=== PATIENT | male | born 1955 | race Two or more races ===

== ENCOUNTER 2022-12-10 06:24 | Outpatient (OUT) | payer MEDICARE, BC, SELFPAY ==
[2022-12-10 07:22] LABS: Basophils Percent Auto 0.5 % (0.2-2.0); Eosinophils Absolute Auto 0.1 10^3/uL (0.0-0.7); Eosinophils Percent Auto 1.6 % (0.9-7.0); Hematocrit 42.6 % (42.0-54.0); Hemoglobin 13.7 g/dL (14.0-18.0); Immature Granulocytes Abs Auto 0.01 10^3/uL (0.00-0.03); Immature Granulocytes Pct Auto 0.1 % (0.0-0.5); Lymphocytes Absolute Auto 2.9 10^3/uL (1.2-3.8); Lymphocytes Percent Auto 38.3 % (20.5-60.0); Mean Corpuscular HGB Conc 32.2 g/dL (29.9-35.2); Mean Corpuscular Hemoglobin 28.2 pg (25.9-34.0); Mean Corpuscular Volume 87.8 fL (80.0-94.0); Mean Platelet Volume 10.4 fL (9.5-13.5); Monocytes Absolute Auto 0.4 10^3/uL (0.3-0.8); Monocytes Percent Auto 5.6 % (1.7-12.0); Neutrophils Percent Auto 53.9 % (43.0-75.0); Platelet Count 161 10^3/uL (150-450); Red Blood Count 4.85 10^6/uL (4.70-6.10); Red Cell Distribution Width 12.9 % (11.0-15.0); White Blood Count 7.5 10^3/uL (4.0-11.0)
[2022-12-10 08:31] LABS: Estimated Average Glucose 120 mg/dL; Glycohemoglobin A1C 5.8 % (4.5-6.2)
[2022-12-10 09:05] LABS: Anion Gap 10.4; BUN Creatinine Ratio 26.8; Calcium 9.3 mg/dL (8.5-10.1); Carbon Dioxide 30.8 mmol/L (21.0-32.0); Chloride 103 mmol/L (98-107); Chol HDL Ratio 5.1; Cholesterol 163 mg/dL (<=200); Estimated GFR (African America >60 (>=60); Estimated GFR (Non-African Ame >60 (>=60); Glucose 128 mg/dL (74-106); HDL Cholesterol 32 mg/dL (40-60); Potassium 4.2 mmol/L (3.5-5.1); Sodium 140 mmol/L (136-145); Triglycerides 427 mg/dL (<=150); VLDL CHOLESTEROL 85.4 mg/dL
[2022-12-10 09:15] LABS: LDL Cholesterol Direct 64 mg/dL
[2022-12-10 09:53] LABS: Prostate Specific Antigen Scrn 1.35 ng/mL (<=4.00)
== END 2022-12-10 06:25 | disposition home or self-care (01) ==
LOC: LAB 06:32
PROVIDERS: PCP Internal Medicine; Visit Provider Internal Medicine
DX: D64.9 Anemia, unspecified (principal); R73.01 Impaired fasting glucose; E78.00 Pure hypercholesterolemia, unspecified; Z12.5 Encounter for screening for malignant neoplasm of prostate
CPT/HCPCS: 36415; 80048; 80061; 82607; 82728; 82746; 83036; 83540; 83550; 83721; 85025; G0103

== ENCOUNTER 2022-12-24 12:21 | Outpatient (OUT) | payer MEDICARE, BC, SELFPAY ==
--- NOTE | 2022-12-24 10:45 | NM_ITS ---
Patient: ZENA TAMEZ Exam Date: 12/24/2022 : 1955 Gender:M Ordering : DR Aaron Benjamin D.O. Admission #: [id number] Family : Order #: [id number] CLICK HERE TO VIEW EXAM RADIOLOGY REPORT PROCEDURE: NM ALANIS PERF SPECT REST STR COMPARISON: None. INDICATIONS: Chest pain TECHNIQUE: Exam Description: Stress/Rest one day protocol gated SPECT Rest Imagin.5 mCi Tc-99m Cardiolite IV on 12/24/2022 Stress Imaging 30.6 mCi Tc-99m Cardiolite IV on 12/24/2022 Exercise Protocol: 0.4 mg Lexiscan given IV Heart Rate (bpm): Rest: 54 Max: 136 PMHR: 89 Blood Pressure: Rest: 146/84 Max: 208/94 Exercise Time: Minutes: 9 Seconds: 00 Stage Reached: Stage: 3 Mets 10.1 Symptoms: Rest and peak stress ECG findings were normal and the exercise portion of the study was normal per attending physician Dr. Ricardo Benjamin . For more details please see separate cardiac stress test report. FINDINGS: QUALITY OF STUDY: Good. PERFUSION DEFECT: None. LOCATION: Basal inferior. Mid-inferior. SIZE: Small (1-2 segments). SEVERITY: Moderate. TYPE: Persistent. WALL MOTION: Normal. LV SIZE: Normal. 113 mL. TID / TCD: None; 0.7 LVEF: Abnormal. Calculated EF 50%. SUMMARY: Myocardial perfusion imaging study has ABNORMAL findings. CONCLUSION: 1. Small fixed defect in the inferior wall. No reversible ischemia 2. Low left ventricular ejection fraction of 50% 3. Normal exercise test Dictated by: Sriram Phillips MD on 12/24/2022 at 15:11 Approved by: Sriram Phillips MD on 12/24/2022 at 15:13
--- NOTE | 2022-12-24 12:21 | OP_ITS ---
CARDIAC STRESS TEST ? Requesting Physician:? Procedure Date:? 12/24/2022 ? PROCEDURE:? Patient underwent a treadmill exercise test under Jaime protocol. ? REASON FOR STRESS TEST:? To evaluate a patient with exertional chest pain and a strong family history for coronary disease. ? CARDIAC HISTORY:? This is a 67-year-old patient with no history of coronary disease.? He has a strong family history with two brothers and sister all having coronary artery bypass grafting surgery. ? RESTING 12 LEAD ELECTROCARDIOGRAM reveals sinus rhythm with a ventricular rate of 59 beats per minute. The LA interval, QRS interval and QT interval are all within normal limits.? There are no pathologic Q-waves and only non-specific ST- T wave changes. ? STRESS TEST: Protocol:? Jaime protocol is followed. Exercise capacity:? Patient demonstrated above average exercise capacity.? He exercised for 8 minutes, achieving a heart rate of 136 beats per minute, which is equivalent to 89% maximum predicted heart rate.? Patient exercised into stage 3 of this protocol, which is equivalent to 10.1 MET units. Heart rate and blood pressure response:? Patient demonstrated a normal heart rate and blood pressure response to exercise.? EKG:? There were no ST-T wave changes or significant arrhythmias during exercise. Patient response:? Patient denied chest pain during exercise. ? IMPRESSION:? There was no objective evidence of myocardial ischemia during exercise.? Patient demonstrated normal to above average exercise capacity with a normal heart rate and blood pressure response to exercise. His Velarde treadmill score was 8 placing him in a low risk group.? Cardiolite was injected with Cardiolite images and interpretation pending. ? [facility]
== END 2022-12-24 12:22 | disposition home or self-care (01) ==
LOC: NM 12:22
PROVIDERS: PCP Internal Medicine; Visit Provider Internal Medicine
DX: R07.2 Precordial pain (principal); R94.39 Abnormal result of other cardiovascular function study
CPT/HCPCS: 78452; 93017; A9500

== ENCOUNTER 2023-01-05 07:51 | Outpatient (OUT) | payer MEDICARE, BC, SELFPAY ==
--- NOTE | 2023-01-05 08:59 | CA_ITS ---
Patient: ZENA TAMEZ Exam Date: 01/05/2023 : 1955 Gender:M Ordering : DR Aaron Benjamin D.O. Admission #: [id number] Family : Order #: [id number] CLICK HERE TO VIEW EXAM ECHOCARDIOGRAM REPORT PROCEDURE: CA ECHO DOPPLER COMPLETE INDICATIONS: Left ventricular systolic dysfunction without heart failure COMPARISON: None. DESCRIPTION: COMPLETE ECHOCARDIOGRAM Real-time transthoracic echocardiography with 2D, M-mode, spectral and color flow Doppler performed. QUALITY: Technical quality was good. LEFT VENTRICLE: Normal chamber size. Mild concentric left ventricular hypertrophy. Global left ventricular systolic function is normal. LV EF: Calculated left ventricular ejection fraction is 56% DIASTOLIC: Grade I diastolic dysfunction. ATRIAL SEPTUM: LEFT ATRIUM: Mild dilatation. RIGHT ATRIUM: Moderate dilatation. RIGHT VENTRICLE: Mild dilatation. Mildly decreased right ventricular systolic function. TRICUSPID VALVE: Normal mobility and thickness. No stenosis with trivial regurgitation. Unable to assess right-sided pressures due to lack of measurable tricuspid regurgitation. MITRAL VALVE: Normal mobility and thickness. No evidence of mitral valve stenosis. There is no mitral annular calcification. Trivial mitral regurgitation. AORTIC VALVE: Normal trileaflet appearance. No visible sclerosis. Normal leaflet mobility. No evidence of aortic valve stenosis. Trivial aortic regurgitation. AORTIC ROOT: Normal diameter and appearance. PULMONIC VALVE: Normal thickness and mobility. No stenosis. Trivial regurgitation. PERICARDIUM: No evidence of pericardial effusion. IVC: Collapses with inspirations. Normal size. PLEURA: CONCLUSION: 1. Mild concentric left ventricular hypertrophy with normal systolic function. LVEF is 60%. 2. Mild right ventricular dilatation with mildly decreased systolic function. 3. Mild to moderate biatrial dilatation. 4. Mild diastolic dysfunction. 5. No significant valvular dysfunction. 6. Unable to assess right-sided pressures due to lack of measurable tricuspid regurgitation. Adult Echocardiography Procedure Report Left Ventricle LVEDD (3.7 - 5.6 cm): 5.11 cm LVESD (2.2 - 4.0 cm): 3.11 cm LVIVS thickness (0.6 - 1.2 cm): 1.26 cm LVPW thickness (0.5 - 1.0 cm): 1.30 cm e': 0.08 m/s E - e': 5.49 LVOT Max Gradient: 3.20 mm[Hg] LVOT Area (cm2): 0.89 m/s Peak Velocity (LVOT): 0.89 m/s Mean Velocity (LVOT): 0.58 m/s LVOT Diameter 2.31 cm Left Ventricular Ejection Fraction: 55.61 % Left Atrium LA Volume Index (2D A2C): 43.85 ml/m2 Left Atrium Systolic Dimension: 4.44 cm Mitral Valve MV E to A Ratio: 0.77 Mitral Valve A-Wave Peak Velocity: 0.58 m/s Mitral Valve E-Wave Peak Velocity: 0.45 m/s Right Ventricle RV Internal Diastolic Dimension: 4.37 cm Aorta AO Root Diam: 3.46 cm Ascending Ao Diam: 3.49 cm Aortic Valve AoV Area (Peak George): 2.81 cm2, 2.81 cm2 AoV Area (VTI): 3.08 cm2, 3.08 cm2 Peak Velocity(Antegrade Flow): 1.33 m/s Peak Gradient(Antegrade Flow): 7.06 mm[Hg] Mean Velocity(Antegrade Flow): 0.90 m/s Mean Gradient(Antegrade Flow): 3.79 mm[Hg] Velocity Time Integral: 30.21 cm Tricuspid Valve Peak Velocity (Regurgitant Flow): 2.27 m/s, 2.35 m/s, 2.54 m/s Pulmonic Valve Mean Gradient: 1.66 mm[Hg], 1.92 mm[Hg] Mean Velocity: 0.60 m/s, 0.65 m/s Peak Velocity: 0.99 m/s Peak Gradient: 4.10 mm[Hg], 3.81 mm[Hg] Right Atrium Right Atrium Systolic Pressure: 94.87 ml, 94.87 ml Dictated by: Rainer Waddell M.D. on 01/05/2023 at 16:14 Approved by: Rainer Waddell M.D. on 01/05/2023 at 16:20
== END 2023-01-05 07:52 | disposition home or self-care (01) ==
LOC: CARD 07:51
PROVIDERS: PCP Internal Medicine; Visit Provider Internal Medicine
DX: I51.9 Heart disease, unspecified (principal); R94.39 Abnormal result of other cardiovascular function study
CPT/HCPCS: 93306

== ENCOUNTER 2023-08-25 09:32 | Outpatient (OUT) | payer MEDICARE, SELFPAY ==
[2023-08-25 10:15] LABS: Basophils Percent Auto 0.5 % (0.2-2.0); Eosinophils Absolute Auto 0.1 10^3/uL (0.0-0.7); Eosinophils Percent Auto 1.1 % (0.9-7.0); Hematocrit 40.8 % (42.0-54.0); Hemoglobin 13.5 g/dL (14.0-18.0); Immature Granulocytes Abs Auto 0.01 10^3/uL (0.00-0.03); Immature Granulocytes Pct Auto 0.1 % (0.0-0.5); Lymphocytes Absolute Auto 3.5 10^3/uL (1.2-3.8); Lymphocytes Percent Auto 44.1 % (20.5-60.0); Mean Corpuscular HGB Conc 33.1 g/dL (29.9-35.2); Mean Corpuscular Hemoglobin 29.1 pg (25.9-34.0); Mean Corpuscular Volume 87.9 fL (80.0-94.0); Mean Platelet Volume 10.2 fL (9.5-13.5); Monocytes Absolute Auto 0.4 10^3/uL (0.3-0.8); Monocytes Percent Auto 5.3 % (1.7-12.0); Neutrophils Absolute Auto 3.9 10^3/uL (1.4-6.5); Neutrophils Percent Auto 48.9 % (43.0-75.0); Platelet Count 152 10^3/uL (150-450); Red Blood Count 4.64 10^6/uL (4.70-6.10); Red Cell Distribution Width 12.3 % (11.0-15.0)
[2023-08-25 11:27] LABS: Percent Iron Saturation 21.6 %
== END 2023-08-25 09:33 | disposition home or self-care (01) ==
LOC: LAB 09:36
PROVIDERS: PCP Internal Medicine; Visit Provider Internal Medicine
DX: D64.9 Anemia, unspecified (principal)
CPT/HCPCS: 36415; 82728; 83540; 83550; 85025

== ENCOUNTER 2024-01-12 06:28 | Outpatient (OUT) | payer MEDICARE, SELFPAY ==
[2024-01-12 08:35] LABS: Basophils Percent Auto 0.5 % (0.2-2.0); Eosinophils Absolute Auto 0.2 10^3/uL (0.0-0.7); Eosinophils Percent Auto 2.2 % (0.9-7.0); Hematocrit 39.6 % (42.0-54.0); Immature Granulocytes Abs Auto 0.01 10^3/uL (0.00-0.03); Immature Granulocytes Pct Auto 0.1 % (0.0-0.5); Lymphocytes Absolute Auto 3.4 10^3/uL (1.2-3.8); Lymphocytes Percent Auto 43.8 % (20.5-60.0); Mean Corpuscular HGB Conc 32.8 g/dL (29.9-35.2); Mean Corpuscular Volume 91.2 fL (80.0-94.0); Mean Platelet Volume 11.1 fL (9.5-13.5); Monocytes Absolute Auto 0.4 10^3/uL (0.3-0.8); Monocytes Percent Auto 5.1 % (1.7-12.0); Neutrophils Absolute Auto 3.7 10^3/uL (1.4-6.5); Neutrophils Percent Auto 48.3 % (43.0-75.0); Platelet Count 160 10^3/uL (150-450); Red Blood Count 4.34 10^6/uL (4.70-6.10); Red Cell Distribution Width 12.3 % (11.0-15.0); White Blood Count 7.7 10^3/uL (4.0-11.0)
[2024-01-12 08:59] LABS: Alanine Aminotransferase 22 U/L (16-63); Albumin Globulin Ratio 0.9; Albumin Level 3.3 g/dL (3.4-5.0); Alkaline Phosphatase 107 U/L (46-116); Anion Gap 8.2; BUN Creatinine Ratio 21.7; Bilirubin Total 0.3 mg/dL (0.2-1.0); Calcium 9.1 mg/dL (8.5-10.1); Carbon Dioxide 32.4 mmol/L (21.0-32.0); Chloride 105 mmol/L (98-107); Cholesterol 157 mg/dL (<=200); Estimated GFR (African America >60 (>=60); Estimated GFR (Non-African Ame >60 (>=60); Globulin 3.6 g/dL; Glucose 111 mg/dL (74-106); HDL Cholesterol 26 mg/dL (40-60); Potassium 4.6 mmol/L (3.5-5.1); Sodium 141 mmol/L (136-145); Total Protein 6.9 g/dL (6.4-8.2); Triglycerides 674 mg/dL (<=150); VLDL CHOLESTEROL 134.8 mg/dL
[2024-01-12 09:21] LABS: Aspartate Amino Transferase 16 U/L (15-37)
[2024-01-12 09:40] LABS: LDL Cholesterol Direct 47 mg/dL
[2024-01-12 12:17] LABS: Estimated Average Glucose 108 mg/dL; Glycohemoglobin A1C 5.4 % (4.5-6.2)
== END 2024-01-12 06:29 | disposition home or self-care (01) ==
LOC: LAB 06:30
PROVIDERS: PCP Internal Medicine; Visit Provider Internal Medicine
DX: R73.01 Impaired fasting glucose (principal); G60.9 Hereditary and idiopathic neuropathy, unspecified; R03.0 Elevated blood-pressure reading, without diagnosis of hypertension; E78.00 Pure hypercholesterolemia, unspecified; D64.9 Anemia, unspecified; Z12.5 Encounter for screening for malignant neoplasm of prostate
CPT/HCPCS: 36415; 80053; 80061; 83036; 83721; 85025; G0103

== ENCOUNTER 2024-01-26 09:32 | Outpatient (OUT) | payer MEDICARE, SELFPAY ==
--- NOTE | 2024-01-26 | XR_ITS ---
[address] [address] Patient Name: ZENA TAMEZ MRN: [id number] date: 1955 Sex: M Assigned Patient Location: Current Patient Location: Accession/Order Number: [id number] Exam Date: 01/26/2024 09:33 Report Date: 01/26/2024 14:32 At the request of: DESTINY MONTGOMERY Procedure: XR foot ARMAND min 3V EXAMINATION: XR foot ARMAND min 3V HISTORY: BILATERAL FOOT PAIN COMPARISON: 10/03/2020 FINDINGS: RIGHT FINDINGS: BONES: No acute fracture or dislocation. Minimal degenerative changes with enthesopathic spurring of the calcaneus and mild marginal osteophyte formation SOFT TISSUES: Negative. No visible soft tissue swelling. OTHER: Negative. LEFT FINDINGS: BONES: No acute fracture or dislocation. Minimal degenerative changes with enthesopathic spurring mild marginal osteophyte formation. Internal fixation of the distal tibia with a medial plate and screws, partially visualized SOFT TISSUES: Negative. No visible soft tissue swelling. OTHER: Negative. XR/XR foot ARMAND min 3V IMPRESSION: Minimal bilateral degenerative changes Electronically authenticated by: CINDY CHANDRA Date: 01/26/2024 14:32
== END 2024-01-26 09:33 | disposition home or self-care (01) ==
LOC: EC 09:32
PROVIDERS: PCP Internal Medicine
DX: M79.672 Pain in left foot (principal); M79.671 Pain in right foot
CPT/HCPCS: 73630

== ENCOUNTER 2024-03-29 08:44 | Outpatient (OUT) | payer MEDICARE, SELFPAY ==
--- NOTE | 2024-03-29 08:50 | ECG_ITS ---
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
--- OUTSIDE RECORDS SUMMARY | 2024-03-29 08:56 | XMS_ITS | CCD ---
Author Organization [facility] Care Team Providers Care Energy Administrator Name Role Phone Al-Obosi, Nupur Tony Unavailable [phone] Price Swift Unavailable [phone] JOSE MANUEL, LAURA JARRELL Unavailable Unavai lable AL-OBOSI, NUPUR TONY Unavailable Unavail able AL-OBOSI, NUPUR TONY Unavailable Unavail able TRANG BRAY Unavailable Unavailable PHILBIN, LAURA JARRELL Unavailable Unavai labLEIA Josue Unavailable Unavailable PHILBIN, LAURA JARRELL Unavailable Unavai lable AL-OBOSI, NUPUR TONY Unavailable Unavail able PHILBIN, LAURA JARRELL Unavailable Unavai lable SHILA ISLAS Unavailable Unavailable PHILBIN, LAURA JARRELL Unavailable Unavai lable AL-OBOSI, NUPUR TONY Unavailable Unavail able PHILBIN, LAURA JARRELL Unavailable Unavai lable JONA MEYER Unavailable Unavailable PHILBIN, LAURA JARRELL Unavailable Unavai lable AL-OBOSI, NUPUR TONY Unavailable Unavail able PHILBIN, LAURA JARRELL Unavailable Unavai lable PHILBIN, LAURA JARRELL Unavailable Unavai lable AL-OBOSI, NUUPR TONY Unavailable Unavail able Al-Obosi, Nupur I. Unavailable Unavailable PHILBIN, LAURA JARRELL Unavailable Unavai lable PHILBIN, LAURA JARRELL Unavailable Unavai lable AL-OBOSI, NUPUR TONY Unavailable Unavail able PHILBIN, LAURA JARRELL Unavailable Unavai lable PHILBIN, LAURA JARRELL Unavailable Unavai lable AL-OBOSI, NUPUR TONY Unavailable Unavail able PHILBIN, LAURA JARRELL Unavailable Unavai lable PRICE SWIFT Unavailable Unavailabl e AL-OBOSI, NUPUR TONY Unavailable Unavail able Al-Obosi, Nupur I. Primary Care Provider NUPUR GIL Primary Care Unavail able ALLISON WILLIAMSON Attending Unavailab Nupur Bernal I. Primary Care Provider Aaron Bush Unavailable Yvonne, Imwilliam Unavailable MD Nino Russell Attending Provider DO Aaron Bush Primary Care Provider Craig Ken Unavailable ELEAZAR, DR MÁRQUEZ Consulting Unavailable BALL, DR MÁRQUEZ Attending Unavailable BALL, DR MÁRQUEZ Admitting Unavailable BALL, DR MÁRQUEZ Primary Care Unavailable BALL, DR MÁRQUEZ Attending Unavailable BALL, DR MÁRQUEZ Admitting Unavailable BALL, DR MÁRQUEZ Primary Care Unavailable BALL, DR MÁRQUEZ Primary Care Unavailable BALL, DR MÁRQUEZ Consulting Unavailable BALL, DR MÁRQUEZ Attending Unavailable BALL, DR MÁRQUEZ Admitting Unavailable ZIEBER, DR SILVIA Mcclain Consulting Unavailable MISC, DR SCOTT Attending Unavailable MISC, DR SCOTT Admitting Unavailable MISC, DR SCOTT Consulting Unavailable BALL, DR MÁRQUEZ Primary Care Unavailable BALL, DR MÁRQUEZ Consulting Unavailable BALL, DR MÁRQUEZ Attending Unavailable BALL, DR MÁRQUEZ Admitting Unavailable BALL, DR MÁRQUEZ Primary Care Unavailable Eleazar, Aaron Primary Care Unavailable Asaad, Nino Attending Unavailable Asaad, Nino Admitting Unavailable Medications Current Medications Medication Drug Class(es) Dates Sig (Normalized) Sig (Original) acetaminophen 325 mg / HYDROcodone bitartrate 5 mg oral tablet (2 sources) Opioid Agonist Start: 02-17-2018 End: 02-24-2018 take 1-2 tablets by mouth every four hours as needed for pain and pain HYDROcodone-aceta minophen (NORCO) 5-325 mg per tablet Indications: Post-op pain Take 1 (one) tablet to 2 (two) tablets by mouth every 4 (four) hours as needed for pain. 40 tablet 0 02/17/2018 02/24/2018 Active Start: 05-27-2017 End: 06-03-2017 take 1-2 tablets by mouth every four hours HYDROcodone-acetaminophen (NORCO) 5-325 mg per tablet Take 1 (one) tablet to 2 (two) tablets by mouth every 4 (four) hours as needed for pain. 40 tablet 0 05/27/2017 06/03/2017 Active aspirin 325 mg oral tablet (2 sources) Nonsteroidal Anti-inflammatory Drug Start: 02-17-2018 End: 03-19-2018 take 1 tablet by mouth twice daily aspirin 325 MG tablet Take 1 (one) tablet (325 mg total) by mouth 2 (two) times a day While immbolized. 60 tablet 1 02/17/2018 03/19/2018 Active Start: 05-27-2017 End: 06-26-2017 take 1 tablet by mouth twice daily aspirin 325 MG tablet Take 1 (one) tablet (325 mg total) by mouth 2 (two) times a day While immbolized. 60 tablet 1 05/27/2017 06/26/2017 Active celecoxib 200 mg oral capsule (2 sources) Nonsteroidal Anti-inflammatory Drug Start: 02-17-2018 End: 02-24-2018 take 1 capsule by mouth twice daily celecoxib (CELEBREX) 200 MG capsule Take 1 (one) capsule (200 mg total) by mouth 2 (two) times a day for 7 days. 14 capsule 0 02/17/2018 02/24/2018 Active Start: 05-27-2017 End: 06-03-2017 take 1 capsule by mouth once daily celecoxib (CELEBREX) 200 MG capsule Take 1 (one) capsule (200 mg total) by mouth daily for 7 days. 7 capsule 0 05/27/2017 06/03/2017 Active cephalexin 500 mg oral capsule (2 sources) Cephalosporin Antibacterial Start: 02-17-2018 End: 02-24-2018 take 1 capsule by mouth four times daily cephALEXin (KEFLEX) 500 MG capsule Take 1 (one) capsule (500 mg total) by mouth 4 (four) times a day for 7 days. 28 capsule 0 02/17/2018 02/24/2018 Active Start: 05-27-2017 End: 06-03-2017 take 1 capsule by mouth four times daily cephALEXin (KEFLEX) 500 MG capsule Take 1 (one) capsule (500 mg total) by mouth 4 (four) times a day for 7 days. 28 capsule 0 05/27/2017 06/03/2017 Active CYANOCOBALAMIN, VITAMIN B-12 , (VITAMIN B-12 ORAL) (9 sources) CYANOCOBALAMIN, VITAMIN B-12, (VITAMIN B-12 ORAL) Indications: supplement Take by mouth every morning . 0 Active CYANOCOBALAMIN, VITAMIN B-12, (VITAMIN B-12 ORAL) Indications: supplement Take by mouth every morning . Active cyclobenzaprine hydrochloride 5 mg oral tablet (1 source) Muscle Relaxant Start: 05-17-2017 cyclobenzaprine (FLEXERIL) 5 MG tablet Take 1 tab at 7 pm for muscle pain, don't drive under influence of the medication, can go up to two three times daily if toelrated 05/17/2017 Active docusate sodium 100 mg oral capsule (1 source) Start: 05-27-2017 End: 06-06-2017 take 1 capsule by mouth twice daily for constipation docusate sodium (COLACE) 100 MG capsule Take 1 (one) capsule (100 mg total) by mouth 2 (two) times a day Purchase over the counter. Take for constipation while on narcotics. for 10 days. 10 capsule 0 05/27/2017 06/06/2017 Active escitalopram 10 mg oral tablet (7 sources) Serotonin Reuptake Inhibitor Start: 12-16-2022 take 1 tablet by mouth once daily at bedtime Escitalopram Oxalate 10 MG 1 tablet Orally Once a day at bedtime for 90 days Nov, Active esomeprazole 40 mg delayed release oral capsule (20 sources) Proton Pump Inhibitor Start: 08-26-2022 take 1 capsule by mouth every twelve hours Esomeprazole Magnesium 40 MG 1 capsule Orally twice a day for 30 days Aug, Active Start: 08-26-2022 End: 08-26-2022 take 40 mg by mouth once daily Esomeprazole Magnesium Discontinued 40 MG PO Daily August 26, 2022 12:00am August 26, 2022 10:07am Start: 06-01-2016 End: 02-11-2018 esomeprazole (NEXIUM) 40 MG capsule TAKE 1 CAPSULE DAILY @ [facility] for GER[facility] 06/01/2016 02/11/2018 Discontinued folic acid (7 sources) ilsjmfxh-jxbr-rt n-folic acid (rmqfmlqnwqra-cdbz-cdajdxku-folic acid) 3,500-18-0.4 unit-mg-mg Chew Indications: supplement Chew and Swallow every morning . Active gabapentin 300 mg oral capsule (19 sources) Anti-epilept ic Agent take 2 capsules by mouth at bedtime Gabapentin 300 MG 2 capsules Orally at bedtime Active take 1 capsule by [facility] every twenty-four hours Gabapentin 300 MG 1 capsule Orally Once a day Active meloxicam 15 mg oral tablet (13 sources) Nonsteroidal Anti-inflammatory Drug Start: 07-16-2022 take 1 tablet by mouth every twenty-four hours Meloxicam 15 MG 1 tablet Orally Once a day for 30 day(s) Jul, Active Start: 11-03-2018 meloxicam (MOB IC) 15 MG tablet End: 02-17-2018 take 1 tablet by mouth once daily in the morning meloxicam (MOBIC) 15 MG tablet Indications: pain Take 15 mg by mouth every morning. 02/17/2018 Suspended yzbfqvxo-snup-fcv-folic acid (kuklpffiergd-ebqr-vkyohgxg-folic acid) 3,500-18-0.4 unit-mg-mg Chew (2 sources) bpxcqcue-xebx-tf n-folic acid (gqnyfewfdeuz-aazu-cytkryvq-folic acid) 3,500-18-0.4 unit-mg-mg Chew Indications: supplement Chew and Swallow every morning . 0 Active naproxen 500 mg delayed rele ase oral tablet (2 sources) Nonstero idal Anti-inf lammator y Drug S t a r t : 1 2 - 2 0 - 2 0 1 7 E n d : 1 2 - 2 7 - 2 0 1 7 take 1 tablet by mouth twice daily at mealtime naproxen (EC NAPROSYN) 500 MG EC tablet Take 1 (one) tablet (500 mg total) by mouth 2 (two) times a day with meals for 14 doses. 14 tablet 0 05/19/2017 05/26/2017 Active omeprazole 20 mg delayed rel ease oral capsule (10 sources) Proton Pump Inhibito r S t a r t : 0 9 - 0 6 - 2 0 1 7 take 2 capsules by mouth once daily in the morning omeprazole (PRILOSEC) 20 MG capsule Indications: gastroesophageal reflux disease Take 40 mg by mouth every morning . 0 02/03/2017 Active polysaccharide iron complex 150 mg oral capsule (8 sources) S t a r t : 0 7 - 1 4 - 2 0 2 3 take 1 capsule by mouth every other day Ferrex 150 150 MG 1 capsule Orally qod for 90 days Nov, Active tobramycin 3 mg/ml ophthalmi c solution (1 source) Aminogly coside Antibact erial S t a r t : 0 6 - 0 9 - 2 0 1 9 E n d : 0 6 - 1 4 - 2 0 1 9 take 1 drop(s) into the eye(s) every four hours tobramycin (TOBREX) 0.3 % ophthalmic solution Administer 1 (one) drop into the left eye every 4 (four) hours while awake for 5 days . 5 mL 0 11/06/2018 11/11/2018 Active Completed/Discontinued Medications Medication Drug Class(es) Dates Sig (Normalized) Sig (Original) acetaminophen 325 mg oral tablet (1 source) End: 05-21-2017 take 2 tablets by mouth every six hours acetaminophen (TYLENOL) 325 MG tablet Take 650 mg by mouth every 6 (six) hours as needed for pain. 05/21/2017 Discontinued acetaminophen 325 mg / oxyCODONE hydrochloride 5 mg oral tablet (4 sources) Opioid Agonist Start: 02-17-2018 End: 02-17-2018 take 2 tablets by mouth every twenty-four hours as needed Start: 05-19-2017 End: 05-27-2017 take 1 tablet by mouth every six hours oxyCODONE-acetaminophen (PERCOCET) 5-325 mg per tablet Take 1 (one) tablet by mouth every 6 (six) hours as needed for pain. 20 tablet 0 05/19/2017 05/27/2017 Discontinued atorvastatin 10 mg oral tablet (11 sources) HMG-CoA Reductase Inhibitor Start: 11-04-2015 End: 02-11-2018 take 1 tablet by mouth once daily in the evening atorvastatin (LIPITOR) 10 MG tablet Indications: hypercholesterolemia Take 10 mg by mouth every evening . 11/04/2015 02/11/2018 Discontinued take 1 tablet by [facility] once daily in the morning atorvastatin (LIPITOR) 40 MG tablet Janet cations: hypercholesterolemia Take 40 mg by mouth every morning. 0 Active calcium chloride 0.0014 meq/ ml / potassium chloride 0.004 meq/ml / sodium chloride 0.103 meq/ml / sodium lactate 0.028 meq/ml injectable solution (3 sources) Start: 02-17-2018 End: 02-17-2018 Start: 05-27-2017 End: 05-27-2017 take 50 mL intravenous route every hour lactated Ringers infusion 50 mL/hr, Intravenous, Continuous, Starting Madison 05/27/17 at 0830, Pre-Procedure New Bag 05/27/2017 07:43 EST 50 mL/hr 50 mL/hr DOCOSAHEXANOIC ACID/EPA (FIS H OIL ORAL) (7 sources) End: 02-11-2018 DOCOSAHEXANOIC ACID/EPA (FIS H OIL ORAL) Indications: supplement Take by mouth every other day . 02/11/2018 Discontinued DOCOSAHEXANOIC A CRISTINA/EPA (FISH OIL ORAL) Indications: supplement Take by mouth every other day . Active 50 ml fentaNYL 0.05 mg/ml in jection (3 sources) Opioid Agonist Start: 02-17-2018 End: 02-17-2018 Start: 05-27-2017 End: 05-27-2017 fentaNYL (SUBLIMAZE) injecti on 100 mcg 100 mcg, Intravenous, Once, Madison 05/27/17 at 0830, For 1 dose, Pre-Procedure, Pre-procedure for nerve block. May repeat in 5 minutes x 1 if sedation inadequate to perform block. Given 05/27/2017 08:19 EST 100 mcg gemfibrozil 600 mg oral tablet (8 sources) Peroxisome Proliferator Receptor alpha Agonist Start: 09-16-2015 End: 02-11-2018 gemfibrozil (LOPID) 600 MG tablet TAKE 1 TABLET for cholesterol @ evening 09/16/2015 02/11/2018 Discontinued hydrALAZINE HCl 20 MG per 1 ML Injection (1 source) Arteriolar Vasodilator Start: 02-17-2018 End: 02-17-2018 0.5 ml HYDROmorphone hydrochloride 1 mg/ml prefilled syringe (2 sources) Opioid Agonist Start: 02-17-2018 End: 02-17-2018 Start: 05-19-2017 End: 05-19-2017 HYDROmorphone (DILAUDID) inj ection 0.5 mg 0.5 mg, Intravenous, Once, 05/19/17 at 0445, For 1 dose Given 05/19/2017 04:56 EST 0.5 mg ibuprofen 200 mg oral tablet (2 sources) Nonsteroidal Anti-inflammatory Drug End: 05-27-2017 take 1 tablet by mouth every six hours ibuprofen (ADVIL,MOTRIN) 200 MG tablet Take 200 mg by mouth every 6 (six) hours as needed for pain. 05/27/2017 Discontinued 1 ml ketorolac tromethamine 30 mg/ml injection (1 source) Nonsteroidal Anti-inflammatory Drug, Cyclooxygenase Inhibitor Start: 05-19-2017 End: 05-19-2017 ketorolac (TORADOL) injection 30 mg 30 mg, Intravenous, Once, 05/19/17 at 0445, For 1 dose Given 05/19/2017 04:55 EST 30 mg 4 ml labetalol hydrochloride 5 mg/ml cartridge (1 source) beta-Adrenergic Mariely Start: 02-17-2018 End: 02-17-2018 10 ml lidocaine hydrochloride 10 mg/ml injection (9 sources) Antiarrhythmic, Amide Local Anesthetic Start: 05-27-2017 End: 05-27-2017 lidocaine 1% (XYLOCAINE) 10 mg/mL (1 %) injection 5 mL 5 mL, Other, Once, [place] 05/27/17 at 0830, For 1 dose, Pre-Procedure, [] for anesthesia block administration Given 05/27/2017 08:19 EST 5 mL Start: 05-27-2017 End: 05-27-2017 lidocaine 1% (XYLOCAINE) 10 mg/mL (1 %) injection 0.2 mL 0.2 mL, Intradermal, Once, Madison 05/27/17 at 0830, For 1 dose, Pre-Procedure, Around site prior to IV insertion. Given 05/27/2017 07:43 EST 0.2 mL End: 02-11-2018 lidocaine (LIDODERM) 5 % pat ch Indications: shingles Place 1 patch on the skin daily Remove & Discard patch within 12 hours or as directed by MD . 02/11/2018 Discontinued 2 ml midazolam 1 mg/ml injec tion (2 sources) Benzodiazepine Start: 02-17-2018 End: 02-17-2018 Start: 05-27-2017 End: 05-27-2017 midazolam (VERSED) injection 2 mg 2 mg, Intravenous, Once, Amdison 05/27/17 at 0830, For 1 dose, Pre-Procedure, Pre-procedure for nerve block. May repeat in 5 minutes x 1 if sedation inadequate to perform block. Given 05/27/2017 08:19 EST 2 mg naloxone (NARCAN) injection 0.1 mg (2 sources) Start: 02-17-2018 End: 02-17-2018 naloxone (NARCAN) injection 0.1 mg Start: 02-17-2018 End: 02-17-2018 naloxone (NARCAN) injection 0.1 mg 2 ml ondansetron 2 mg/ml injection (1 source) Serotonin-3 Receptor Antagonist Start: 05-19-2017 End: 05-19-2017 ondansetron (ZOFRAN) injection 4 mg 4 mg, Intravenous, Once, Wed05/19/17 at 0445, For 1 dose Given 05/19/2017 04:55 EST 4 mg predniSONE 10 mg oral tablet (7 sources) Corticosteroid End: 02-11-2018 predniSONE (DELTASONE) 10 MG tablet Take 10 mg by mouth Take 2 tablets twice a day for 3 days, 1 tablet twice a day for 3 days, 1 tablet once a day for 5 days for shingles . 02/11/2018 Discontinued 20 ml ropivacaine hydrochloride 5 mg/ml injection (2 sources) Amide Local Anesthetic Start: 02-17-2018 End: 02-17-2018 Start: 05-27-2017 End: 05-27-2017 ropivacaine (PF) 100 mg/20 m L (5 mg/mL) 0.5 % Syrg 45 mL 45 mL, Infiltration, Once, [facility] 05/27/17 at 0830, For 1 dose, Pre-Procedure, [] for anesthesia block administration Given 05/27/2017 08:19 EST 45 mL 1000 ml sodium chloride 9 mg /ml injection (2 sources) Start: 02-17-2018 End: 02-17-2018 Start: 05-19-2017 End: 05-19-2017 sodium chloride 0.9% (NS) rain maynor 500 mL 500 mL, Intravenous, at 1,000 mL/hr, Once, Wed05/19/17 at 0445, For 1 dose New Bag 05/19/2017 05:00 EST 500 mL 1000 mL/hr valACYclovir 1000 mg oral tablet (7 sources) Herpesvirus Nucleoside Analog DNA Polymerase Inhibitor, Herpes Simplex Virus Nucleoside Analog DNA Polymerase Inhibitor, Herpes Zoster Virus Nucleoside Analog DNA Polymerase Inhibitor End: 02-11-2018 take 1 tablet by mouth twice daily valACYclovir (VALTREX) 1000 MG tablet Indications: shingles Take 1,000 mg by mouth 2 (two) times a day. 02/11/2018 Discontinued UNKNOWN (1 source) End: 05-14-2017 Problems Active Problems Problem Classification Problem Date Documented Date Episodic/Chronic Anxiety disorders (11 sources) Generalized anxiety disorder; Translations: [Generalized anxiety disorder] Chronic Complications of surgical procedures or medical care (5 sources) Infection following a procedure, other surgical site, initial encounter; Translations: [Infection following a procedure, other surgical site, initial encounter] Episodic Deficiency and other anemia (8 sources) Iron deficiency anemia due to blood loss; Translations: [Iron deficiency anemia secondary to blood loss (chronic)] Chronic Deficiency and other anemia (2 sources) 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 Deficiency and other anemia (12 sources) Iron deficiency anemia; Translations: [Other iron deficiency anemias] Episodic Deficiency and other anemia (17 sources) Anemia; Translations: [Anemia, unspecified] Episodic Deficiency and other anemia (8 sources) Anemia, unspecified; Translations: [ANEMIA UNSPECIFIED] Onset: 08-26-2022 Episodic Deficiency and other anemia (1 source) Other iron deficiency anemias Episodic Diabetes mellitus without complication (1 source) Impaired fasting glucose Episodic Disorders of lipid metabolism (20 sources) Hyperlipidemia, unspecified; Translations: [Hypercholesterolemia ] Onset: 05-21-2017 Resolved: 08-13-2020 Chronic Esophageal disorders (19 sources) Gastro-esophageal reflux disease without esophagitis; Translations: [Gastroesophageal reflux disease] Onset: 05-21-2017 Chronic Esophageal disorders (20 sources) Esophageal disorders; Translations: [Gastroesophageal reflux disease with esophagitis without hemorrhage] Fracture of lower limb (2 sources) Nondisplaced fracture of medial malleolus of left tibia, subsequent encounter for closed fracture with nonunion; Translations: [Nondisplaced fracture of medial malleolus of left tibia, subsequent encounter for closed fracture with nonunion] Onset: 10-22-2017 Episodic Gastritis and duodenitis (5 sources) Gastritis; Translations: [Gastritis, unspecified, without bleeding] Episodic Gastroduodenal ulcer (except hemorrhage) (12 sources) Gastric ulcer; Translations: [Gastric ulcer, unspecified as acute or chronic, without hemorrhage or perforation] Chronic Hyperplasia of prostate (20 sources) Lower urinary tract symptoms due to benign prostatic hypertrophy; Translations: [Benign prostatic hyperplasia with lower urinary tract symptoms] Chronic Miscellaneous mental health disorders (5 sources) Primary insomnia; Translations: [Primary insomnia] Chronic Nonspecific chest pain (8 sources) Precordial pain; Translations: [Precordial pain] Episodic Nutritional deficiencies (2 sources) Vitamin D deficiency, unspecified; Translations: [Vitamin D deficiency, unspecified] Onset: 10-22-2017 Chronic Osteoarthritis (20 sources) Osteoarthritis of left knee joint; Translations: [Unilateral primary osteoarthritis, left knee] Onset: 12-16-2021 Chronic Other aftercare (2 sources) Other half-way (current) drug therapy; Translations: [OTH SAW CLEANER CURRENT DRUG THERAPY] Onset: 12-17-2021 Episodic Other aftercare (5 sources) Long-term current use of drug therapy; Translations: [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] Episodic Other and ill-defined heart disease (1 source) Heart disease, unspecified Chronic Other circulatory disease (3 sources) Elevated blood-pressure reading, without diagnosis of hypertension; Translations: [Elevated blood-pressure reading, without diagnosis of hypertension] Onset: 05-21-2017 Episodic Other circulatory disease (7 sources) Elevated blood-pressure reading without diagnosis of hypertension; Translations: [Elevated blood-pressure reading, without diagnosis of hypertension] Episodic Other connective tissue disease (4 sources) Pain in left foot; Translations: [Pain in left foot] Episodic Other connective tissue disease (1 source) Pain in left foot; Translations: [Pain in left foot] Episodic Other injuries and conditions due to external causes (4 sources) History of fall; Translations: [History of falling] Episodic Other injuries and conditions due to external causes (1 source) History of falling; Translations: [History of falling] Episodic Other nervous system disorders (17 sources) Mononeuropathy of lower limb; Translations: [Unspecified mononeuropathy of left lower limb] Chronic Other nervous system disorders (1 source) Unspecified mononeuropathy of left lower limb Chronic Other nervous system disorders (7 sources) Idiopathic peripheral neuropathy; Translations: [Hereditary and idiopathic neuropathy, unspecified] Chronic Other nervous system disorders (1 source) Hereditary and idiopathic neuropathy, unspecified Chronic Other nervous system disorders (1 source) Postoperative pain Episodic Other nervous system disorders (2 sources) Other acute postprocedural pain; Translations: [Other acute postprocedural pain] Onset: 02-17-2018 Episodic Other nervous system disorders (16 sources) Paresthesia; Translations: [Paresthesia of skin] Episodic Other nervous system disorders (1 source) Paresthesia of skin; Translations: [Paresthesia of skin] Episodic Other non-traumatic joint disorders (16 sources) Arthralgia of the ankle and/or foot; Translations: [Pain in left ankle and joints of left foot] Episodic Other non-traumatic joint disorders (1 source) Pain in left ankle and joints of left foot; Translations: [Pain in left ankle and joints of left foot] Episodic Other nutritional; endocrine; and metabolic disorders (3 sources) Obesity, unspecified; Translations: [Obesity, unspecified] Onset: 05-21-2017 Chronic Other nutritional; endocrine; and metabolic disorders (19 sources) Body mass index 30+ - obesity; Translations: [Obesity, unspecified] Chronic Other nutritional; endocrine; and metabolic disorders (4 sources) Overweight; Translations: [Overweight] Episodic Other nutritional; endocrine; and metabolic disorders (1 source) Overweight; Translations: [Overweight] Episodic Other screening for suspected conditions (not mental disorders or infectious disease) (12 sources) Encounter for screening for malignant neoplasm of prostate; Translations: [Patient encounter status] Onset: 12-17-2021 Episodic Paralysis (1 source) Weakness of left leg; Translations: [Weakness of left lower extremity] Onset: 07-21-2017 07-21-2017 Screening and history of mental health and substance abuse codes (1 source) Encounter for screening for depression; Translations: [Encounter for screening for depression] Episodic Spondylosis; intervertebral disc disorders; other back problems (20 sources) Cervical spondylosis without myelopathy; Translations: [Other spondylosis with radiculopathy, cervical region] Onset: 12-17-2021 Chronic Superficial injury; contusion (1 source) Abrasion of eye region; Translations: [Abrasion of left eye, initial encounter] Episodic Unclassified (1 source) Unknown / UNK(Unknown) Onset: 05-27-2017 Unclassified (5 sources) Exposure to acute respiratory syndrome coronavirus 2; Translations: [Contact with and (suspected) exposure to COVID-19] Viral infection (5 sources) Disease caused by 2019-nCoV; Translations: [COVID-19] Past or Other Problems Problem Classification Problem Date Documented Date Episodic/Chronic Abdominal pain (2 sources) Unspecified abdominal pain; Translations: [Unspecified abdominal pain] Onset: 05-19-2017 Episodic Acquired foot deformities (4 sources) Varus deformity, not elsewhere classified, left ankle; Translations: [Varus deformity, not elsewhere classified, left ankle] Onset: 05-21-2017 Episodic Diseases of white blood cells (5 sources) Decreased blood leukocyte number; Translations: [Other decreased white blood cell count] Resolved: 08-13-2020 Chronic Other connective tissue disease (16 sources) Full thickness rotator cuff tear; Translations: [Other symptoms and signs involving the musculoskeletal system] Onset: 06-30-2016 09-16-2016 Episodic Other connective tissue disease (2 sources) Other symptoms and signs involving the musculoskeletal system; Translations: [Weakness of left lower extremity] Onset: 07-21-2017 07-21-2017 Episodic Other diseases of veins and lymphatics (4 sources) Peripheral venous insufficiency; Translations: [Venous insufficiency (chronic) (peripheral)] Resolved: 08-13-2020 Episodic Other diseases of veins and lymphatics (1 source) Venous insufficiency (chronic) (peripheral); Translations: [Venous insufficiency (chronic) (peripheral)] Resolved: 08-13-2020 Episodic Other injuries and conditions due to external causes (3 sources) Nonunion of fracture; 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] Onset: 02-17-2018 02-17-2018 Episodic Other nervous system disorders (9 sources) Abnormal gait; Translations: [Unspecified abnormalities of gait and mobility] Onset: 07-21-2017 07-21-2017 Episodic Other non-traumatic joint disorders (4 sources) Osteophyte, left ankle; Translations: [Other instability, left ankle] Onset: 07-21-2017 Episodic Unclassified (2 sources) Other specified health status; Translations: [Other specified health status] Onset: 05-21-2017 Episodic Unclassified (1 source) LEFT VARUS ANKLE, INSTABILITY, TIBIA EXOSTOSIS Onset: 05-27-2017 Results Test Name Value Interpretation Reference Range Facility CBC AUTO DIFFon 09-16-2022 BASO # 0.0 103/ul Normal 0.0-0.1 [facility] Comment on above: Performed By: #### C BC #### [facility] [address] [place] [address] Dr. Tracy Amos Basophils/100 WBC (Bld) 0.6 % Normal 0.2-2.0 [facility] Comment on above: Performed By: #### C BC #### [facility] [address] [place] [address] Dr. Tracy Amos EO # 0.1 103/ul Normal 0.0-0.7 [facility] Comment on above: Performed By: #### C BC #### [facility] [address] [place] [address] Dr. Tracy Amos Eosinophils/100 WBC (Bld) 1.5 % Normal 0.9-7.0 [facility] Comment on above: Performed By: #### C BC #### [facility] [address] [place] [address] Dr. Tracy Amos Erythrocyte distribution width (RBC) [Ratio] 12.6 % Normal 11.0-15.0 [facility] Comment on above: Performed By: #### C BC #### [facility] [address] [place] [address] Dr. Tracy Amos Hematocrit (Bld) [Volume fraction] 41.2 % Critically low 42.0-54.0 [facility] Comment on above: Performed By: #### C BC #### [facility] [address] [place] [address] Dr. Tracy Amos Hemoglobin (Bld) [Mass/Vol] 13.3 g/dL Critically low 14.0-18.0 [facility] Comment on above: Performed By: #### C BC #### [facility] [address] [place] [address] Dr. Tracy Amos IG # 0.01 10e3/ul Normal 0.00-0.03 [facility] Comment on above: Performed By: #### C BC #### [facility] [address] [place] [address] Dr. Tracy Amos IG % 0.1 % Normal 0.0-0.5 [facility] Comment on above: Performed By: #### C BC #### [facility] [address] [place] [address] Dr. Tracy Amos LYMPH # 3.0 103/ul Normal 1.2-3.8 [facility] Comment on above: Performed By: #### C BC #### [facility] [address] [place] [address] Dr. Tracy Amos Lymphocytes/100 WBC (Bld) 42.0 % Normal 20.5-60.0 [facility] Comment on above: Performed By: #### C BC #### [facility] [address] [place] [address] Dr. Tracy Amos MANUAL DIFF REQ NO Normal [facility] Comment on above: Performed By: #### C BC #### [facility] [address] [place] [address] Dr. Tracy Amos MCH (RBC) [Entitic mass] 28.7 pg Normal 25.9-34.0 [facility] Comment on above: Performed By: #### C BC #### [facility] [address] [place] [address] Dr. Tracy Amos MCHC (RBC) [Mass/Vol] 32.3 g/dL Normal 29.9-35.2 [facility] Comment on above: Performed By: #### C BC #### [facility] [address] [place] [address] Dr. Tracy Amos MCV (RBC) [Entitic vol] 89.0 fL Normal 80.0-94.0 [facility] Comment on above: Performed By: #### C BC #### [facility] [address] [place] [address] Dr. Tracy Amos MONO # 0.5 103/ul Normal 0.3-0.8 [facility] Comment on above: Performed By: #### C BC #### [facility] [address] [place] [address] Dr. Tracy Amos Monocytes/100 WBC (Bld) 6.6 % Normal 1.7-12.0 [facility] Comment on above: Performed By: #### C BC #### [facility] [address] [place] [address] Dr. Tracy Amos NEUT # 3.6 103/ul Normal 1.4-6.5 [facility] Comment on above: Performed By: #### C BC #### [facility] [address] [place] [address] Dr. Tracy Amos Neutrophils/100 WBC (Bld) 49.2 % Normal 43.0-75.0 [facility] Comment on above: Performed By: #### C BC #### [facility] [address] [place] [address] Dr. Tracy Amos Platelet mean volume (Bld) [Entitic vol] 10.2 fL Normal 9.5-13.5 [facility] Comment on above: Performed By: #### C BC #### [facility] [id number] Tracy Amos PLT 164 103/ul Normal 150-450 [facility] Comment on above: Performed By: #### C BC #### [facility] [address] [place], [place] [address] Dr. Tracy Amos RBC 4.63 106/ul Critically low 4.70-6.10 [facility] Comment on above: Performed By: #### C BC #### [facility] [address] [place], [place] [address] Dr. Tracy Amos WBC 7.2 103/ul Normal 4.0-11.0 [facility] Comment on above: Performed By: #### C BC #### [facility] [address] [address] [address] Tracy Saleh 08-26-2022 L --- Specimen: [id number] Received: 08/26/22 Status: BETHANY Troncoso Num: [id number] Spec Type: Surgical Subm Dr: Nino Russell MD Tissues: A Gastric Biopsy (GASTRIC ULCER BX) B Esophagus Biopsy (ESOPHAGUS BX) C Colon Biopsy (ASCENDING) Procedures: HE/6, Gross/Micro L4/3, H PYLORI Age/ Patient Sex Location Account Attending Physician Zena Witt/[facility] [id number] Nino Russell MD SPEC NUM: [id number] RECD: 08/26/22 STATUS: BETHANY TRONCOSO NUM: [id number] ANUP: 08/26/22- SUBM DR: Nino Russell MD ENTERED: 08/26/22 [facility] DR: LEONARDO TYPE: Surgical DEPT: S ORDERED: HE/6, Gross/Micro L4/3, H PYLORI ORDERED: HE/6, Gross/Micro L4/3, H PYLORI Pathological Diagnosis A. Stomach, gastric ulcer, biopsy: - Reactive gastropathy with mucosal erosion and reactive epithelial changes. - Immunohistochemical stain for Helicobacter Pylori is negative. B. Esophagus, biopsy: - Squamous and gastric mucosa with features consistent with reflux esophagitis. - Negative for Chaudhry?s esophagus (H E stain). - Negative for eosinophilic esophagitis. C. Colon, ascending, polyp, biopsy: -Colonic mucosal fold with melanosis coli. -Negative for epithelial dysplasia. Clinical Information FABIAN, rule out Chaudhry's Gross Description A. Received in formalin labeled with the patient's name, number and gastric ulcer biopsy are four fragments of soft mcintyre tissue averaging 0.3 x 0.2 x 0.2 cm. Entirely submitted in one cassette labeled A1. Specimen: [id number] Received: 08/26/22 Status: BETHANY Troncoso Num: [id number] Spec Type: Surgical Subm Dr: Nino Russell MD Tissues: A Gastric Biopsy (GASTRIC ULCER BX) B Esophagus Biopsy (ESOPHAGUS BX) C Colon Biopsy (ASCENDING) Procedures: HE/6, Gross/Micro L4/3, H PYLORI Patient: Zena Witt [id number] (Continued) Specimen: [id number] Received: 08/26/22 (Continued) Gross Description (Continued) Signed (signature on file) Rosa Fischer MD 08/27/22 1520 Specimen: [id number] Received: 08/26/22 Status: BETHANY Troncoso Num: [id number] Spec Type: Surgical Subm Dr: Nino Russell MD Tissues: A Gastric Biopsy (GASTRIC ULCER BX) B Esophagus Biopsy (ESOPHAGUS BX) C Colon Biopsy (ASCENDING) Procedures: HE/6, Gross/Micro L4/3, H PYLORI Patient: Zena Witt [id number] (Continued) Specimen: [id number] Received: 08/26/22 (Continued) Gross Description (Continued) B. Received in formalin labeled with the patient's name, number and esophagus biopsy is one fragment of soft mcintyre tissue measuring 0.3 x 0.3 x 0.2 cm. Entirely submitted in one cassette labeled B1. C. Received in formalin labeled with the patient's name, number and biopsy polyp ascending is one fragment of soft mcintyre tissue measuring 0.5 x 0.3 x 0.2 cm. Entirely submitted in one cassette labeled C1. Microscopic Description A. Two glass slides with H E stained material have been examined. The microscopic findings support the above pathologic diagnosis. B. Two glass slides with H E stained material have been examined. The microscopic findings support the above pathologic diagnosis. C. Two glass slides with H E stained material have been examined. The microscopic findings support the above pathologic diagnosis. CPT Codes 46703?3 Specimen: [id number] Received: 08/26/22 Status: BETHANY Troncoso Num: [id number] Spec Type: Surgical Subm Dr: Nino Russell MD Tissues: A Gastric Biopsy (GASTRIC ULCER BX) B Esophagus Biopsy (ESOPHAGUS BX) C Colon Biopsy (ASCENDING) Procedures: HE/6, Gross/Micro L4/3, H PYLORI Patient: Zena Witt [id number] (Continued) (more content not included)... Normal [facility] CBC AUTO DIFFon 07-13-2022 BASO # 0.0 103/ul Normal 0.0-0.1 [facility] Comment on above: Performed By: #### C BC #### [facility] [address] [place], [place] [address] Dr. Tracy Amos Basophils/100 WBC (Bld) 0.4 % Normal 0.2-2.0 [facility] Comment on above: Performed By: #### C BC #### [facility] [address] [place] [address] Dr. rTacy Amos EO # 0.2 103/ul Normal 0.0-0.7 [facility] Comment on above: Performed By: #### C BC #### [facility] [address] [place] [address] Dr. Tracy Amos Eosinophils/100 WBC (Bld) 1.5 % Normal 0.9-7.0 [facility] Comment on above: Performed By: #### C BC #### [facility] [address] [place] [address] Dr. Tracy Amos Erythrocyte distribution width (RBC) [Ratio] 12.8 % Normal 11.0-15.0 [facility] Comment on above: Performed By: #### C BC #### [facility] [address] [place] [address] Dr. Tracy Amos Hematocrit (Bld) [Volume fraction] 38.2 % Critically low 42.0-54.0 [facility] Comment on above: Performed By: #### C BC #### [facility] [address] [place] [address] Dr. Tracy Amos Hemoglobin (Bld) [Mass/Vol] 12.7 g/dL Critically low 14.0-18.0 [facility] Comment on above: Performed By: #### C BC #### [facility] [address] [place] [address] Dr. Tracy Amos IG # 0.02 10e3/ul Normal 0.00-0.03 [facility] Comment on above: Performed By: #### C BC #### [facility] [address] [place] [address] Dr. Tracy Amos IG % 0.2 % Normal 0.0-0.5 [facility] Comment on above: Performed By: #### C BC #### [facility] [address] [place] [address] Dr. Tracy Amos LYMPH # 3.8 103/ul Normal 1.2-3.8 [facility] Comment on above: Performed By: #### C BC #### [facility] [address] [place] [address] Dr. Tracy Amos Lymphocytes/100 WBC (Bld) 38.1 % Normal 20.5-60.0 [facility] Comment on above: Performed By: #### C BC #### [facility] [address] [place] [address] Dr. Tracy Amos MANUAL DIFF REQ NO Normal [facility] Comment on above: Performed By: #### C BC #### [facility] [address] [place] [address] Dr. Tracy Amos MCH (RBC) [Entitic mass] 29.0 pg Normal 25.9-34.0 [facility] Comment on above: Performed By: #### C BC #### [facility] [address] [place] [address] Dr. Tracy Amos MCHC (RBC) [Mass/Vol] 33.2 g/dL Normal 29.9-35.2 [facility] Comment on above: Performed By: #### C BC #### [facility] [address] [place] [address] Dr. Tracy Amos MCV (RBC) [Entitic vol] 87.2 fL Normal 80.0-94.0 [facility] Comment on above: Performed By: #### C BC #### [facility] [address] [place] [address] Dr. Tracy Amos MONO # 0.5 103/ul Normal 0.3-0.8 [facility] Comment on above: Performed By: #### C BC #### [facility] [address] [place] [address] Dr. Tracy Amos Monocytes/100 WBC (Bld) 4.6 % Normal 1.7-12.0 [facility] Comment on above: Performed By: #### C BC #### [facility] [address] [place] [address] Dr. Tracy Amos NEUT # 5.5 103/ul Normal 1.4-6.5 [facility] Comment on above: Performed By: #### C BC #### [facility] [address] [place] [address] Dr. Tracy Amos Neutrophils/100 WBC (Bld) 55.2 % Normal 43.0-75.0 [facility] Comment on above: Performed By: #### C BC #### [facility] [address] [place] [address] Dr. Tracy Amos Platelet mean volume (Bld) [Entitic vol] 10.0 fL Normal 9.5-13.5 [facility] Comment on above: Performed By: #### C BC #### [facility] [address] [place] [address] Dr. Tracy Amos PLT 179 103/ul Normal 150-450 [facility] Comment on above: Performed By: #### C BC #### [facility] [address] [place] [address] Dr. Tracy Amos RBC 4.38 106/ul Critically low 4.70-6.10 [facility] Comment on above: Performed By: #### C BC #### [facility] [address] [place] [address] Dr. Tracy Amos WBC 9.9 103/ul Normal 4.0-11.0 [facility] Comment on above: Performed By: #### C BC #### [facility] [address] [place] [address] Dr. Tracy Amos CBC AUTO DIFFon 03-04-2022 BASO # 0.1 103/ul Normal 0.0-0.1 [facility] Comment on above: Performed By: #### C BC #### [facility] [address] [place] [address] Dr. Tracy Amos Basophils/100 WBC (Bld) 0.8 % Normal 0.2-2.0 [facility] Comment on above: Performed By: #### C BC #### [facility] [address] [place] [address] Dr. Tracy Amos EO # 0.1 103/ul Normal 0.0-0.7 [facility] Comment on above: Performed By: #### C BC #### [facility] [address] [place] [address] Dr. Tracy Amos Eosinophils/100 WBC (Bld) 1.8 % Normal 0.9-7.0 [facility] Comment on above: Performed By: #### C BC #### [facility] [address] [place] [address] Dr. Tracy Amos Erythrocyte distribution width (RBC) [Ratio] 12.7 % Normal 11.0-15.0 [facility] Comment on above: Performed By: #### C BC #### [facility] [address] [place] [address] Dr. Tracy Amos Hematocrit (Bld) [Volume fraction] 37.3 % Critically low 42.0-54.0 [facility] Comment on above: Performed By: #### C BC #### [facility] [address] [place] [address] Dr. Tracy Amos Hemoglobin (Bld) [Mass/Vol] 12.1 g/dL Critically low 14.0-18.0 [facility] Comment on above: Performed By: #### C BC #### [facility] [address] [place] [address] Dr. Tracy Amos IG # 0.01 10e3/ul Normal 0.00-0.03 [facility] Comment on above: Performed By: #### C BC #### [facility] [address] [place] [address] Dr. Tracy Amos IG % 0.1 % Normal 0.0-0.5 [facility] Comment on above: Performed By: #### C BC #### [facility] [address] [place] [address] Dr. Tracy Amos LYMPH # 3.0 103/ul Normal 1.2-3.8 [facility] Comment on above: Performed By: #### C BC #### [facility] [address] [place] [address] Dr. Tracy Amos Lymphocytes/100 WBC (Bld) 41.3 % Normal 20.5-60.0 [facility] Comment on above: Performed By: #### C BC #### [facility] [address] [place] [address] Dr. Tracy Amos MANUAL DIFF REQ NO Normal [facility] Comment on above: Performed By: #### C BC #### [facility] [address] [address] [address] Tracy Amos MCH (RBC) [Entitic mass] 29.7 pg Normal 25.9-34.0 [facility] Comment on above: Performed By: #### C BC #### [facility] [address] [address] [address] Tracy Amos MCHC (RBC) [Mass/Vol] 32.4 g/dL Normal 29.9-35.2 [facility] Comment on above: Performed By: #### C BC #### [facility] [address] [address] [address] Tracy Amos MCV (RBC) [Entitic vol] 91.4 fL Normal 80.0-94.0 [facility] Comment on above: Performed By: #### C BC #### [facility] [address] [place] [address] Dr. Tracy Amos MONO # 0.5 103/ul Normal 0.3-0.8 [facility] Comment on above: Performed By: #### C BC #### [facility] [address] [place] [address] Dr. Tracy Amos Monocytes/100 WBC (Bld) 6.1 % Normal 1.7-12.0 [facility] Comment on above: Performed By: #### C BC #### [facility] [address] [place] [address] Dr. Tracy Amos NEUT # 3.7 103/ul Normal 1.4-6.5 [facility] Comment on above: Performed By: #### C BC #### [facility] [address] [place] [address] Dr. Tracy Amos Neutrophils/100 WBC (Bld) 49.9 % Normal 43.0-75.0 [facility] Comment on above: Performed By: #### C BC #### [facility] [address] [place] [address] Dr. Tracy Amos Platelet mean volume (Bld) [Entitic vol] 9.9 fL Normal 9.5-13.5 [facility] Comment on above: Performed By: #### C BC #### [facility] [address] [address] [address] Tracy Amos PLT 156 103/ul Normal 150-450 [facility] Comment on above: Performed By: #### C BC #### [facility] [address] [address] [address] Tracy Amos RBC 4.08 106/ul Critically low 4.70-6.10 [facility] Comment on above: Performed By: #### C BC #### [facility] [address] [address] [address] Tracy Amos WBC 7.4 103/ul Normal 4.0-11.0 [facility] Comment on above: Performed By: #### C BC #### [facility] [address] [address] [address] Tracy Amos FERRITINon 03-04-2022 Ferritin [Mass/Vol] 99.0 ng/mL Normal 26.0-388.0 [facility] [place] Comment on above: Performed By: #### F ETIBC, FERR, B12FOL ####[facility] [id number] [address]. Tracy Amos IRON AND TIBCon 03-04-2022 % SATURATION 16.3 % Normal [facility] Comment on above: Performed By: #### F ETIBC, FERR, B12FOL #### [facility] [address] [address] [address] Tracy Amos Iron [Mass/Vol] 55.0 ug/dL Critically low 65.0-175.[address] [facility] Comment on above: Performed By: #### F ETIBC, FERR, B12FOL #### [facility] [address] [address] [address] Tracy Amos TIBC DIRECT 337.0 ug/dL Normal 250.0-450.0 [facility] Comment on above: Performed By: #### F ETIBC, FERR, B12FOL #### [facility] [address] [address] [address] Tracy Amos VIT B12 AND FOLATEon 022 Cobalamin (Vitamin B12) [Mass/Vol] 505.0 pg/mL Normal 193.0-986.0 [facility] Comment on above: Performed By: #### F ETIBC, FERR, B12FOL #### [facility] [address] [place] [address] Dr. Tracy Amos FOLATE 20.70 ng/mL Normal 8.60-58.90 [facility] Comment on above: Performed By: #### F ETIBC, FERR, B12FOL #### [facility] [address] [place] [address] Dr. Tracy Amos CBC AUTO DIFFon 12-16-2021 BASO # 0.0 103/ul Normal 0.0-0.1 [facility] Comment on above: Performed By: #### C BC #### [facility] [address] [place] [address] Dr. Tracy Amos Basophils/100 WBC (Bld) 0.4 % Normal 0.2-2.0 [facility] Comment on above: Performed By: #### C BC #### [facility] [address] [place] [address] Dr. Tracy Amos EO # 0.2 103/ul Normal 0.0-0.7 [facility] Comment on above: Performed By: #### C BC #### [facility] [address] [place] [address] Dr. Tracy Amos Eosinophils/100 WBC (Bld) 2.6 % Normal 0.9-7.0 [facility] Comment on above: Performed By: #### C BC #### [facility] [address] [place] [address] Dr. Tracy Amos Erythrocyte distribution width (RBC) [Ratio] 12.6 % Normal 11.0-15.0 [facility] Comment on above: Performed By: #### C BC #### [facility] [address] [place] [address] Dr. Tracy Amos Hematocrit (Bld) [Volume fraction] 36.6 % Critically low 42.0-54.0 [facility] Comment on above: Performed By: #### C BC #### [facility] [address] [place] [address] Dr. Tracy Amos Hemoglobin (Bld) [Mass/Vol] 12.1 g/dL Critically low 14.0-18.0 [facility] Comment on above: Performed By: #### C BC #### [facility] [address] [place] [address] Dr. Tracy Amos IG # 0.01 10e3/ul Normal 0.00-0.03 [facility] Comment on above: Performed By: #### C BC #### [facility] [address] [place] [address] Dr. Tracy Amos IG % 0.1 % Normal 0.0-0.5 [facility] Comment on above: Performed By: #### C BC #### [facility] [address] [place] [address] Dr. Tracy Amos LYMPH # 2.8 103/ul Normal 1.2-3.8 [facility] Comment on above: Performed By: #### C BC #### [facility] [address] [place] [address] Dr. Tracy Amos Lymphocytes/100 WBC (Bld) 40.3 % Normal 20.5-60.0 [facility] Comment on above: Performed By: #### C BC #### [facility] [address] [place] [address] Dr. Tracy Amos MANUAL DIFF REQ NO Normal [facility] Comment on above: Performed By: #### C BC #### [facility] [address] [place] [address] Dr. Tracy Amos MCH (RBC) [Entitic mass] 30.0 pg Normal 25.9-34.0 [facility] Comment on above: Performed By: #### C BC #### [facility] [address] [place] [address] Dr. Tracy Amos MCHC (RBC) [Mass/Vol] 33.1 g/dL Normal 29.9-35.2 [facility] Comment on above: Performed By: #### C BC #### [facility] [address] [address] [address] Tracy Amos MCV (RBC) [Entitic vol] 90.8 fL Normal 80.0-94.0 [facility] Comment on above: Performed By: #### C BC #### [facility] [address] [address] [address] Tracy Amos MONO # 0.4 103/ul Normal 0.3-0.8 [facility] Comment on above: Performed By: #### C BC #### [facility] [address] [address] [address] Tracy Amos Monocytes/100 WBC (Bld) 5.8 % Normal 1.7-12.0 [facility] Comment on above: Performed By: #### C BC #### [facility] [address] [place] [address] Dr. Tracy Amos NEUT # 3.6 103/ul Normal 1.4-6.5 [facility] Comment on above: Performed By: #### C BC #### [facility] [address] [place] [address] Dr. Tracy Amos Neutrophils/100 WBC (Bld) 50.8 % Normal 43.0-75.0 [facility] Comment on above: Performed By: #### C BC #### [facility] [address] [place] [address] Dr. Tracy Amos Platelet mean volume (Bld) [Entitic vol] 10.3 fL Normal 9.5-13.5 [facility] Comment on above: Performed By: #### C BC #### [facility] [address] [address] [address] Tracy Amos PLT 164 103/ul Normal 150-450 [facility] Comment on above: Performed By: #### C BC #### [facility] [id number] Tracy Amos RBC 4.03 106/ul Critically low 4.70-6.10 [facility] Comment on above: Performed By: #### C BC #### [facility] [address] [address] [address] Tracy Amos WBC 7.1 103/ul Normal 4.0-11.0 [facility] Comment on above: Performed By: #### C BC #### [facility] [address] [address] [address] Tracy Amos LIPID PROFILEon 12-16-2021 CHOL-HDL RATIO NORM SEE BELOW Normal [facility] Comment on above: Result Comment: 3.3 - 4.4 LOW RISK 4.4 - 7.1 AVERAGE RISK 7.1 - 11.0 MODERATE RISK >11.0 HIGH RISK Performed By: #### L IPID, BMP #### [facility] [address] [address] [address] Tracy Amos Cholesterol [Mass/Vol] 118 mg/dL Normal <=200 [facility] Comment on above: Performed By: #### L IPID, BMP #### [facility] [address] [address] [address] Tracy Amos Cholesterol in HDL [Mass/Vol] 40 mg/dL Normal 40-60 [facility] Comment on above: Performed By: #### L IPID, BMP #### [facility] [address] [address] [address] Tracy Amos Cholesterol in LDL [Mass/Vol] 62.6 mg/dL Normal [facility] Comment on above: Performed By: #### L IPID, BMP #### [facility] [address] [address] [address] Tracy Amos Cholesterol.total/Ch olesterol in HDL [Mass ratio] 3.0 {ratio} Normal [facility] Comment on above: Performed By: #### L IPID, BMP #### [facility] [address] [address] [address] Tracy Amos HDL NORMAL > or = 60 mg/dl - LO W CARDIOVASCULAR RISK <40 mg/dl - HIGH CARDIOVASCULAR RISK Normal [facility] Comment on above: Performed By: #### L IPID, BMP #### [facility] [address] [address] [address] Trayc Amos LDL CALC NORMAL SEE BELOW Normal [facility] Comment on above: Result Comment: <100 mg/dl OPTIMAL 100 - 129 mg/dl NEAR OR ABOVE OPTIMAL 130 - 159 mg/dl BORDERLINE HIGH 160 - 189 mg/dl HIGH >190 mg/dl VERY HIGH Performed By: #### L IPID, BMP #### [facility] [address] [place] [address] Dr. Tracy Amos Triglyceride [Mass/Vol] 77 mg/dL Normal <=150 [facility] Comment on above: Performed By: #### L IPID, BMP #### [facility] [address] [address] [address] Tracy Amos VLDL CALC 15.4 mg/dL Normal [facility] Comment on above: Performed By: #### L IPID, BMP #### [facility] [address] [place] [address] Dr. Tracy Amos PROF CHEM 8 (BAS METB)on Anion gap [Moles/Vol] 7.8 mmol/L Normal [facility] Comment on above: Performed By: #### L IPID, BMP #### [facility] [address] [address] [address] Tracy Amos Calcium [Mass/Vol] 8.8 mg/dL Normal 8.5-10.1 [facility] Comment on above: Performed By: #### L IPID, BMP #### [facility] [address] [place] [address] Dr. Tracy Amos Chloride [Moles/Vol] 108 mmol/L Critically high 98-107 [facility] Comment on above: Performed By: #### L IPID, BMP #### [facility] [address] [address] [address] Tracy Amos CO2 [Moles/Vol] 28.5 mmol/L Normal 21.0-32.0 [facility] Comment on above: Performed By: #### L IPID, BMP #### [facility] [address] [place] [address] Dr. Tracy Amos Creatinine [Mass/Vol] 0.94 mg/dL Normal 0.70-1.30 [facility] Comment on above: Performed By: #### L IPID, BMP #### [facility] [address] [address] [address] Tracy Amos EGFR-AF [place] CITIZ[place] >60 Normal >=60 [facility] Comment on above: Performed By: #### L IPID, BMP #### [facility] [address] [address] [address] Tracy Amos EGFR-NON AF [place] CITIZ[place] >60 Normal >=60 [facility] Comment on above: Performed By: #### L IPID, BMP #### [facility] [address] [address] [address] Tracy Amos Glucose [Mass/Vol] 116 mg/dL Critically high 74-106 [facility] Comment on above: Performed By: #### L IPID, BMP #### [facility] [address] [place] [address] Dr. Tracy Amos Potassium [Moles/Vol] 4.3 mmol/L Normal 3.5-5.1 [facility] Comment on above: Performed By: #### L IPID, BMP #### [facility] [address] [place] [address] Dr. Tracy Amos Sodium [Moles/Vol] 140 mmol/L Normal 136-145 [facility] Comment on above: Performed By: #### L IPID, BMP #### [facility] [address] [place] [address] Dr. Tracy Amos Urea nitrogen [Mass/Vol] 24.0 mg/dL Critically high 7.0-18.0 [facility] Comment on above: Performed By: #### L IPID, BMP #### [facility] [address] [place] [address] Dr. Tracy Amos Urea nitrogen/Creatinine [Mass ratio] 25.5 mg/mg Normal [facility] Comment on above: Performed By: #### L IPID, BMP #### [facility] [address] [address] [address] Tracy Amos XR LSPINE 2_3 VIEWSon 2021 XR LSPINE 2_3 VIEWS EXAMINATION: XR LSPI NE 2_3 VIEWS HISTORY: Spondylosis without myelopathy ; chronic lumbar pain COMPARISON: No relevant comparison available. FINDINGS: BONES: Mild right convex curvature lumbar spine. Mild grade 1 retrolisthesis of L3 on 4, with overall straightening of the normal lordotic curvature. Mild right lateral listhesis of L3 on 4. Prominent degenerative osteophytes along the lateral margins of the vertebral bodies. Moderate degenerative facet arthropathy L4-L5, L5-S1. No fracture. DISC SPACES: Moderate marked narrowing L3-L4, L4-L5. PARASPINOUS: Negative. No paraspinous abnormality is seen. OTHER: Negative. IMPRESSION: 1. Multilevel moderate-marked degenerative changes of the lumbar spine. 2. No appreciable acute abnormality. No comparison studies. Electronically authenticated by: SILVIA LI Date: 2021-12-16 21:55 Normal [facility] XR SHOULDER LEFT MIN 2 VIEWS on 05-10-2020 [facility] (RBC) [Entitic mass] EXAM: [facility] XR SHOULDER LEFT MIN 2 VIEWS, 05/10/2020 14:21 PM CLINICAL INDICATIONS: , left shoulder pain COMPARISON: May 02, 2020 FINDINGS: No acute fractures, dislocations, or destructive lesions. The glenohumeral joint is unremarkable. Mild degenerative changes of the acromioclavicular joint. Changes of a biceps tenodesis. Aortic calcification. IMPRESSION: Mild degenerative change No acute findings Normal [facility] XR SHOULDER LEFT MIN 2 VIEWS on 05-02-2020 [facility] (RBC) [Entitic mass] EXAM: [facility] XR SHOULDER LEFT MIN 2 VIEWS, 05/02/2020 09:46 AM CLINICAL INDICATIONS: Grashey and outlet views;, post op fu COMPARISON: August 23, 2018 left shoulder radiograph. FINDINGS: No acute fracture or dislocation. There is a new suture anchor in the proximal humeral diaphysis. Joint spaces are well-maintained. Soft tissues normal. IMPRESSION: New suture anchor in the proximal humerus. No acute osseous abnormality. Normal [facility] SARS-COV-2 RAPIDon 0 SARS-COV2, RT PCR NASOPHARYNGEAL NOT DETECTED Normal NOT DETECTED [facility] Comment on above: Order Comment: Use r ivan, foam, polyester or flocked swabs to collect a nasopharyngeal specimen. After collection, fold over the open end of the collection sleeve and seal with patient lab label, double bag in biohazard bag, and transport to the lab JENI, no later than 60 minutes from collection. Collection must be done while wearing N-95 mask, eye protection, gown and gloves. This test has been approved for the qualitative detection of SARS-CoV-2 nucleic acid. The test has been authorized by the FDA under an emergency use authorization for use by authorized laboratories. Result Comment: Nega tive results do not preclude SARS-CoV-2 infection and should not be used as the sole basis for treatment or other patient management decisions. Optimum specimen types and timing for peak viral levels during infections caused by SARS-CoV-2 has not been determined. The possibility of a false negative result should especially be considered if the patient's recent exposures or clinical presentation suggest that SARS-CoV-2 infection is probable, and diagnostic tests for other causes of illness (e.g., other respiratory illness) are negative. Collection of a new specimen and re-testing may be necessary if the patient is critically ill or clinically deteriorating. Performed By: #### L ABSARS1 #### [facility] (DEFAULT) [address] [place] [address] BASIC METABOLIC PANELon 11-1 Anion gap [Moles/Vol] 13 mmol/L Normal [facility] Comment on above: Performed By: #### C 7C #### [facility] (DEFAULT) [address] [place] [address] Calcium [Mass/Vol] 9.7 mg/dL Normal 8.4-10.2 [facility] Comment on above: Performed By: #### C 7C #### [facility] (DEFAULT) [address] [place] [address] Chloride [Moles/Vol] 108 mmol/L High 98-107 [facility] Comment on above: Performed By: #### C 7C #### [facility] (DEFAULT) [address] [place] [address] CO2 [Moles/Vol] 25 mmol/L Normal 22-31 [facility] Comment on above: Performed By: #### C 7C #### [facility] (DEFAULT) [address] [place] [address] Creatinine [Mass/Vol] 1.05 mg/dL Normal 0.72-1.25 [facility] Comment on above: Performed By: #### C 7C #### [facility] (DEFAULT) [address] [place] [facility] [place] [place] [address] Est Gfr, 86 mL/min/1.73sqM Normal [facility] Comment on above: Performed By: #### C 7C #### [facility] (DEFAULT) [address] [place] [address] Est Gfr,Non 71 mL/min/1.73sqM Normal [facility] Comment on above: Performed By: #### C 7C #### [facility] (DEFAULT) [address] [place] [address] Glucose [Mass/Vol] 102 mg/dL Normal 80-115 [facility] Comment on above: Performed By: #### C 7C #### [facility] (DEFAULT) [address] [place] [address] Osmolality [Osmolality] 301 mOsm/kg Normal [facility] Comment on above: Performed By: #### C 7C #### [facility] (DEFAULT) [address] [place] [facility] [place] [address] Potassium [Moles/Vol] 4.0 mmol/L Normal 3.5-5.1 [facility] Comment on above: Performed By: #### C 7C #### [facility] (DEFAULT) [address] [place] [address] Sodium [Moles/Vol] 142 mmol/L Normal 136-145 [facility] Comment on above: Performed By: #### C 7C #### [facility] (DEFAULT) [address] [place] [address] Urea nitrogen [Mass/Vol] 24.0 mg/dL Normal 8.4-25.7 [facility] Comment on above: Performed By: #### C 7C #### [facility] (DEFAULT) [address] [place] [address] Urea nitrogen/Creatinine [Mass ratio] 23 mg/mg Normal [facility] Comment on above: Performed By: #### C 7C #### [facility] (DEFAULT) [address] [place] [address] CBC AND ELECTRONIC DIFFon Hematocrit (Bld) [Volume fraction] 37.8 % Normal 37.0-51.0 [facility] Comment on above: Performed By: #### L AB981, [id number] #### [facility] (DEFAULT) [address] [place] [address] Hemoglobin (Bld) [Mass/Vol] 12.6 g/dL Normal 12.6-17.4 [facility] Comment on above: Performed By: #### L AB981, [id number] #### [facility] (DEFAULT) [address] [place] [address] MCV (RBC) [Entitic vol] 89.6 fL Normal 81.0-103.0 [facility] Comment on above: Performed By: #### L AB981, [id number] #### [facility] (DEFAULT) [address] [place] [address] Mean Cell Hgb 30.0 pg Normal 27.0-34.0 [facility] Comment on above: Performed By: #### L AB981, [id number] #### [facility] (DEFAULT) [address] [place] [address] Mean Cell Hgb Conc 33.5 pg Normal 31.0-36.0 [facility] Comment on above: Performed By: #### L AB981, [id number] #### [facility] (DEFAULT) [address] [place] [address] Platelet mean volume (Bld) [Entitic vol] 7.8 fL Normal 7.5-11.2 [facility] Comment on above: Performed By: #### L AB981, [id number] #### [facility] (DEFAULT) [address] [place] [address] Platelets (Bld) [#/Vol] 204 10*3/uL Normal 150-400 [facility] Comment on above: Performed By: #### L AB981, [id number] #### [facility] (DEFAULT) [address] [place] [address] RBC (Bld) [#/Vol] 13.1 % Normal 11.5-14.5 [facility] Comment on above: Performed By: #### L AB981, [id number] #### [facility] (DEFAULT) [address] [place] [address] RBC (Bld) [#/Vol] 4.22 10*6/uL Normal Male: 3.8-5.8, Female: 3.8-5.2 [facility] Comment on above: Performed By: #### L AB981, [id number] #### [facility] (DEFAULT) [address] [place] [address] WBC (Bld) [#/Vol] 11.2 10*3/uL High 4.5-11.0 [facility] Comment on above: Performed By: #### L AB981, [id number] #### [facility] (DEFAULT) [address] [place] [address] MANUAL DIFFon 04-15-2020 Abs Eos Manual 0.11 K\uL Normal [facility] Comment on above: Performed By: #### L AB981, [id number] #### [facility] (DEFAULT) [address] [place] [address] Abs Lymph Manual 6.05 K/uL High 1.00-4.80 [facility] Comment on above: Performed By: #### L AB981, [id number] #### [facility] (DEFAULT) [address] [place] [address] Abs Stokes Manual 0.45 K/uL High 0.20-0.40 [facility] Comment on above: Performed By: #### L AB981, [id number] #### [facility] (DEFAULT) [address] [place] [address] Abs Segs Manual 4.59 K/uL Normal 1.80-7.70 [facility] Comment on above: Performed By: #### L AB981, [id number] #### [facility] (DEFAULT) [address] [place] [address] Eosinophils % Manual 1 % Normal [facility] Comment on above: Performed By: #### L AB981, [id number] #### [facility] (DEFAULT) [address] [place] [address] Lymphocyte % Manual 54 % Normal [facility] Comment on above: Performed By: #### L AB981, [id number] #### [facility] (DEFAULT) [address] [place] [address] Monocyte % Manual 4 % Normal [facility] Comment on above: Performed By: #### L AB981, [id number] #### [facility] (DEFAULT) [address] [place] [address] Neutrophil Segmented Manual 41 % Normal [facility] Comment on above: Performed By: #### L AB981, [id number] #### [facility] (DEFAULT) [address] [place] [address] SARS-COV-2 RAPIDon 0 SARS-COV2, RT PCR NASOPHARYNGEAL NOT DETECTED Normal NOT DETECTED [facility] Comment on above: Order Comment: Use r ivan, foam, polyester or flocked swabs to collect a nasopharyngeal specimen. After collection, fold over the open end of the collection sleeve and seal with patient lab label, double bag in biohazard bag, and transport to the lab JENI, no later than 60 minutes from collection. Collection must be done while wearing N-95 mask, eye protection, gown and gloves. This test has been approved for the qualitative detection of SARS-CoV-2 nucleic acid. The test has been authorized by the FDA under an emergency use authorization for use by authorized laboratories. Result Comment: Nega tive results do not preclude SARS-CoV-2 infection and should not be used as the sole basis for treatment or other patient management decisions. Optimum specimen types and timing for peak viral levels during infections caused by SARS-CoV-2 has not been determined. The possibility of a false negative result should especially be considered if the patient's recent exposures or clinical presentation suggest that SARS-CoV-2 infection is probable, and diagnostic tests for other causes of illness (e.g., other respiratory illness) are negative. Collection of a new specimen and re-testing may be necessary if the patient is critically ill or clinically deteriorating. Performed By: #### L ABSARS1 #### [facility] (DEFAULT) [address] [place] [address] COMPREHENSIVE METABOLIC PANE Delfino 02-28-2020 Albumin [Mass/Vol] 4.3 g/dL Normal 3.2-4.6 [facility] Comment on above: Performed By: #### H JENNIE, CMPN #### [facility] (DEFAULT) [address] [place] [address] ALP [Catalytic activity/Vol] 66 U/L Normal 40-150 [facility] Comment on above: Performed By: #### H JENNIE, CMPN #### [facility] (DEFAULT) [address] [place] [address] ALT [Catalytic activity/Vol] 17 U/L Normal 0-55 [facility] Comment on above: Performed By: #### H JENNIE, CMPN #### [facility] (DEFAULT) [address] [place] [address] Anion gap [Moles/Vol] 15 mmol/L Normal [facility] Comment on above: Performed By: #### H JENNIE, CMPN #### [facility] (DEFAULT) [address] [place] [address] AST [Catalytic activity/Vol] 19 U/L Normal <39 [facility] Comment on above: Performed By: #### H JENNIE CMPN #### [facility] (DEFAULT) [address] [place] [address] Bilirubin [Mass/Vol] 0.5 mg/dL Normal 0.3-1.2 [facility] Comment on above: Performed By: #### H JENNIE CMPN #### [facility] (DEFAULT) [address] [place] [address] Calcium [Mass/Vol] 9.5 mg/dL Normal 8.4-10.2 [facility] Comment on above: Performed By: #### H JENNIE CMPN #### [facility] (DEFAULT) [address] [place] [address] Chloride [Moles/Vol] 106 mmol/L Normal 98-107 [facility] Comment on above: Performed By: #### H JENNIE CMPN #### [facility] (DEFAULT) [address] [place] [address] CO2 [Moles/Vol] 25 mmol/L Normal 22-31 [facility] Comment on above: Performed By: #### H JENNIE CMPN #### [facility] (DEFAULT) [address] [place] [address] Creatinine [Mass/Vol] 1.00 mg/dL Normal 0.72-1.25 [facility] Comment on above: Performed By: #### H JENNIE CMPN #### [facility] (DEFAULT) [address] [place] [address] Est Gfr, 91 mL/min/1.73sqM Normal [facility] Comment on above: Performed By: #### H JENNIE, CMPN #### [facility] (DEFAULT) [address] [place] [address] Est Gfr,Non 75 mL/min/1.73sqM Normal [facility] Comment on above: Performed By: #### H JENNIE, CMPN #### [facility] (DEFAULT) [address] [place] [address] Glucose [Mass/Vol] 111 mg/dL Normal 80-115 [facility] Comment on above: Performed By: #### H JENNIE, CMPN #### [facility] (DEFAULT) [address] [place] [address] Osmolality [Osmolality] 300 mOsm/kg Normal [facility] Comment on above: Performed By: #### H JENNIE, CMPN #### [facility] (DEFAULT) [address] [place] [address] Potassium [Moles/Vol] 4.5 mmol/L Normal 3.5-5.1 [facility] Comment on above: Performed By: #### H JENNIE, CMPN #### [facility] (DEFAULT) [address] [place] [address] Protein [Mass/Vol] 7.3 g/dL Normal 6.4-8.3 [facility] Comment on above: Performed By: #### H JENNIE, CMPN #### [facility] (DEFAULT) [address] [place] [address] Sodium [Moles/Vol] 141 mmol/L Normal 136-145 [facility] Comment on above: Performed By: #### H JENNIE, CMPN #### [facility] (DEFAULT) [address] [place] [address] Urea nitrogen [Mass/Vol] 24.0 mg/dL Normal 8.4-25.7 [facility] Comment on above: Performed By: #### H JENNIE, CMPN #### [facility] (DEFAULT) [address] [place] [address] Urea nitrogen/Creatinine [Mass ratio] 24 mg/mg Normal [facility] Comment on above: Performed By: #### H JENNIE, CMPN #### [facility] (DEFAULT) [address] [place] [address] LIPID PANEL W CALCULATED LDL on 02-28-2020 Calculated LDL Cholesterol 54 mg/dL Normal <130 [facility] Comment on above: Result Comment: LDL ADULT LEVELS IN TERMS OF RISK FOR CORONARY HEART DISEASE Optimal: <100 mg/dL Near optimal: 100 to 129 mg/dL Borderline High: 130 to 159 mg/dL High: 160 to 189 mg/dL Very High: >189 mg/dL Performed By: #### H JENNIE, CMPN #### [facility] (DEFAULT) [address] [place] [address] Cholesterol [Mass/Vol] 114 mg/dL Normal <200 [facility] Comment on above: Performed By: #### H JENNIE, CMPN #### [facility] (DEFAULT) [address] [place] [address] Cholesterol in HDL [Mass/Vol] 41 mg/dL Low >60 [facility] Comment on above: Result Comment: [<40 mg/dL: Low (High Risk)] [>59 mg/dL: High (Low Risk)] Performed By: #### H JENNIE, CMPN #### [facility] (DEFAULT) [address] [place] [address] Cholesterol.total/Ch olesterol in HDL [Mass ratio] 2.8 {ratio} Normal [facility] Comment on above: Performed By: #### H JENNIE, CMPN #### [facility] (DEFAULT) [address] [place] [address] Non Hdl Cholesterol 73 mg/dL Normal [facility] Comment on above: Performed By: #### H JENNIE, CMPN #### [facility] (DEFAULT) [address] [place] [address] Triglyceride [Mass/Vol] 93 mg/dL Normal <150 [facility] Comment on above: Performed By: #### H JENNIE, CMPN #### [facility] (DEFAULT) [address] [place] [address] XR SPINE LUMBOSACRAL AP AND LATERALon 10-26-2019 XR SPINE LUMBOSACRAL AP AND LATERAL EXAM: [facility] XR SPINE LUMBOSACRAL AP AND LATERAL, 10/26/2019 10:23 AM CLINICAL INDICATIONS: Worsening back pain, Spondylosis of lumbosacral region without myelopathy or radiculopathy COMPARISON: March 12, 2015 FINDINGS: 5 lumbar type vertebral bodies. Mild scoliosis, concave to the right, centered at L4-5, and concave to the left, centered at L3, measuring 20 degrees at each location. The scoliosis has worsened since the prior examination, and there is now moderate disc space narrowing on the right at L4-5 and severe disc space narrowing on the left at L3-4. Grade 1 retrolisthesis at L3-4. No fracture or bony destruction. Sacroiliac joints are normal. IMPRESSION: 1. Moderate to severe disc degeneration at L4-5 and L3-4, worse than previously 2. Dual curve lumbar scoliosis, worse than previously [facility] XR SPINE SCOLIOSIS 2/3 VIEWS on 10-26-2019 XR SPINE SCOLIOSIS 2/3 VIEWS EXAM: [facility] XR SPINE SCOLIOSIS 2/3 VIEWS, 10/26/2019 10:09 AM CLINICAL INDICATIONS: Back pain worsening over the last 3 months, pain level = 6/10, pain, clinically getting worse COMPARISON: Plain films of the lumbar spine on March 12, 2015 FINDINGS: 12 thoracic vertebrae in normal alignment. 5 lumbar type vertebrae with dual scoliotic curve, concave to the right, centered at L4-5, and concave to the left, centered at L3, measuring about 20 degrees at both locations. Moderate disc space narrowing on the right at L4-5 and severe disc space narrowing on the left at L3-4, with moderate-sized osteophytes. IMPRESSION: Dual curve lumbar scoliosis, worse than previously, with interval worsening of disc degeneration at L3-4 and L4-5. [facility] Hemoglobin and Hematocriton 02-17-2018 Hematocrit Auto Volume Fraction (Bld) 39.2 % Low 41 - 53 % [facility] Hemoglobin mass conc (Bld) 13.1 g/dL Low 13.5 - 17.5 g/dL [facility] Interpretation and review of laboratory results Abnormal Invalid Interpretation Code [facility] SCAN OTHER ORDERSon 01-07-20 18 Ordered by an unspecified provider. Invalid Interpretation Code [facility] CT ANKLE LEFT WITHOUT CONTRA STon 10-15-2017 CT ANKLE LEFT WITHOUT CONTRAST EXAMINATION:CT OF THE LEFT ANKLE WITHOUT CONTRAST 10/15/2017TECHNIQUE:CT of the left ankle was performed without the administration of intravenous contrast. Multiplanar reformatted images are provided for review. Dose modulation, iterative reconstruction, and/or weight based adjustment of the mA/kV was utilized to reduce the radiation dose to as low as reasonably achievable.COMPARISON:N one.HISTORY:ORDERING SYSTEM PROVIDED HISTORY: Varus deformity, not elsewhere classified, left ankle; TECHNOLOGIST PROVIDED HISTORY: Reason for Exam: Varus deformity//non healing surg 04/2017 Illness/Other Acuity: Chronic Type of Encounter: Ongoing Additional signs and symptoms: non healing lt ankle ORDERING SYSTEM PROVIDED DIAGNOSIS CODES: M21.172 Varus deformity, not elsewhere classified, left ankle M25.372 Unstable left ankle M25.772 Osteophyte of left ankleFINDINGS:Patient is status post prior surgical intervention to the distal tibia for reconstruction with osteotomy placement of bone graft along with medial plate and screw fixation. Orthopedic hardware appears intact and without evidence for hardware complication. There is some incorporation/bony union of the bone graft to the distal osteotomy fragment. No significant incorporation/bony union of the bone graft is seen with the proximal osteotomy fragment. There is some osteolysis predominantly posteriorly on both sides of the osteotomy as well as involving some of the bone graft. There is some nonbridging bony callus formation noted about the osteotomy.No acute fractures. No dislocations. No suspicious focal bony lesions. 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 No bony erosions or bony destructive changes.Ankle mortise relationships are maintained. Lisfranc alignment is preserved.Mild degenerative changes to the tibiotalar joint. Mild degenerative changes to the subtalar joint, posterior facet. No joint effusions or intra-articular loose bodies are seen. No osteochondral lesions are seen to the tibiotalar joint.Evaluation of the soft tissues demonstrates some subcutaneous edema/induration about the ankle both medially and laterally. No focal fluid collections, radiopaque foreign bodies or soft tissue gas. To the extent that they can be evaluated the visualized tendons appear grossly intact and appropriately located.IMPRESSION:Charlee ent is status post prior surgical intervention to the distal tibia for reconstruction with osteotomy and placement of bone graft along with medial plate and screw fixation. There is some incorporation/bony union of the bone graft to the distal osteotomy fragment but no significant bony union/incorporation of bone graft is seen with the proximal osteotomy fragment. There is some osteolysis noted predominantly posteriorly on both sides of the osteotomy as well as involving the bone graft.Mild degenerative changes to the tibiotalar and subtalar joints.Subcutaneous edema/induration about the ankle both medially and laterally.CHANTAL/Paulat ation ID: [id number] by: LEON CAMARA on WedOctober 15, 2017 9:03:29 AM EDTTranscribed by: RUDDY CASAS on WedOctober 15, 2017 9:43:06 AM EDTFinalized by: LOEN CAMARA on WedOctober 15, 2017 10:13:33 AM EDT [facility] Comment on above: Order Comment: Reaso n for exam?:Varus deformity//non healing surg 04/2017Injury/Trauma or Illness?:Illness/OtherHow long have you had these symptoms (acute/chronic)?:ChronicType of Exam?:OngoingAdditional signs and symptoms?:non healing lt ankle CT Ankle Left Without Contra ston 10-15-2017 CT Ankle Left Without Contrast Patient is status post prior surgical intervention to the distal tibia for reconstruction with osteotomy and placement of bone graft along with medial plate and screw fixation. There is some incorporation/bony union of the bone graft to the distal osteotomy fragment but no significant bony union/incorporation of bone graft is seen with the proximal osteotomy fragment. There is some osteolysis noted predominantly posteriorly on both sides of the osteotomy as well as involving the bone graft. Mild degenerative changes to the tibiotalar and subtalar joints. Subcutaneous edema/induration about the ankle both medially and laterally. [facility] Workstation ID: [id number] Invalid Interpretation Code [facility] CT Ankle Left Without Contrast EXAMINATION: CT OF THE LEFT ANKLE WITHOUT CONTRAST 10/15/2017 TECHNIQUE: CT of the left ankle was performed without the administration of intravenous contrast. Multiplanar reformatted images are provided for review. Dose modulation, iterative reconstruction, and/or weight based adjustment of the mA/kV was utilized to reduce the radiation dose to as low as reasonably achievable. COMPARISON: None. HISTORY: ORDERING SYSTEM PROVIDED HISTORY: Varus deformity, not elsewhere classified, left ankle; TECHNOLOGIST PROVIDED HISTORY: Reason for Exam: Varus deformity//non healing surg 04/2017 Illness/Other Acuity: Chronic Type of Encounter: Ongoing Additional signs and symptoms: non healing lt ankle ORDERING SYSTEM PROVIDED DIAGNOSIS CODES: M21.172 Varus deformity, not elsewhere classified, left ankle M25.372 Unstable left ankle M25.772 Osteophyte of left ankle FINDINGS: Patient is status post prior surgical intervention to the distal tibia for reconstruction with osteotomy placement of bone graft along with medial plate and screw fixation. Orthopedic hardware appears intact and without evidence for hardware complication. There is some incorporation/bony union of the bone graft to the distal osteotomy fragment. No significant incorporation/bony union of the bone graft is seen with the proximal osteotomy fragment. There is some osteolysis predominantly posteriorly on both sides of the osteotomy as well as involving some of the bone graft. There is some nonbridging bony callus formation noted about the osteotomy. No acute fractures. No dislocations. No suspicious focal bony lesions. 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 No bony erosions or bony destructive changes. Ankle mortise relationships are maintained. Lisfranc alignment is preserved. Mild degenerative changes to the tibiotalar joint. Mild degenerative changes to the subtalar joint, posterior facet. No joint effusions or intra-articular loose bodies are seen. No osteochondral lesions are seen to the tibiotalar joint. Evaluation of the soft tissues demonstrates some subcutaneous edema/induration about the ankle both medially and laterally. No focal fluid collections, radiopaque foreign bodies or soft tissue gas. To the extent that they can be evaluated the visualized tendons appear grossly intact and appropriately located. Invalid Interpretation Code [facility] CT Ankle Left Without Contrast [facility] 10:16 AM EDT EXAMINATION: CT OF THE LEFT ANKLE WITHOUT CONTRAST 10/15/2017 TECHNIQUE: CT of the left ankle was performed without the administration of intravenous contrast. Multiplanar reformatted images are provided for review. Dose modulation, iterative reconstruction, and/or weight based adjustment of the mA/kV was utilized to reduce the radiation dose to as low as reasonably achievable. COMPARISON: None. HISTORY: ORDERING SYSTEM PROVIDED HISTORY: Varus deformity, not elsewhere classified, left ankle; TECHNOLOGIST PROVIDED HISTORY: Reason for Exam: Varus deformity//non healing surg 04/2017 Illness/Other Acuity: Chronic Type of Encounter: Ongoing Additional signs and symptoms: non healing lt ankle ORDERING SYSTEM PROVIDED DIAGNOSIS CODES: M21.172 Varus deformity, not elsewhere classified, left ankle M25.372 Unstable left ankle M25.772 Osteophyte of left ankle FINDINGS: Patient is status post prior surgical intervention to the distal tibia for reconstruction with osteotomy placement of bone graft along with medial plate and screw fixation. Orthopedic hardware appears intact and without evidence for hardware complication. There is some incorporation/bony union of the bone graft to the distal osteotomy fragment. No significant incorporation/bony union of the bone graft is seen with the proximal osteotomy fragment. There is some osteolysis predominantly posteriorly on both sides of the osteotomy as well as involving some of the bone graft. There is some nonbridging bony callus formation noted about the osteotomy. No acute fractures. No dislocations. No suspicious focal bony lesions. 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 No bony erosions or bony destructive changes. Ankle mortise relationships are maintained. Lisfranc alignment is preserved. Mild degenerative changes to the tibiotalar joint. Mild degenerative changes to the subtalar joint, posterior facet. No joint effusions or intra-articular loose bodies are seen. No osteochondral lesions are seen to the tibiotalar joint. Evaluation of the soft tissues demonstrates some subcutaneous edema/induration about the ankle both medially and laterally. No focal fluid collections, radiopaque foreign bodies or soft tissue gas. To the extent that they can be evaluated the visualized tendons appear grossly intact and appropriately located. IMPRESSION: Patient is status post prior surgical intervention to the distal tibia for reconstruction with osteotomy and placement of bone graft along with medial plate and screw fixation. There is some incorporation/bony union of the bone graft to the distal osteotomy fragment but no significant bony union/incorporation of bone graft is seen with the proximal osteotomy fragment. There is some osteolysis noted predominantly posteriorly on both sides of the osteotomy as well as involving the bone graft. Mild degenerative changes to the tibiotalar and subtalar joints. Subcutaneous edema/induration about the ankle both medially and laterally. ACN/ges Workstation ID: [id number] Invalid Interpretation Code [facility] CBC Auto Differentialon 05-01 Basophils 0.03 K/mcL Invalid Interpretation Code 0.00 - 0.30 [facility] Basophils/100 leukocytes 0.4 % Invalid Interpretation Code [facility] Eosinophils 0.15 K/mcL Invalid Interpretation Code 0.00 - 0.50 [facility] Eosinophils/100 leukocytes 2.0 % Invalid Interpretation Code [facility] Erythrocytes (RBC) 4.50 M/mcL Invalid Interpretation Code 4.50 - 5.90 [facility] Hematocrit (HCT) 39.8 % Low 41 - 53 % [facility] LAB Hemoglobin (HGB) 13.2 g/dL Low 13.5 - 17.5 g/dL [facility] Interpretation and review of laboratory results Abnormal Invalid Interpretation Code [facility] Lymphocytes 2.38 K/mcL Invalid Interpretation Code 0.90 - 4.00 [facility] Lymphocytes/100 leukocytes 32.1 % Invalid Interpretation Code [facility] MCH 29.3 pg Invalid Interpretation Code 26 - 34 pg [facility] MCHC 33.2 g/dL Invalid Interpretation Code 31 - 37 g/dL [facility] MCV 88.4 fL Invalid Interpretation Code 80 - 100 fL [facility] Monocytes 0.60 K/mcL Invalid Interpretation Code 0.30 - 0.90 [facility] Monocytes/100 leukocytes 8.1 % Invalid Interpretation Code [facility] Neutrophils 4.26 K/mcL Invalid Interpretation Code 1.70 - 7.00 [facility] Neutrophils/100 leukocytes 57.4 % Invalid Interpretation Code [facility] Platelet mean volume (PMV) 10.6 fL Invalid Interpretation Code 9 - 15.5 fL [facility] Platelets 167 K/mcL Invalid Interpretation Code 150 - 400 [facility] RDW-CA 12.1 % Invalid Interpretation Code 11.6 - 14.8 % [facility]) LAB WBC (Leukocytes) 7.42 K/mcL Invalid Interpretation Code 4.50 - 11.00 [facility] CBC w/ Diffon 05-19-2017 Creatinine The following orders were created for panel order CBC w/ Diff. Procedure Abnormality Status --------- ------ CBC Auto Differential[[id number]] Abnormal Final result Please view results for these tests on the individual orders. Invalid Interpretation Code [facility] Work Phone: CMPon 05-19-2017 Alanine aminotransferase (ALT) 41 U/L High 0 - 40 U/L [facility] Albumin 4.2 g/dL Invalid Interpretation Code 3.2 - 5.2 g/dL [facility] Alkaline phosphatase (ALP) 84 U/L Invalid Interpretation Code 40 - 150 U/L [facility] Anion gap 22 mmol/L High 10 - 20 mmol/L [facility] Aspartate aminotransferase (AST) 33 U/L Invalid Interpretation Code 0 - 45 U/L [facility] Bicarbonate (HCO3) 26 mmol/L Invalid Interpretation Code 21 - 32 mmol/L [facility] Bilirubin (total) 0.3 mg/dL Invalid Interpretation Code 0 - 1.3 mg/dL [facility] BUN/Creatinine Ratio 20.5 mg/mg High 10.0 - 20.0 [facility] ([facility]) LAB Calcium 9.3 mg/dL Invalid Interpretation Code 8.4 - 10.2 mg/dL [facility] Chloride 104 mmol/L Invalid Interpretation Code 98 - 108 mmol/L [facility] Creatinine 0.83 mg/dL Invalid Interpretation Code 0.8 - 1.3 mg/dL [facility] eGFR (non-black) 94 mL/min/{1.73_m2} Invalid Interpretation Code >=60 [facility] ([facility] LAB eGFR (non-black) The eGFR should be u sed for monitoring renal function only and not for medication dosing. Invalid Interpretation Code [facility] Glucose 115 mg/dL High 65 - 99 mg/dL [facility] Potassium 4.7 mmol/L Invalid Interpretation Code 3.5 - 5.1 mmol/L [facility] Protein 7.4 g/dL Invalid Interpretation Code 6 - 8 g/dL [facility] Sodium 147 mmol/L High 135 - 145 mmol/L [facility] Urea nitrogen 17 mg/dL Invalid Interpretation Code 8 - 25 mg/dL [facility] LAB CT KIDNEY STONEon 05-19-2017 CT KIDNEY STONE EXAMINATION:STONE PROTOCOL CT OF THE ABDOMEN AND BHGFQS9105/19/2017TECHNIQ UE:CT of the abdomen and pelvis was performed without the administration of intravenous contrast. Multiplanar reformatted images are provided for review. Dose modulation, iterative reconstruction, and/or weight based adjustment of the mA/kV was utilized to reduce the radiation dose to as low as reasonably achievable.COMPARISON:N one.HISTORY:ORDERING SYSTEM PROVIDED HISTORY: left flank pain; TECHNOLOGIST PROVIDED HISTORY: Reason for Exam: Pt ambulatory to ed with c/o left flank and abdominal pain that started . Illness/Other Acuity: Acute Type of Encounter: Initial Additional signs and symptoms: Pt denies urinary s/s or bowel s/s.FINDINGS:LOWER CHEST: Visualized portion of the lower chest demonstrates no acute abnormality. 3 mm pulmonary nodule is seen within the left lower lobe.KIDNEYS AND URINARY TRACT: No renal calculi are identified. There is no evidence for hydronephrosis. The ureters are of normal course and caliber.ORGANS: Lack of intravenous contrast limits evaluation of the solid organs and bowel. There is a 1.7 cm hypodense lesion within the left adrenal gland, consistent with an adenoma. No follow-up is indicated per recommendations below. The remainder of the solid organs are grossly unremarkable. Cholelithiasis is noted.GI/BOWEL: No bowel obstruction. There has been an appendectomy. Colonic diverticulosis is seen.PELVIS: The bladder and pelvic organs are unremarkable.PERITONEUM /RETROPERITONEUM: No lymphadenopathy is noted.BONES/SOFT TISSUES: The osseous structures demonstrate no acute abnormality.IMPRESSION: No evidence of obstructive uropathy.Colonic diverticulosis.Cholelit hiasis.3 mm pulmonary nodule within the left lower lobe. Please see recommendations below.RECOMMENDATIONS: Guidelines for follow-up and management of pulmonary nodules found on abdomen CT:<6 mm - No follow up recommend on the basis of the estimated low risk of malignancy.6-8-mm - recommend follow-up chest CT after an appropriate interval (3-12 months depending on clinical risk).>8mm - immediate chest CT for further evaluation.Radiology 2017 http://pubs.rsna.org/do i/full/10.1148/radiol.2 181027087 Managing Incidental Adrenal Nodule > or equal to 1 cmBenign adrenal nodule - No follow up is required (including myelolipomas, adenomas, or nodules stable for > or equal to 1 year)Reference:Tyrone et al. Managing Incidental Findings on Abdominal CT: White Paper of the ACR Incidental Findings Committee. J Am Anup Radiol 2010;7:754-773Workstati on ID: [id number] by: MARCELL LOYOLA on WedMay 19, 2017 5:28:03 AM ESTTranscribed by: MARCELL LOYOLA on WedMay 19, 2017 5:28:03 AM ESTFinalized by: MARCELL LOYOLA on WedMay 19, 2017 5:28:03 AM EST Normal [facility] Comment on above: Order Comment: Reaso n for exam?:Pt ambulatory to ed with c/o left flank and abdominal pain that started .Injury/Trauma or Illness?:Illness/OtherHow long have you had these symptoms (acute/chronic)?:AcuteType of Exam?:InitialAdditional signs and symptoms?:Pt denies urinary s/s or bowel s/s. CT Kidney Stoneon 05-19-2017 CT Kidney Stone No evidence of obstructive uropathy. Colonic diverticulosis. Cholelithiasis. 3 mm pulmonary nodule within the left lower lobe. Please see recommendations below. RECOMMENDATIONS: Guidelines for follow-up and management of pulmonary nodules found on abdomen CT: <6 mm - No follow up recommend on the basis of the estimated low risk of malignancy. 6-8-mm - recommend follow-up chest CT after an appropriate interval (3-12 months depending on clinical risk). >8mm - immediate chest CT for further evaluation. Radiology 2017 http://pubs.rsna.org/do i/full/10.1148/radiol.2 632278417 Managing Incidental Adrenal Nodule > or equal to 1 cm Benign adrenal nodule - No follow up is required (including myelolipomas, adenomas, or nodules stable for > or equal to 1 year) Reference: Tyrone et al. Managing Incidental Findings on Abdominal CT: White Paper of the ACR Incidental Findings Committee. J Am Anup Radiol 2010;7:754-773 Workstation ID: [id number] Invalid Interpretation Code [facility] CT Kidney Stone Interface, Rad In Fu ji Speechq - 05/19/2017 5:30 AM EST EXAMINATION: STONE PROTOCOL CT OF THE ABDOMEN AND PELVIS 05/19/2017 TECHNIQUE: CT of the abdomen and pelvis was performed without the administration of intravenous contrast. Multiplanar reformatted images are provided for review. Dose modulation, iterative reconstruction, and/or weight based adjustment of the mA/kV was utilized to reduce the radiation dose to as low as reasonably achievable. COMPARISON: None. HISTORY: ORDERING SYSTEM PROVIDED HISTORY: left flank pain; TECHNOLOGIST PROVIDED HISTORY: Reason for Exam: Pt ambulatory to ed with c/o left flank and abdominal pain that started . Illness/Other Acuity: Acute Type of Encounter: Initial Additional signs and symptoms: Pt denies urinary s/s or bowel s/s. FINDINGS: LOWER CHEST: Visualized portion of the lower chest demonstrates no acute abnormality. 3 mm pulmonary nodule is seen within the left lower lobe. KIDNEYS AND URINARY TRACT: No renal calculi are identified. There is no evidence for hydronephrosis. The ureters are of normal course and caliber. ORGANS: Lack of intravenous contrast limits evaluation of the solid organs and bowel. There is a 1.7 cm hypodense lesion within the left adrenal gland, consistent with an adenoma. No follow-up is indicated per recommendations below. The remainder of the solid organs are grossly unremarkable. Cholelithiasis is noted. GI/BOWEL: No bowel obstruction. There has been an appendectomy. Colonic diverticulosis is seen. PELVIS: The bladder and pelvic organs are unremarkable. PERITONEUM/RETROPERITON EUM: No lymphadenopathy is noted. BONES/SOFT TISSUES: The osseous structures demonstrate no acute abnormality. IMPRESSION: No evidence of obstructive uropathy. Colonic diverticulosis. Cholelithiasis. 3 mm pulmonary nodule within the left lower lobe. Please see recommendations below. RECOMMENDATIONS: Guidelines for follow-up and management of pulmonary nodules found on abdomen CT: <6 mm - No follow up recommend on the basis of the estimated low risk of malignancy. 6-8-mm - recommend follow-up chest CT after an appropriate interval (3-12 months depending on clinical risk). >8mm - immediate chest CT for further evaluation. Radiology 2017 http://pubs.rsna.org/do i/full/10.1148/radiol.2 937798650 Managing Incidental Adrenal Nodule > or equal to 1 cm Benign adrenal nodule - No follow up is required (including myelolipomas, adenomas, or nodules stable for > or equal to 1 year) Reference: Tyrone et al. Managing Incidental Findings on Abdominal CT: White Paper of the ACR Incidental Findings Committee. J Am Anup Radiol 2010;7:754-773 Workstation ID: [id number] Invalid Interpretation Code [facility] CT Kidney Stone EXAMINATION: STONE PROTOCOL CT OF THE ABDOMEN AND PELVIS 05/19/2017 TECHNIQUE: CT of the abdomen and pelvis was performed without the administration of intravenous contrast. Multiplanar reformatted images are provided for review. Dose modulation, iterative reconstruction, and/or weight based adjustment of the mA/kV was utilized to reduce the radiation dose to as low as reasonably achievable. COMPARISON: None. HISTORY: ORDERING SYSTEM PROVIDED HISTORY: left flank pain; TECHNOLOGIST PROVIDED HISTORY: Reason for Exam: Pt ambulatory to ed with c/o left flank and abdominal pain that started . Illness/Other Acuity: Acute Type of Encounter: Initial Additional signs and symptoms: Pt denies urinary s/s or bowel s/s. FINDINGS: LOWER CHEST: Visualized portion of the lower chest demonstrates no acute abnormality. 3 mm pulmonary nodule is seen within the left lower lobe. KIDNEYS AND URINARY TRACT: No renal calculi are identified. There is no evidence for hydronephrosis. The ureters are of normal course and caliber. ORGANS: Lack of intravenous contrast limits evaluation of the solid organs and bowel. There is a 1.7 cm hypodense lesion within the left adrenal gland, consistent with an adenoma. No follow-up is indicated per recommendations below. The remainder of the solid organs are grossly unremarkable. Cholelithiasis is noted. GI/BOWEL: No bowel obstruction. There has been an appendectomy. Colonic diverticulosis is seen. PELVIS: The bladder and pelvic organs are unremarkable. PERITONEUM/RETROPERITON EUM: No lymphadenopathy is noted. BONES/SOFT TISSUES: The osseous structures demonstrate no acute abnormality. Invalid Interpretation Code [facility] Lipaseon 05-19-2017 Interpretation and review of laboratory results Normal Invalid Interpretation Code [facility] Lipase 39 U/L Invalid Interpretation Code 15 - 65 U/L [facility] [place] Topon 05-19-2017 Extra Tube Hold for add-ons. Invalid Interpretation Code [facility] [place] Drawon 05-19-2017 Creatinine The following orders were created for panel order [place] Draw. Procedure Abnormality Status --------- ------ Lavender Top[[id number]] Final result [place] Top[[id number]] Final result Please view results for these tests on the individual orders. Invalid Interpretation Code [facility] Work Phone: SCAN OTHER ORDERSon 05-19-20 17 SCAN OTHER ORDERS Ordered by an unspecified provider. Invalid Interpretation Code [facility] Work Phone: Urinalysison 05-19-2017 Bilirubin, Urine Negative Invalid Interpretation Code Negative [facility] Blood, Urine Negative Invalid Interpretation Code Negative [facility] ([facility]) LAB Hyaline Casts 0-2 Invalid Interpretation Code 0 - 2 /lpf [facility] ([facility]) LAB Interpretation and review of laboratory results Abnormal Invalid Interpretation Code [facility] ([facility]) LAB Mucus, Urine Rare Invalid Interpretation Code None Seen, Rare /lpf [facility] ([facility]) LAB Nitrite, Urine Negative Invalid Interpretation Code Negative [facility]) LAB RBCs, Urine 4 /hpf High 0 - 3 [facility] ([facility]) LAB Urine, bacteria in sediment None Seen Invalid Interpretation Code None Seen /hpf [facility] ([facility]) LAB Urine, clarity Clear Invalid Interpretation Code Clear [facility]) LAB Urine, color Yellow Invalid Interpretation Code Colorless, Yellow [facility] ([facility]) LAB Urine, glucose presence Negative Invalid Interpretation Code Negative mg/dL [facility] ([facility]) LAB Urine, ketones presence Negative Invalid Interpretation Code Negative mg/dL [facility] ([facility]) LAB Urine, leukocyte esterase presence Negative Invalid Interpretation Code Negative [facility]) LAB Urine, pH 5.0 [pH] Invalid Interpretation Code 5.0 - 7.0 [facility]) LAB Urine, protein Negative Invalid Interpretation Code Negative mg/dL [facility]) LAB Urine, specific gravity 1.019 1 Invalid Interpretation Code 1.005 - 1.025 [facility]) LAB Urine, urobilinogen <2.0 Invalid Interpretation Code <2.0 mg/dL [facility] ([facility]) LAB WBCs, Urine 1 /hpf Invalid Interpretation Code 0 - 5 [facility] ([facility]) LAB Urinalysis Microscopic examinat ion is performed on all urinalysis samples and only positive findings are reported. The test for blood on the chemical analytic portion of urinalysis may also be positive due to hemoglobinuria and myoglobinuria and if red blood cells are present they are quantified by microscopic examination. Invalid Interpretation Code [facility]) LAB Vital Signs Date Time Vital Sign Value Performing Clinician Facility 12-16-2022 08:30-0400 Body height 177.8 cm [employer] Other [facility] Other 12-16-2022 08:30-0400 Body mass index (BMI) [Ratio] 31.36 kg/m2 [employer] Other [facility] Other 12-16-2022 08:30-0400 Body weight 99.16 kg [employer] Other [facility] Other 12-16-2022 08:30-0400 Diastolic blood pressure 80 mm[Hg] Aaron Ball Other [facility] Other 12-16-2022 08:30-0400 Respiratory rate 12 /min Aaron Ball Other [facility] Other 12-16-2022 08:30-0400 Systolic blood pressure 150 mm[Hg] Aaron Ball Other [facility] Other 09-14-2022 10:00-0400 Body height 177.8 cm Craig Ken Other [facility] Other 09-14-2022 10:00-0400 Body mass index (BMI) [Ratio] 31.71 kg/m2 Craig Ken Other [facility] Other 09-14-2022 10:00-0400 Body weight 100.25 kg Craig Suellen Other [facility] Other 09-14-2022 10:00-0400 Diastolic blood pressure 69 mm[Hg] Craig Scovanner Other [facility] Other 09-14-2022 10:00-0400 Systolic blood pressure 138 mm[Hg] Craig Scovanner Other [facility] Other 08-26-2022 10:41-0400 Diastolic blood pressure 80 mm[Hg] DO Aaron Ball Work Phone: [facility] 08-26-2022 10:41-0400 Heart rate 58 /min DO Aaron Ball Work Phone: [facility] 08-26-2022 10:41-0400 Respiratory rate 20 /min DO Aaron Ball Work Phone: [facility] 08-26-2022 10:41-0400 SaO2% (BldA) [Mass fraction] 96 % DO Aaron Ball Work Phone: [facility] 08-26-2022 10:41-0400 Systolic blood pressure 128 mm[Hg] DO Aaron Ball Work Phone: [facility] 08-26-2022 09:19-0400 Body height 177.8 cm DO Aaron Ball Work Phone: [facility] 08-26-2022 09:19-0400 Body temperature 97.8 [degF] DO Aaron Ball Work Phone: [facility] 08-26-2022 09:19-0400 Body weight 97.97 kg DO Aaron Ball Work Phone: [facility] 07-16-2022 09:30-0500 Body height 177.8 cm Aaron Ball Other [facility] Other 07-16-2022 09:30-0500 Body mass index (BMI) [Ratio] 32.42 kg/m2 Aaron Ball Other [facility] Other 07-16-2022 09:30-0500 Body weight 102.51 kg Aaron Ball Other [facility] Other 07-16-2022 09:30-0500 Diastolic blood pressure 76 mm[Hg] Aaron Ball Other [facility] Other 07-16-2022 09:30-0500 Respiratory rate 12 /min Aaron Ball Other [facility] Other 07-16-2022 09:30-0500 Systolic blood pressure 118 mm[Hg] Aaron Ball Other [facility] Other 11-06-2018 17:53-0400 BMI (Body Mass Index) 31.42 kg/m2 [facility] 11-06-2018 17:53-0400 Body Temperature 97.3 [degF] [facility] 11-06-2018 17:53-0400 BP Diastolic 88 mm[Hg] [facility] 11-06-2018 17:53-0400 BP Systolic 149 mm[Hg] [facility] 11-06-2018 17:53-0400 Height 177.8 cm [facility] 11-06-2018 17:53-0400 Pulse (Heart Rate) 68 /min [facility] 11-06-2018 17:53-0400 Pulse Oximetry 96 % [facility] 11-06-2018 17:53-0400 Respiratory Rate 15 /min [facility] 11-06-2018 17:53-0400 Weight 99.34 kg [facility] 02-17-2018 15:50-0400 BP Diastolic 82 mm[Hg] [facility] 02-17-2018 15:50-0400 BP Systolic 134 mm[Hg] [facility] 02-17-2018 15:50-0400 Pulse (Heart Rate) 62 /min [facility] 02-17-2018 15:50-0400 Pulse Oximetry 95 % [facility] 02-17-2018 15:50-0400 Respiratory Rate 15 /min [facility] 02-17-2018 15:40-0400 Body Temperature 98.01 [degF] [facility] 02-17-2018 09:49-0400 BMI (Body Mass Index) 30.68 kg/m2 [facility] 02-17-2018 09:49-0400 Height 177.8 cm [facility] 02-17-2018 09:49-0400 Weight 97 kg [facility] 05-27-2017 14:00-0500 Body Temperature 97.81 [degF] [facility] Work Phone: 05-27-2017 14:00-0500 BP Diastolic 71 mm[Hg] [facility] Work Phone: 05-27-2017 14:00-0500 BP Systolic 133 mm[Hg] [facility] 05-27-2017 14:00-0500 Pulse (Heart Rate) 52 /min [facility]: 05-27-2017 14:00-0500 Pulse Oximetry 99 % [facility]: 05-27-2017 14:00-0500 Respiratory Rate 11 /min [facility]: 05-27-2017 07:38-0500 BMI (Body Mass Index) 31.09 kg/m2 Laura Richard [facility] Work Phone: 05-27-2017 07:38-0500 Height 179.1 cm Laura Richard [facility] Work Phone: 05-27-2017 07:38-0500 Weight 99.7 kg Lauraangelina Richard [facility] Work Phone: 05-21-2017 14:38-0500 BMI (Body Mass Index) 31.31 kg/m2 Price Swift [facility] Work Phone: 05-21-2017 14:38-0500 Body Temperature 97.81 [degF] [facility]: 05-21-2017 14:38-0500 BP Diastolic 95 mm[Hg] Price Swift [facility] Work Phone: 05-21-2017 14:38-0500 BP Systolic 153 mm[Hg] Price Swift [facility] Work Phone: 05-21-2017 14:38-0500 Height 179.1 cm Price Swift [facility] Work Phone: 05-21-2017 14:38-0500 Pulse (Heart Rate) 69 /min [facility] Work Phone: 05-21-2017 14:38-0500 Pulse Oximetry 93 % Price Swift [facility] Work Phone: 05-21-2017 14:38-0500 Weight 100.4 kg Price Swift [facility] Work Phone: 05-19-2017 06:36-0500 BP Diastolic 70 mm[Hg] Trang Bray [facility] Work Phone: 05-19-2017 06:36-0500 BP Systolic 138 mm[Hg] Trang Bray [facility] Work Phone: 05-19-2017 06:36-0500 Pulse (Heart Rate) 72 /min Trang Bray [facility] Work Phone: 05-19-2017 06:36-0500 Pulse Oximetry 96 % Trang Bray [facility] Work Phone: 05-19-2017 06:36-0500 Respiratory Rate 16 /min Trang Bray [facility] Work Phone: 05-19-2017 04:32-0500 BMI (Body Mass Index) 31.97 kg/m2 Trang Bray [facility] Work Phone: 05-19-2017 04:32-0500 Height 179.1 cm Trang Bray [facility] Work Phone: 05-19-2017 04:32-0500 Weight 102.51 kg Trang Bray [facility] Work Phone: 05-19-2017 04:28-0500 Body Temperature 97.11 [degF] Trang Bray [facility] Work Phone: Encounters Encounter Date Encounter Type Care Provider Facility Start: 03-10-2023 End: 03-10-2023 ambulatory Aaron Bush Other [facility] Other Start: 03-10-2023 Telephone encounter Aaron Howell [facility] Start: 03-04-2023 End: 03-04-2023 ambulatory Aaron Bush Other [facility] Other Start: 03-04-2023 Telephone encounter Aaron Ball [facility] Start: 03-02-2023 End: 03-02-2023 ambulatory Aaron Bush Other [facility] Other Start: 03-02-2023 Telephone encounter Aaron Bush [facility] Start: 12-25-2022 End: 12-25-2022 ambulatory Aaron Bush Other [facility] Other Start: 12-25-2022 Telephone encounter Aaron Bush [facility] Start: 12-24-2022 End: 12-24-2022 ambulatory Aaron Bush Other [facility] Other Start: 12-24-2022 Telephone encounter Aaron Bush [facility] Start: 12-16-2022 End: 12-16-2022 ambulatory Aaron Bush Other [facility] Other Start: 12-16-2022 Patient encounter procedure Aaron Bush [facility] Start: 12-16-2022 Telephone encounter Aaron Bush [facility] Start: 12-10-2022 End: 12-10-2022 ambulatory Aaron Bush Other [facility] Other Start: 12-10-2022 Telephone encounter Aaron Bush [facility] Start: 12-04-2022 End: 12-04-2022 ambulatory Aaron Bush Other [facility] Other Start: 12-04-2022 Telephone encounter Aaron Bush [facility] Start: 09-16-2022 End: 09-17-[address] DOCTOR KHALIL Facility: Start: 09-14-2022 End: 09-14-2022 ambulatory Craig Ken Other [facility] Other Start: 09-14-2022 Office outpatient vi sit 15 minutes Craig Ken [facility] Start: 09-09-2022 End: 09-09-2022 ambulatory Aaron Bush Other [facility] Other Start: 09-09-2022 Telephone encounter Aaron Howell [employer] Start: 09-08-2022 End: 09-08-2022 ambulatory Imad Asaad Other [facility] Other Start: 09-08-2022 Telephone encounter Imad Asaad [facility] Start: 08-26-2022 Telephone encounter Aaron KING [facility] Start: 08-26-2022 End: 08-26-2022 Admission to same day surgery center DO Aaron Eleazar Work Phone: [facility] Work Phone: Start: 08-26-2022 End: 08-26-2022 ambulatory DO Aaron Bush Work Phone: [facility] Work Phone: Start: 08-13-2022 End: 08-13-2022 ambulatory Aaron Bush Other [facility] Other Start: 08-13-2022 Telephone encounter Aaron Howell [employer] Start: 07-28-2022 End: 07-28-2022 ambulatory Imad Asaad Other [facility] Other Start: 07-28-2022 Telephone encounter Imad Asaad [facility] [employer] Start: 07-16-2022 End: 07-16-2022 ambulatory Aaron Bush Other [facility] Other Start: 07-16-2022 Office outpatient vi sit 25 minutes Aaron Bush [facility] Start: 07-16-2022 Telephone encounter [facility] Start: 07-13-2022 End: 07-14-[address] AARON BUSH Facility:[facility] Start: 06-15-2022 End: 06-15-2022 ambulatory Aaron Bush Other [facility] Other Start: 06-15-2022 Telephone encounter Aaron Howell [facility] Start: 03-04-2022 End: 03-05-[address] AARON BUHS Facility:[facility] Start: 12-30-[address] AARON BUSH Facili ty:[facility] Start: 12-17-2021 Adult health examination Aaron Bush Other [facility] Other Start: 12-16-2021 End: 12-17-[address] AARON BUSH Facility:[facility] Start: 07-08-2020 End: 07-08-2020 Orders Only Sarika Souza Toñito Work Phone: [facility] Start: 11-06-2018 End: 11-06-2018 Patient encounter procedure NUPUR T[facility]Y [facility] Start: 11-06-2018 End: 11-06-2018 Office outpatient new 20 minutes Allison Rachael Allenwell Work Phone: [facility] Comment on above: Abrasion of left eye , initial encounter (Primary Dx) Start: 02-17-2018 End: 02-17-2018 Patient encounter LAURAANGELINA VIEYRA [facility] Start: 02-17-2018 End: 02-17-2018 Patient encounter Laura Richard Work Phone: [facility] Comment on above: Post-op pain (Primar y Dx) Start: 10-22-2017 End: 10-22-2017 Ambulatory LAURA JARRELL JOSE ALBERTOARMANDO [facility] Start: 10-15-2017 End: 10-16-2017 Ambulatory LAURA JARRELL RICHARD [facility] Start: 10-15-2017 End: 10-15-2017 Ambulatory Laura Regaladoarmando Work Phone: [facility] Scan Start: 08-05-2017 End: 08-05-2017 Ambulatory Laura Jarrell Richard Work Phone: [facility] Start: 07-29-2017 End: 07-29-2017 Ambulatory Laura Vieyra Jose Manuel Work Phone: [facility] Start: 07-21-2017 End: 07-21-2017 Ambulatory Laura Richard Work Phone: [facility] Start: 05-27-2017 End: 05-27-2017 Patient encounter LAURA VIEYRA [facility] Start: 05-27-2017 End: 05-27-2017 Ambulatory Laura Richard Work Phone: [facility] Start: 05-21-2017 Encounter for other preprocedural examination [facility] Start: 05-21-2017 Encounter for preprocedural cardiovascular examination [facility] Start: 05-21-2017 End: 05-21-2017 Patient encounter LAURAANGELINA VIEYRA [facility] Start: 05-21-2017 Office consultation Laura Richard Work Phone: [facility] Preadmission [facility] Start: 05-19-2017 End: 05-19-2017 Emergency department patient visit NUPUR [facility] Start: 05-19-2017 End: 05-19-2017 Emergency department patient visit Trang Bray Work Phone: [facility] Encounter for other preprocedural examination [facility] Encounter for preprocedural cardiovascular examination [facility] Procedures Date Procedure Procedure Detail Performing Clinician Start: 08-26-2022 Esophagogastroduodenoscopy DO Aaron delgado Work Phone: Start: 12-16-[address] AARON BUSH Comment on above: Performed By: #### [facility] ####[facility] [address] [place], [place] [address] Amos Start: 02-17-2018 End: 02-17-2018 Hemoglobin and Hematocrit panel - Blood Laura Vieyra Jose Manuel Work Phone: Start: 01-06-2018 End: 01-06-2018 SCAN OTHER ORDERS Provider Not In System Start: 05-27-2017 End: 05-27-2017 LEFT ANKLE ARTHROSCOPY WITH DEBRIDEMENT, PARTIAL EXCISION TIBIA, BROSTRUM, WEI, TIBIAL OSTEOTOMY Laura Vieyra Jose Manuel Work Phone: Depression screening [place] [facility] Other Incision and drainage of abscess Aaron Bush Other Screening for malign ant neoplasm of prostate Aaron Bush Other Plan of Treatment Date Care Activity Detail Author Start: 09-04-2025 Tetanus vaccination [facility] Work Phone: Start: 08-26-2022 End: 08-26-2022 [facility] Start: 01-30-2020 Influenza vaccination given Sequential Influenza Vaccine (#1) [facility] Start: 2019 Pneumococcal vaccination Pneumococcal Vaccine Age 65+ (1 of 2 - PCV13) [facility] Start: 01-29-2019 Influenza vaccination given SEQUENTIAL INFLUENZA VACCINE (Season Ended) [facility] Start: 01-29-2018 Influenza vaccination [facility] Start: 08-12-2017 Ambulatory 08/12/2017 Treatment Rehabilitation Laura Richard, DO [address] [place] [address] [phone] Shila Islas, PT [address] [place] [address] [facility] Start: 08-10-2017 Ambulatory 08/10/2017 Treatment Rehabilitation Laura Richard, DO [address] [place] [address] [phone] Leia Richardson, PT [facility] Start: 08-05-2017 Ambulatory 08/05/2017 Treatment Laura Han, DO [address] [place] [address] [phone] Dk Treadwell, TECHNICAL EDUCATION TEACHER [facility] Start: 08-03-2017 Ambulatory 08/03/2017 Treatment Laura Han, DO [address] [place] [address] [phone] Leia Richardson, PT [facility] Start: 07-29-2017 Ambulatory 07/29/2017 Treatment Rehabilitation Laura Richard, DO [address] [place] [address] [phone] Shila Islas, PT [address] [place] [address] [facility] Start: 05-27-2017 Ambulatory [facility] Start: 05-21-2017 Ambulatory 05/21/2017 Office Visit Pre-Admission Testing Laura Richard, DO [address] [place] [address] [phone] Pre-op examination (Primary Dx); Varus deformity, not elsewhere classified, left ankle [facility] Start: 01-29-2017 Influenza vaccination SEQUENTIAL INFLUENZA VACCINE (#1) [facility] Work Phone: Start: 2014 Zoster vacc, sc ZOSTER VACCINE [facility] Work Phone: Start: 2004 Administration of herpes zoster vaccine Zoster Vaccines (1 of 2) [facility] Start: 2004 Screening for malignant neoplasm of colon [facility] Start: 2004 ZOSTER VACCINES (1 of 2) ZOSTER VACCINES (1 of 2) [facility] Start: 1972 Hepatitis C antibody, confirmatory test Hepatitis C Screening [facility] Start: 1970 COVID-19 Vaccine (1 of 2) COVID-19 Vaccine (1 of 2) [facility] Start: 1969 HIV screening [facility] Start: 1966 Adolescent depression screening assessment Depression Screening (PHQ9) [facility] Start: 1957 History and physical examination, annual for health maintenance Wellness Visit [facility] Start: 1954 Fall risk assessment Falls Risk Assessment [facility] Start: 1954 Hepatitis C antibody, confirmatory test HEPATITIS [facility] Start: 1954 HEPATITIS C SCREENING HEPATITIS C SCREENING [facility] Work Phone: Start: 1954 Prostate specific antigen measurement PSA Level [facility] Start: 1954 Screening colonoscopy COLONOSCOPY [facility] Work Phone: Start: 1954 Screening for malignant neoplasm of colon Colorectal Cancer Screening: Colonoscopy [facility] Start: 1954 US scan of abdominal aorta Abdominal Aortic Ultrasound [facility] End: 05-19-2017 Bacteria aerobode culture Urine Aerobic Culture Routine Once for 1 Occurrences starting 05/19/2017 until 05/19/2017 [facility] Work Phone: Bacteria aerobode culture Urine Aerobic Culture Routine 05/19/2017 6:29 AM EST [facility] Work Phone: ECG 12 Lead ECG 12 Lead Rout ine Pre-op examination Ordered: 05/21/2017 [facility] Work Phone: Patient Education Gastric Ulcer (DC) Colon Polypectomy (DC) [facility] Work Phone: Immunizations Immunization Date Immunization Notes Care Provider Fa [facility] 05-26-2021 COVID-19 Vaccine Pfi zer - Documentation Purposes Only Aaron Bush Other [facility] Other 11-01-2020 COVID-19 Vaccine Pfi zer - Documentation Purposes Only Aaron Eleazar Other [facility] Other 10-11-2020 COVID-19 Vaccine Pfi zer - Documentation Purposes Only Aaron Bush Other [facility] Other 07-19-2019 zoster vaccine recombinant Aaron Ball Other [facility] Other 07-01-2019 pneumococcal conjuga te vaccine, 13 valent Aaron Bush Other [facility] Other 12-13-2018 zoster vaccine recombinant Aaron Ball Other [facility] Other 09-05-2015 pneumococcal polysaccharide vaccine, 23 valent Aaron Bush Other [facility] Other Payers Date Payer Category Payer Self-pay 2020 Medicare [id number] 2016 Unknown xxxxxxxxxxxx [id number] 2016 Unknown [id number] 2016 Unknown [id number] 2016 Unknown [place] GARCIA/PREF/HMO/PPO [id number] 2016-Present [id number] 1959 Medicare [id number] 1960 Medicare [id number] 1954 Unknown [id number] 1954 Unknown [id number] 1954 Unknown [id number] 1954 Unknown [id number] 1954 Unknown [id number] 1954 Unknown [id number] Unknown [id number] Social History Date Type Detail Facility Start: 05-27-2017 End: 08-26-2022 Tobacco smoking status NHIS Former smoker [facility] End: 04-30-2017 History of tobacco use Current smoker [facility] Work Phone: Sex Assigned At Not on file [facility] Work Phone: Start: 05-19-2017 Tobacco smoking status TXIS Current every day smoker [facility] Work Phone: Start: 11-06-2018 End: 04-30-2017 Tobacco smoking status NHIS Current some day smoker [facility] Start: 05-21-2017 Tobacco Comment social [facility] Start: 02-11-2018 Alcohol Comment weekly [facility] Start: 11-06-2018 Tobacco use and exposure Never used [facility] Start: 11-06-2018 Alcohol intake Current drinke r of alcohol (finding) [facility] Sex Assigned At Sex Assigned At Bir th Vivian [employer] Other Start: 1955 Sex Assigned At Male F [facility] [place] Medical Equipment Procedure Code Equipment Code Equipment Origin al Text Equipment Identifier Dates [place] 1.45mm #2 Soft Short Rigid Jugger[place]not W/Drill Bit - [id number] Start: 05-27-2017 Allograft 5cc Fiber Dbm Stagraft - [id number] Start: 05-27-2017 Graft Femoral He ad - [id number] Start: 05-27-2017 Screw 3.5 X 32mm Low Profile Steven - [id number] Start: 05-27-2017 Screw 3.5 X 34mm Low Profile Steven - [id number] Start: 05-27-2017 Screw 3.5 X 34mm Steven Lock - [id number] Start: 05-27-2017 Screw 3.5 X 12mm Steven Lock - [id number] Start: 05-27-2017 Plate 6hl Fib Lo ck - [id number] Start: 05-27-2017 [place] 1.45mm #2 Soft Short Rigid J[place] W/Drill Bit - [id number] Start: 05-27-2017 Allograft 5cc Fiber Dbm Stagraft - [id number] Start: 05-27-2017 Graft Femoral He ad - [id number] Start: 05-27-2017 Screw 3.5 X 32mm Low Profile Steven - [id number] Start: 05-27-2017 Screw 3.5 X 34mm Low Profile Steven - [id number] Start: 05-27-2017 Screw 3.5 X 34mm Steven Lock - [id number] Start: 05-27-2017 Screw 3.5 X 12mm Steven Lock - [id number] Start: 05-27-2017 Plate 6hl Fib Lo ck - [id number] Start: 05-27-2017 [place] 1.45mm #2 Soft Short Rigid [place] W/Drill Bit - [id number] Start: 05-27-2017 Allograft 5cc Fiber Dbm [employer]raft - [id number] Start: 05-27-2017 Graft Femoral He ad - [id number] Start: 05-27-2017 Screw 3.5 X 32mm Low Profile Steven - [id number] Start: 05-27-2017 Screw 3.5 X 34mm Low Profile Steevn - [id number] Start: 05-27-2017 Screw 3.5 X 34mm Steven Lock - [id number] Start: 05-27-2017 Screw 3.5 X 12mm Steven Lock - [id number] Start: 05-27-2017 Plate 6hl Fib Lo ck - [id number] Start: 05-27-2017 [place] 1.45mm #2 Soft Short Rigid J[place] W/Drill Bit - [id number] Start: 05-27-2017 Allograft 5cc Fiber Dbm Stagraft - [id number] Start: 05-27-2017 Graft Femoral He ad - [id number] Start: 05-27-2017 Screw 3.5 X 32mm Low Profile Steven - [id number] Start: 05-27-2017 Screw 3.5 X 34mm Low Profile Steven - [id number] Start: 05-27-2017 Screw 3.5 X 34mm Steven Lock - [id number] Start: 05-27-2017 Screw 3.5 X 12mm Steven Lock - [id number] Start: 05-27-2017 Plate 6hl Fib Lo ck - [id number] Start: 05-27-2017 [place] 1.45mm #2 Soft Short Rigid Juggerknot W/Drill Bit - [id number] Start: 05-27-2017 Allograft 5cc Fiber Dbm Stagraft - [id number] Start: 05-27-2017 Graft Femoral He ad - [id number] Start: 05-27-2017 Plate 6hl Fib Lo ck - [id number] Start: 05-27-2017 Screw 3.5 X 32mm Low Profile Steven - [id number] Start: 05-27-2017 Screw 3.5 X 34mm Low Profile Steven - [id number] Start: 05-27-2017 Screw 3.5 X 34mm Steven Lock - [id number] Start: 05-27-2017 Screw 3.5 X 12mm Steven Lock - [id number] Start: 05-27-2017 Screw 3.5 X 18mm Steven Lock - [id number] Screw 3.5 X 38mm Low Profile Steven - [id number] [place] 1.45mm #2 Soft Short Rigid Juggerknot W/Drill Bit - [id number] Start: 05-27-2017 Allograft 5cc Fiber Dbm Stagraft - [id number] Start: 05-27-2017 Graft Femoral He ad - [id number] Start: 05-27-2017 Screw 3.5 X 32mm Low Profile Steven - [id number] Start: 05-27-2017 Screw 3.5 X 34mm Low Profile Steven - [id number] Start: 05-27-2017 Screw 3.5 X 34mm Steven Lock - [id number] Start: 05-27-2017 Screw 3.5 X 12mm Steven Lock - [id number] Start: 05-27-2017 Plate 6hl Fib Lo ck - [id number] Start: 05-27-2017 Plate, Lateral Fibula, Sml, Right Start: 02-17-2018 Pin, Temporary Fixation Start: 02-17-2018 Screw, Locking Start: 02-17-2018 Screw, Locking Start: 02-17-2018 Screw, Locking Start: 02-17-2018 Screw, Non-Locking Start: 02-17-2018 Screw, Non-Locking Start: 02-17-2018 Screw, Non-Locking Start: 02-17-2018 Stagraft Fiber Start: 02-17-2018 Pin, Temporary Fixation Screw, Non-Locking Plate Screws [place] 1.45mm #2 Soft Short Rigid Juggerknot W/Drill Bit - [id number] Start: 05-27-2017 Allograft 5cc Fiber Dbm Stagraft - [id number] Start: 05-27-2017 Graft Femoral He ad - [id number] Start: 05-27-2017 Screw 3.5 X 32mm Low Profile Steven - [id number] Start: 05-27-2017 Screw 3.5 X 34mm Low Profile Steven - [id number] Start: 05-27-2017 Screw 3.5 X 34mm Steven Lock - [id number] Start: 05-27-2017 Screw 3.5 X 12mm Steven Lock - [id number] Start: 05-27-2017 Plate 6hl Fib Lo ck - [id number] Start: 05-27-2017 Plate, Lateral Fibula, Sml, Right [id number] Start: 02-17-2018 Pin, Temporary Fixation [id number] Start: 02-17-2018 Comment on above: Description: IN AND OUT Screw, Locking [id number] Start: 02-17-2018 Screw, Locking [id number] Start: 02-17-2018 Screw, Locking [id number] Start: 02-17-2018 Screw, Non-Locking [id number] Start: 02-17-2018 Screw, Non-Locking [id number] Start: 02-17-2018 Screw, Non-Locking [id number] Start: 02-17-2018 Comment on above: Description: IN AND OUT Stagraft Fiber [id number] Start: 02-17-2018 Comment on above: Description: The old ID number for this product is still in our system. It's Ref # [id number]. Goals Date Patient Goal Desired Activity /State Clinical Notes 12-16-2021 to 03-10-2023 Note Date & Type Note Facility 03-10-2023 Evaluation note Encounter Date Diagnosis Assessment Notes Feb, FRANCY (generalized anxiety disorder) (ICD-10 - F41.1) [facility] Other 10-05-2023 Evaluation note* Encounter Date Diagnosis Assessment Notes Treatment Notes Treatment Clinical Notes Feb, FRANCY (generalized anxiety disorder) (ICD-10 - F41.1) [facility] Other 10-03-2023 Evaluation note* Encounter Date Diagnosis Assessment Notes Treatment Notes Treatment Clinical Notes Feb, FRANCY (generalized anxiety disorder) (ICD-10 - F41.1) [facility] Other 07-27-2023 Evaluation note* Encounter Date Diagnosis Assessment Notes Treatment Notes Treatment Clinical Notes Nov, Left ventricular systolic dysfunction (LVSD) without heart failure (ICD-10 - I51.9) 27 Freddy, 2023 Abnormal stress test (ICD-10 - R94.39) [facility] Other 07-19-2023 Evaluation note* Encounter Date Diagnosis Assessment Notes Treatment Notes Treatment Clinical Notes Nov, Medicare annual wellness visit, subsequent (ICD-10 - Z00.00) Personalized health advice was given to the beneficiary including a written plan for screenings discussed and provided. Advanced care planning reviewed and/or information given as requested. Additional counseling was provided here today in regards to, [ ]. The above visit was performed by [ ], under direct supervision of [ ]. Document reviewed and amended by provider signed below. Nov, Elevated BP without diagnosis of hypertension (ICD-10 - R03.0) This patient is instructed to consume a healthy, low-fat, low-salt diet. They are also encouraged to continue exercise to achieve/maintain a normal BMI. Patient is instructed on home BP measurements: - rest for 5 minutes w/o talking- positioned w/ feet on floor and arm supported- average best 2/3 readings w/ goal < 135-85 Nov, Elevated cholesterol (ICD-10 - E78.00) Instructed on diet and exercise with continued statin therapy.Discussed the beneficial effects of lowering cholesterol in reducing the risk for cerebrovascular and cardiovascular disease. Nov, Precordial pain (ICD-10 - R07.2) Strong risk factors w/ HTN, HLD, DM and family hx Recommend primary prevention measures and stress testing Nov, Gastroesophageal reflux disease with esophagitis without hemorrhage (ICD-10 - K21.00) Diet instructions: Smaller portions, avoid eating and laying flat, avoid eating or drinking prior to bedtime. Weight loss. Increased PPI to bid for now Nov, Idiopathic periphera l neuropathy (ICD-10 - G60.9) Gabapentin not helping - call w/ dose and may increase or try alternative treatment Nov, FRANCY (generalized anxiety disorder) (ICD-10 - F41.1) Healthy diet, exercise and keep active Requesting treatment Nov, Iron deficiency anemia due to chronic blood loss (ICD-10 - D50.0) Completed GI evaluation w/ gastric ulcers noted - PPI bid for couple months - asymptomatic, instructed to decrease to qd Nov, Screening PSA (prostate specific antigen) (ICD-10 - Z12.5) Yearly KATELYNN and PSA [facility] Other 07-13-2023 Evaluation note* Encounter Date Diagnosis Assessment Notes Treatment Notes Treatment Clinical Notes Nov, Iron deficiency anemia due to chronic blood loss (ICD-10 - D50.0) [facility] Other 07-07-2023 Evaluation note* Encounter Date Diagnosis Assessment Notes Treatment Notes Treatment Clinical Notes Nov, Hypercholesterolemia (ICD-10 - E78.00) Nov, Screening PSA (prost ate specific antigen) (ICD-10 - Z12.5) Nov, High risk medication use (ICD-10 - Z79.899) Nov, IFG (impaired fastin g glucose) (ICD-10 - R73.01) Nov, Anemia, unspecified type (ICD-10 - D64.9) [facility] Other 04-17-2023 Evaluation note* Encounter Date Diagnosis Assessment Notes Treatment Notes Treatment Clinical Notes Aug, Gastric ulcer (ICD-10 - K25.9) Continue esomeprazole 40 mg twice a day Aug, Gastritis (ICD-10 - K29.70) Aug, GERD (gastroesophagea l reflux disease) (ICD-10 - K21.9) Aug, Anemia (ICD-10 - D64.9) Recommendation to determine therapeutic response to episode of esomeprazole in light of his previous anemia made. Patient given recommendation to complete CBC to see where his blood counts are. Otherwise patient to follow as needed. [facility] Encounter Date Diagnosis Assessment Notes Treatment Notes Treatment Clinical Notes Jul, Other iron deficienc y anemia (ICD-10 - D50.8) Referral for EGD and colonoscopy. Asymptomatic, high risk patient w/ family hx of CRC. Jul, Primary osteoarthrit is of left knee (ICD-10 - M17.12) Quad exercises, ice/heat and Voltaren Gel or Mobic. Avoid squatting or kneeling. Refer to Orthopedic surgery Jul, Gastroesophageal reflux disease with esophagitis without hemorrhage (ICD-10 - K21.00) Diet instructions: Smaller portions, avoid eating and laying flat, avoid eating or drinking prior to bedtime. Weight loss. Continue PPI Jul, Neurogenic pain of lower extremity, left (ICD-10 - G57.92) Inspect feet daily for cuts and calluses. Jul, Obesity (BMI 30-39.9 ) (ICD-10 - E66.9) This patient has been instructed on a low-fat, high-fiber diet. They are instructed to reduce calories, portion sizes and snacks. It is recommended that they exercise for 30 minutes, 3-5 times weekly. Jul, Lumbar spondylosis (ICD-10 - M47.816) The patient is instructed to avoid bending, twisting or lifting. They are to use intermittent heat and ice as needed. They may schedule a massage or gentle manipulation. They may safely use Tylenol as needed. [facility] Other 01-16-2023 Evaluation note* Encounter Date Diagnosis Assessment Notes Treatment Notes Treatment Clinical Notes May, Acute anemia (ICD-10 - D64.9) [facility] Other 07-19-2022 NotePROCEDURE: XR KNEE LT 3V HISTORY: Idiopathic osteoarthritis COMPARISON: None. FINDINGS: BONES:Moderate narrowing of the medial joint space. No fracture, dislocation, or significant periarticular osteophytes. SOFT TISSUES:No visible soft tissue swelling. EFFUSION:None visible. OTHER: Negative. IMPRESSION: 1. Moderate narrowing of the medial joint space suggesting soft tissue injury or degeneration. Consider MRI for further evaluation. Electronically authenticated by: SILVIA LI Date: 2021-12-16 21:52[facility]Evaluation noteNo InformationNortHospital [facility] Other Evaluation noteNo assessment information available [facility] Work Phone: History and physical note Author [facility]ino [facility]isAccess [facility] August 26, 2022 9:51am Note Date/Time August 26, 2022 9:5 1am [facility] [address] [place] [address] Gastroenterology H&P Signed Patient: Zena Witt MR#: [id number] : 1955 Acct:[id number] Age/Sex: 67 / M Adm Date: 3 Loc: Room: Type: [facility] Attending Dr: Nino Russell MD Copies to: Aaron Bush,DO Nino Russell MD~ Date of Service: 08/26/2022 HISTORY & PHYSICAL: Patient's history with special attention to the cardiovascular, pulmonary systems and the current problem was reviewed with the patient immediately prior to the procedure. Present medications and doses reviewed in the EMR. Allergies and pertinent laboratory tests were also reviewedat this time in the EMR. The physical examination, as below, was then performed. Indication, assessment and HPI: 67-year-old man here for EGD/colonoscopy for evaluation of anemia Family history of GI malignancy? No PHYSICAL EXAMINATION Mouth and Pharynx : Moist mucus membranes, normal dentition Cardiac: Regular rate, regular rhythm Pulmonary: Clear to auscultation bilaterally, no wheezing Neurological: Alert and oriented x3, no focal deficits noted Abdomen: Abdomen soft, non-tender REVIEW OF SYSTEMS Constitutional: Denies malaise, fevers Cardiovascular: Denies chest pain, palpitations Respiratory: Denies shortness of breath, wheezing Gastrointestinal: Per HPI Genitourinary: Denies dysuria, polyuria Musculoskeletal: Denies joint swelling, joint stiffness Neurological: Denies numbness, tingling Integumentary: Denies rashes, skin lesions Endocrine: Denies fatigue, weight loss Written informed consent obtained from the patient. Risks (including but not limited to perforation, infection, bloating, bleeding, need for emergent surgeryand loss of life), benefits and alternatives explained and questions answered. The patient verbalized understanding. Based on history patient is an appropriate candidate for the procedure. Nino Russell M.D. Documented By: Nino Russell MD 08/26/22 0950 Signed By: <Electronically signed by Nino Russell MD> 08/26/2255 [facility] Work Phone: History general Narrative - Reported* Type Description Date Medical History Anemia Medical History Cervical spondylosis with radicu lopathy Medical History Hypercholesterolemia Medical History Incisional abscess Medical History Left ankle pain Medical History Gastroesophageal ref lux disease with esophagitis without hemorrhage Medical History Paresthesia Medical History Neurogenic pain of lower extremi ty, left Medical History Arthritis of left knee Medical History Benign prostatic hyp erplasia with lower urinary tract symptoms, symptom details unspecified Medical History Lumbar spondylosis Surgical History COLONOSCOPY Surgical History ARTHROSCOPY OF JOINT Surgical History ARTHROSCOPY, SHOULDER, DX, W/WO SYNOVIAL BX (SEP PROC) Surgical History REPAIR ING HERNIA, SLIDING Surgical History APPENDECTOMY Surgical History RPR UMBIL TROY, REDUC > 5 YR Surgical History TOTAL KNEE ARTHROPLASTY Hospitalization History SEE SURGICAL [facility] Other History general Narrative - Reported* Type Description Date Medical History Anemia Medical History Cervical spondylosis with radicu lopathy Medical History Hypercholesterolemia Medical History Incisional abscess Medical History Left ankle pain Medical History Gastroesophageal ref lux disease with esophagitis without hemorrhage Medical History Paresthesia Medical History Neurogenic pain of lower extremi ty, left Medical History Arthritis of left knee Medical History Benign prostatic hyp erplasia with lower urinary tract symptoms, symptom details unspecified Medical History Lumbar spondylosis Surgical History COLONOSCOPY Surgical History ARTHROSCOPY OF JOINT Surgical History ARTHROSCOPY, SHOULDER, DX, W/WO SYNOVIAL BX (SEP PROC) Surgical History REPAIR ING HERNIA, SLIDING Surgical History APPENDECTOMY Surgical History RPR UMBIL TROY, REDUC > 5 YR Surgical History TOTAL KNEE ARTHROPLASTY Surgical History EDG w/ biopsy 07/2022 Surgical History Colonoscopy w/ polypectomy 08/17 22 Hospitalization History SEE SURGICAL [facility] Other Hospital Discharge instructions Additional Instructions DISCHARGE INSTRUCTIONS FOR UPPER ENDOSCOPY WHAT TO EXPECT: - You may feel full, gassy or cramping after your procedure. In some cases, this may be from a few hours to a day. Walking may help relieve the discomfort. - Your throat may feel sore today from the scope that the doctor passed through your throat to visualize your stomach. Take a throat lozenge or suck on ice to ease the discomfort. - You may notice some streaks of blood in your sputum if the doctor has taken a biopsy. - You should begin to recover from anesthesia within 1 hour of the procedure, however may feel groggy for the next 24 hours. DO's AND DON'Ts: - Call your doctor right away if you have a hard abdomen, severe pain, vomiting or if you cough up large amounts of blood. - Call your doctor if you develop any rashes, hives or difficulty breathing. - If you take 81 mg aspirin for your heart it is safe to resume this medication. - If you take other blood thinner medications your doctor will instruct you when these can safely be resumed. - Do NOT drive for 24 hours. - Do NOT operate machinery such as power tools, lawn mowers, snow blowers, sewing machines, etc. for 24 hours. - Avoid alcoholic beverages and drugs for allergies, nerves, or sleep. - Do NOT stay alone. Do NOT leave your child unattended. - Do NOT make important personal or business decisions or sign any legal documents. - Eat solid foods and drink liquids in smaller amounts than usual until normal appetite returns. If you should experience an upset stomach, liquids high in sugar content (soda, Win-Aid, non-acid juices) are recommended. - Do NOT smoke. - Do take it easy today. You need not stay in bed, but avoid strenuous activities such as jogging or working out. DISCHARGE INSTRUCTIONS FOR COLONOSCOPY WHAT TO EXPECT: - You may feel full, gassy or cramping after your procedure. In some cases, this may be from a few hours to a day. Walking may help relieve the discomfort. - If you have polyp(s) removed you may note some minor bloody discharge after your first bowel movements. - You should begin to recover from anesthesia within 1 hour of the procedure, however may feel groggy for the next 24 hours. DO's AND DON'Ts: - Call your doctor right away if you have a hard abdomen, sever pain, are passing lots of bright red blood or clots. - Call your doctor if you develop any rashes, hives or difficulty breathing. - Let your doctor know if you have not had a bowel movement by 3 days after your procedure. - If you take 81 mg aspirin for your heart it is safe to resume this medication. - If you take other blood thinner medications your doctor will instruct you when these can safely be resumed. - Do NOT drive for 24 hours. - Do NOT operate machinery such as power tools, lawn mowers, snow blowers, sewing machines, etc. for 24 hours. - Avoid alcoholic beverages and drugs for allergies, nerves, or sleep. - Do NOT stay alone. Do NOT leave your child unattended. - Do NOT make important personal or business decisions or sign any legal documents. - Eat solid foods and drink liquids in smaller amounts than usual until normal appetite returns. If you should experience an upset stomach, liquids high in sugar content (soda, Win-Aid, non-acid juices) are recommended. - You can resume normal activities tomorrow. FOLLOW UP & RECOMMENDATIONS: -Increase Nexium to 40 mg twice daily -Notify the doctor if you have any problems. -Repeat colonoscopy based on polyp pathology -Follow up with PCP. - Office number [phone]. 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, left ankle Unstable left ankle Other joint derangement, not elsewhere classified, ankle and foot Osteophyte of left ankle Gait abnormality Abnormality of gait Weakness of left lower extre mity Diagnosis Flank pain - Primary Abdominal pain, unspecified site Diagnosis Pre-op examination - Primary Varus deformity, 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, left ankle Pre-operative cardiovascular examination Hyperlipidemia, unspecified hyperlipidemia type Gastroesophageal reflux dise ase without esophagitis Esophageal reflux Obesity (BMI 30-39.9) Elevated blood pressure read ing without diagnosis of hypertension Herpes zoster without compli cation No contraindication to venou s thromboembolism (VTE) prophylaxis Diagnosis Post-op pain - Primary Other acute postoperative pain Diagnosis Abrasion of left eye, initial encounter- Primary Discharge Instructions * Sharla Mckinley CNP - 05/27/2017 - Follow the preprinted instruction provided by your [facility] Physician. - Take all medications as prescribed. - You are non weight bearing on your surgery foot, use a walker or crutches as needed. - Keep your surgical extremity elevated as much as possible. - Keep your dressing/posterior splint clean dry and intact. Do not remove. - Do Not Drive until cleared to do so by your surgeon or while taking pain medication. Nausea and Vomiting After Surgery: Care Instructions Your Care Instructions After you've had surgery, you may feel sick to your stomach (nauseated) or you may vomit. Sometimesanesthesia can make you feel sick. It's a common side effect and often doesn't last long. Pain alsocan make you feel sick or vomit. After the anesthesia wears off, you may feel pain from the incision (cut). That pain could then upset your stomach. Taking pain medicine can also make you feel sick to your stomach. Whatever the cause, you may get medicine that can help. There are also some things you can do at home to prevent nausea and feel better. The doctor has checked you carefully, but problems can develop later. If you notice any problems ornew symptoms, get medical treatment right away. Follow-up care is a jin part of your treatment and safety. Be sure to make and go to all appointments, and call your doctor if you are having problems. It's also a good idea to know your test resultsand keep a list of the medicines you take. How can you care for yourself at home? Be safe with medicines. Read and follow all instructions on the label. If the doctor gave you a prescription medicine for pain, take it as prescribed. If you are not taking a prescription pain medicine, ask your doctor if you can take an lisd-kff-luowcju medicine. Take your pain medicine as soon as you have pain. It works better if you take it before the pain gets bad. Call your doctor if you have any problems with your medicine. Rest in bed until you feel better. To prevent dehydration, drink plenty of fluids, enough so that your urine is light yellow or clear like water. Choose water and other caffeine-free clear liquids until you feel better. If you have kidney, heart, or liver disease and have to limit fluids, talk with your doctor before you increase the amount of fluids you drink. When you are able to eat, try clear soups, mild foods, and liquids until all symptoms are gone for 12 to 48 hours. Other good choices include dry toast, crackers, cooked cereal, and gelatin dessert, such as Jell-O. Do not smoke. Smoking and being around smoke can make nausea worse. If you need help quitting, talkto your doctor about stop-smoking programs and medicines. These can increase your chances of quitting for good. When should you call for help? Call 911 anytime you think you may need emergency care. For example, call if: You passed out (lost consciousness). Call your doctor now or seek immediate medical care if: You have new or worse nausea or vomiting. You are too sick to your stomach to drink any fluids. You cannot keep down fluids. You have symptoms of dehydration, such as: Dry eyes and a dry mouth. Passing only a little dark urine. Feeling thirstier than usual. Your pain medicine is not helping. You are dizzy or lightheaded, or you feel like you may faint. Watch closely for changes in your health, and be sure to contact your doctor if: You do not get better as expected. Where can you learn more? Log into your personal health record on [email or web address].Roovyn and enter M536 in the Education box to learn more about Nausea and Vomiting After Surgery Instructions for after anesthesia: Rest for 24 hours after your surgery and anesthesia. Do not drive. Do not drink alcoholic beveragesduring this time. You may experience a sore throat, sore jaw, stiff neck, or muscle aches after anesthesia. You may also experience dry mouth and nausea. These symptoms should resolve over the next few days. If nausea or vomiting persists after surgery you may need an anti-nausea medication such as Zofran or Phenergan. This can be called in during normal office hours by calling your surgeon s office. If it is after normal office hours you may need to go to the ER for this medication. in this encounter The following attachments cannot be sent through Care Everywhere. * FLANK PAIN (GRENADI[place]) in this encounter* Tabitha Fenton CNP - 02/16/2018 - Follow the preprinted instruction provided by your [facility] Physician. - Take all medications as prescribed. - You are non weight bearing on your surgery foot, use a walker or crutches as needed. - Keep your surgical extremity elevated as much as possible. - Keep your dressing/posterior splint clean dry and intact. Do not remove. - Do Not Drive until cleared to do so by your surgeon or while taking pain medication. Instructions for after anesthesia: Rest for 24 hours after your surgery and anesthesia. Do not drive. Do not drink alcoholic beveragesduring this time. You may experience a sore throat, sore jaw, stiff neck, or muscle aches after anesthesia. You may also experience dry mouth and nausea. These symptoms should resolve over the next few days. If nausea or vomiting persists after surgery you may need an anti-nausea medication such as Zofran or Phenergan. This can be called in during normal office hours by calling your surgeon s office. If it is after normal office hours you may need to go to the ER for this medication. in this encounter Instructions * Patient Instructions - Price Swift MD - 05/21/2017 3:58 PM EST Formatting of this note may be different from the original. If your surgery date changes or you change your surgery date, please call us at [phone] Preoperative Medication Instructions In preparation for surgery please continue all of your current medications with the following changes: Zena Witt Home Medication Instructions Prior to Surgery CAILIN:[id number] Printed on:05/21/17 7182 Medication Information Take last dose on Take the morning of surgery Comment(s) atorvastatin (LIPITOR) 10 MG tablet Take 10 mg by mouth every evening . no CYANOCOBALAMIN, VITAMIN B-12, (VITAMIN B-12 ORAL) Take by mouth every morning . no DOCOSAHEXANOIC ACID/EPA (FISH OIL ORAL) Take by mouth every other day . no Stop now for surgery esomeprazole (NEXIUM) 40 MG capsule TAKE 1 CAPSULE DAILY @ [facility] for GERD yes gemfibrozil (LOPID) 600 MG tablet TAKE 1 TABLET for cholesterol @ evening no ibuprofen (ADVIL,MOTRIN) 200 MG tablet Take 200 mg by mouth every 6 (six) hours as needed for pain. no Stop now for surgery lidocaine (LIDODERM) 5 % patch Place 1 patch on the skin daily Remove & Discard patch within 12 hours or as directed by MD . no qtkcyujd-ubqn-kva-folic acid (xnhkvfayqvwi-okng-naghpgos-folic acid) 3,500-18-0.4 unit-mg-mg Chew Chew and Swallow every morning . no naproxen (EC NAPROSYN) 500 MG EC tablet Take 1 (one) tablet (500 mg total) by mouth 2 (two) times a day with meals for 14 doses. no Stop now for surgery omeprazole (PRILOSEC) 20 MG capsule Take 40 mg by mouth every morning . yes oxyCODONE-acetaminophen (PERCOCET) 5-325 mg per tablet Take 1 (one) tablet by mouth every 6 (six) hours as needed for pain. yes If needed predniSONE (DELTASONE) 10 MG tablet Take 10 mg by mouth Take 2 tablets twice a day for 3 days, 1 tablet twice a day for 3 days, 1 tablet once a day for 5 days for shingles . yes valACYclovir (VALTREX) 1000 MG tablet Take 1,000 mg by mouth 2 (two) times a day. yes (!) 153/95 STOP Aspirin (and medications that contain aspirin, such as [place], Pepto- Bismol, Anacin), antiinflammatory medications such as Advil, Motrin, Ibuprofen, Naproxen, Aleve, [place], Pepto-Bismol, Anacin, Diclofenac, Voltaren, Daypro, Etodolac, Ketoprofen, Piroxicam, Relafen, Nabumetone, etc. Also discontinue Vitamin C, Vitamin E, [place]-3 Fatty Acid, Fish Oil or Lovaza, and all herbal medications. STOP medications NOW 05/21/2017 Tylenol (acetaminophen) is acceptable, but be careful to follow the label directions and do not usewith other pain medications. It is acceptable to continue a Multivitamin, Magnesium, Potassium, Iron supplement, Vitamin D, Calcium, or Vitamin B if you were already taking them. On the morning of surgery, with as little water as possible, ONLY take the medications listed abovein the column Take the morning of surgery. If you are using Eye Drops or Inhalers at home, pleasebring them to the hospital. If you have sleep apnea and have a CPAP/BIPAP device, please bring it with you the day of surgery. in this encounter* Patient Instructions* Allison Williamson MD - 11/06/2018 6:07 PM EDT Feeling of an Object in the Eye: Care Instructions Your Care Instructions Sometimes people feel like there is something in their eye. This is called a foreign body sensation. A doctor may not find anything wrong with your eye. If you had something very small in your eye, like a speck of dirt, tears may have washed it out. Or you may have a small scratch on the surface ofthe eye (cornea), which can make it feel as if something is still in your eye. The doctor will check your vision and examine your eye. Your eye may be numbed with drops. Sometimes a drop of colored fluid is put in the eye. This lets the doctor have a better view of the surface of the eye. You may get drops to put in your eye after you go home. Or you may just need to watch for a change in your symptoms. Follow-up care is a jin part of your treatment and safety. Be sure to make and go to all appointments, and call your doctor if you are having problems. It's also a good idea to know your test resultsand keep a list of the medicines you take. How can you care for yourself at home? Do not rub your eye. If the doctor prescribed eyedrops or ointment, use them as directed. Be sure the dropper or bottle tip is clean. To put in eyedrops or ointment: ? Tilt your head back, and pull your lower eyelid down with one finger. ? Drop or squirt the medicine inside the lower lid. ? Close your eye for 30 to 60 seconds to let the drops or ointment move around. ? Do not touch the ointment or dropper tip to your eyelashes or any other surface. When should you call for help? Call your doctor now or seek immediate medical care if: You have new or worse eye pain. Light hurts your eye. You have new or worse redness in your eye. You have symptoms of an eye infection, such as: ? Pus or thick discharge coming from the eye. ? Redness or swelling around the eye. ? A fever. You have vision changes. Watch closely for changes in your health, and be sure to contact your doctor if: You do not get better as expected. Where can you learn more? Log into your personal health record on [email or web address] and enter Z736 in the Education box to learn more about Feeling of an Object in the Eye: Care Instructions. Current as of: February 20, 2018 Content Version: 12.0 3792-5468 [employer]. Care instructions adapted under license by your healthcare professional. If you have questions about a medical condition or this instruction, always ask your healthcare professional. [employer] disclaims any warranty or liability for your use of this information. 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 Advance Directives and Living Will Advance Directive Response Recorded Date/ Time Advance Directives No August 24, 023 1:40pm History of Present Illness * Allison Williamson MD - 11/06/2018 6:07 PM EDT PATIENT NAME: Zena Witt [facility] [address] [facility] [id number] : 1955 DATE OF VISIT: 11/06/2018 #: [id number] PROVIDER: Allison Williamson MD Chief Complaint Patient presents with Foreign Body possible foreign body in left eye on Wednesday, feels like something in upper left corner of eye, using eyewash, crusty in am , drainage SUBJECTIVE 63 y.o. male presents Foreign Body (possible foreign body in left eye on Wednesday, feels like something in upper left corner of eye, using eyewash, crusty in am , drainage) HPI Pt was working and felt something go itno his left eye. He flushed it but still has the sensation. 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 SOCIAL HISTORY Social History Socioeconomic History Marital status: Single Spouse name: Not on file Number of children: Not on file Years of education: Not on file Highest education level: Not on file Occupational History Not on file Social Needs Financial resource strain: Not on file Food insecurity: Worry: Not on file Inability: Not on file Transportation needs: Medical: Not on file Non-medical: Not on file Tobacco Use Smoking status: Current Some Day Smoker Years: 40.00 Last attempt to quit: 04/30/2017 Years since quittin.5 Smokeless tobacco: Never Used Tobacco comment: social Substance and Sexual Activity Alcohol use: Yes Alcohol/week: 4.0 - 6.0 standard drinks Types: 4 - 6 Cans of beer per week Comment: weekly Drug use: No Sexual activity: Not on file Lifestyle Physical activity: Days per week: Not on file Minutes per session: Not on file Stress: Not on file Relationships Social connections: Talks on phone: Not on file Gets together: Not on file Attends lutheran service: Not on file Active member of club or organization: Not on file Attends meetings of clubs or organizations: Not on file Relationship status: Not on file Other Topics Concern Not on file Social History Narrative Not on file FAMILY HISTORY Family History Problem Relation Age of Onset Heart disease Mother Heart disease Father Cancer Father colon No Known Problems Sister No Known Problems Brother No Known Problems Brother No Known Problems Brother No Known Problems Brother No Known Problems Sister Surgical complications Neg Hx Anesthesia problems Neg Hx Clotting disorder Neg Hx Deep vein thrombosis Neg Hx Pulmonary embolism Neg Hx Diabetes Neg Hx REVIEW OF SYSTEMS Review of Systems MEDICATIONS PRIOR TO VISIT Current Outpatient Medications on File Prior to Visit Medication Sig Dispense Refill atorvastatin (LIPITOR) 40 MG tablet Take 40 mg by mouth every morning. CYANOCOBALAMIN, VITAMIN B-12, (VITAMIN B-12 ORAL) Take by mouth every morning . meloxicam (MOBIC) 15 MG tablet rdhoyvvt-hihq-cgk-folic acid (jhlrvsutntrp-uflc-rzedlrqg-folic acid) 3,500-18-0.4 unit-mg-mg Chew Chew and Swallow every morning . omeprazole (PRILOSEC) 20 MG capsule Take 40 mg by mouth every morning . No current facility-administered medications on file prior to visit. ALLERGIES/INTOLERANCES No Known Allergies OBJECTIVE BP 149/88 Pulse 68 Temp 97.3 F (36.3 C) (Tympanic) Resp 15 Ht 5' 10 Wt 99.3 kg (219 lb) SpO2 96% BMI 31.42 kg/m Physical Exam Constitutional: He is oriented to person, place, and time. He appears well- developed and well-nourished. HENT: Head: Normocephalic and atraumatic. Eyes: Pupils are equal, round, and reactive to light. EOM are normal. Slit lamp exam: The left eye shows no corneal abrasion, no foreign body and no fluorescein uptake. Neurological: He is alert and oriented to person, place, and time. Nursing note and vitals reviewed. PROCEDURE Procedures Results No results found for this or any previous visit (from the past 168 hour(s)). No orders to display ASSESSMENT/PLAN (expressed as patient instructions): SNOMED CT(R) 1. Abrasion of left eye, initial encounter ABRASION OF EYE REGION Return for see your PCP. ADDITIONAL CLINICAL COMMENTS No notes on file Discussed over the counter medications for symptomatic management and side effects of medications. Recommended taking all medications with food and to stop medications if they develop any signs of anallergic reaction. Educated patient and/or guardian about signs and symptoms that would warrant further immediate evaluation. Recommended that they should return to urgent care, make an appointment with their family physician, or go to the emergency room if symptoms persist or get acutely worse. Recommended follow upwithin the next week with their PCP or to get established with a PCP soon in order to follow up appropriately. ORDERS PLACED THIS VISIT No orders of the defined types were placed in this encounter. MEDICATION LIST AT END OF VISIT Current Outpatient Medications Medication Sig Dispense Refill atorvastatin (LIPITOR) 40 MG tablet Take 40 mg by mouth every morning. CYANOCOBALAMIN, VITAMIN B-12, (VITAMIN B-12 ORAL) Take by mouth every morning . meloxicam (MOBIC) 15 MG tablet yhefmvtb-lout-oef-folic acid (gpavlvvensyi-jueo-biitahry-folic acid) 3,500-18-0.4 unit-mg-mg Chew Chew and Swallow every morning . omeprazole (PRILOSEC) 20 MG capsule Take 40 mg by mouth every morning . tobramycin (TOBREX) 0.3 % ophthalmic solution Administer 1 (one) drop into the left eye every 4 (four) hours while awake for 5 days . 5 mL 0 No current facility-administered medications for this visit. documented in this encounter Reason for Referral Reason 08/26/22 Patient b eiprashant referred for EGD and Colonoscopy Diagnosis 1 Other iron deficienc y anemia (D50.8) Referral Organization [facility] John witt Referring Provider First Name Aaron Referring Provider Last Name Eleazar Referring Provider Specialty Internal Me dicine Referred Organization [facility] Kerryolo gy Referred Provider Nino Russell Referred Address [address],[address] Referred Provider Specialty Gastroentero logy Referral Priority Routine Referral Appointment Date 2022-08-26 General Notes Patient found to be anemic during his annual wellness examination. Fe, Ferritin, B12, FA were normal with mild decreased transferrin saturation. He has a history of GERD, which is controlled with the use of PPI. Nancy Story 2022 12:03:10 PM >received today, faxed P2P Clinical Notes Mr. Witt is an as ymptomatic patient with laboratory findings suggestive of iron deficiency anemia. He has a history of GERD but symptoms are controlled with a PPI. He denies heartburn, dysphagia change in appetite or unexplained weight loss. He denies abdominal pain, melena or hematochezia. Due to his anemia, I have recommended EGD and colonoscopy. Reason 08/12/22 Patient b eing referred for osteoarthritis of the left knee. Pain interfering with ADL and sleep. He denies swelling, erythema, locking or giving way. Requesting evaluation for joint replacement. Diagnosis 1 Primary osteoarthrit is of left knee (M17.12) Referral Organization [facility] Referring Provider First Name Aaron Referring Provider Last Name Eleazar Referring Provider Specialty Internal Me dicine Referred Organization [facility] Referred Provider Rik Villalobos Referred Address [address] [place],[address] Referred Provider Specialty Orthopedic S urgery Referral Priority Routine Referral Appointment Date 2022-08-12 General Notes Nancy Story 12:04:02 PM >received today, sent P2P Chief Complaint and Reason for Visit Chief Complaint Other Iron Deficienc y Anemia Additional Source Comments Allison Clemente, - 05/27/2017 10:29 AM Price Nunn MD - 05/21/2017 4:06 PM Price Nunn MD - 05/21/2017 4:06 PM EST H&P Notes (unrecognized sect ion and content) INTERVAL HISTORY AND PHYSICAL Patient Name: Zena Witt Admit Date: [id number] MR #: [id number] : 1955 The H&P has been reviewed and the patient has been examined. I concur with the findings of the H&P. There are no significant changes. It is appropriate to proceed with the planned procedure. Allison Clemente DO 05/27/2017 10:29 AM Formatting of this note may be different from the original. Assessment and Plan 1. Pre-op examination Medically acceptable risk for elective low/intermediate risk orthopedic procedure pending labs ordered per anesthesia protocol and/or surgeon's request. ECG 12 Lead 2. Varus deformity, not elsewhere classified, left ankle Patient provided instructions on preoperative management of medications including withholding Aspirin, NSAIDS, Vitamin C, Vitamin E, Fish Oil, and specific Herbal Supplements 7-10 days prior to procedure. In need of surgical intervention having failed other treatments. Primary management per surgical team. 3. Pre-operative cardiovascular examination This patient has no active cardiac conditions and has a revised cardiac risk index score (RCRI) of 0 and therefore,<1% risk of major adverse cardiac event. In addition is asymptomatic with greater than 4 METS of functional capacity and therefore is at acceptable for elective surgery based on 2014 [place] [employer]/[place] [employer] Association (ACC/AHA) guidelines on Perioperative Cardiovascular Evaluation and Management of Patients Undergoing Noncardiac Surgery. EKG read independently today reveals NSR with no ischemia or prior infarction. 4. Hyperlipidemia, unspecified hyperlipidemia type Hyperlipidemia (e78.5) Chronic pre-existing condition - controlled on cholesterol lowering medication - plan to continue perioperatively to lessen the risk of cardiovascular complications. 5. Gastroesophageal reflux disease without esophagitis Gastroesophageal Reflux or GERD noted (K21.9) Well controlled with PPI/[id number] which should be dosed perioperatively on usual home schedule. 6. Obesity (BMI 30-39.9) Obesity, Unspecified (E66.9) Body mass index is 31.31 kg/m . Patient will require close monitoring of respiratory status while on IV opiates and I would recommend continuous pulse oximetry. Please see ENEDINA risk assessment. Would recommend ENEDINA protocol with utilization of ETCO2 monitoring for patients with or at risk for ENEDINA while on IV opiates. 7. Elevated blood pressure reading without diagnosis of hypertension Elevated Blood pressure with no prior Dx of Hypertension (R03.0) Patient denies any history of hypertension, current blood pressure reading although elevated is within an acceptable range for elective surgery. Patient advised on continuing monitoring and follow up with PCP. (!) 153/95 and elevated. Not currently on medications for treatment. 8. Shingles involving left flank area with slight rash and pain component. Presently on Medrol Dosepak and antiviral therapy by his family physician. Patient will take to completed. He is clinically improving at this point already no current draining or open wounds present 9. No contraindication to venous thromboembolism (VTE) prophylaxis DVT prophylaxis is recommended per 2012 ACCP guidelines. This decision will ultimately be left to the discretion of the surgical service. Chief Complaint Patient presents with Pre-operative Medical Risk Stratification History of Present Illness Zena Witt is a 61 y.o. male who presents for preoperative medical risk stratification consult at the request of Laura Richard DO prior to LEFT ANKLE ARTHROSCOPY WITH DEBRIDEMENT, PARTIAL EXCISION TIBIA, BROSTRUM, WEI, TIBIAL OSTEOTOMY @ [facility] on 05/27. Patient reports that he has had left ankle/foot discomfort for over a year. The pain is intermittent and increases with walking. The pain ranges from mild to severe. He has not had any other treatment. 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 This patient has recent history of shingles presently on antiviral and prednisone therapy. He states he saw his family physician within the past few days with left flank pain and slight rash. As being on the present medications it has improved significantly. The patient reports no problems with prior anesthesia experiences This patient denies any history of cardiopulmonary disease. The functional capacity is at least 4 METs without symptoms of chest pain or shortness of breath. Please see below regarding status of active medical conditions and assessment and plan regarding details of preoperative medical risk stratification. Past Medical History: Diagnosis Date Arthritis GERD (gastroesophageal reflux disease) Hyperlipidemia Shingles Past Medical History Pertinent Negatives: Diagnosis Date Noted Anemia 05/21/2017 Bleeding disorder (HCC) 05/21/2017 Cancer ([facility]) 05/21/2017 Complication of anesthesia 05/21/2017 Coronary artery disease 05/21/2017 Deep vein thrombosis (HCC) 05/21/2017 Diabetes mellitus type I (HCC) 05/21/2017 Diabetes mellitus, type 2 ([facility]) 05/21/2017 History of blood transfusion 05/21/2017 Hypertension 05/21/2017 No blood products 05/21/2017 Pulmonary embolism (HCC) 05/21/2017 Rheumatoid arthritis (HCC) 05/21/2017 Sleep apnea, obstructive 05/21/2017 Past Surgical History: Procedure Laterality Date APPENDECTOMY KNEE ARTHROPLASTY Right ROTATOR CUFF REPAIR Social History Substance Use Topics Smoking status: Former Smoker Years: 40.00 Quit date: 04/30/2017 Smokeless tobacco: Never Used Comment: social Alcohol use 2.4 - 3.6 oz/week 4 - 6 Cans of beer per week Family History Problem Relation Age of Onset Heart disease Mother Heart disease Father Cancer Father prostate No Known Problems Sister No Known Problems Brother No Known Problems Brother No Known Problems Brother No Known Problems Brother No Known Problems Sister Surgical complications Neg Hx Anesthesia problems Neg Hx Clotting disorder Neg Hx Deep vein thrombosis Neg Hx Pulmonary embolism Neg Hx Diabetes Neg Hx @ Prior to Admission medications Medication Sig Taking? Dose Freq atorvastatin (LIPITOR) 10 MG tablet Take 10 mg by mouth every evening . Yes 10 mg, Oral, Every evening CYANOCOBALAMIN, VITAMIN B-12, (VITAMIN B-12 ORAL) Take by mouth every morning . Yes Oral, Every morning DOCOSAHEXANOIC ACID/EPA (FISH OIL ORAL) Take by mouth every other day . Yes Oral, Every other day esomeprazole (NEXIUM) 40 MG capsule TAKE 1 CAPSULE DAILY @ [facility] for GERD Yes TAKE 1 CAPSULE DAILY @ [facility] for GERD gemfibrozil (LOPID) 600 MG tablet TAKE 1 TABLET for cholesterol @ evening Yes TAKE 1 TABLET for cholesterol @ evening ibuprofen (ADVIL,MOTRIN) 200 MG tablet Take 200 mg by mouth every 6 (six) hours as needed for pain. Yes 200 mg, Oral, Every 6 hours PRN lidocaine (LIDODERM) 5 % patch Place 1 patch on the skin daily Remove & Discard patch within 12 hours or as directed by MD . Yes 1 patch, Transdermal, Every 24 hours, Remove & Discard patch within 12 hours or as directed by MD ybwxipbe-vkze-wwm-folic acid (zkycfrtvfrfa-ffua-btiugwjr-folic acid) 3,500-18-0.4 unit-mg-mg Chew Chew and Swallow every morning . Yes Oral, Every morning naproxen (EC NAPROSYN) 500 MG EC tablet Take 1 (one) tablet (500 mg total) by mouth 2 (two) times a day with meals for 14 doses. Patient taking differently: Take 500 mg by mouth 2 (two) times a day with meals . Yes 500 mg, Oral, 2 times daily with meals Patient taking differently: Take 500 mg by mouth 2 (two) times a day with meals . omeprazole (PRILOSEC) 20 MG capsule Take 40 mg by mouth every morning . Yes 40 mg, Oral, Every morning oxyCODONE-acetaminophen (PERCOCET) 5-325 mg per tablet Take 1 (one) tablet by mouth every 6 (six) hours as needed for pain. Patient taking differently: Take 1 tablet by mouth every 6 (six) hours as needed for pain . Yes 1 tablet, Oral, Every 6 hours PRN Patient taking differently: Take 1 tablet by mouth every 6 (six) hours as needed for pain . predniSONE (DELTASONE) 10 MG tablet Take 10 mg by mouth Take 2 tablets twice a day for 3 days, 1 tablet twice a day for 3 days, 1 tablet once a day for 5 days for shingles . Yes 10 mg, Oral, Take 2 tablets twice a day for 3 days, 1 tablet twice a day for 3 days, 1 tablet once a day for 5 days for shingles valACYclovir (VALTREX) 1000 MG tablet Take 1,000 mg by mouth 2 (two) times a day. Yes 1,000 mg, Oral, 2 times daily acetaminophen (TYLENOL) 325 MG tablet Take 650 mg by mouth every 6 (six) hours as needed for pain. Yes 650 mg, Oral, Every 6 hours PRN atorvastatin (LIPITOR) 10 MG tablet Take 10 mg by mouth. 10 mg, Oral cyclobenzaprine (FLEXERIL) 5 MG tablet Take 1 tab at 7 pm for muscle pain, don't drive under influence of the medication, can go up to two three times daily if toelrated Take 1 tab at 7 pm for muscle pain, don't drive under influence of the medication, can go up to two three times daily if toelrated gemfibrozil (LOPID) 600 MG tablet Take 600 mg by mouth. 600 mg, Oral No Known Allergies Review of Systems Constitution: (negative) HENT: (negative) Eyes: (negative) Respiratory: (negative) Cardiovascular: (negative) - Exercise capacity: Greater than 4 METS Gastrointestinal: (negative) Genitourinary: (negative) Musculoskeletal: (negative) Skin: (negative) Neurological: (negative) Hematological: (negative) Physical Exam BP (!) 153/95 Pulse 69 Temp 97.8 ?F (36.6 ?C) (Oral) Ht 5' 10.5 Wt 100.4 kg (221 lb 5.5 oz) SpO2 93% BMI 31.31 kg/m Constitutional--Conversant, in no acute distress Eyes: [place] conjunctivae, no ptosis. Pupils equal Bilaterally, Anicteric Ears/nose/mouth/throat:Hearing Intact. Nose and ears appear normal. Oropharynx clear with Moist mucosa Neck: Trachea midline, No Goiter, Non-tender, no masses. Normal ROM. Respiratory: Clear to auscultation/normal respiratory effort. Normal chest excrusion Cardiovascular: Regular rhythm with no murmurs, gallops or rubs. No peripheral edema. Gastrointestinal: Abdomen soft, with no masses, no hepatosplenomegaly. Musculoskeletal: No calf tenderness with palpation, no digital cyanosis or clubbing. Skin: Minimal herpetic type lesions noted in the left lower flank region. No erythema or any weeping lesions at this time, Normal turgor and temperature. Neurologic: A & O x 3, No focal deficits Psychiatric: Appropriate affect, intact judgement and insight. Data Preprocedure Sleep Apnea Assessment - Mild Risk (1/3) Sleep Apnea in the patient's Active Problem List or Medical History: no 1. History of apparent airway obstruction during sleep: (1 point for this category) Do you snore frequently, or snore loud enough to be heard through a closed door?: no Do you awaken from sleep with a choking sensation or have periods during sleep when someone has observed you pausing between breaths?: no 2. Somnolence of the patient: (1 point for this category) Do you find yourself frequently sleepy despite adequate hours of sleep the night before?: no Do you fall asleep easily while: watching TV, reading, riding in or driving a car?: yes 3. Predisposing physician characteristics: (1 point for this category, 2 points if the BMI ? 40) BMI (Calculated): 31.3 Neck Circumference (inches): 15.5 inches LABS Ordered and Pending Review EKG Independently interpreted from - EKG read independently today reveals NSR with no ischemia or prior infarction. OLD RECORD SUMMARY Reviewed to further risk stratify patient for surgery includes - More recent [facility] electronic records reviewed pertinent to history. OUTSIDE RECORDS REQUESTED NONE in this encounter Formatting of this note may be different from the original. Assessment and Plan 1. Pre-op examination Medically acceptable risk for elective low/intermediate risk orthopedic procedure pending labs ordered per anesthesia protocol and/or surgeon's request. ECG 12 Lead 2. Varus deformity, not elsewhere classified, left ankle Patient provided instructions on preoperative management of medications including withholding Aspirin, NSAIDS, Vitamin C, Vitamin E, Fish Oil, and specific Herbal Supplements 7-10 days prior to procedure. In need of surgical intervention having failed other treatments. Primary management per surgical team. 3. Pre-operative cardiovascular examination This patient has no active cardiac conditions and has a revised cardiac risk index score (RCRI) of 0 and therefore,<1% risk of major adverse cardiac event. In addition is asymptomatic with greater than 4 METS of functional capacity and therefore is at acceptable for elective surgery based on 2014 [place] [employer]/[place] [employer] (ACC/AHA) guidelines on Perioperative Cardiovascular Evaluation and Management of Patients Undergoing Noncardiac Surgery. EKG read independently today reveals NSR with no ischemia or prior infarction. 4. Hyperlipidemia, unspecified hyperlipidemia type Hyperlipidemia (e78.5) Chronic pre-existing condition - controlled on cholesterol lowering medication - plan to continue perioperatively to lessen the risk of cardiovascular complications. 5. Gastroesophageal reflux disease without esophagitis Gastroesophageal Reflux or GERD noted (K21.9) Well controlled with PPI/L2Ykxyxmy which should be dosed perioperatively on usual home schedule. 6. Obesity (BMI 30-39.9) Obesity, Unspecified (E66.9) Body mass index is 31.31 kg/m . Patient will require close monitoring of respiratory status while on IV opiates and I would recommend continuous pulse oximetry. Please see ENEDINA risk assessment. Would recommend ENEDINA protocol with utilization of ETCO2 monitoring for patients with or at risk for ENEDINA while on IV opiates. 7. Elevated blood pressure reading without diagnosis of hypertension Elevated Blood pressure with no prior Dx of Hypertension (R03.0) Patient denies any history of hypertension, current blood pressure reading although elevated is within an acceptable range for elective surgery. Patient advised on continuing monitoring and follow up with PCP. (!) 153/95 and elevated. Not currently on medications for treatment. 8. Shingles involving left flank area with slight rash and pain component. Presently on Medrol Dosepak and antiviral therapy by his family physician. Patient will take to completed. He is clinically improving at this point already no current draining or open wounds present 9. No contraindication to venous thromboembolism (VTE) prophylaxis DVT prophylaxis is recommended per 2012 ACCP guidelines. This decision will ultimately be left to the discretion of the surgical service. Chief Complaint Patient presents with Pre-operative Medical Risk Stratification History of Present Illness Zena Witt is a 61 y.o. male who presents for preoperative medical risk stratification consult at the request of Laura Richard DO prior to LEFT ANKLE ARTHROSCOPY WITH DEBRIDEMENT, PARTIAL EXCISION TIBIA, BROSTRUM, WEI, TIBIAL OSTEOTOMY @ [facility] on 05/27. Patient reports that he has had left ankle/foot discomfort for over a year. The pain is intermittent and increases with walking. The pain ranges from mild to severe. He has not had any other treatment. 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 This patient has recent history of shingles presently on antiviral and prednisone therapy. He states he saw his family physician within the past few days with left flank pain and slight rash. As being on the present medications it has improved significantly. The patient reports no problems with prior anesthesia experiences This patient denies any history of cardiopulmonary disease. The functional capacity is at least 4 METs without symptoms of chest pain or shortness of breath. Please see below regarding status of active medical conditions and assessment and plan regarding details of preoperative medical risk stratification. Past Medical History: Diagnosis Date Arthritis GERD (gastroesophageal reflux disease) Hyperlipidemia Shingles Past Medical History Pertinent Negatives: Diagnosis Date Noted Anemia 05/21/2017 Bleeding disorder (HCC) 05/21/2017 Cancer ([facility]) 05/21/2017 Complication of anesthesia 05/21/2017 Coronary artery disease 05/21/2017 Deep vein thrombosis (HCC) 05/21/2017 Diabetes mellitus type I (HCC) 05/21/2017 Diabetes mellitus, type 2 ([facility]) 05/21/2017 History of blood transfusion 05/21/2017 Hypertension 05/21/2017 No blood products 05/21/2017 Pulmonary embolism (HCC) 05/21/2017 Rheumatoid arthritis ([facility]) 05/21/2017 Sleep apnea, obstructive 05/21/2017 Past Surgical History: Procedure Laterality Date APPENDECTOMY KNEE ARTHROPLASTY Right ROTATOR CUFF REPAIR Social History Substance Use Topics Smoking status: Former Smoker Years: 40.00 Quit date: 04/30/2017 Smokeless tobacco: Never Used Comment: social Alcohol use 2.4 - 3.6 oz/week 4 - 6 Cans of beer per week Family History Problem Relation Age of Onset Heart disease Mother Heart disease Father Cancer Father prostate No Known Problems Sister No Known Problems Brother No Known Problems Brother No Known Problems Brother No Known Problems Brother No Known Problems Sister Surgical complications Neg Hx Anesthesia problems Neg Hx Clotting disorder Neg Hx Deep vein thrombosis Neg Hx Pulmonary embolism Neg Hx Diabetes Neg Hx @ Prior to Admission medications Medication Sig Taking? Dose Freq atorvastatin (LIPITOR) 10 MG tablet Take 10 mg by mouth every evening . Yes 10 mg, Oral, Every evening CYANOCOBALAMIN, VITAMIN B-12, (VITAMIN B-12 ORAL) Take by mouth every morning . Yes Oral, Every morning DOCOSAHEXANOIC ACID/EPA (FISH OIL ORAL) Take by mouth every other day . Yes Oral, Every other day esomeprazole (NEXIUM) 40 MG capsule TAKE 1 CAPSULE DAILY @ moring for GERD Yes TAKE 1 CAPSULE DAILY @ moring for GERD gemfibrozil (LOPID) 600 MG tablet TAKE 1 TABLET for cholesterol @ evening Yes TAKE 1 TABLET for cholesterol @ evening ibuprofen (ADVIL,MOTRIN) 200 MG tablet Take 200 mg by mouth every 6 (six) hours as needed for pain. Yes 200 mg, Oral, Every 6 hours PRN lidocaine (LIDODERM) 5 % patch Place 1 patch on the skin daily Remove & Discard patch within 12 hours or as directed by MD . Yes 1 patch, Transdermal, Every 24 hours, Remove & Discard patch within 12 hours or as directed by MD fjaeeicj-emlx-pdn-folic acid (khpmpgfzbluq-lfhy-tjcuiynp-folic acid) 3,500-18-0.4 unit-mg-mg Chew Chew and Swallow every morning . Yes Oral, Every morning naproxen (EC NAPROSYN) 500 MG EC tablet Take 1 (one) tablet (500 mg total) by mouth 2 (two) times a day with meals for 14 doses. Patient taking differently: Take 500 mg by mouth 2 (two) times a day with meals . Yes 500 mg, Oral, 2 times daily with meals Patient taking differently: Take 500 mg by mouth 2 (two) times a day with meals . omeprazole (PRILOSEC) 20 MG capsule Take 40 mg by mouth every morning . Yes 40 mg, Oral, Every morning oxyCODONE-acetaminophen (PERCOCET) 5-325 mg per tablet Take 1 (one) tablet by mouth every 6 (six) hours as needed for pain. Patient taking differently: Take 1 tablet by mouth every 6 (six) hours as needed for pain . Yes 1 tablet, Oral, Every 6 hours PRN Patient taking differently: Take 1 tablet by mouth every 6 (six) hours as needed for pain . predniSONE (DELTASONE) 10 MG tablet Take 10 mg by mouth Take 2 tablets twice a day for 3 days, 1 tablet twice a day for 3 days, 1 tablet once a day for 5 days for shingles . Yes 10 mg, Oral, Take 2 tablets twice a day for 3 days, 1 tablet twice a day for 3 days, 1 tablet once a day for 5 days for shingles valACYclovir (VALTREX) 1000 MG tablet Take 1,000 mg by mouth 2 (two) times a day. Yes 1,000 mg, Oral, 2 times daily acetaminophen (TYLENOL) 325 MG tablet Take 650 mg by mouth every 6 (six) hours as needed for pain. Yes 650 mg, Oral, Every 6 hours PRN atorvastatin (LIPITOR) 10 MG tablet Take 10 mg by mouth. 10 mg, Oral cyclobenzaprine (FLEXERIL) 5 MG tablet Take 1 tab at 7 pm for muscle pain, don't drive under influence of the medication, can go up to two three times daily if toelrated Take 1 tab at 7 pm for muscle pain, don't drive under influence of the medication, can go up to two three times daily if toelrated gemfibrozil (LOPID) 600 MG tablet Take 600 mg by mouth. 600 mg, Oral No Known Allergies Review of Systems Constitution: (negative) HENT: (negative) Eyes: (negative) Respiratory: (negative) Cardiovascular: (negative) - Exercise capacity: Greater than 4 METS Gastrointestinal: (negative) Genitourinary: (negative) Musculoskeletal: (negative) Skin: (negative) Neurological: (negative) Hematological: (negative) Physical Exam BP (!) 153/95 Pulse 69 Temp 97.8 ?F (36.6 ?C) (Oral) Ht 5' 10.5 Wt 100.4 kg (221 lb 5.5 oz) SpO2 93% BMI 31.31 kg/m Constitutional--Conversant, in no acute distress Eyes: [place] conjunctivae, no ptosis. Pupils equal Bilaterally, Anicteric Ears/nose/mouth/throat:Hearing Intact. Nose and ears appear normal. Oropharynx clear with Moist mucosa Neck: Trachea midline, No Goiter, Non-tender, no masses. Normal ROM. Respiratory: Clear to auscultation/normal respiratory effort. Normal chest excrusion Cardiovascular: Regular rhythm with no murmurs, gallops or rubs. No peripheral edema. Gastrointestinal: Abdomen soft, with no masses, no hepatosplenomegaly. Musculoskeletal: No calf tenderness with palpation, no digital cyanosis or clubbing. Skin: Minimal herpetic type lesions noted in the left lower flank region. No erythema or any weeping lesions at this time, Normal turgor and temperature. Neurologic: A & O x 3, No focal deficits Psychiatric: Appropriate affect, intact judgement and insight. Data Preprocedure Sleep Apnea Assessment - Mild Risk (1/3) Sleep Apnea in the patient's Active Problem List or Medical History: no 1. History of apparent airway obstruction during sleep: (1 point for this category) Do you snore frequently, or snore loud enough to be heard through a closed door?: no Do you awaken from sleep with a choking sensation or have periods during sleep when someone has observed you pausing between breaths?: no 2. Somnolence of the patient: (1 point for this category) Do you find yourself frequently sleepy despite adequate hours of sleep the night before?: no Do you fall asleep easily while: watching TV, reading, riding in or driving a car?: yes 3. Predisposing physician characteristics: (1 point for this category, 2 points if the BMI ? 40) BMI (Calculated): 31.3 Neck Circumference (inches): 15.5 inches LABS Ordered and Pending Review EKG Independently interpreted from - EKG read independently today reveals NSR with no ischemia or prior infarction. OLD RECORD SUMMARY Reviewed to further risk stratify patient for surgery includes - More recent [facility] electronic records reviewed pertinent to history. OUTSIDE RECORDS REQUESTED NONE in this encounter INTERVAL HISTORY AND PHYSICAL Patient Name: Zena Witt Admit Date: [id number] MR #: [id number] : 1955 The H&P has been reviewed and the patient has been examined. I concur with the findings of the H&P. There are no significant changes. It is appropriate to proceed with the planned procedure. Sriram Vallecillo Jr., DO 02/17/2018 10:38 Pearson this encounter Op Note - Allison Clemente, DO - 05/27/2017 2:06 PM ESTBrief Op Note - Allison Clemente, DO - 05/27/2017 1:04 PM ESTED Notes - Audelia Fisher RN - 05/19/2017 6:34 AM EST Miscellaneous Notes (unrecog nized section and content) JOI ZENA [facility] [id number] 1955 DATE 05/27/2017 OPERATIVE REPORT SURGEON LAURA RICHARD, DO LAW LIBRARIAN ALLISON CLEMENTE, DO LAW LIBRARIAN 2 ANALI DIANE PA-C PREOPERATIVE DIAGNOSES 1. Left ankle varus. 2. Lateral ankle instability. 3. 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 4. Tibial exostosis. 5. Ankle synovitis. POSTOPERATIVE DIAGNOSES 1. Left ankle varus. 2. Lateral ankle instability. 3. 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 4. Tibial exostosis. 5. Ankle synovitis. PROCEDURE PERFORMED 1. Left ankle arthroscopy with extensive debridement. 2. Partial excision tibia. 3. Brostrom repair. 4. Wei tissue advancement. 5. Tibial osteotomy. ANESTHESIA General with regional block. HEMOSTASIS Pneumatic tourniquet inflated to 300 mmHg. ESTIMATED BLOOD LOSS 10 mL. COMPLICATIONS None. CONDITION Stable to the PACU. IMPLANTS 1. Biomet 6-hole fibular locking plate with locking and nonlocking screws. 2. Femoral head allograft. 3. JuggerKnot suture anchor. INDICATION FOR PROCEDURE Patient is a 61-year-old male with a history of pain and deformity to his left ankle. He failed conservative treatment including physical therapy, activity modification and shoe wear modification, and wished to proceed with surgery. All risks, benefits and alternatives were explained to the patient (including but not limited to DVT, infection, wound healing problems, bone healing problems, neurovascular damage, risks for need for further surgery, as well as risks with general regional anesthesia). Patient understood and wished to proceed with the above procedure. DESCRIPTION OF PROCEDURE Patient was met in the preoperative holding area, marked with an indelible marker by Dr. Richard. He was brought back to the operative suite, placed on the operative table in the supine position. There general anesthesia was administered by the Department of Anesthesia. Once he was adequately sedated, a well-padded left thigh tourniquet was placed and he was placed in left lateral decubitus position with all bony prominences well-padded. He was then prepped and draped in the usual sterile fashion. A time-out was performed. All in the room were in agreement with the patient, procedure and site of procedure, and preoperative antibiotics were administered by the Department of Anesthesia prior to incision. The limb was exsanguinated and tourniquet inflated to 300 mmHg, where it remained inflated for the duration of the procedure. We then inserted our spinal needle into the anteromedial aspect of the ankle to establish our anteromedial portal. We insufflated the joint with 10 mL of lidocaine with epinephrine and established our lateral portal under direct visualization. We then extensively debrided the synovitis in the joint. We found an anterior tibial osteophyte which was removed using the shaver on forward. Once all this was removed, we checked ankle range of motion and found this to be much improved. We then removed all the fluid. We then closed our portal sites using 2-0 nylon suture. We then placed the leg laterally on the bed and made an incision over the distal fibula. We then sharply dissected down to our inferior extensor retinaculum, which was tagged for later tissue advancement. We then identified the distal fibular tissue which was incised using a 15 blade. We elevated the fibula and then removed part of the distal fibula. We then noted we had poor tissue on the fibula and we inserted a suture anchor into the distal fibula to help support our repair. We then properly tensioned the ankle and repaired the distal fibular tissue up to the fibula in a livpe-kjgq-ipge fashion. We still had some laxity distally, which was then improved with a Wei tissue advancement over the inferior retinacular tissue. This was advanced up and we had significant improvement in the ankle joint stability. We then placed the patient supine on the bed and turned our attention to the tibial osteotomy. We made a medial incision over the tibia and sharply dissected down. We identified the branch of the saphenous vein, which was cauterized and the saphenous was elevated anteriorly. We then subperiosteally elevated it off the tibia and checked the osteotomy location under fluoroscopy. We protected both anteriorly and posteriorly all of the tendinous and neurovascular structures. We then made our osteotomy proximal in line with the joint. With care to keep our lateral cortex intact, we then inserted our Hintermann distractor and distracted our osteotomy site. We achieved excellent correction when checking the tibial plafond. We measured our distraction to be about 8 mm which our femoral head was then cut in a wedge fashion along the neck to insert into our wedge. Once this was fitting properly, we checked our overall ankle position under fluoroscopy and found we had excellent correction as well as good tibial alignment. We then placed a medial plate over our osteotomy site and locked it distally with nonlocking screws proximally. We then inserted DBM bone graft into our osteotomy site to help facilitate healing. We checked our implant position and overall osteotomy in foot position under fluoroscopy, and found them to be excellent. We then closed our wound using 2-0 Vicryl suture for the subcutaneous tissue and 3-0 nylon for the skin. A sterile dressing was placed consisting of Adaptic, 4 x 4, ABD, Webril, and a bulky Pierson post mold dressing. The tourniquet was deflated. The toes pinked up nicely. Patient was awoken from anesthesia and brought to the PACU in stable condition. Dr. Richard was present for the critical portions of the procedure. Patient will be discharged home and will follow up in the office in 1- week. Dictated by DO LAURA MOTNES DO D 05/27/2017 13:18 [id number] T 05/27/2017 14:01 [facility] Formatting of this note may be different from the original. Brief Post Operative Note Patient Name: Zena Witt : 1955 (61 y.o.) Date of Service: 05/27/2017 [facility]: [id number] Procedure(s): LEFT ANKLE ARTHROSCOPY WITH DEBRIDEMENT, PARTIAL EXCISION TIBIA, BROSTRUM, WEI, TIBIAL OSTEOTOMY Pre-Operative Diagnoses: * LEFT VARUS ANKLE, INSTABILITY, TIBIA EXOSTOSIS Post-Operative Diagnoses: * Same as Pre-Op Diagnosis Surgeon(s) and Role: * Allison Clemente DO - Fellow * Laura Richard DO - Primary Anesthesiologist: Darrius Rand MD ASSESSMENT NURSE: Craig Street CRNA Delivery Crew Member: Keyona Solorio RN Physician Dog Pound Attendant: Anali Diane PA-C Relief Delivery Crew Member: Eden Adam RN Relief Scrub: Debbie Ireland Scrub Person: Harish Clay RN: Eden Adam RN; Lorna Miller RN Operative findings: ankle varus, instabilty Intra and immediate post-operative complications: none Type of anesthesia used: general, regional Estimated blood loss: refer to anesthesia record Estimated urine output: refer to anesthesia record Specimen(s): * No specimens in log * Implant(s): Implant Name Type Inv. Item Serial No. Egg Grader Lot No. [id number] No. Used Action GRAFT FEMORAL HEAD - [id number] Graft GRAFT FEMORAL HEAD LIFENET Left 1 Implanted ANCHOR 1.45MM #2 SOFT SHORT RIGID JUGGERKNOT W/DRILL BIT - [id number] [place] ANCHOR 1.45MM #2 SOFT SHORT RIGID JUGGERKNOT W/DRILL BIT BIOMET SPORT [id number] Left 1 Implanted ALLOGRAFT 5CC FIBER DBM STAGRAFT - [id number] Bone ALLOGRAFT 5CC FIBER DBM STAGRAFT BI[employer] [id number] Left 1 Implanted SCREW 3.5 X 32MM LOW PROFILE STEVEN - [id number] SCREW 3.5 X 32MM LOW PROFILE STEVEN BIOMET SP/TR Left 1 Implanted SCREW 3.5 X 34MM LOW PROFILE STEVEN - [id number] SCREW 3.5 X 34MM LOW PROFILE STEVEN BIOMET SP/TR Left 2 Implanted SCREW 3.5 X 34MM STEVEN LOCK - [id number] SCREW 3.5 X 34MM STEVEN LOCK BIOMET SP/TR Left 1 Implanted SCREW 3.5 X 12MM STEVEN LOCK - [id number] SCREW 3.5 X 12MM STEVEN LOCK BIOMET SP/TR Left 1 Implanted PLATE 6HL FIB LOCK - [id number] PLATE 6HL FIB LOCK BIOMET SP/TR Left 1 Implanted Drain(s): Wound(s): Allison Clemente, DO 05/27/2017 1:04 PM in this encounter Patient is resting comfortably. Call light within reach. Patient updated on continued plan of care. Formatting of this note may be different from the original. PCP - Nupur Gil MD [phone] Chief Complaint Patient presents with Flank Pain Abdominal Pain HPI: Dictation on: 05/19/2017 4:40 AM by: TRANG BRAY [[id number]] Review of Systems Constitutional: No fevers Skin: No rash Eyes: No discharge ENMT: No hemoptysis Genitourinary: no obstructive symptoms Endocrine: no polyuria Neurologic: no new numbness Psychiatric: No hallucinations Hematologic/Lymphatic: No abnormal bruising Allergic/Immunologic: no urticaria Other pertinent positives and negatives in HPI All other systems reviewed and are negative. Past Medical History Reviewed Past Medical History: Diagnosis Date Hyperlipidemia Past Surgical History Reviewed Past Surgical History: Procedure Laterality Date APPENDECTOMY KNEE ARTHROPLASTY Right ROTATOR CUFF REPAIR Family History Reviewed and not pertinent History reviewed. No pertinent family history. Social History Reviewed Social History Social History Marital status: Single Spouse name: N/A Number of children: N/A Years of education: N/A Occupational History Not on file. Social History Main Topics Smoking status: Current Every Day Smoker Smokeless tobacco: Never Used Alcohol use Yes Comment: occassionally Drug use: No Sexual activity: Not on file Other Topics Concern Not on file Social History Narrative No narrative on file Allergies Reviewed No Known Allergies Medications Patient's Medications New Prescriptions NAPROXEN (EC NAPROSYN) 500 MG EC TABLET Take 1 (one) tablet (500 mg total) by mouth 2 (two) times a day with meals for 14 doses. OXYCODONE-ACETAMINOPHEN (PERCOCET) 5-325 MG PER TABLET Take 1 (one) tablet by mouth every 6 (six) hours as needed for pain. Previous Medications ACETAMINOPHEN (TYLENOL) 325 MG TABLET Take 650 mg by mouth every 6 (six) hours as needed for pain. ATORVASTATIN (LIPITOR) 10 MG TABLET Take 10 mg by mouth every morning . ATORVASTATIN (LIPITOR) 10 MG TABLET Take 10 mg by mouth. CYANOCOBALAMIN, VITAMIN B-12, (VITAMIN B-12 ORAL) Take by mouth. CYCLOBENZAPRINE (FLEXERIL) 5 MG TABLET Take 1 tab at 7 pm for muscle pain, don't drive under influence of the medication, can go up to two three times daily if toelrated DOCOSAHEXANOIC ACID/EPA (FISH OIL ORAL) Take by mouth. ESOMEPRAZOLE (NEXIUM) 40 MG CAPSULE TAKE 1 CAPSULE DAILY @ moring for GERD GEMFIBROZIL (LOPID) 600 MG TABLET TAKE 1 TABLET TWICE A DAY for cholesterol @ morning GEMFIBROZIL (LOPID) 600 MG TABLET Take 600 mg by mouth. IBUPROFEN (ADVIL,MOTRIN) 200 MG TABLET Take 200 mg by mouth every 6 (six) hours as needed for pain. DLFPTISQ-TBKN-ZKA-FOLIC ACID (ZSUWZKUNCMPC-JICY-DPTIFWDL-FOLIC ACID) 3,500-18-0.4 UNIT-MG-MG CHEW Chew and Swallow. OMEPRAZOLE (PRILOSEC) 20 MG CAPSULE Take 40 mg by mouth. Modified Medications No medications on file Discontinued Medications No medications on file Physical Exam Initial Vital Signs BP 138/70 Pulse 72 Temp 97.1 ?F (36.2 ?C) (Oral) Resp 16 Ht 5' 10.5 Wt 102.5 kg (226 lb) SpO2 96% BMI 31.97 kg/m Physical Exam Constitutional: He is oriented to person, place, and time. He appears well- developed and well-nourished. HENT: Head: Normocephalic and atraumatic. Eyes: EOM are normal. Pupils are equal, round, and reactive to light. Neck: Normal range of motion. Neck supple. Cardiovascular: Normal rate, regular rhythm and intact distal pulses. Pulmonary/Chest: Effort normal and breath sounds normal. No respiratory distress. Abdominal: Soft. Bowel sounds are normal. He exhibits no distension and no pulsatile midline mass. There is tenderness in the left lower quadrant. There is CVA tenderness. Musculoskeletal: Normal range of motion. Neurological: He is alert and oriented to person, place, and time. No cranial nerve deficit. Skin: Skin is warm and dry. No rash noted. MDM: Procedures: Procedures Labs Reviewed COMPREHENSIVE METABOLIC PANEL - Abnormal; Notable for the following: Result Value Sodium 147 (*) Anion Gap 22 (*) Glucose 115 (*) BUN/Creatinine Ratio 20.5 (*) ALT 41 (*) All other components within normal limits URINALYSIS - Abnormal; Notable for the following: RBCs, Urine 4 (*) All other components within normal limits Narrative: Microscopic examination is performed on all urinalysis samples and only positive findings are reported. The test for blood on the chemical analytic portion of urinalysis may also be positive due to hemoglobinuria and myoglobinuria and if red blood cells are present they are quantified by microscopic examination. CBC WITH AUTO DIFFERENTIAL - Abnormal; Notable for the following: Hemoglobin 13.2 (*) Hematocrit 39.8 (*) All other components within normal limits LIPASE - Normal URINE AEROBIC CULTURE RAINBOW DRAW Narrative: The following orders were created for panel order [place] Draw. Procedure Abnormality Status --------- ------ Lavender Top[[id number]] Final result Mint Green Top[[id number]] Final result Please view results for these tests on the individual orders. LAVENDER TOP MINT GREEN TOP CBC AND DIFFERENTIAL Narrative: The following orders were created for panel order CBC w/ Diff. Procedure Abnormality Status --------- ------ CBC Auto Differential[[id number]] Abnormal Final result Please view results for these tests on the individual orders. CT Kidney Stone Final Result No evidence of obstructive uropathy. Colonic diverticulosis. Cholelithiasis. 3 mm pulmonary nodule within the left lower lobe. Please see recommendations below. RECOMMENDATIONS: Guidelines for follow-up and management of pulmonary nodules found on abdomen CT: <6 mm - No follow up recommend on the basis of the estimated low risk of malignancy. 6-8-mm - recommend follow-up chest CT after an appropriate interval (3-12 months depending on clinical risk). >8mm - immediate chest CT for further evaluation. Radiology 2017 http://pubs.rsna.org/doi/full/10.1148/radiol.5815072657 Managing Incidental Adrenal Nodule > or equal to 1 cm Benign adrenal nodule - No follow up is required (including myelolipomas, adenomas, or nodules stable for > or equal to 1 year) Reference: Tyrone et al. Managing Incidental Findings on Abdominal CT: White Paper of the ACR Incidental Findings Committee. J Am Anup Radiol 2010;7:754-773 Workstation ID: [id number] Vital Signs During ED Visit (as charted by nursing) Patient Vitals for the past 24 hrs: BP Temp Temp src Pulse Resp SpO2 Height Weight 05/19/17 0636 138/70 - - 72 16 96 % - - 05/19/17 0432 - - - - - - 5' 10.5 102.5 kg (226 lb) 05/19/17 0428 (!) 153/82 97.1 ?F (36.2 ?C) Oral 70 16 100 % - - IMPRESSION: SNOMED CT(R) 1. Flank pain FLANK PAIN Trang Roach Taniya, DO 05/19/17 0706 Pt ambulatory to ed with c/o left flank and abdominal pain that started . Pt states to olf for the same and received muscle relaxer without relief. Pt states pain continues. Pt denies urinary s/s or bowel s/s.in this encounter Formatting of this note may be different from the original. Brief Post Operative Note Patient Name: Zena Witt : 1955 (62 y.o.) Date of Service: 02/17/2018 [facility]: [id number] Procedure(s): LEFT TIBIAL NON UNION BONE GRAFT, CALCANEAL BONE GRAFT Pre-Operative Diagnoses: * LEFT TIBIA NON UNION Post-Operative Diagnoses: Surgeon(s) and Role: * Laura Richard, DO - Primary * Jarrell Cuellar DO - Resident - Assisting Anesthesiologist: Tello London MD; Trenton Qureshi MD ASSESSMENT NURSE: Adia Hodge CRNA Delivery Crew Member: Keyona Solorio RN Relief Delivery Crew Member: Eden Adam RN Relief Scrub: ST Ada Scrub Person: ST Obed Renteria RN: Yojana Ordaz RN Operative findings: per op note Intra and immediate post-operative complications: none Type of anesthesia used: Regional, General Estimated blood loss: 25 mL Estimated urine output: 0 mL Specimen(s): * No specimens in log * Implant(s): Implant Name Type Inv. Item Serial No. Egg Grader Lot No. LRB No. Used [id number] Left 1 Implanted PLATE, LATERAL FIBULA, SML, RIGHT MEDLINE IN Left 1 Implanted PIN, TEMPORARY FIXATION MEDLINE IN Left 1 Implanted PIN, TEMPORARY FIXATION MEDLINE IN Left 1 Explanted SCREW, LOCKING MEDLINE IN Left 2 Implanted SCREW, LOCKING MEDLINE IN Left 1 Implanted SCREW, LOCKING MEDLINE IN Left 2 Implanted SCREW, NON-LOCKING MEDLINE IN Left 1 Implanted SCREW, NON-LOCKING MEDLINE IN Left 1 Implanted SCREW, NON-LOCKING MEDLINE IN Left 1 Implanted SCREW, NON-LOCKING MEDLINE IN Left 1 Explanted plate Left 1 Explanted screws Left 5 Explanted Drain(s): Wound(s): Incision 05/27/17 Foot Left (Active) Incision 02/17/18 Lower Leg Left (Active) Reassessment Unchd 02/17/2018 3:30 PM Wound Bed Characteristics LAURA (Unable to assess) 02/17/2018 2:03 PM Maile-wound Assessment Temperature WNL;Warm;Clean;Dry;Intact 02/17/2018 2:03 PM Drainage Amount None 02/17/2018 3:30 PM Dressing Status Clean;Dry;Intact 02/17/2018 3:30 PM Dressing Changed New 02/17/2018 2:03 PM Secondary Dressing Gauze pad;Gauze roll;Elastic bandage (Self-adherent);Dry gauze dressing 02/17/2018 2:03 PM Jarrell Cuellar DO 02/17/2018 4:27 PM Associated Problem(s): Nonunion of osteotomy site Patient to proceed to the OR today for LEFT TIBIAL NON UNION BONE GRAFT, CALCANEAL BONE GRAFT per Dr. Richard.in this encounter Violeta Zimmerman RN - 05/21/2017 3:21 PM Edi Renteria RN - 02/11/2018 10:25 AM EDT Nursing Notes (unrecognized section and content) Patient Instructions for [facility]: Prior to surgery: Please be sure to wear loose, comfortable clothing and non-skid shoes Bring your health insurance information and a photo ID, as well as your Living Will or Durable Power of Gastroenterology Nurse for Healthcare if it is available to you. Bring your cane/walker any applicable assistive device. If you currently use a CPAP, please bring this device with you on the day of surgery. Bring a list of your medications with the name of the medication, dose and how often you are taking it. Be sure to include herbal preparations and jhrr-pzx-kddswuk medications on this list. Do not eat or drink anything after midnight the night before your surgery/procedure. This includes water or liquids of any kind, food, gum, mints or hard candy. Carefully follow any instructions you were given by your Surgeon regarding further food restrictions. Do not drink any alcoholic beverages, smoke or chew tobacco during the 24 hours prior to your surgery/procedure Drink plenty of fluids the day prior to your procedure to maintain hydration but stop at midnight or bedtime On the morning of your surgery/procedure, you may brush your teeth but avoid swallowing water except for a sip with any recommended medications to be taken the morning of surgery. Bathe or shower the night before or early on the day of your surgery/procedure. Avoid the use of lotions, perfumes or powders. All nail emirati is to be removed from fingernails and toenails. Please be sure to remove all jewelry and body piercings and leave all valuables at home. You will receive a phone call between 3:30 and 7:30 pm the business day before your procedure to verify the time you should arrive at the hospital. Eyeglasses, hearing aids or dentures may be worn to the hospital. Bring your storage container for these items as you will be asked to remove them prior to your surgery/procedure. Please do not wear any contact lenses the day of your surgery/procedure. Parking at [facility] is free. Please park in the lot in front of the main lobby. Enter the Main Entrance where a Soaker Liaison at the information desk will greet you and accompany you to the surgery waiting area. Children under the age of 16 are NOT permitted in the Pre/Post Operative areas. They are welcome to wait with a responsible adult in the surgery waiting area. Have you had a chance to view our online educational program called Loraine? It is important that you watch it as this is a standard part of your surgery preparation process here at [facility]. It will provide you with additional important information that will help to make your surgery/procedure and recovery process as smooth as possible. After your surgery: If you are having an outpatient procedure and will be going home the same day, a responsible licensed adult must be available for transportation, and is expected to remain at the hospital for the duration of your surgery/procedure. You are NOT allowed to drive yourself home. Friend will accompany him DOS in this encounter Patient Instructions for [facility]: Prior to surgery: Please be sure to wear loose, comfortable clothing and non-skid shoes Bring your health insurance information and a photo ID, as well as your Living Will or Durable Power of Gastroenterology Nurse for Healthcare if it is available to you. Bring your cane/walker any applicable assistive device. If you currently use a CPAP, please bring this device with you on the day of surgery. Bring a list of your medications with the name of the medication, dose and how often you are taking it. Be sure to include herbal preparations and jmpf-egt-zmzkonx medications on this list. Do not eat or drink anything after midnight the night before your surgery/procedure. This includes water or liquids of any kind, food, gum, mints or hard candy. Carefully follow any instructions you were given by your Surgeon regarding further food restrictions. Do not drink any alcoholic beverages, smoke or chew tobacco during the 24 hours prior to your surgery/procedure Drink plenty of fluids the day prior to your procedure to maintain hydration but stop at midnight or bedtime On the morning of your surgery/procedure, you may brush your teeth but avoid swallowing water except for a sip with any recommended medications to be taken the morning of surgery. Bathe or shower the night before or early on the day of your surgery/procedure. Avoid the use of lotions, perfumes or powders. All nail emirati is to be removed from fingernails and toenails. Please be sure to remove all jewelry and body piercings and leave all valuables at home. You will receive a phone call between 3:30 and 7:30 pm the business day before your procedure to verify the time you should arrive at the hospital. Eyeglasses, hearing aids or dentures may be worn to the hospital. Bring your storage container for these items as you will be asked to remove them prior to your surgery/procedure. Please do not wear any contact lenses the day of your surgery/procedure. Parking at [facility] is free. Please park in the lot in front of the main lobby. Enter the Main Entrance where a Soaker Liaison at the information desk will greet you and accompany you to the surgery waiting area. Children under the age of 16 are NOT permitted in the Pre/Post Operative areas. They are welcome to wait with a responsible adult in the surgery waiting area. Have you had a chance to view our online educational program called Loraine? It is important that you watch it as this is a standard part of your surgery preparation process here at [facility]. It will provide you with additional important information that will help to make your surgery/procedure and recovery process as smooth as possible. After your surgery: If you are having an outpatient procedure and will be going home the same day, a responsible licensed adult must be available for transportation, and is expected to remain at the hospital for the duration of your surgery/procedure. You are NOT allowed to drive yourself home. Friend will accompany patient DOS in this encounter (unrecognized sect ion and content) No Status Records FoundNo Status Records FoundNo Status Records FoundNo Status Records FoundNo Status Records FoundNo Status Records FoundNo Status Records Found INFORMATION SOURCE (unrecogn ized section and content) DATE CREATED AUTHOR 11/17/2017 [facility] DATE CREATED AUTHOR AUTHOR'S ORGANIZ ATION 11/17/2017 [facility] DATE CREATED AUTHOR AUTHOR'S ORGANIZ ATION 03/18/2018 [facility] DATE CREATED AUTHOR AUTHOR'S ORGANIZ ATION 01/09/2019 [facility] DATE CREATED AUTHOR AUTHOR'S ORGANIZ ATION 08/22/2020 [facility] DATE CREATED AUTHOR AUTHOR'S ORGANIZ ATION 09/20/2022 [facility] DATE CREATED AUTHOR AUTHOR'S ORGANIZ ATION 09/28/2022 [facility] Reason for Visit (unrecogniz ed section and content) Refill Reason Comments Foreign Body possible foreign bod y in left eye on Wednesday, feels like something in upper left corner of eye, using eyewash, crusty in am , drainage Care Teams (unrecognized sec tion and content) Team Status: Active Member Role Status Dates Aaron Bush DO Primary Care Provider Active Team Status: Inactive Member Role Status Dates Nino Russell MD Attending Provider Active Aaron Bush , DO Primary Care Provider Active FOR RECORDS PERTAINING TO PATIENTS WHO ARE OR HAVE BEEN ENROLLED IN A CHEMICAL DEPENDENCY/SUBSTANCEABUSE PROGRAM, SOME INFORMATION MAY BE OMITTED. This clinical summary was aggregated from multiple sources. Caution should be exercised in using it in the provision of clinical care. This summary normalizes information from multiple sources, and as a consequence, information in this document may materially change the coding, format and clinical context of patient data. In addition, data may be omitted in some cases. CLINICAL DECISIONS SHOULD BE BASED ON THE PRIMARY CLINICAL RECORDS. [facility] [employer] provides no warranty or guarantee of the accuracy or completeness of information in this document.
--- NOTE | 2024-03-29 09:49 | P.GSHP_ITS ---
History of Present Illness History of Present Illness Chief complaint: bunionette of right foot, hammertoe of right foot Narrative: Patient presents for preadmission testing. The patient reports increasing right lateral foot/toe pain over the past year. He states his footwear has become uncomfortable especially with walking. He did buy a larger shoe but this still having the discomfort. He does occasionally take Tylenol to help with his pain. He denies specific trauma, injury, numbness, tingling, or any other complaints. Review of Systems ROS Narrative REVIEW OF SYSTEMS: Negative except as stated in HPI, ten or more systems reviewed. Constitutional: No fever, chills, weakness ENT: No sore throat or epistaxis Cardiovascular: No edema, chest pain, palpitations, or activity intolerance Respiratory: No shortness of breath, cough, or wheezing Gastrointestinal: No abdominal pain, constipation, diarrhea, or vomiting Genitourinary: No dysuria or hematuria Neurological: No numbness, tingling, weakness, or headache Psychiatric: No mood changes [facility]SH [facility] Medical History (Updated 03/29/24 @ 09:45 by Felipa Argueta NP) Foot pain ?M79.673 - Pain in unspecified foot (ICD-10) Nerve entrapment syndrome of left ankle ?G57.92 - Unspecified mononeuropathy of left lower limb (ICD-10) Hammertoe of right foot ?M20.41 - Other hammer toe(s) (acquired), right foot (ICD-10) Chronic ankle pain ?M25.579 - Pain in unspecified ankle and joints of unspecified foot (ICD-10) ?G89.29 - Other chronic pain (ICD-10) Bunionette of right foot ?M21.621 - Bunionette of right foot (ICD-10) Left shoulder pain ?M25.512 - Pain in left shoulder (ICD-10) Arthritis ?M19.90 - Unspecified osteoarthritis, unspecified site (ICD-10) Anemia ?D64.9 - Anemia, unspecified (ICD-10) COVID-19 ?U07.1 - COVID-19 (ICD-10) GERD (gastroesophageal reflux disease) ?K21.9 - Gastro-esophageal reflux disease without esophagitis (ICD-10) High cholesterol ?E78.00 - Pure hypercholesterolemia, unspecified (ICD-10) Surgical History (Updated 03/29/24 @ 09:31 by Felipa Argueta NP) History of ankle surgery (04/03/21) ?Z98.890 - Other specified postprocedural states (ICD-10) History of esophagogastroduodenoscopy (EGD) ?Z98.890 - Other specified postprocedural states (ICD-10) History of colonoscopy ?Z98.890 - Other specified postprocedural states (ICD-10) History of ankle surgery (2018) ?Z98.890 - Other specified postprocedural states (ICD-10) History of arthroplasty of knee ?Z96.659 - Presence of unspecified artificial knee joint (ICD-10) History of repair of rotator cuff ?Z98.890 - Other specified postprocedural states (ICD-10) Family History (Updated 03/29/24 @ 09:31 by Felipa Argueta NP) Other Family history of colon cancer Family history of diabetes mellitus Family history of hypertension Family history of stroke Social History (Updated 03/29/24 @ 09:22 by Felipa Argueta NP) Within the past year, how often did you have a drink containing alcohol: 2-4 times a month Smoking status: Current some day smoker Non-prescribed substance use: denies use Previous occupational history: Retired Highest level of school completed/degree received: 11th grade Meds Home Medications and Allergies Home Medications ?Medication ?Instructions ?Recorded ?Confirmed ?Type escitalopram oxalate 20 mg tablet 20 mg PO DAILY 03/29/24 03/29/24 History esomeprazole magnesium 40 mg 40 mg PO Q24H 03/29/24 03/29/24 History capsule,delayed release fenofibrate nanocrystallized 145 145 mg PO DAILY 03/29/24 03/29/24 History mg tablet multivitamin (Daily Multi-Vitamin 1 tab PO DAILY 03/29/24 03/29/24 History tablet) Allergies Allergy/AdvReac Type Severity Reaction Status Date / Time No Known Drug Allergies Allergy Verified 03/29/24 09:19 Exam Narrative Exam Narrative: Constitutional: Awake, alert, comfortable, well-appearing, nontoxic, interactive, vital signs as charted Head: Normocephalic, atraumatic Neck: Supple, normal appearance, normal range of motion, no meningeal signs, no lymphadenopathy Respiratory: No respiratory distress, breath sounds clear Cardiovascular: Bradycardic rate and regular rhythm, strong and regular heart tones Musculoskeletal: Normal gait, right lateral foot tenderness overlying the fifth metatarsal head with a bunionette deformity, good capillary refill, sensation intact Skin: No rashes or induration, no lesions, only visible skin inspected Neuro: No neurological deficits, normal sensation Psychiatric: Oriented ?3, normal affect Assessment and Plan Assessment and Plan (1) Hammertoe of right foot: (2) Bunionette of right foot: (3) Foot pain: Plan Right tailor's bunionectomy and correction of fifth hammertoe scheduled with Dr. Pimentel April 06, 2024.
[2024-03-29 10:12] LABS: Basophils Percent Auto 0.4 % (0.2-2.0); Eosinophils Absolute Auto 0.1 10^3/uL (0.0-0.7); Eosinophils Percent Auto 1.8 % (0.9-7.0); Hematocrit 38.7 % (42.0-54.0); Hemoglobin 12.7 g/dL (14.0-18.0); Immature Granulocytes Abs Auto 0.01 10^3/uL (0.00-0.03); Immature Granulocytes Pct Auto 0.1 % (0.0-0.5); Lymphocytes Absolute Auto 2.9 10^3/uL (1.2-3.8); Lymphocytes Percent Auto 43.5 % (20.5-60.0); Mean Corpuscular HGB Conc 32.8 g/dL (29.9-35.2); Mean Corpuscular Hemoglobin 30.2 pg (25.9-34.0); Mean Corpuscular Volume 92.1 fL (80.0-94.0); Monocytes Absolute Auto 0.4 10^3/uL (0.3-0.8); Monocytes Percent Auto 5.2 % (1.7-12.0); Neutrophils Absolute Auto 3.3 10^3/uL (1.4-6.5); Platelet Count 175 10^3/uL (150-450); Red Cell Distribution Width 12.8 % (11.0-15.0); White Blood Count 6.8 10^3/uL (4.0-11.0)
[2024-03-29 12:28] LABS: Anion Gap 12.5; BUN Creatinine Ratio 18.8; Calcium 9.4 mg/dL (8.5-10.1); Carbon Dioxide 28.5 mmol/L (21.0-32.0); Chloride 106 mmol/L (98-107); Estimated GFR (African America >60 (>=60 mL/min/1.73m^2); Estimated GFR (Non-African Ame >60 (>=60 mL/min/1.73m^2); Glucose 104 mg/dL (74-106); Sodium 142 mmol/L (136-145)
== END 2024-03-29 08:45 | disposition home or self-care (01) ==
LOC: PST 08:45
PROVIDERS: Nurse Practitioner; PCP Internal Medicine; Visit Provider Podiatrist Foot & Ankle Surgery
DX: Z01.810 Encounter for preprocedural cardiovascular examination (principal); Z01.812 Encounter for preprocedural laboratory examination; M20.41 Other hammer toe(s) (acquired), right foot; M21.621 Bunionette of right foot; D64.9 Anemia, unspecified
CPT/HCPCS: 36415; 80048; 85025; 93005; G0463

== ENCOUNTER 2024-04-06 06:01 | Day surgery (SDC) | payer MEDICARE, SELFPAY ==
[2024-03-29 09:42] VITALS: BP 122/76; PULSE 66; TEMP 36.2; O2SAT 98; BMI 28.8
[2024-04-06] VITALS (10 sets, daily range): BP systolic 111–131; BP diastolic 47–74; PULSE 52–62; TEMP 36.4–36.7; O2SAT 94–99; BMI 28.6
--- OUTSIDE RECORDS SUMMARY | 2024-04-06 06:05 | XMS_ITS | CCD ---
Author Organization [facility] Care Team Providers Care Computer Language Coder Name Role Phone Al-Obosi, Nupur Tony Unavailable Price Swift Unavailable JOSE MANUEL, LAURA JARRELL Unavailable Unavai lable [...] lable AL-OBOSI, NUPUR TONY Unavailable Unavail able Al-Obosi, [...] MG capsule TAKE 1 CAPSULE DAILY @ [facility] for [facility]ER[facility] 06/01/2016 02/11/2018 Discontinued folic acid (7 sources) rznarvpi-vwdy-sv n-folic acid (aokhojlknnhh-rhtw-lpjyvwer-folic acid) 3,500-18-0.4 unit-mg-mg Chew Indications: supplement Chew and Swallow every morning . Active gabapentin 300 mg oral capsule (19 sources) Anti-epilept ic Agent take 2 capsules by mouth at bedtime Gabapentin 300 MG 2 capsules Orally at bedtime Active take 1 capsule by [facility] every twenty-four hours Gabapentin 300 MG [...] mg by mouth every morning. 02/17/2018 Suspended cbwvlmbz-wugl-ypl-folic acid (lznzxjatcaqo-ujyr-rojgxrip-folic acid) 3,500-18-0.4 unit-mg-mg Chew (2 sources) bnzbyiwa-aoiv-vp n-folic acid (gyhchlwgihcd-ulbo-gdalmxop-folic acid) 3,500-18-0.4 unit-mg-mg Chew Indications: supplement Chew [...] 11/04/2015 02/11/2018 Discontinued take 1 tablet by [facility] once daily in the morning atorvastatin (LIPITOR) [...] injection 2 mg 2 mg, Intravenous, Once, [place] 05/27/17 at 0830, For [...] Syrg 45 mL 45 mL, Infiltration, Once, [facility] 05/27/17 at 0830, For 1 dose, Pre-Procedure, [...] 12-16-2021 Chronic Other aftercare (2 sources) Other correction (current) drug therapy; Translations: [OTH 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 Tracy Amos Basophils/100 WBC (Bld) 0.6 % Normal 0.2-2.0 [facility] Comment on above: Performed By: #### C BC #### [facility] [address] [place] [address] Dr. Tracy Amos EO # 0.1 103/ul Normal 0.0-0.7 [facility] Comment on above: Performed By: #### C BC #### [facility] [address] [place] [address] Dr. Tracy Amos Eosinophils/100 WBC (Bld) 1.5 % Normal 0.9-7.0 [facility] Comment on above: Performed By: #### C BC #### [facility] [address] [place] [address] Dr. Tracy Amos Erythrocyte distribution width (RBC) [Ratio] 12.6 % Normal 11.0-15.0 [facility] Comment on above: Performed By: #### C BC #### [facility] [address] [place] [address] Dr. Tracy Amos Hematocrit (Bld) [Volume fraction] 41.2 % Critically low 42.0-54.0 [facility] Comment on above: Performed By: #### C BC #### [facility] [address] [place] [address] Dr. Tracy Amos Hemoglobin (Bld) [Mass/Vol] 13.3 g/dL Critically low 14.0-18.0 [facility] Comment on above: Performed By: #### C BC #### [facility] [address] [place] [address] Dr. Tracy Amos IG # 0.01 10e3/ul Normal 0.00-0.03 [facility] Comment on above: Performed By: #### C BC #### [facility] [address] [place] [address] Dr. Tracy Amos IG % 0.1 % Normal 0.0-0.5 [facility] Comment on above: Performed By: #### C BC #### [facility] [address] [place] [address] Dr. Tracy Amos LYMPH # 3.0 103/ul Normal 1.2-3.8 [facility] Comment on above: Performed By: #### C BC #### [facility] [address] [place] [address] Dr. Tracy Amos Lymphocytes/100 WBC (Bld) 42.0 % Normal 20.5-60.0 [facility] Comment on above: Performed By: #### C BC #### [facility] [address] [place] [address] Dr. Tracy Amos MANUAL DIFF REQ NO Normal [facility] Comment on above: Performed By: #### C BC #### [facility] [address] [place] [address] Dr. Tracy Amos MCH (RBC) [Entitic mass] 28.7 pg Normal 25.9-34.0 [facility] Comment on above: Performed By: #### C BC #### [facility] [address] [place] [address] Dr. Tracy Amos MCHC (RBC) [Mass/Vol] 32.3 g/dL Normal 29.9-35.2 [facility] Comment on above: Performed By: #### C BC #### [facility] [address] [place] [address] Dr. Tracy Amos MCV (RBC) [Entitic vol] 89.0 fL Normal 80.0-94.0 [facility] Comment on above: Performed By: #### C BC #### [facility] [address] [place] [address] Dr. Tracy Amos MONO # 0.5 103/ul Normal 0.3-0.8 [facility] Comment on above: Performed By: #### C BC #### [facility] [address] [place] [address] Dr. Tracy Amos Monocytes/100 WBC (Bld) 6.6 % Normal 1.7-12.0 [facility] Comment on above: Performed By: #### C BC #### [facility] [address] [place] [address] Dr. Tracy Amos NEUT # 3.6 103/ul Normal 1.4-6.5 [facility] Comment on above: Performed By: #### C BC #### [facility] [address] [place] [address] Dr. Tracy Amos Neutrophils/100 WBC (Bld) 49.2 % Normal 43.0-75.0 [facility] Comment on above: Performed By: #### C BC #### [facility] [address] [place] [address] Dr. Tracy Amos Platelet mean volume (Bld) [Entitic vol] 10.2 fL Normal 9.5-13.5 [facility] Comment on above: Performed By: #### C BC #### [facility] [address] [id number] Tracy Aoms PLT 164 103/ul Normal 150-450 [facility] Comment on above: Performed By: #### C BC #### [facility] [address] [place], [place] [address] Dr. Tracy Amos RBC 4.63 106/ul Critically low 4.70-6.10 [facility] Comment on above: Performed By: #### C BC #### [facility] [address] [place], [place] [address] Dr. Tracy Amos WBC 7.2 103/ul Normal 4.0-11.0 [facility] Comment on above: Performed By: #### C BC #### [facility] [address] [address] [address] Tracy Saleh 08-26-2022 L --- Specimen: [id number] Received: 08/26/22 Status: BETHANY Troncoso Num: [id number] Spec Type: Surgical Subm Dr: Nino Russell MD Tissues: A Gastric Biopsy (GASTRIC ULCER BX) B Esophagus Biopsy (ESOPHAGUS BX) C Colon Biopsy (ASCENDING) Procedures: HE/6, Gross/Micro L4/3, H PYLORI Age/ Patient Sex Location Account Attending Physician Zena Witt/[facility] [id number] Nino Russell MD SPEC NUM: [id number] RECD: 08/26/22 STATUS: BETHANY TRONCOSO NUM: [id number] ANUP: 08/26/22- SUBM DR: Nino Russell MD ENTERED: 08/26/22 [facility] DR: LEONARDO TYPE: Surgical DEPT: S ORDERED: [...] ulcer biopsy are four fragments of soft mc[place]rye tissue averaging 0.3 x 0.2 x 0.2 cm. Entirely submitted in one cassette labeled A1. Specimen: [id number] Received: 08/26/22 Status: BETHANY Troncoso Num: [id number] Spec Type: Surgical Subm Dr: Nino Russell MD Tissues: A Gastric Biopsy (GASTRIC ULCER BX) B Esophagus Biopsy (ESOPHAGUS BX) C Colon Biopsy (ASCENDING) Procedures: HE/6, Gross/Micro L4/3, H PYLORI Patient: Zena Witt [id number] (Continued) Specimen: [id number] Received: 08/26/22 (Continued) Gross Description (Continued) Signed (signature on file) Rosa Fischer MD 08/27/22 1520 Specimen: [id number] Received: 08/26/22 Status: BETHANY Troncoso Num: [id number] Spec Type: Surgical Subm Dr: Nino Russell MD Tissues: A Gastric Biopsy (GASTRIC ULCER BX) B Esophagus Biopsy (ESOPHAGUS BX) C Colon Biopsy (ASCENDING) Procedures: HE/6, Gross/Micro L4/3, H PYLORI Patient: Zena Witt [id number] (Continued) Specimen: [id number] Received: 08/26/22 (Continued) Gross Description (Continued) B. [...] support the above pathologic diagnosis. CPT Codes 20473?3 Specimen: [id number] Received: 08/26/22 Status: BETHANY Troncoso Num: [id number] Spec Type: Surgical Subm Dr: Nino Russell MD Tissues: A Gastric Biopsy (GASTRIC ULCER BX) B Esophagus Biopsy (ESOPHAGUS BX) C Colon Biopsy (ASCENDING) Procedures: HE/6, Gross/Micro L4/3, H PYLORI Patient: Zena Witt [id number] (Continued) (more content not included)... Normal [facility] CBC AUTO DIFFon 07-13-2022 BASO # 0.0 103/ul Normal 0.0-0.1 [facility] Comment on above: Performed By: #### C BC #### [facility] [address] [place], [place] [address] Dr. Tracy Amos Basophils/100 WBC (Bld) 0.4 % Normal 0.2-2.0 [facility] Comment on above: Performed By: #### C BC #### [facility] [address] [place] [address] Dr. Tracy Amos EO # 0.2 103/ul Normal 0.0-0.7 [facility] Comment on above: Performed By: #### C BC #### [facility] [address] [place] [address] Dr. Tracy Amos Eosinophils/100 WBC (Bld) 1.5 % Normal 0.9-7.0 [facility] Comment on above: Performed By: #### C BC #### [facility] [address] [place] [address] Dr. Tracy Amos Erythrocyte distribution width (RBC) [Ratio] 12.8 % Normal 11.0-15.0 [facility] Comment on above: Performed By: #### C BC #### [facility] [address] [place] [address] Dr. Tracy Amos Hematocrit (Bld) [Volume fraction] 38.2 % Critically low 42.0-54.0 [facility] Comment on above: Performed By: #### C BC #### [facility] [address] [place] [address] Dr. Tracy Amos Hemoglobin (Bld) [Mass/Vol] 12.7 g/dL Critically low 14.0-18.0 [facility] Comment on above: Performed By: #### C BC #### [facility] [address] [place] [address] Dr. Tracy Amos IG # 0.02 10e3/ul Normal 0.00-0.03 [facility] Comment on above: Performed By: #### C BC #### [facility] [address] [place] [address] Dr. Tracy Amos IG % 0.2 % Normal 0.0-0.5 [facility] Comment on above: Performed By: #### C BC #### [facility] [address] [place] [address] Dr. Tracy Amos LYMPH # 3.8 103/ul Normal 1.2-3.8 [facility] Comment on above: Performed By: #### C BC #### [facility] [address] [place] [address] Dr. Tracy Amos Lymphocytes/100 WBC (Bld) 38.1 % Normal 20.5-60.0 [facility] Comment on above: Performed By: #### C BC #### [facility] [address] [place] [address] Dr. Tracy Amos MANUAL DIFF REQ NO Normal [facility] Comment on above: Performed By: #### C BC #### [facility] [address] [place] [address] Dr. Tracy Amos MCH (RBC) [Entitic mass] 29.0 pg Normal 25.9-34.0 [facility] Comment on above: Performed By: #### C BC #### [facility] [address] [place] [address] Dr. Tracy Amos MCHC (RBC) [Mass/Vol] 33.2 g/dL Normal 29.9-35.2 [facility] Comment on above: Performed By: #### C BC #### [facility] [address] [place] [address] Dr. Tracy Amos MCV (RBC) [Entitic vol] 87.2 fL Normal 80.0-94.0 [facility] Comment on above: Performed By: #### C BC #### [facility] [address] [place] [address] Dr. Tracy Amos MONO # 0.5 103/ul Normal 0.3-0.8 [facility] Comment on above: Performed By: #### C BC #### [facility] [address] [place] [address] Dr. Tracy Amos Monocytes/100 WBC (Bld) 4.6 % Normal 1.7-12.0 [facility] Comment on above: Performed By: #### C BC #### [facility] [address] [place] [address] Dr. Tracy Amos NEUT # 5.5 103/ul Normal 1.4-6.5 [facility] Comment on above: Performed By: #### C BC #### [facility] [address] [place] [address] Dr. Tracy Amos Neutrophils/100 WBC (Bld) 55.2 % Normal 43.0-75.0 [facility] Comment on above: Performed By: #### C BC #### [facility] [address] [place] [address] Dr. Tracy Amos Platelet mean volume (Bld) [Entitic vol] 10.0 fL Normal 9.5-13.5 [facility] Comment on above: Performed By: #### C BC #### [facility] [address] [place] [address] Dr. Tracy Amos PLT 179 103/ul Normal 150-450 [facility] Comment on above: Performed By: #### C BC #### [facility] [address] [place] [address] Dr. Tracy Amos RBC 4.38 106/ul Critically low 4.70-6.10 [facility] Comment on above: Performed By: #### C BC #### [facility] [address] [place] [address] Dr. Tracy Amos WBC 9.9 103/ul Normal 4.0-11.0 [facility] Comment on above: Performed By: #### C BC #### [facility] [address] [place] [address] Dr. Tracy Amos CBC AUTO DIFFon 03-04-2022 BASO # 0.1 103/ul Normal 0.0-0.1 [facility] Comment on above: Performed By: #### C BC #### [facility] [address] [place] [address] Dr. Tracy Amos Basophils/100 WBC (Bld) 0.8 % Normal 0.2-2.0 [facility] Comment on above: Performed By: #### C BC #### [facility] [address] [place] [address] Dr. Tracy Amos EO # 0.1 103/ul Normal 0.0-0.7 [facility] Comment on above: Performed By: #### C BC #### [facility] [address] [place] [address] Dr. Tracy Amos Eosinophils/100 WBC (Bld) 1.8 % Normal 0.9-7.0 [facility] Comment on above: Performed By: #### C BC #### [facility] [address] [place] [address] Dr. Tracy Amos Erythrocyte distribution width (RBC) [Ratio] 12.7 % Normal 11.0-15.0 [facility] Comment on above: Performed By: #### C BC #### [facility] [address] [place] [address] Dr. Tracy Amos Hematocrit (Bld) [Volume fraction] 37.3 % Critically low 42.0-54.0 [facility] Comment on above: Performed By: #### C BC #### [facility] [address] [place] [address] Dr. Tracy Amos Hemoglobin (Bld) [Mass/Vol] 12.1 g/dL Critically low 14.0-18.0 [facility] Comment on above: Performed By: #### C BC #### [facility] [address] [place] [address] Dr. Tracy Amos IG # 0.01 10e3/ul Normal 0.00-0.03 [facility] Comment on above: Performed By: #### C BC #### [facility] [address] [place] [address] Dr. Tracy Amos IG % 0.1 % Normal 0.0-0.5 [facility] Comment on above: Performed By: #### C BC #### [facility] [address] [place] [address] Dr. rTacy Amos LYMPH # 3.0 103/ul Normal 1.2-3.8 [facility] Comment on above: Performed By: #### C BC #### [facility] [address] [place] [address] Dr. Tracy Amos Lymphocytes/100 WBC (Bld) 41.3 % Normal 20.5-60.0 [facility] Comment on above: Performed By: #### C BC #### [facility] [address] [place] [address] Dr. Tracy Amos MANUAL DIFF REQ NO Normal [facility] Comment on above: Performed By: #### C BC #### [facility] [address] [address] [address] Tracy Amos MCH (RBC) [Entitic mass] 29.7 pg Normal 25.9-34.0 [facility] Comment on above: Performed By: #### C BC #### [facility] [address] [address] [address] Tracy Amos MCHC (RBC) [Mass/Vol] 32.4 g/dL Normal 29.9-35.2 [facility] Comment on above: Performed By: #### C BC #### [facility] [address] [address] [address] Tracy Amos MCV (RBC) [Entitic vol] 91.4 fL Normal 80.0-94.0 [facility] Comment on above: Performed By: #### C BC #### [facility] [address] [place] [address] Dr. Tracy Amos MONO # 0.5 103/ul Normal 0.3-0.8 [facility] Comment on above: Performed By: #### C BC #### [facility] [address] [place] [address] Dr. Tracy Amos Monocytes/100 WBC (Bld) 6.1 % Normal 1.7-12.0 [facility] Comment on above: Performed By: #### C BC #### [facility] [address] [place] [address] Dr. Tracy Amos NEUT # 3.7 103/ul Normal 1.4-6.5 [facility] Comment on above: Performed By: #### C BC #### [facility] [address] [place] [address] Dr. Tracy Amos Neutrophils/100 WBC (Bld) 49.9 % Normal 43.0-75.0 [facility] Comment on above: Performed By: #### C BC #### [facility] [address] [place] [address] Dr. Tracy Amos Platelet mean volume (Bld) [Entitic vol] 9.9 fL Normal 9.5-13.5 [facility] Comment on above: Performed By: #### C BC #### [facility] [address] [address] [address] Tracy Amos PLT 156 103/ul Normal 150-450 [facility] Comment on above: Performed By: #### C BC #### [facility] [address] [address] [address] Tracy Amos RBC 4.08 106/ul Critically low 4.70-6.10 [facility] Comment on above: Performed By: #### C BC #### [facility] [address] [address] [address] Tracy Amos WBC 7.4 103/ul Normal 4.0-11.0 [facility] Comment on above: Performed By: #### C BC #### [facility] [address] [address] [address] Tracy Amos FERRITINon 03-04-2022 Ferritin [Mass/Vol] 99.0 ng/mL Normal 26.0-388.0 [facility] Comment on above: Performed By: #### F ETIBC, FERR, B12FOL ####[facility] [id number] [address]. Tracy Amos IRON AND TIBCon 03-04-2022 % SATURATION 16.3 % Normal [facility] Comment on above: Performed By: #### F ETIBC, FERR, B12FOL #### [facility] [address] [address] [address] Tracy Amos Iron [Mass/Vol] 55.0 ug/dL Critically low 65.0-175.0 [facility] Comment on above: Performed By: #### F ETIBC, FERR, B12FOL #### [facility] [address] [address] [address] Tracy Amos TIBC DIRECT 337.0 ug/dL Normal 250.0-450.0 [facility] Comment on above: Performed By: #### F ETIBC, FERR, B12FOL #### [facility] [address] [address] [address] Tracy Amos VIT B12 AND FOLATEon 022 Cobalamin (Vitamin B12) [Mass/Vol] 505.0 pg/mL Normal 193.0-986.0 [facility] Comment on above: Performed By: #### F ETIBC, FERR, B12FOL #### [facility] [address] [place] [address] Dr. Tracy Amos FOLATE 20.70 ng/mL Normal 8.60-58.90 [facility] Comment on above: Performed By: #### F ETIBC, FERR, B12FOL #### [facility] [address] [place] [address] Dr. Tracy Amos CBC AUTO DIFFon 12-16-2021 BASO # 0.0 103/ul Normal 0.0-0.1 [facility] Comment on above: Performed By: #### C BC #### [facility] [address] [place] [address] Dr. Tracy Amos Basophils/100 WBC (Bld) 0.4 % Normal 0.2-2.0 [facility] Comment on above: Performed By: #### C BC #### [facility] [address] [place] [address] Dr. Tracy Amos EO # 0.2 103/ul Normal 0.0-0.7 [facility] Comment on above: Performed By: #### C BC #### [facility] [address] [place] [address] Dr. Tracy Amos Eosinophils/100 WBC (Bld) 2.6 % Normal 0.9-7.0 [facility] Comment on above: Performed By: #### C BC #### [facility] [address] [place] [address] Dr. Tracy Amos Erythrocyte distribution width (RBC) [Ratio] 12.6 % Normal 11.0-15.0 [facility] Comment on above: Performed By: #### C BC #### [facility] [address] [place] [address] Dr. Tracy Amos Hematocrit (Bld) [Volume fraction] 36.6 % Critically low 42.0-54.0 [facility] Comment on above: Performed By: #### C BC #### [facility] [address] [place] [address] Dr. Tracy Amos Hemoglobin (Bld) [Mass/Vol] 12.1 g/dL Critically low 14.0-18.0 [facility] Comment on above: Performed By: #### C BC #### [facility] [address] [place] [address] Dr. Tracy Amos IG # 0.01 10e3/ul Normal 0.00-0.03 [facility] Comment on above: Performed By: #### C BC #### [facility] [address] [place] [address] Dr. Tracy Amos IG % 0.1 % Normal 0.0-0.5 [facility] Comment on above: Performed By: #### C BC #### [facility] [address] [place] [address] Dr. Tracy Amos LYMPH # 2.8 103/ul Normal 1.2-3.8 [facility] Comment on above: Performed By: #### C BC #### [facility] [address] [place] [address] Dr. Tracy Amos Lymphocytes/100 WBC (Bld) 40.3 % Normal 20.5-60.0 [facility] Comment on above: Performed By: #### C BC #### [facility] [address] [place] [address] Dr. Tracy Amos MANUAL DIFF REQ NO Normal [facility] Comment on above: Performed By: #### C BC #### [facility] [address] [place] [address] Dr. Tracy Amos MCH (RBC) [Entitic mass] 30.0 pg Normal 25.9-34.0 [facility] Comment on above: Performed By: #### C BC #### [facility] [address] [place] [address] Dr. Tracy Amos MCHC (RBC) [Mass/Vol] 33.1 g/dL Normal 29.9-35.2 [facility] Comment on above: Performed By: #### C BC #### [facility] [address] [address] [address] Tracy Amos MCV (RBC) [Entitic vol] 90.8 fL Normal 80.0-94.0 [facility] Comment on above: Performed By: #### C BC #### [facility] [address] [address] [address] Tracy Amos MONO # 0.4 103/ul Normal 0.3-0.8 [facility] Comment on above: Performed By: #### C BC #### [facility] [address] [address] [address] Tracy Amos Monocytes/100 WBC (Bld) 5.8 % Normal 1.7-12.0 [facility] Comment on above: Performed By: #### C BC #### [facility] [address] [place] [address] Dr. Tracy Amos NEUT # 3.6 103/ul Normal 1.4-6.5 [facility] Comment on above: Performed By: #### C BC #### [facility] [address] [place] [address] Dr. Tracy Amos Neutrophils/100 WBC (Bld) 50.8 % Normal 43.0-75.0 [facility] Comment on above: Performed By: #### C BC #### [facility] [address] [place] [address] Dr. Tracy Amos Platelet mean volume (Bld) [Entitic vol] 10.3 fL Normal 9.5-13.5 [facility] Comment on above: Performed By: #### C BC #### [facility] [address] [address] [address] Tracy Amos PLT 164 103/ul Normal 150-450 [facility] Comment on above: Performed By: #### C BC #### [facility] [id number] Tracy Amos RBC 4.03 106/ul Critically low 4.70-6.10 [facility] Comment on above: Performed By: #### C BC #### [facility] [address] [address] [address] Tracy Amos WBC 7.1 103/ul Normal 4.0-11.0 [facility] Comment on above: Performed By: #### C BC #### [facility] [address] [address] [address] Tracy Amos LIPID PROFILEon 12-16-2021 CHOL-HDL RATIO NORM SEE BELOW Normal [facility] Comment on above: Result Comment: 3.3 - 4.4 LOW RISK 4.4 - 7.1 AVERAGE RISK 7.1 - 11.0 MODERATE RISK >11.0 HIGH RISK Performed By: #### L IPID, BMP #### [facility] [address] [address] [address] Tracy Amos Cholesterol [Mass/Vol] 118 mg/dL Normal <=200 [facility] Comment on above: Performed By: #### L IPID, BMP #### [facility] [address] [address] [address] Tracy Amos Cholesterol in HDL [Mass/Vol] 40 mg/dL Normal 40-60 [facility] Comment on above: Performed By: #### L IPID, BMP #### [facility] [address] [address] [address] Tracy Amos Cholesterol in LDL [Mass/Vol] 62.6 mg/dL Normal [facility] Comment on above: Performed By: #### L IPID, BMP #### [facility] [address] [address] [address] Tracy Amos Cholesterol.total/Ch olesterol in HDL [Mass ratio] 3.0 {ratio} Normal [facility] Comment on above: Performed By: #### L IPID, BMP #### [facility] [address] [address] [address] Tracy Amos HDL NORMAL > or = 60 mg/dl - LO W CARDIOVASCULAR RISK <40 mg/dl - HIGH CARDIOVASCULAR RISK Normal [facility] Comment on above: Performed By: #### L IPID, BMP #### [facility] [address] [address] [address] Tracy Amos LDL CALC NORMAL SEE BELOW Normal [facility] Comment on above: Result Comment: <100 mg/dl OPTIMAL 100 - 129 mg/dl NEAR OR ABOVE OPTIMAL 130 - 159 mg/dl BORDERLINE HIGH 160 - 189 mg/dl HIGH >190 mg/dl VERY HIGH Performed By: #### L IPID, BMP #### [facility] [address] [place] [address] Dr. Tracy Amos Triglyceride [Mass/Vol] 77 mg/dL Normal <=150 [facility] Comment on above: Performed By: #### L IPID, BMP #### [facility] [address] [address] [address] Tracy Amos VLDL CALC 15.4 mg/dL Normal [facility] Comment on above: Performed By: #### L IPID, BMP #### [facility] [address] [place] [address] Dr. Tracy Amos PROF CHEM 8 (BAS METB)on Anion gap [Moles/Vol] 7.8 mmol/L Normal [facility] Comment on above: Performed By: #### L IPID, BMP #### [facility] [address] [address] [address] Tracy mAos Calcium [Mass/Vol] 8.8 mg/dL Normal 8.5-10.1 [facility] Comment on above: Performed By: #### L IPID, BMP #### [facility] [address] [place] [address] Dr. Tracy Amos Chloride [Moles/Vol] 108 mmol/L Critically high 98-107 [facility] Comment on above: Performed By: #### L IPID, BMP #### [facility] [address] [address] [address] Tracy Amos CO2 [Moles/Vol] 28.5 mmol/L Normal 21.0-32.0 [facility] Comment on above: Performed By: #### L IPID, BMP #### [facility] [address] [place] [address] Dr. Tracy Amos Creatinine [Mass/Vol] 0.94 mg/dL Normal 0.70-1.30 [facility] Comment on above: Performed By: #### L IPID, BMP #### [facility] [address] [address] [address] Tracy Amos EGFR-AF MALAWIAN >60 Normal >=60 [facility] Comment on above: Performed By: #### L IPID, BMP #### [facility] [address] [address] [address] Tracy Amos EGFR-NON AF MALAWIAN >60 Normal >=60 [facility] Comment on above: Performed By: #### L IPID, BMP #### [facility] [address] [address] [address] Tracy Amos Glucose [Mass/Vol] 116 mg/dL Critically high 74-106 [facility] Comment on above: Performed By: #### L IPID, BMP #### [facility] [address] [place] [address] Dr. Tracy Amos Potassium [Moles/Vol] 4.3 mmol/L Normal 3.5-5.1 [facility] Comment on above: Performed By: #### L IPID, BMP #### [facility] [address] [place] [address] Dr. Tracy Amos Sodium [Moles/Vol] 140 mmol/L Normal 136-145 [facility] Comment on above: Performed By: #### L IPID, BMP #### [facility] [address] [place] [address] Dr. Tracy Amos Urea nitrogen [Mass/Vol] 24.0 mg/dL Critically high 7.0-18.0 [facility] Comment on above: Performed By: #### L IPID, BMP #### [facility] [address] [place] [address] Dr. Tracy Amos Urea nitrogen/Creatinine [Mass ratio] 25.5 mg/mg Normal [facility] Comment on above: Performed By: #### L IPID, BMP #### [facility] [address] [address] [address] Tracy Amos XR LSPINE 2_3 VIEWSon [...] by: SILVIA LI Date: 2021-12-16 21:55 Normal [facility] XR SHOULDER LEFT MIN 2 VIEWS on 05-10-2020 [facility] (RBC) [Entitic mass] EXAM: [facility] XR SHOULDER LEFT MIN 2 VIEWS, 05/10/2020 14:21 PM CLINICAL INDICATIONS: , left shoulder pain COMPARISON: May 02, 2020 FINDINGS: No acute fractures, dislocations, or destructive lesions. The glenohumeral joint is unremarkable. Mild degenerative changes of the acromioclavicular joint. Changes of a biceps tenodesis. Aortic calcification. IMPRESSION: Mild degenerative change No acute findings Normal [facility] XR SHOULDER LEFT MIN 2 VIEWS on 05-02-2020 [facility] (RBC) [Entitic mass] EXAM: [facility] XR SHOULDER LEFT MIN 2 VIEWS, 05/02/2020 09:46 AM CLINICAL INDICATIONS: Grashey and outlet views;, post op fu COMPARISON: August 23, 2018 left shoulder radiograph. FINDINGS: No acute fracture or dislocation. There is a new suture anchor in the proximal humeral diaphysis. Joint spaces are well-maintained. Soft tissues normal. IMPRESSION: New suture anchor in the proximal humerus. No acute osseous abnormality. Normal [facility] SARS-COV-2 RAPIDon 0 SARS-COV2, RT PCR NASOPHARYNGEAL NOT DETECTED Normal NOT DETECTED [facility] Comment on above: Order Comment: Use r [...] deteriorating. Performed By: #### L ABSARS1 #### [facility] (DEFAULT) [address] [place] [address] BASIC METABOLIC PANELon 11-1 Anion gap [Moles/Vol] 13 mmol/L Normal [facility] Comment on above: Performed By: #### C 7C #### [facility] (DEFAULT) [address] [place] [address] Calcium [Mass/Vol] 9.7 mg/dL Normal 8.4-10.2 [facility] Comment on above: Performed By: #### C 7C #### [facility] (DEFAULT) [address] [place] [address] Chloride [Moles/Vol] 108 mmol/L High 98-107 [facility] Comment on above: Performed By: #### C 7C #### [facility] (DEFAULT) [address] [place] [address] CO2 [Moles/Vol] 25 mmol/L Normal 22-[address] [facility] Comment on above: Performed By: #### C 7C #### [facility] (DEFAULT) [address] [place] [address] Creatinine [Mass/Vol] 1.05 mg/dL Normal 0.72-1.[address] [facility] Comment on above: Performed By: #### C 7C #### [facility] (DEFAULT) [address] [facility] [place] [address] Est Gfr, 86 mL/min/1.73sqM Normal [facility] Comment on above: Performed By: #### C 7C #### [facility] (DEFAULT) [address] [place] [address] Est Gfr,Non 71 mL/min/1.73sqM Normal [facility] Comment on above: Performed By: #### C 7C #### [facility] (DEFAULT) [address] [place] [address] Glucose [Mass/Vol] 102 mg/dL Normal 80-115 [facility] Comment on above: Performed By: #### C 7C #### [facility] (DEFAULT) [address] [place] [address] Osmolality [Osmolality] 301 mOsm/kg Normal [facility] Comment on above: Performed By: #### C 7C #### [facility] (DEFAULT) [address] [facility] [place] [address] Potassium [Moles/Vol] 4.0 mmol/L Normal 3.5-5.[address] [facility] Comment on above: Performed By: #### C 7C #### [facility] (DEFAULT) [address] [place] [address] Sodium [Moles/Vol] 142 mmol/L Normal 136-145 [facility] Comment on above: Performed By: #### C 7C #### [facility] (DEFAULT) [address] [place] [address] Urea nitrogen [Mass/Vol] 24.0 mg/dL Normal 8.4-25.[address] [facility] Comment on above: Performed By: #### C 7C #### [facility] (DEFAULT) [address] [place] [address] Urea nitrogen/Creatinine [Mass ratio] 23 mg/mg Normal [facility] Comment on above: Performed By: #### C 7C #### [facility] (DEFAULT) [address] [place] [address] CBC AND ELECTRONIC DIFFon Hematocrit (Bld) [Volume fraction] 37.8 % Normal 37.0-51.[address] [facility] Comment on above: Performed By: #### L AB981, [id number] #### [facility] (DEFAULT) [address] [place] [address] Hemoglobin (Bld) [Mass/Vol] 12.6 g/dL Normal 12.6-17.[address] [facility] Comment on above: Performed By: #### L AB981, [id number] #### [facility] (DEFAULT) [address] [place] [address] MCV (RBC) [Entitic vol] 89.6 fL Normal 81.0-103.[address] [facility] Comment on above: Performed By: #### L AB981, [id number] #### [facility] (DEFAULT) [address] [place] [address] Mean Cell Hgb 30.0 pg Normal 27.0-34.[address] [facility] Comment on above: Performed By: #### L AB981, [id number] #### [facility] (DEFAULT) [address] [place] [address] Mean Cell Hgb Conc 33.5 pg Normal 31.0-36.0 [facility] Comment on above: Performed By: #### L AB981, [id number] #### [facility] (DEFAULT) [address] [place] [address] Platelet mean volume (Bld) [Entitic vol] 7.8 fL Normal 7.5-11.[address] [facility] Comment on above: Performed By: #### L AB981, [id number] #### [facility] (DEFAULT) [address] [place] [address] Platelets (Bld) [#/Vol] 204 10*3/uL Normal 150-[address] [facility] Comment on above: Performed By: #### L AB981, [id number] #### [facility] (DEFAULT) [address] [place] [address] RBC (Bld) [#/Vol] 13.1 % Normal 11.5-14.[address] [facility] Comment on above: Performed By: #### L AB981, [id number] #### [facility] (DEFAULT) [address] [place] [address] RBC (Bld) [#/Vol] 4.22 10*6/uL Normal Male: 3.8-5.8, Female: 3.8-5.[address] [facility] Comment on above: Performed By: #### L AB981, [id number] #### [facility] (DEFAULT) [address] [place] [address] WBC (Bld) [#/Vol] 11.2 10*3/uL High 4.5-11.0 [facility] Comment on above: Performed By: #### L AB981, [id number] #### [facility] (DEFAULT) [address] [place] [address] MANUAL DIFFon 04-15-2020 Abs Eos Manual 0.11 K\uL Normal [facility] Comment on above: Performed By: #### L AB981, [id number] #### [facility] (DEFAULT) [address] [place] [address] Abs Lymph Manual 6.05 K/uL High 1.00-4.[address] [facility] Comment on above: Performed By: #### L AB981, [id number] #### [facility] (DEFAULT) [address] [place] [address] Abs Lassen Manual 0.45 K/uL High 0.20-0.[address] [facility] Comment on above: Performed By: #### L AB981, [id number] #### [facility] (DEFAULT) [address] [place] [address] Abs Segs Manual 4.59 K/uL Normal 1.80-7.[address] [facility] Comment on above: Performed By: #### L AB981, [id number] #### [facility] (DEFAULT) [address] [place] [address] Eosinophils % Manual 1 % Normal [facility] Comment on above: Performed By: #### L AB981, [id number] #### [facility] (DEFAULT) [address] [place] [address] Lymphocyte % Manual 54 % Normal [facility] Comment on above: Performed By: #### L AB981, [id number] #### [facility] (DEFAULT) [address] [place] [address] Monocyte % Manual 4 % Normal [facility] Comment on above: Performed By: #### L AB981, [id number] #### [facility] (DEFAULT) [address] [place] [address] Neutrophil Segmented Manual 41 % Normal [facility] Comment on above: Performed By: #### L AB981, [id number] #### [facility] (DEFAULT) [address] [place] [address] SARS-COV-2 RAPIDon 0 SARS-COV2, RT PCR NASOPHARYNGEAL NOT DETECTED Normal NOT DETECTED [facility] Comment on above: Order Comment: Use r [...] deteriorating. Performed By: #### L ABSARS1 #### [facility] (DEFAULT) [address] [place] [address] COMPREHENSIVE METABOLIC PANE Delfino 02-28-2020 Albumin [Mass/Vol] 4.3 g/dL Normal 3.2-4.6 [facility] Comment on above: Performed By: #### H JENNIE, CMPN #### [facility] (DEFAULT) [address] [place] [address] ALP [Catalytic activity/Vol] 66 U/L Normal 40-[address] [facility] Comment on above: Performed By: #### H JENNIE, CMPN #### [facility] (DEFAULT) [address] [place] [address] ALT [Catalytic activity/Vol] 17 U/L Normal 0-[address] [facility] Comment on above: Performed By: #### H JENNIE, CMPN #### [facility] (DEFAULT) [address] [place] [address] Anion gap [Moles/Vol] 15 mmol/L Normal [facility] Comment on above: Performed By: #### H JENNIE, CMPN #### [facility] (DEFAULT) [address] [place] [address] AST [Catalytic activity/Vol] 19 U/L Normal <[address] [facility] Comment on above: Performed By: #### H JENNIE CMPN #### [facility] (DEFAULT) [address] [place] [address] Bilirubin [Mass/Vol] 0.5 mg/dL Normal 0.3-1.2 [facility] Comment on above: Performed By: #### H JENNIE CMPN #### [facility] (DEFAULT) [address] [place] [address] Calcium [Mass/Vol] 9.5 mg/dL Normal 8.4-10.2 [facility] Comment on above: Performed By: #### H JENNIE CMPN #### [facility] (DEFAULT) [address] [place] [address] Chloride [Moles/Vol] 106 mmol/L Normal 98-107 [facility] Comment on above: Performed By: #### H JENNIE CMPN #### [facility] (DEFAULT) [address] [place] [address] CO2 [Moles/Vol] 25 mmol/L Normal 22-[address] [facility] Comment on above: Performed By: #### H JENNIE CMPN #### [facility] (DEFAULT) [address] [place] [address] Creatinine [Mass/Vol] 1.00 mg/dL Normal 0.72-1.[address] [facility] Comment on above: Performed By: #### H JENNIE CMPN #### [facility] (DEFAULT) [address] [place] [address] Est Gfr, 91 mL/min/1.73sqM Normal [facility] Comment on above: Performed By: #### H JENNIE, CMPN #### [facility] (DEFAULT) [address] [place] [address] Est Gfr,Non 75 mL/min/1.73sqM Normal [facility] Comment on above: Performed By: #### H JENNIE, CMPN #### [facility] (DEFAULT) [address] [place] [address] Glucose [Mass/Vol] 111 mg/dL Normal 80-115 [facility] Comment on above: Performed By: #### H JENNIE, CMPN #### [facility] (DEFAULT) [address] [place] [address] Osmolality [Osmolality] 300 mOsm/kg Normal [facility] Comment on above: Performed By: #### H JENNIE, CMPN #### [facility] (DEFAULT) [address] [place] [address] Potassium [Moles/Vol] 4.5 mmol/L Normal 3.5-5.[address] [facility] Comment on above: Performed By: #### H JENNIE, CMPN #### [facility] (DEFAULT) [address] [place] [address] Protein [Mass/Vol] 7.3 g/dL Normal 6.4-8.3 [facility] Comment on above: Performed By: #### H JENNIE, CMPN #### [facility] (DEFAULT) [address] [place] [address] Sodium [Moles/Vol] 141 mmol/L Normal 136-145 [facility] Comment on above: Performed By: #### H JENNIE, CMPN #### [facility] (DEFAULT) [address] [place] [address] Urea nitrogen [Mass/Vol] 24.0 mg/dL Normal 8.4-25.[address] [facility] Comment on above: Performed By: #### H JENNIE, CMPN #### [facility] (DEFAULT) [address] [place] [address] Urea nitrogen/Creatinine [Mass ratio] 24 mg/mg Normal [facility] Comment on above: Performed By: #### H JENNIE, CMPN #### [facility] (DEFAULT) [address] [place] [address] LIPID PANEL W CALCULATED LDL on 02-28-2020 Calculated LDL Cholesterol 54 mg/dL Normal <[address] [facility] Comment on above: Result Comment: LDL ADULT LEVELS IN TERMS OF RISK FOR CORONARY HEART DISEASE Optimal: <100 mg/dL Near optimal: 100 to 129 mg/dL Borderline High: 130 to 159 mg/dL High: 160 to 189 mg/dL Very High: >189 mg/dL Performed By: #### H JENNIE, CMPN #### [facility] (DEFAULT) [address] [place] [address] Cholesterol [Mass/Vol] 114 mg/dL Normal <[address] [facility] Comment on above: Performed By: #### H JENNIE, CMPN #### [facility] (DEFAULT) [address] [place] [address] Cholesterol in HDL [Mass/Vol] 41 mg/dL Low >[address] [facility] Comment on above: Result Comment: [<40 mg/dL: Low (High Risk)] [>59 mg/dL: High (Low Risk)] Performed By: #### H JENNIE, CMPN #### [facility] (DEFAULT) [address] [place] [address] Cholesterol.total/Ch olesterol in HDL [Mass ratio] 2.8 {ratio} Normal [facility] Comment on above: Performed By: #### H JENNIE, CMPN #### [facility] (DEFAULT) [address] [place] [address] Non Hdl Cholesterol 73 mg/dL Normal [facility] Comment on above: Performed By: #### H JENNIE, CMPN #### [facility] (DEFAULT) [address] [place] [address] Triglyceride [Mass/Vol] 93 mg/dL Normal <[address] [facility] Comment on above: Performed By: #### H JENNIE, CMPN #### [facility] (DEFAULT) [address] [place] [address] XR SPINE LUMBOSACRAL AP AND LATERALon 10-26-2019 XR SPINE LUMBOSACRAL AP AND LATERAL EXAM: [facility] XR SPINE LUMBOSACRAL AP AND LATERAL, 10/26/2019 [...] Dual curve lumbar scoliosis, worse than previously [facility] XR SPINE SCOLIOSIS 2/3 VIEWS on 10-26-2019 XR SPINE SCOLIOSIS 2/3 VIEWS EXAM: [facility] XR SPINE SCOLIOSIS 2/3 VIEWS, 10/26/2019 10:09 [...] of disc degeneration at L3-4 and L4-5. [facility] Hemoglobin and Hematocriton 02-17-2018 Hematocrit Auto Volume Fraction (Bld) 39.2 % Low 41 - 53 % [facility] Hemoglobin mass conc (Bld) 13.1 g/dL Low 13.5 - 17.5 g/dL [facility] Interpretation and review of laboratory results Abnormal Invalid Interpretation Code [facility] SCAN OTHER ORDERSon 01-07-20 18 Ordered by an unspecified provider. Invalid Interpretation Code [facility] CT ANKLE LEFT WITHOUT CONTRA STon [...] ankle both medially and laterally.CHANTAL/Paulat ation ID: [id number] by: LEON CAMARA on WedOctober 15, 2017 9:03:29 AM EDTTranscribed by: RUDDY CASAS on WedOctober 15, 2017 9:43:06 AM EDTFinalized by: LEON CAMARA on WedOctober 15, 2017 10:13:33 AM EDT [facility] Comment on above: Order Comment: Reaso n [...] about the ankle both medially and laterally. [employer] Workstation ID: [id number] Invalid Interpretation Code [facility] CT Ankle Left Without Contrast EXAMINATION: [...] intact and appropriately located. Invalid Interpretation Code [employer] CT Ankle Left Without Contrast Interface, [facility] 10/15/2017 10:16 AM EDT EXAMINATION: CT [...] [employer] Workstation ID: [id number] Invalid Interpretation Code [employer] CBC Auto Differentialon 05-01 Basophils 0.03 K/mcL Invalid Interpretation Code 0.00 - 0.30 [facility] Basophils/100 leukocytes 0.4 % Invalid Interpretation Code [facility] Eosinophils 0.15 K/mcL Invalid Interpretation Code 0.00 - 0.50 [facility] Eosinophils/100 leukocytes 2.0 % Invalid Interpretation Code [facility] Erythrocytes (RBC) 4.50 M/mcL Invalid Interpretation Code 4.50 - 5.90 [facility] Hematocrit (HCT) 39.8 % Low 41 - 53 % [facility] Hemoglobin (HGB) 13.2 g/dL Low 13.5 - 17.5 g/dL [facility] Interpretation and review of laboratory results Abnormal Invalid Interpretation Code [facility] Lymphocytes 2.38 K/mcL Invalid Interpretation Code 0.90 - 4.00 [facility] Lymphocytes/100 leukocytes 32.1 % Invalid Interpretation Code [facility] MCH 29.3 pg Invalid Interpretation Code 26 - 34 pg [facility] MCHC 33.2 g/dL Invalid Interpretation Code 31 - 37 g/dL [facility] MCV 88.4 fL Invalid Interpretation Code 80 - 100 fL [facility] Monocytes 0.60 K/mcL Invalid Interpretation Code 0.30 - 0.90 [facility] Monocytes/100 leukocytes 8.1 % Invalid Interpretation Code [facility] Neutrophils 4.26 K/mcL Invalid Interpretation Code 1.70 - 7.00 [facility] Neutrophils/100 leukocytes 57.4 % Invalid Interpretation Code [facility] Platelet mean volume (PMV) 10.6 fL Invalid Interpretation Code 9 - 15.5 fL [facility] Platelets 167 K/mcL Invalid Interpretation Code 150 - 400 [facility] RDW-CA 12.1 % Invalid Interpretation Code 11.6 - 14.8 % [facility]) [facility] WBC (Leukocytes) 7.42 K/mcL Invalid Interpretation Code 4.50 - 11.00 [facility] CBC w/ Diffon 05-19-2017 Creatinine The following orders were created for panel order CBC w/ Diff. Procedure Abnormality Status --------- ------ CBC Auto Differential[[id number]] Abnormal Final result Please view results for these tests on the individual orders. Invalid Interpretation Code [facility] Work Phone: CMPon 05-19-2017 Alanine aminotransferase (ALT) 41 U/L High 0 - 40 U/L [facility] Albumin 4.2 g/dL Invalid Interpretation Code 3.2 - 5.2 g/dL [facility] Alkaline phosphatase (ALP) 84 U/L Invalid Interpretation Code 40 - 150 U/L [facility] Anion gap 22 mmol/L High 10 - 20 mmol/L [facility] Aspartate aminotransferase (AST) 33 U/L Invalid Interpretation Code 0 - 45 U/L [facility] Bicarbonate (HCO3) 26 mmol/L Invalid Interpretation Code 21 - 32 mmol/L [facility] Bilirubin (total) 0.3 mg/dL Invalid Interpretation Code 0 - 1.3 mg/dL [facility] BUN/Creatinine Ratio 20.5 mg/mg High 10.0 - 20.0 [facility] ([facility] Calcium 9.3 mg/dL Invalid Interpretation Code 8.4 - 10.2 mg/dL [facility] Chloride 104 mmol/L Invalid Interpretation Code 98 - 108 mmol/L [facility] Creatinine 0.83 mg/dL Invalid Interpretation Code 0.8 - 1.3 mg/dL [facility] eGFR (non-black) 94 mL/min/{1.73_m2} Invalid Interpretation Code >=60 [facility] eGFR (non-black) The eGFR should be u sed for monitoring renal function only and not for medication dosing. Invalid Interpretation Code [facility] Glucose 115 mg/dL High 65 - 99 mg/dL [facility] Potassium 4.7 mmol/L Invalid Interpretation Code 3.5 - 5.1 mmol/L [facility] Protein 7.4 g/dL Invalid Interpretation Code 6 - 8 g/dL [facility] Sodium 147 mmol/L High 135 - 145 mmol/L [facility] Urea nitrogen 17 mg/dL Invalid Interpretation Code 8 - 25 mg/dL [facility] CT KIDNEY STONEon 05-19-2017 CT KIDNEY STONE EXAMINATION:STONE PROTOCOL CT OF THE ABDOMEN AND [id number] UE:CT of the abdomen and pelvis was [...] CT for further evaluation.Radiology 2017 http://pubs.rsna.org/do i/full/10.1148/radiol.2 835738557 Managing Incidental Adrenal Nodule > or equal to 1 cmBenign adrenal nodule - No follow up is required (including myelolipomas, adenomas, or nodules stable for > or equal to 1 year)Reference:Tyrone et al. Managing Incidental Findings on Abdominal CT: White Paper of the ACR Incidental Findings Committee. J Am Anup Radiol 2010;7:754-773Workstati on ID: [id number] by: MARCELL LOYOLA on WedMay 19, 2017 5:28:03 AM ESTTranscribed by: MARCELL LOYOLA on WedMay 19, 2017 5:28:03 AM ESTFinalized by: MARCELL LOYOLA on WedMay 19, 2017 5:28:[address] [facility] Comment on above: Order Comment: Reaso n [...] for further evaluation. Radiology 2017 http://pubs.rsna.org/do i/full/10.1148/radiol.2 725849051 Managing Incidental Adrenal Nodule > or equal to 1 cm Benign adrenal nodule - No follow up is required (including myelolipomas, adenomas, or nodules stable for > or equal to 1 year) Reference: Tyrone et al. Managing Incidental Findings on Abdominal CT: White Paper of the ACR Incidental Findings Committee. J Am Anup Radiol 2010;7:754-773 Workstation ID: [id number] Invalid Interpretation Code [facility] CT Kidney Stone Interface, Rad In [...] for further evaluation. Radiology 2017 http://pubs.rsna.org/do i/full/10.1148/radiol.2 955848693 Managing Incidental Adrenal Nodule > or equal to 1 cm Benign adrenal nodule - No follow up is required (including myelolipomas, adenomas, or nodules stable for > or equal to 1 year) Reference: Tyrone et al. Managing Incidental Findings on Abdominal CT: White Paper of the ACR Incidental Findings Committee. J Am Anup Radiol 2010;7:754-773 Workstation ID: [id number] Invalid Interpretation Code [facility] CT Kidney Stone EXAMINATION: STONE PROTOCOL [...] demonstrate no acute abnormality. Invalid Interpretation Code [facility] Lipaseon 05-19-2017 Interpretation and review of laboratory results Normal Invalid Interpretation Code [facility] Lipase 39 U/L Invalid Interpretation Code 15 - 65 U/L [facility] Mint Green Topon 05-19-2017 Extra Tube Hold for add-ons. Invalid Interpretation Code [facility] Mckenzie Drawon 05-19-2017 Creatinine The following orders were created for panel order Mckenzie Draw. Procedure Abnormality Status --------- ------ Lavender Top[[id number]] Final result Mint Green Top[[id number]] Final result Please view results for these tests on the individual orders. Invalid Interpretation Code [facility] Work Phone: SCAN OTHER ORDERSon 05-19-20 17 SCAN OTHER ORDERS Ordered by an unspecified provider. Invalid Interpretation Code [facility] Work Phone: Urinalysison 05-19-2017 Bilirubin, Urine Negative Invalid Interpretation Code Negative [facility] Blood, Urine Negative Invalid Interpretation Code Negative [facility] Hyaline Casts 0-2 Invalid Interpretation Code 0 - 2 /lpf [facility] Interpretation and review of laboratory results Abnormal Invalid Interpretation Code [facility] Mucus, Urine Rare Invalid Interpretation Code None Seen, Rare /lpf [facility] Nitrite, Urine Negative Invalid Interpretation Code Negative [facility]) [facility] RBCs, Urine 4 /hpf High 0 - 3 [facility] Urine, bacteria in sediment None Seen Invalid Interpretation Code None Seen /hpf [facility] Urine, clarity Clear Invalid Interpretation Code Clear [facility]) [facility] Urine, color Yellow Invalid Interpretation Code Colorless, Yellow [facility] Urine, glucose presence Negative Invalid Interpretation Code Negative mg/dL [facility] Urine, ketones presence Negative Invalid Interpretation Code Negative mg/dL [facility] Urine, leukocyte esterase presence Negative Invalid Interpretation Code Negative [facility]) [facility] Urine, pH 5.0 [pH] Invalid Interpretation Code 5.0 - 7.0 [facility]) [facility] Urine, protein Negative Invalid Interpretation Code Negative mg/dL [facility] Urine, specific gravity 1.019 1 Invalid Interpretation Code 1.005 - 1.025 [facility]) [facility] Urine, urobilinogen <2.0 Invalid Interpretation Code <2.0 mg/dL [facility] WBCs, Urine 1 /hpf Invalid Interpretation Code 0 - 5 [facility] Urinalysis Microscopic examinat ion is performed on all urinalysis samples and only positive findings are reported. The test for blood on the chemical analytic portion of urinalysis may also be positive due to hemoglobinuria and myoglobinuria and if red blood cells are present they are quantified by microscopic examination. Invalid Interpretation Code [facility] Vital Signs Date Time Vital Sign Value Performing Clinician Facility 12-16-2022 08:30-0400 Body height 177.8 cm [facility] Other [facility] Other 12-16-2022 08:30-0400 Body mass index (BMI) [Ratio] 31.36 kg/m2 [facility] Other [facility] Other 12-16-2022 08:30-0400 Body weight 99.16 kg [facility] Other [facility] Other 12-16-2022 08:30-0400 Diastolic blood pressure 80 mm[Hg] Aaron Ball Other [facility] Other 12-16-2022 08:30-0400 Respiratory rate 12 /min Aaron Ball Other [facility] Other 12-16-2022 08:30-0400 Systolic blood pressure 150 mm[Hg] Aaron Ball Other [facility] Other 09-14-2022 10:00-0400 Body height 177.8 cm Craig Ken Other [facility] Other 09-14-2022 10:00-0400 Body mass index (BMI) [Ratio] 31.71 kg/m2 Craig Ken Other [facility] Other 09-14-2022 10:00-0400 Body weight 100.25 kg Craig Suellen Other [facility] Other 09-14-2022 10:00-0400 Diastolic blood pressure 69 mm[Hg] Craig Scovanner Other [facility] Other 09-14-2022 10:00-0400 Systolic blood pressure 138 mm[Hg] Craig Scovanner Other [facility] Other 08-26-2022 10:41-0400 Diastolic blood pressure 80 mm[Hg] DO Aaron Ball Work Phone: [facility] 08-26-2022 10:41-0400 Heart rate 58 /min DO Aaron Ball Work Phone: [facility] 08-26-2022 10:41-0400 Respiratory rate 20 /min DO Aaron Ball Work Phone: [facility] 08-26-2022 10:41-0400 SaO2% (BldA) [Mass fraction] 96 % DO Aaron Ball Work Phone: [facility] 08-26-2022 10:41-0400 Systolic blood pressure 128 mm[Hg] DO Aaron Ball Work Phone: [facility] 08-26-2022 09:19-0400 Body height 177.8 cm DO Aaron Ball Work Phone: [facility] 08-26-2022 09:19-0400 Body temperature 97.8 [degF] DO Aaron Ball Work Phone: [facility] 08-26-2022 09:19-0400 Body weight 97.97 kg DO Aaron Ball Work Phone: [facility] 07-16-2022 09:30-0500 Body height 177.8 cm Aaron Ball Other [facility] Other 07-16-2022 09:30-0500 Body mass index (BMI) [Ratio] 32.42 kg/m2 Aaron Ball Other [facility] Other 07-16-2022 09:30-0500 Body weight 102.51 kg Aaron Ball Other [facility] Other 07-16-2022 09:30-0500 Diastolic blood pressure 76 mm[Hg] Aaron Ball Other [facility] Other 07-16-2022 09:30-0500 Respiratory rate 12 /min Aaron Ball Other [facility] Other 07-16-2022 09:30-0500 Systolic blood pressure 118 mm[Hg] Aaron Ball Other [facility] Other 11-06-2018 17:53-0400 BMI (Body Mass Index) 31.42 kg/m2 [facility] 11-06-2018 17:53-0400 Body Temperature 97.3 [degF] [facility] 11-06-2018 17:53-0400 BP Diastolic 88 mm[Hg] [facility] 11-06-2018 17:53-0400 BP Systolic 149 mm[Hg] [facility] 11-06-2018 17:53-0400 Height 177.8 cm [facility] 11-06-2018 17:53-0400 Pulse (Heart Rate) 68 /min [facility] 11-06-2018 17:53-0400 Pulse Oximetry 96 % [facility] 11-06-2018 17:53-0400 Respiratory Rate 15 /min [facility] 11-06-2018 17:53-0400 Weight 99.34 kg [facility] 02-17-2018 15:50-0400 BP Diastolic 82 mm[Hg] [facility] 02-17-2018 15:50-0400 BP Systolic 134 mm[Hg] [facility] 02-17-2018 15:50-0400 Pulse (Heart Rate) 62 /min [facility] 02-17-2018 15:50-0400 Pulse Oximetry 95 % [facility] 02-17-2018 15:50-0400 Respiratory Rate 15 /min [facility] 02-17-2018 15:40-0400 Body Temperature 98.01 [degF] [facility] 02-17-2018 09:49-0400 BMI (Body Mass Index) 30.68 kg/m2 [facility] 02-17-2018 09:49-0400 Height 177.8 cm [facility] 02-17-2018 09:49-0400 Weight 97 kg [facility] 05-27-2017 14:00-0500 Body Temperature 97.81 [degF] [facility] Work Phone: 05-27-2017 14:00-0500 BP Diastolic 71 mm[Hg] [facility] Work Phone: 05-27-2017 14:00-0500 BP Systolic 133 mm[Hg] [facility] 05-27-2017 14:00-0500 Pulse (Heart Rate) 52 /min [facility] 05-27-2017 14:00-0500 Pulse Oximetry 99 % [facility] 05-27-2017 14:00-0500 Respiratory Rate 11 /min [facility] 05-27-2017 07:38-0500 BMI (Body Mass Index) 31.09 kg/m2 Laura Richard [facility] Work Phone: 05-27-2017 07:38-0500 Height 179.1 cm Laura Richard [facility] Work Phone: 05-27-2017 07:38-0500 Weight 99.7 kg Lauraangelina Richard [facility] Work Phone: 05-21-2017 14:38-0500 BMI (Body Mass Index) 31.31 kg/m2 Price Swift [facility] Work Phone: 05-21-2017 14:38-0500 Body Temperature 97.81 [degF] [facility] 05-21-2017 14:38-0500 BP Diastolic 95 mm[Hg] Price Swift [facility] Work Phone: 05-21-2017 14:38-0500 BP Systolic 153 mm[Hg] Price Swift [facility] Work Phone: 05-21-2017 14:38-0500 Height 179.1 cm Price Swift [facility] Work Phone: 05-21-2017 14:38-0500 Pulse (Heart Rate) 69 /min [facility] Work Phone: 05-21-2017 14:38-0500 Pulse Oximetry 93 % Price Swift [facility] Work Phone: 05-21-2017 14:38-0500 Weight 100.4 kg Price Swift [facility] Work Phone: 05-19-2017 06:36-0500 BP Diastolic 70 mm[Hg] Trang Bray [facility] Work Phone: 05-19-2017 06:36-0500 BP Systolic 138 mm[Hg] Trang Bray [facility] Work Phone: 05-19-2017 06:36-0500 Pulse (Heart Rate) 72 /min Trang Bray [facility] Work Phone: 05-19-2017 06:36-0500 Pulse Oximetry 96 % Trang Bray [facility] Work Phone: 05-19-2017 06:36-0500 Respiratory Rate 16 /min Trang Bray [facility] Work Phone: 05-19-2017 04:32-0500 BMI (Body Mass Index) 31.97 kg/m2 Trang Bray [facility] Work Phone: 05-19-2017 04:32-0500 Height 179.1 cm Trang Bray [facility] Work Phone: 05-19-2017 04:32-0500 Weight 102.51 kg Trang Bray [facility] Work Phone: 05-19-2017 04:28-0500 Body Temperature 97.11 [degF] Trang Bray [facility] Work Phone: Encounters Encounter Date Encounter Type Care Provider Facility Start: 03-10-2023 End: 03-10-2023 ambulatory Aaron Bush Other [facility] Other Start: 03-10-2023 Telephone encounter Aaron Howell [facility] Start: 03-04-2023 End: 03-04-2023 ambulatory Aaron Bush Other [facility] Other Start: 03-04-2023 Telephone encounter Aaron Ball [facility] Start: 03-02-2023 End: 03-02-2023 ambulatory Aaron Bush Other [facility] Other Start: 03-02-2023 Telephone encounter Aaron Bush [facility] Start: 12-25-2022 End: 12-25-2022 ambulatory Aaron Bush Other [facility] Other Start: 12-25-2022 Telephone encounter Aaron Bush [facility] Start: 12-24-2022 End: 12-24-2022 ambulatory Aaron Bush Other [facility] Other Start: 12-24-2022 Telephone encounter Aaron Bush [facility] Start: 12-16-2022 End: 12-16-2022 ambulatory Aaron Bush Other [facility] Other Start: 12-16-2022 Patient encounter procedure Aaron Bush [facility] Start: 12-16-2022 Telephone encounter Aaron Bush [facility] Start: 12-10-2022 End: 12-10-2022 ambulatory Aaron Bush Other [facility] Other Start: 12-10-2022 Telephone encounter Aaron Bush [facility] Start: 12-04-2022 End: 12-04-2022 ambulatory Aaron Bush Other [facility] Other Start: 12-04-2022 Telephone encounter Aaron Bush [facility] Start: 09-16-2022 End: 09-17-[address] DOCTOR KHALIL Facility: Start: 09-14-2022 End: 09-14-2022 ambulatory Craig Ken Other [facility] Other Start: 09-14-2022 Office outpatient vi sit 15 minutes Craig Ken [facility] Start: 09-09-2022 End: 09-09-2022 ambulatory Aaron Bush Other [facility] Other Start: 09-09-2022 Telephone encounter Aaron Howell Speech Language Therapist Start: 09-08-2022 End: 09-08-2022 ambulatory Imad Asaad Other [facility] Other Start: 09-08-2022 Telephone encounter Imad Asaad [facility] Start: 08-26-2022 Telephone encounter Aaron KING [facility] Start: 08-26-2022 End: 08-26-2022 Admission to same day surgery center DO Aaron Eleazar Work Phone: [facility] Work Phone: Start: 08-26-2022 End: 08-26-2022 ambulatory DO Aaron Bush Work Phone: [facility] Work Phone: Start: 08-13-2022 End: 08-13-2022 ambulatory Aaron Bush Other [facility] Other Start: 08-13-2022 Telephone encounter Aaron Howell Speech Language Therapist Start: 07-28-2022 End: 07-28-2022 ambulatory Imad Asaad Other [facility] Other Start: 07-28-2022 Telephone encounter Imad Asaad [facility] Start: 07-16-2022 End: 07-16-2022 ambulatory Aaron Bush Other [facility] Other Start: 07-16-2022 Office outpatient vi sit 25 minutes Aaron Bush [facility] Start: 07-16-2022 Telephone encounter [facility] Start: 07-13-2022 End: 07-14-[address] AARON BUSH Facility:[facility] Start: 06-15-2022 End: 06-15-2022 ambulatory Aaron Bush Other [facility] Other Start: 06-15-2022 Telephone encounter Aaron Howell [facility] Start: 03-04-2022 End: 03-05-[address] AARON BUSH Facility:[facility] Start: 12-30-[address] AARON BUSH Facili ty:[facility] Start: 12-17-2021 Adult health examination Aaron Bush Other [facility] Other Start: 12-16-2021 End: 12-17-[address] AARON BUSH Facility:[facility] Start: 07-08-2020 End: 07-08-2020 Orders Only Sarika Souza Toñito Work Phone: [facility] Start: 11-06-2018 End: 11-06-2018 Patient encounter procedure NUPUR TONY [facility] Start: 11-06-2018 End: 11-06-2018 Office outpatient new 20 minutes Allison Rachael Allenwell Work Phone: [facility] Comment on above: Abrasion of left eye , initial encounter (Primary Dx) Start: 02-17-2018 End: 02-17-2018 Patient encounter LAURAANGELINA VIEYRA [facility] Start: 02-17-2018 End: 02-17-2018 Patient encounter Laura Richard Work Phone: [facility] Comment on above: Post-op pain (Primar y Dx) Start: 10-22-2017 End: 10-22-2017 Ambulatory LAURA JARRELL JOSE ALBERTOARMANDO [facility] Start: 10-15-2017 End: 10-16-2017 Ambulatory LAURA JARRELL RICHARD [facility] Start: 10-15-2017 End: 10-15-2017 Ambulatory Laura Regaladoarmando Work Phone: [facility] Start: 08-05-2017 End: 08-05-2017 Ambulatory Laura Jarrell Richard Work Phone: [facility] Start: 07-29-2017 End: 07-29-2017 Ambulatory Laura Vieyra Jose Manuel Work Phone: [facility] Start: 07-21-2017 End: 07-21-2017 Ambulatory Laura Richard Work Phone: [facility] Start: 05-27-2017 End: 05-27-2017 Patient encounter LAURA VIEYRA [facility] Start: 05-27-2017 End: 05-27-2017 Ambulatory Laura Richard Work Phone: [facility] Start: 05-21-2017 Encounter for other preprocedural examination [facility] Start: 05-21-2017 Encounter for preprocedural cardiovascular examination [facility] Start: 05-21-2017 End: 05-21-2017 Patient encounter LAURAANGELINA VIEYRA [facility] Start: 05-21-2017 Office consultation Laura Richard Work Phone: [facility] Preadmission Testing Start: 05-19-2017 End: 05-19-2017 Emergency department patient visit NUPUR [facility] Start: 05-19-2017 End: 05-19-2017 Emergency department patient visit Trang Bray Work Phone: [facility] Encounter for other preprocedural examination [facility] Encounter for preprocedural cardiovascular examination [facility] Procedures Date Procedure Procedure Detail Performing Clinician Start: 08-26-2022 Esophagogastroduodenoscopy DO Aaron delgado Work Phone: Start: 12-16-[address] AARON BUSH Comment on above: Performed By: #### [facility] ####Farzad [facility] [id number] [place], [place] [address]GiMere Amos Start: 02-17-2018 End: 02-17-2018 Hemoglobin and [...] Activity Detail Author Start: 09-04-2025 Tetanus vaccination [facility] Work Phone: Start: 08-26-2022 End: 08-26-2022 [facility] Start: 01-30-2020 Influenza vaccination given Sequential Influenza Vaccine (#1) [facility] Start: 2019 Pneumococcal vaccination Pneumococcal Vaccine Age 65+ (1 of 2 - PCV13) [facility] Start: 01-29-2019 Influenza vaccination given SEQUENTIAL INFLUENZA VACCINE (Season Ended) [facility] Start: 01-29-2018 Influenza vaccination [facility] Start: 08-12-2017 Ambulatory 08/12/2017 Treatment Rehabilitation Laura Richard, DO [address] [place] [address] [phone] Shila Islas, PT [address] [place] [address] [facility] Start: 08-10-2017 Ambulatory 08/10/2017 Treatment Rehabilitation Laura Richard, DO [address] [place] [address] [phone] Leia Richardson, PT [facility] Start: 08-05-2017 Ambulatory 08/05/2017 Treatment Laura Han, DO [address] [place] [address] [phone] Dk Treadwell, AFFILIATE MARKETING SPECIALIST [facility] Start: 08-03-2017 Ambulatory 08/03/2017 Treatment Laura Han, DO [address] [place] [address] [phone] Leia Richardson, PT [facility] Start: 07-29-2017 Ambulatory 07/29/2017 Treatment Rehabilitation Laura Richard, DO [address] [place] [address] [phone] Shila Islas, PT [address] [place] [address] [facility] Start: 05-27-2017 Ambulatory [facility] Start: 05-21-2017 Ambulatory 05/21/2017 Office Visit Pre-Admission Testing Laura Richard, DO [address] [place] [address] [phone] Pre-op examination (Primary Dx); Varus deformity, not elsewhere classified, left ankle [facility] Start: 01-29-2017 Influenza vaccination SEQUENTIAL INFLUENZA VACCINE (#1) [facility] Work Phone: Start: 2014 Zoster vacc, sc ZOSTER VACCINE [facility] Work Phone: Start: 2004 Administration of herpes zoster vaccine Zoster Vaccines (1 of 2) [facility] Start: 2004 Screening for malignant neoplasm of colon [facility] Start: 2004 ZOSTER VACCINES (1 of 2) ZOSTER VACCINES (1 of 2) [facility] Start: 1972 Hepatitis C antibody, confirmatory test Hepatitis C Screening [facility] Start: 1970 COVID-19 Vaccine (1 of 2) COVID-19 Vaccine (1 of 2) [facility] Start: 1969 [facility] Start: 1966 Adolescent depression screening assessment Depression Screening (PHQ9) [facility] Start: 1958 History and physical examination, annual for health maintenance Wellness Visit [facility] Start: 1954 Fall risk assessment Falls Risk Assessment [facility] Start: 1954 Hepatitis C antibody, confirmatory test HEPATITIS C SCREENING [facility] Start: 1954 HEPATITIS C SCREENING HEPATITIS C SCREENING [facility] Work Phone: Start: 1954 Prostate specific antigen measurement PSA Level [facility] Start: 1954 Screening colonoscopy COLONOSCOPY [facility] Work Phone: Start: 1955 Screening for malignant neoplasm of colon Colorectal Cancer Screening: Colonoscopy [facility] Start: 1955 US scan of abdominal aorta Abdominal Aortic Ultrasound [facility] End: 05-19-2017 Bacteria aerobode culture Urine Aerobic Culture Routine Once for 1 Occurrences starting 05/19/2017 until 05/19/2017 [facility] Work Phone: Bacteria aerobode culture Urine Aerobic Culture Routine 05/19/2017 6:29 AM EST [facility] Work Phone: ECG 12 Lead ECG 12 Lead Rout ine Pre-op examination Ordered: 05/21/2017 [facility] Work Phone: Patient Education Gastric Ulcer (DC) Colon Polypectomy (DC) [place] Work Phone: Immunizations Immunization Date Immunization Notes Care Provider [facility] 05-26-2021 COVID-19 Vaccine Pfi zer - Documentation Purposes Only Aaron Bush Other [facility] Other 11-01-2020 COVID-19 Vaccine Pfi zer - Documentation Purposes Only Aaron Eleazar Other [facility] Other 10-11-2020 COVID-19 Vaccine Pfi zer - Documentation Purposes Only Aaron Bush Other [facility] Other 07-19-2019 zoster vaccine recombinant Aaron Ball Other [facility] Other 07-01-2019 pneumococcal conjuga te vaccine, 13 valent Aaron Bush Other [facility] Other 12-13-2018 zoster vaccine recombinant Aaron Ball Other [facility] Other 09-05-2015 pneumococcal polysaccharide vaccine, 23 valent Aaron Bush Other [facility] Other Payers Date Payer Category Payer Self-pay 2020 Medicare [id number] 2016 Unknown [id number] 2016 Unknown [id number] 2016 Unknown [id number] 2016 Unknown [place] GARCIA/PREF/HMO/PPO [id number] 2016-Present [id number] 1959 Medicare [id number] 1959 Medicare [id number] 1954 Unknown [id number] 1954 Unknown [id number] 1954 Unknown [id number] 1954 Unknown [id number] 1954 Unknown [id number] 1954 Unknown [id number] Unknown [id number] Social History Date Type Detail Facility Start: 05-27-2017 End: 08-26-2022 Tobacco smoking status NHIS Former smoker [facility] End: 04-30-2017 History of tobacco use Current smoker [facility] Work Phone: Sex Assigned At Not on file [facility] Work Phone: Start: 05-19-2017 Tobacco smoking status WIIS Current every day smoker [facility] Work Phone: Start: 11-06-2018 End: 04-30-2017 Tobacco smoking status NHIS Current some day smoker [facility] Start: 05-21-2017 Tobacco Comment social [facility] Start: 02-11-2018 Alcohol Comment weekly [facility] Start: 11-06-2018 Tobacco use and exposure Never used [facility] Start: 11-06-2018 Alcohol intake Current drinke r of alcohol (finding) [facility] Sex Assigned At Sex Assigned At [facility] Other Start: 1955 Sex Assigned At Male F [facility] Medical Equipment Procedure Code Equipment Code Equipment Origin al Text Equipment Identifier Dates Mcdonald 1.45mm #2 Soft Short Rigid Juggerknot W/Drill Bit - [id number] Start: 05-27-2017 Allograft 5cc Fiber Dbm Stagraft - [id number] Start: 05-27-2017 Graft Femoral He ad - [id number] Start: 05-27-2017 Screw 3.5 X 32mm Low Profile Steven - [id number] Start: 05-27-2017 Screw 3.5 X 34mm Low Profile Steven - [id number] Start: 05-27-2017 Screw 3.5 X 34mm Steven Lock - [id number] Start: 05-27-2017 Screw 3.5 X 12mm Steven Lock - [id number] Start: 05-27-2017 Plate 6hl Fib Lo ck - [id number] Start: 05-27-2017 Mcdonald 1.45mm #2 Soft Short Rigid Juggerknot W/Drill Bit - [id number] Start: 05-27-2017 Allograft 5cc Fiber Dbm Stagraft - [id number] Start: 05-27-2017 Graft Femoral He ad - [id number] Start: 05-27-2017 Screw 3.5 X 32mm Low Profile Steven - [id number] Start: 05-27-2017 Screw 3.5 X 34mm Low Profile Steven - [id number] Start: 05-27-2017 Screw 3.5 X 34mm Steven Lock - [id number] Start: 05-27-2017 Screw 3.5 X 12mm Steven Lock - [id number] Start: 05-27-2017 Plate 6hl Fib Lo ck - [id number] Start: 05-27-2017 Mcdonald 1.45mm #2 Soft Short Rigid Juggerknot W/Drill Bit - [id number] Start: 05-27-2017 Allograft 5cc Fiber Dbm Stagraft - [id number] Start: 05-27-2017 Graft Femoral He ad - [id number] Start: 05-27-2017 Screw 3.5 X 32mm Low Profile Steven - [id number] Start: 05-27-2017 Screw 3.5 X 34mm Low Profile Steven - [id number] Start: 05-27-2017 Screw 3.5 X 34mm Steven Lock - [id number] Start: 05-27-2017 Screw 3.5 X 12mm Steven Lock - [id number] Start: 05-27-2017 Plate 6hl Fib Lo ck - [id number] Start: 05-27-2017 Mcdonald 1.45mm #2 Soft Short Rigid Juggerknot W/Drill Bit - [id number] Start: 05-27-2017 Allograft 5cc Fiber Dbm Stagraft - [id number] Start: 05-27-2017 Graft Femoral He ad - [id number] Start: 05-27-2017 Screw 3.5 X 32mm Low Profile Steven - [id number] Start: 05-27-2017 Screw 3.5 X 34mm Low Profile Steven - [id number] Start: 05-27-2017 Screw 3.5 X 34mm Steven Lock - [id number] Start: 05-27-2017 Screw 3.5 X 12mm Steven Lock - [id number] Start: 05-27-2017 Plate 6hl Fib Lo ck - [id number] Start: 05-27-2017 Mcdonald 1.45mm #2 Soft Short Rigid Juggerknot W/Drill Bit - [id number] Start: 05-27-2017 Allograft 5cc Fiber Dbm Stagraft - [id number] Start: 05-27-2017 Graft Femoral He ad - [id number] Start: 05-27-2017 Plate 6hl Fib Lo ck - [id number] Start: 05-27-2017 Screw 3.5 X 32mm Low Profile Steven - [id number] Start: 05-27-2017 Screw 3.5 X 34mm Low Profile Steven - [id number] Start: 05-27-2017 Screw 3.5 X 34mm Steven Lock - [id number] Start: 05-27-2017 Screw 3.5 X 12mm Steven Lock - [id number] Start: 05-27-2017 Screw 3.5 X 18mm Steven Lock - [id number] Screw 3.5 X 38mm Low Profile Steven - [id number] Mcdonald 1.45mm #2 Soft Short Rigid Juggerknot W/Drill Bit - [id number] Start: 05-27-2017 Allograft 5cc Fiber Dbm Stagraft - [id number] Start: 05-27-2017 Graft Femoral He ad - [id number] Start: 05-27-2017 Screw 3.5 X 32mm Low Profile Steven - [id number] Start: 05-27-2017 Screw 3.5 X 34mm Low Profile Steven - [id number] Start: 05-27-2017 Screw 3.5 X 34mm Steven Lock - [id number] Start: 05-27-2017 Screw 3.5 X 12mm Steven Lock - [id number] Start: 05-27-2017 Plate 6hl Fib Lo ck - [id number] Start: 05-27-2017 Plate, Lateral Fibula, Sml, Right Start: 02-17-2018 Pin, Temporary Fixation Start: 02-17-2018 Screw, Locking Start: 02-17-2018 Screw, Locking Start: 02-17-2018 Screw, Locking Start: 02-17-2018 Screw, Non-Locking Start: 02-17-2018 Screw, Non-Locking Start: 02-17-2018 Screw, Non-Locking Start: 02-17-2018 Stagraft Fiber Start: 02-17-2018 Pin, Temporary Fixation Screw, Non-Locking Plate Screws Mcdonald 1.45mm #2 Soft Short Rigid Juggerknot W/Drill Bit - [id number] Start: 05-27-2017 Allograft 5cc Fiber Dbm Stagraft - [id number] Start: 05-27-2017 Graft Femoral He ad - [id number] Start: 05-27-2017 Screw 3.5 X 32mm Low Profile Steven - [id number] Start: 05-27-2017 Screw 3.5 X 34mm Low Profile Steven - [id number] Start: 05-27-2017 Screw 3.5 X 34mm Steven Lock - [id number] Start: 05-27-2017 Screw 3.5 X 12mm Steven Lock - [id number] Start: 05-27-2017 Plate 6hl Fib Lo ck - [id number] Start: 05-27-2017 Plate, Lateral Fibula, Sml, [...] FRANCY (generalized anxiety disorder) (ICD-10 - F41.1) [facility] Other 10-05-2023 Evaluation note* Encounter Date Diagnosis Assessment Notes Treatment Notes Treatment Clinical Notes Feb, FRANCY (generalized anxiety disorder) (ICD-10 - F41.1) [facility] Other 10-03-2023 Evaluation note* Encounter Date Diagnosis Assessment Notes Treatment Notes Treatment Clinical Notes Feb, FRANCY (generalized anxiety disorder) (ICD-10 - F41.1) [facility] Other 07-27-2023 Evaluation note* Encounter Date Diagnosis Assessment Notes Treatment Notes Treatment Clinical Notes Nov, Left ventricular systolic dysfunction (LVSD) without heart failure (ICD-10 - I51.9) 27 Freddy, 2023 Abnormal stress test (ICD-10 - R94.39) [facility] Other 07-19-2023 Evaluation note* Encounter Date Diagnosis [...] (ICD-10 - Z12.5) Yearly KATELYNN and PSA [facility] Other 07-13-2023 Evaluation note* Encounter Date Diagnosis Assessment Notes Treatment Notes Treatment Clinical Notes Nov, Iron deficiency anemia due to chronic blood loss (ICD-10 - D50.0) [facility] Other 07-07-2023 Evaluation note* Encounter Date Diagnosis Assessment Notes Treatment Notes Treatment Clinical Notes Nov, Hypercholesterolemia (ICD-10 - E78.00) Nov, Screening PSA (prost ate specific antigen) (ICD-10 - Z12.5) Nov, High risk medication use (ICD-10 - Z79.899) Nov, IFG (impaired fastin g glucose) (ICD-10 - R73.01) Nov, Anemia, unspecified type (ICD-10 - D64.9) [facility] Other 04-17-2023 Evaluation note* Encounter Date Diagnosis [...] are. Otherwise patient to follow as needed. [facility] Encounter Date Diagnosis Assessment Notes [...] They may safely use Tylenol as needed. [facility] Other 01-16-2023 Evaluation note* Encounter Date Diagnosis Assessment Notes Treatment Notes Treatment Clinical Notes May, Acute anemia (ICD-10 - D64.9) [facility] Other 07-19-2022 NotePROCEDURE: XR KNEE LT 3V [...] authenticated by: SILVIA LI Date: 2021-12-16 21:52[facility] noteNo InformationNortGuthrie [facility] Work [employer] Other Evaluation noteNo assessment information available [place] Work Phone: History and physical note Author Nino [facility]Pro[facility] August 26, 2022 9:51am Note Date/Time August 26, 2022 9:5 1am [facility] [address] [place] [address] Gastroenterology H&P Signed Patient: Zena Witt MR#: [id number] : 1955 Acct:[id number] Age/Sex: 67 / M Adm Date: 3 Loc: Room: Type: [facility] Attending Dr: Nnio Russell MD Copies to: Aaron Bush,DO Nino [...] By: <Electronically signed by Nino Russell MD> 08/26/2288 [place] Work Phone: History general Narrative - Reported* [...] TOTAL KNEE ARTHROPLASTY Hospitalization History SEE SURGICAL [facility] Other History general Narrative - Reported* Type [...] polypectomy 08/17 22 Hospitalization History SEE SURGICAL [facility] Other Hospital Discharge instructions Additional Instructions DISCHARGE [...] -Follow up with PCP. - Office number [phone]. [facility] Work Phone: Assessments Diagnosis Varus deformity, [...] your doctor if you can take an grgb-hfd-nlxhkem medicine. Take your pain medicine as soon [...] Log into your personal health record on [email or web address] and enter M536 in the Education box [...] sent through Care Everywhere. * FLANK PAIN (GUATEMALAN) in this encounter* Tabitha Fenton CNP - [...] your surgery date, please call us at [phone] Preoperative Medication Instructions In preparation for surgery please continue all of your current medications with the following changes: Zena Witt Home Medication Instructions Prior to Surgery CAILIN:[id number] Printed on:05/21/17 6759 Medication Information Take last dose on Take [...] MG capsule TAKE 1 CAPSULE DAILY @ [facility] for GERD yes gemfibrozil (LOPID) 600 MG [...] or as directed by MD . no dhdicney-kptr-qma-folic acid (ybyyuefydlpf-kpgx-kzcvbwha-folic acid) 3,500-18-0.4 unit-mg-mg Chew Chew and Swallow [...] medications that contain aspirin, such as Mary Brinklow, Pepto- Bismol, Anacin), antiinflammatory medications such as Advil, Motrin, Ibuprofen, Naproxen, Aleve, Mary Brinklow, Pepto-Bismol, Anacin, Diclofenac, Voltaren, Daypro, Etodolac, Ketoprofen, Piroxicam, Relafen, Nabumetone, etc. Also discontinue Vitamin C, Vitamin E, [place]-3 Fatty Acid, Fish Oil or Lovaza, and [...] Log into your personal health record on [email or web address] and enter Z736 in the Education box to learn more about Feeling of an Object in the Eye: Care Instructions. Current as of: February 20, 2018 Content Version: 12.0 0829-6989 [employer]. Care instructions adapted under license by your healthcare professional. If you have questions about a medical condition or this instruction, always ask your healthcare professional. [employer] disclaims any warranty or liability for your use of this information. documented in this encounter Summary Purpose Family History Relationship Condition Age at Onset Recorded Date/T colby father Heart disease Unknown Malignant neoplasm of colon Unknown Not Specified Heart disease Unknown Advance Directives Documents on File Type Date Recorded Patient Training And Documentation Specialist Expl anation Advance Directives and Living Will Advance Directive Response Recorded Date/ Time Advance Directives No August 24, 023 1:40pm History of Present Illness * Allison Williamson MD - 11/06/2018 6:07 PM EDT PATIENT NAME: Zena Witt [facility] [address] [facility] [id number] : 1955 DATE OF VISIT: 11/06/2018 #: [...] file Gets together: Not on file Attends islam service: Not on file Active member of [...] morning . meloxicam (MOBIC) 15 MG tablet wtdlyntt-uhjw-wde-folic acid (dyrpwzlkszyu-cqfk-aucunxak-folic acid) 3,500-18-0.4 unit-mg-mg Chew Chew and Swallow [...] morning . meloxicam (MOBIC) 15 MG tablet dnznlcvq-qvus-xjg-folic acid (hjbqroooqvmk-ljlb-xwplzfou-folic acid) 3,500-18-0.4 unit-mg-mg Chew Chew and Swallow [...] iron deficienc y anemia (D50.8) Referral Organization [facility] John witt Referring Provider First Name Aaron Referring Provider Last Name Eleazar Referring Provider Specialty Internal Me dicine Referred Organization [facility] Kerryolo gy Referred Provider Nino Russell Referred Address [address],[address] Referred Provider Specialty Gastroentero logy Referral Priority [...] is of left knee (M17.12) Referral Organization [facility] Referring Provider First Name Aaron Referring Provider Last Name Eleazar Referring Provider Specialty Internal Me dicine Referred Organization [facility] Referred Provider Rik Villalobos Referred Address [address] [place],[address] Referred Provider Specialty Orthopedic S urgery Referral [...] Zena Witt Admit Date: [id number] MR #: [id number] : 1955 The H&P has been reviewed [...] acceptable for elective surgery based on 2014 [place] [employer]/[place] Heart Association (ACC/AHA) guidelines on Perioperative Cardiovascular [...] or GERD noted (K21.9) Well controlled with PPI/F0Gshbppn which should be dosed perioperatively on usual [...] EXCISION TIBIA, BROSTRUM, WEI, TIBIAL OSTEOTOMY @ [facility] on 05/27. Patient reports that he [...] Anemia 05/21/2017 Bleeding disorder (HCC) 05/21/2017 Cancer ([facility]) 05/21/2017 Complication of anesthesia 05/21/2017 Coronary artery disease 05/21/2017 Deep vein thrombosis (HCC) 05/21/2017 Diabetes mellitus type I (HCC) 05/21/2017 Diabetes mellitus, type 2 ([facility]) 05/21/2017 History of blood transfusion 05/21/2017 Hypertension [...] 12 hours or as directed by MD laveqsgx-kyzo-eyw-folic acid (qbcgbfxbqhre-ujgo-nqfqkwbv-folic acid) 3,500-18-0.4 unit-mg-mg Chew Chew and Swallow [...] kg/m Constitutional--Conversant, in no acute distress Eyes: [place] conjunctivae, no ptosis. Pupils equal Bilaterally, Anicteric [...] patient for surgery includes - More recent [facility] electronic records reviewed pertinent to history. OUTSIDE [...] acceptable for elective surgery based on 2014 [place] [employer] Card[employer]/[place] Heart Association (ACC/AHA) guidelines on Perioperative Cardiovascular [...] or GERD noted (K21.9) Well controlled with PPI/C0Heripzb which should be dosed perioperatively on usual [...] EXCISION TIBIA, BROSTRUM, WEI, TIBIAL OSTEOTOMY @ [facility] on 05/27. Patient reports that he [...] Anemia 05/21/2017 Bleeding disorder (HCC) 05/21/2017 Cancer ([facility]) 05/21/2017 Complication of anesthesia 05/21/2017 Coronary artery disease 05/21/2017 Deep vein thrombosis (HCC) 05/21/2017 Diabetes mellitus type I (HCC) 05/21/2017 Diabetes mellitus, type 2 ([facility]) 05/21/2017 History of blood transfusion 05/21/2017 Hypertension 05/21/2017 No blood products 05/21/2017 Pulmonary embolism (HCC) 05/21/2017 Rheumatoid arthritis ([facility]) 05/21/2017 Sleep apnea, obstructive 05/21/2017 Past Surgical [...] 12 hours or as directed by MD hmyetoiy-awzd-msm-folic acid (rohdldnuqjuo-jxoi-zpxlurmr-folic acid) 3,500-18-0.4 unit-mg-mg Chew Chew and Swallow [...] kg/m Constitutional--Conversant, in no acute distress Eyes: [place] conjunctivae, no ptosis. Pupils equal Bilaterally, Anicteric [...] patient for surgery includes - More recent [facility] electronic records reviewed pertinent to history. OUTSIDE RECORDS REQUESTED NONE in this encounter INTERVAL HISTORY AND PHYSICAL Patient Name: Zena Witt Admit Date: [id number] MR #: [id number] : 1955 The H&P has been reviewed [...] (unrecog nized section and content) JOI ZENA [facility] [id number] 1955 DATE 05/27/2017 OPERATIVE REPORT SURGEON LAURA RICHARD, DO MIRROR INSTALLER ALLISON CLEMENTE, DO MIRROR INSTALLER 2 ANALI DIANE PA-C PREOPERATIVE DIAGNOSES 1. [...] marked with an indelible marker by Dr. Rihcard. He was brought back to the operative [...] tissue up to the fibula in a rluuy-spoj-lcrv fashion. We still had some laxity distally, [...] in 1- week. Dictated by DO LAURA MONTES DO D 05/27/2017 13:18 [id number] T 05/27/2017 14:01 [facility] Formatting of this note may be different from the original. Brief Post Operative Note Patient Name: Zena Witt : 1955 (61 y.o.) Date of Service: 05/27/2017 [facility]: [id number] Procedure(s): LEFT ANKLE ARTHROSCOPY WITH DEBRIDEMENT, PARTIAL EXCISION TIBIA, BROSTRUM, WEI, TIBIAL OSTEOTOMY Pre-Operative Diagnoses: * LEFT VARUS ANKLE, INSTABILITY, TIBIA EXOSTOSIS Post-Operative Diagnoses: * Same as Pre-Op Diagnosis Surgeon(s) and Role: * Allison Clemente DO - Fellow * Laura Richard DO - Primary Anesthesiologist: Darrius Rand MD MILK POWDER GRINDER: Craig Street CRNA Featherer: Keyona Solorio RN Physician Leather Staker: Anali Diane PA-C Relief Featherer: Eden Adam RN Relief Scrub: Debbie Ireland [...] Implant Name Type Inv. Item Serial No. Size Stamper Lot No. LRB No. Used Action GRAFT FEMORAL HEAD - [id number] Graft GRAFT FEMORAL HEAD LIFENET Left 1 Implanted ANCHOR 1.45MM #2 SOFT SHORT RIGID JUGGERKNOT W/DRILL BIT - [id number] Mcdonald ANCHOR 1.45MM #2 SOFT SHORT RIGID JUGGERKNOT W/DRILL BIT BIOMET SPORT [id number] Left 1 Implanted ALLOGRAFT 5CC FIBER DBM STAGRAFT - [id number] Bone ALLOGRAFT 5CC FIBER DBM STAGRAFT [employer] [id number] Left 1 Implanted SCREW 3.5 X 32MM LOW PROFILE STEVEN - [id number] SCREW 3.5 X 32MM LOW PROFILE STEVEN BIOMET SP/TR Left 1 Implanted SCREW 3.5 X 34MM LOW PROFILE STEVEN - [id number] SCREW 3.5 X 34MM LOW PROFILE STEVEN BIOMET SP/TR Left 2 Implanted SCREW 3.5 X 34MM STEVEN LOCK - [id number] SCREW 3.5 X 34MM STEVEN LOCK BIOMET SP/TR Left 1 Implanted SCREW 3.5 X 12MM STEVEN LOCK - [id number] SCREW 3.5 X 12MM STEVEN LOCK BIOMET SP/TR Left 1 Implanted PLATE 6HL FIB LOCK - [id number] PLATE 6HL FIB LOCK BIOMET SP/TR Left 1 Implanted Drain(s): Wound(s): Allison Clemente, DO 05/27/2017 1:04 PM in this encounter Patient is resting comfortably. Call light within reach. Patient updated on continued plan of care. Formatting of this note may be different from the original. PCP - Nupur Gil MD [phone] Chief Complaint Patient presents with Flank Pain Abdominal Pain HPI: Dictation on: 05/19/2017 4:40 AM by: TRANG BRAY [[id number]] Review of Systems Constitutional: No fevers Skin: [...] 6 (six) hours as needed for pain. OBVBJDNS-UGUI-OAD-FOLIC ACID (TGFIWWGZNVLV-SKYN-IYRAMJOF-FOLIC ACID) 3,500-18-0.4 UNIT-MG-MG CHEW Chew and Swallow. [...] following orders were created for panel order Mckenzie Draw. Procedure Abnormality Status --------- ------ Lavender Top[[id number]] Final result Mint Green Top[[id number]] Final result Please view results for these tests on the individual orders. LAVENDER TOP MINT GREEN TOP CBC AND DIFFERENTIAL Narrative: The following orders were created for panel order CBC w/ Diff. Procedure Abnormality Status --------- ------ CBC Auto Differential[[id number]] Abnormal Final result Please view results for [...] chest CT for further evaluation. Radiology 2017 http://pubs.rsna.org/doi/full/10.1148/radiol.3234082343 Managing Incidental Adrenal Nodule > or equal to 1 cm Benign adrenal nodule - No follow up is required (including myelolipomas, adenomas, or nodules stable for > or equal to 1 year) Reference: Tyrone et al. Managing Incidental Findings on Abdominal CT: White Paper of the ACR Incidental Findings Committee. J Am Anup Radiol 2010;7:754-773 Workstation ID: [id number] Vital Signs During ED Visit (as charted [...] 1955 (62 y.o.) Date of Service: 02/17/2018 [facility]: [id number] Procedure(s): LEFT TIBIAL NON UNION BONE GRAFT, CALCANEAL BONE GRAFT Pre-Operative Diagnoses: * LEFT TIBIA NON UNION Post-Operative Diagnoses: Surgeon(s) and Role: * Laura Richard, DO - Primary * Jarrell Cuellar DO - Resident - Assisting Anesthesiologist: Tello London MD; Trenton Qureshi MD MILK POWDER GRINDER: Adia Hodge CRNA Featherer: Keyona Solorio RN Relief Featherer: Eden Adam RN Relief Scrub: ST Ada Scrub Person: ST Obed Renteria RN: Yojana Ordaz RN Operative findings: per op note Intra and immediate post-operative complications: none Type of anesthesia used: Regional, General Estimated blood loss: 25 mL Estimated urine output: 0 mL Specimen(s): * No specimens in log * Implant(s): Implant Name Type Inv. Item Serial No. Size Stamper Lot No. LRB No. Used Action Stagraft [id number] Left 1 Implanted PLATE, LATERAL FIBULA, SML, [...] (unrecognized section and content) Patient Instructions for [facility]: Prior to surgery: Please be sure to wear loose, comfortable clothing and non-skid shoes Bring your health insurance information and a photo ID, as well as your Living Will or Durable Power of Financial Systems Director for Healthcare if it is available to you. Bring your cane/walker any applicable assistive device. If you currently use a CPAP, please bring this device with you on the day of surgery. Bring a list of your medications with the name of the medication, dose and how often you are taking it. Be sure to include herbal preparations and ubzl-nte-sgckkqv medications on this list. Do not eat [...] of lotions, perfumes or powders. All nail albanian is to be removed from fingernails and [...] the day of your surgery/procedure. Parking at [facility] is free. Please park in the lot in front of the main lobby. Enter the Main Entrance where a Communications Equipment Installer Liaison at the information desk will greet [...] of your surgery preparation process here at [facility]. It will provide you with additional important [...] DOS in this encounter Patient Instructions for [facility]: Prior to surgery: Please be sure to wear loose, comfortable clothing and non-skid shoes Bring your health insurance information and a photo ID, as well as your Living Will or Durable Power of Financial Systems Director for Healthcare if it is available to you. Bring your cane/walker any applicable assistive device. If you currently use a CPAP, please bring this device with you on the day of surgery. Bring a list of your medications with the name of the medication, dose and how often you are taking it. Be sure to include herbal preparations and [id number] medications on this list. Do not eat [...] of lotions, perfumes or powders. All nail albanian is to be removed from fingernails and [...] the day of your surgery/procedure. Parking at [facility] is free. Please park in the lot in front of the main lobby. Enter the Main Entrance where a Communications Equipment Installer Liaison at the information desk will greet [...] of your surgery preparation process here at [facility]. It will provide you with additional important [...] section and content) DATE CREATED AUTHOR 11/17/2017 [facility] DATE CREATED AUTHOR AUTHOR'S ORGANIZ ATION 11/17/2017 [facility] DATE CREATED AUTHOR AUTHOR'S ORGANIZ ATION 03/18/2018 [facility] DATE CREATED AUTHOR AUTHOR'S ORGANIZ ATION 01/09/2019 [facility] DATE CREATED AUTHOR AUTHOR'S ORGANIZ ATION 08/22/2020 [facility] DATE CREATED AUTHOR AUTHOR'S ORGANIZ ATION 09/20/2022 [facility] DATE CREATED AUTHOR AUTHOR'S ORGANIZ ATION 09/28/2022 [facility] Reason for Visit (unrecogniz ed section and [...] BE BASED ON THE PRIMARY CLINICAL RECORDS. [facility] [employer] provides no warranty or guarantee of the accuracy or completeness of information in this document.
[2024-04-06 06:52] LABS: Glucometer 111 mg/dL (74-106)
[2024-04-06] MEDS: LACTATED RINGER'S SOLUTION 1,000 ML 50 ML IV (06:54)
[2024-04-06] MEDS: CEFAZOLIN SODIUM 2 GM/50 ML D5W PREMIX IV (07:57)
--- NOTE | 2024-04-06 08:22 | XR_ITS ---
The [address] [address] Patient Name: ZENA TAMEZ MRN: [id number] date: 1955 Sex: M Assigned Patient Location: [facility] Current Patient Location: [facility] Accession/Order Number: [id number] Exam Date: 04/06/2024 09:30 Report Date: 04/10/2024 08:11 At the request of: DESTINY MONTGOMERY Procedure: XR foot RT min 3V PROCEDURE: XR foot RT min 3V COMPARISON: 01/26/2024 HISTORY: tailor's bunion FINDINGS: BONES:Shave osteotomy lateral head of the fifth metatarsal. Resection head of the fifth proximal phalanx SOFT TISSUES:Postsurgical swelling and subcutaneous emphysema EFFUSION:None visible. OTHER: Negative. XR/XR foot RT min 3V IMPRESSION: Postsurgical changes of the fifth digit Electronically authenticated by: CINDY CHANDRA Date: 04/10/2024 08:11
--- NOTE | 2024-04-06 08:25 | PM.ORONB ---
Brief Operative Note Date of procedure: 04/06/24 Pre-op diagnosis general: Right tailor's bunion and fifth hammertoe Post-op diagnosis: same as pre-op Procedure: Procedure performed: Right tailor's bunionectomy and PIPJ arthroplasty of the fifth toe Indications for procedure: Patient is a 68-year-old male who has had worsening pain associated with his right foot. He has a large prominence over his lateral eminence of his fifth metatarsal which is irritating on shoes and with activity. He attempted shoe modification padding and bracing without help. He has also noticed his fifth toe has become irritating on his fourth toe. Due to his failure to respond to nonsurgical care patient wished to undergo surgical correction and I recommended the above procedures Intraoperative findings: Prominence of the lateral eminence of the fifth metatarsal head. 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 Bone quality within normal limits. Procedure in detail: Patient was identified in preoperative holding by myself which time correct side and site were marked and consent was obtained. Preoperative antibiotics were started and patient was brought back in the operating theater placed on table in supine position. General anesthesia was administered. Right lower extremity was prepped and draped in usual sterile fashion. Formal timeout was performed and local anesthesia utilizing 10 cc of 1% lidocaine plain were used as a standard fifth ray block. Longitudinal incision was placed over the fifth metatarsal head and a combination of sharp and blunt dissection gained access to the fifth metatarsal phalangeal joint which was released. Extensor tendon and neurovascular structures were protected throughout the procedure. Sagittal saw was used to remove the lateral eminence of the fifth metatarsal. The fifth metatarsal head was then contoured with a hand rasp. Surgical site was irrigated with copious saline. Incision was then closed in layers. An elliptical incision was created over the PIPJ of fifth toe. Extensor tendon was incised and reflected to expose the PIPJ. Periarticular ligaments were released. Sagittal saw was use to excised the head of proximal phalanx. The site was irrigated with copious amounts of sterile saline. The extensor tendon was repaired with absorbable stitch and skin was closed with non-absorbable suture. Dry sterile dressing and surgical shoe was applied. Postoperative plan: Discharge home under friend's care Weightbearing as tolerated in surgical shoe Prescriptions were sent to his pharmacy using my office EMR Follow-up in 1 week for incision check Implants: none Anesthesia: General-LMA Surgeon: Wesley Pimentel Estimated blood loss (mL): 10 Pathology: none sent Condition: stable Disposition: PACU
[2024-04-06] MEDS: LIDOCAINE HCL 1% 100 MG/10 ML MDV INJ (08:34)
[2024-04-06] MEDS: BUPIVACAINE HCL 0.5% PF 50 MG/10 ML VIAL INJ (08:53)
[2024-04-06 09:30] LABS: Glucometer 113 mg/dL (74-106)
== END 2024-04-06 10:20 | disposition home or self-care (01) ==
PROVIDERS: PCP Internal Medicine; Visit Provider Podiatrist Foot & Ankle Surgery
PROC: (CPT 28110; principal; 2024-04-06 07:30)
DX: M21.621 Bunionette of right foot (principal); M20.41 Other hammer toe(s) (acquired), right foot; F17.210 Nicotine dependence, cigarettes, uncomplicated; E78.5 Hyperlipidemia, unspecified; K21.9 Gastro-esophageal reflux disease without esophagitis; D64.9 Anemia, unspecified
CPT/HCPCS: 28110; 28285; 36415; 73630; 82948; J0665; J0690; J1100; J1885; J2250; J2371; J2405; J2704; J3010

== ENCOUNTER 2024-04-21 06:20 | Outpatient (OUT) | payer MEDICARE, SELFPAY ==
--- OUTSIDE RECORDS SUMMARY | 2024-04-21 06:24 | XMS_ITS | CCD ---
Author Organization [facility] Care Team Providers Care Blocker And Polisher Name Role Phone Al-Obosi, Nupur Tony Unavailable [...] DR MÁRQUEZ Primary Care Unavailable BALL, DR ÁMRQUEZ Primary Care Unavailable BALL, DR MÁRQUEZ Consulting [...] MG capsule TAKE 1 CAPSULE DAILY @ [facility] for [facility]ERD 06/01/2016 02/11/2018 Discontinued folic acid (7 sources) esfchgjg-taoe-iu n-folic acid (oalfytzbnqvv-nlxa-asgsbwxm-folic acid) 3,500-18-0.4 unit-mg-mg Chew Indications: supplement Chew [...] mg by mouth every morning. 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 Tracy Amos Basophils/100 WBC (Bld) 0.6 % Normal 0.2-2.0 [facility] Comment on above: Performed By: #### C BC #### [facility] [address] [place] [address] Dr. Tracy Amos EO # 0.1 103/ul Normal 0.0-0.7 [facility] Comment on above: Performed By: #### C BC #### [facility] [address] [place] [address] Dr. Tracy Amos Eosinophils/100 WBC (Bld) 1.5 % Normal 0.9-7.0 [facility] Comment on above: Performed By: #### C BC #### [facility] [address] [place] [address] Dr. Tracy Amos Erythrocyte distribution width (RBC) [Ratio] 12.6 % Normal 11.0-15.0 [facility] Comment on above: Performed By: #### C BC #### [facility] [address] [place] [address] Dr. Tracy Amos Hematocrit (Bld) [Volume fraction] 41.2 % Critically low 42.0-54.0 [facility] Comment on above: Performed By: #### C BC #### [facility] [address] [place] [address] Dr. Tracy Amos Hemoglobin (Bld) [Mass/Vol] 13.3 g/dL Critically low 14.0-18.0 [facility] Comment on above: Performed By: #### C BC #### [facility] [address] [place] [address] Dr. Tracy Amos IG # 0.01 10e3/ul Normal 0.00-0.03 [facility] Comment on above: Performed By: #### C BC #### [facility] [address] [place] [address] Dr. Tracy Amos IG % 0.1 % Normal 0.0-0.5 [facility] Comment on above: Performed By: #### C BC #### [facility] [address] [place] [address] Dr. Tracy Amos LYMPH # 3.0 103/ul Normal 1.2-3.8 [facility] Comment on above: Performed By: #### C BC #### [facility] [address] [place] [address] Dr. Tracy Amos Lymphocytes/100 WBC (Bld) 42.0 % Normal 20.5-60.0 [facility] Comment on above: Performed By: #### C BC #### [facility] [address] [place] [address] Dr. Tracy Amos MANUAL DIFF REQ NO Normal [facility] Comment on above: Performed By: #### C BC #### [facility] [address] [place] [address] Dr. Tracy Amos MCH (RBC) [Entitic mass] 28.7 pg Normal 25.9-34.0 [facility] Comment on above: Performed By: #### C BC #### [facility] [address] [place] [address] Dr. Tracy Amos MCHC (RBC) [Mass/Vol] 32.3 g/dL Normal 29.9-35.2 [facility] Comment on above: Performed By: #### C BC #### [facility] [address] [place] [address] Dr. Tracy Amos MCV (RBC) [Entitic vol] 89.0 fL Normal 80.0-94.0 [facility] Comment on above: Performed By: #### C BC #### [facility] [address] [place] [address] Dr. Tracy Amos MONO # 0.5 103/ul Normal 0.3-0.8 [facility] Comment on above: Performed By: #### C BC #### [facility] [address] [place] [address] Dr. Tracy Amos Monocytes/100 WBC (Bld) 6.6 % Normal 1.7-12.0 [facility] Comment on above: Performed By: #### C BC #### [facility] [address] [place] [address] Dr. Tracy Amos NEUT # 3.6 103/ul Normal 1.4-6.5 [facility] Comment on above: Performed By: #### C BC #### [facility] [address] [place] [address] Dr. Tracy Amos Neutrophils/100 WBC (Bld) 49.2 % Normal 43.0-75.0 [facility] Comment on above: Performed By: #### C BC #### [facility] [address] [place] [address] Dr. Tracy Amos Platelet mean volume (Bld) [Entitic vol] 10.2 fL Normal 9.5-13.5 [facility] Comment on above: Performed By: #### C BC #### [facility] [id number] Tracy Amos PLT 164 103/ul Normal 150-450 [facility] Comment on above: Performed By: #### C BC #### [facility] [address] [place], [place] [address] Dr. Tracy Amos RBC 4.63 106/ul Critically low 4.70-6.10 [facility] Comment on above: Performed By: #### C BC #### [facility] [address] [place], [place] [address] Dr. Tracy Amos WBC 7.2 103/ul Normal 4.0-11.0 [facility] Comment on above: Performed By: #### C BC #### [facility] [address] [address] [address] Tracy Saleh 08-26-2022 L --- Specimen: [id number] Received: 08/26/22 Status: BETHANY Troncoso Num: [id number] Spec Type: Surgical Subm Dr: Nino Russell MD Tissues: A Gastric Biopsy (GASTRIC ULCER BX) B Esophagus Biopsy (ESOPHAGUS BX) C Colon Biopsy (ASCENDING) Procedures: HE/6, Gross/Micro L4/3, H PYLORI Age/ Patient Sex Location Account Attending Physician Zena Witt/[facility] [id number] Nino Russell MD SPEC NUM: [id number] RECD: 08/26/22 STATUS: BETHANY TRONCOSO NUM: [id number] ANUP: 08/26/22- SUBM DR: Nino Russell MD ENTERED: 08/26/22 [facility] DR: LEONARDO TYPE: Surgical DEPT: S [...] submitted in one cassette labeled A1. Specimen: [id number] Received: 08/26/22 Status: BETHANY Troncoso Num: [id number] Spec Type: Surgical Subm Dr: Nino Russell MD Tissues: A Gastric Biopsy (GASTRIC ULCER BX) B Esophagus Biopsy (ESOPHAGUS BX) C Colon Biopsy (ASCENDING) Procedures: HE/6, Gross/Micro L4/3, H PYLORI Patient: Zena Witt [id number] (Continued) Specimen: [id number] Received: 08/26/22 (Continued) Gross Description (Continued) Signed (signature on file) Rosa Fischer MD 08/27/22 1520 Specimen: [id number] Received: 08/26/22 Status: BETHANY Troncoso Num: [id number] Spec Type: Surgical Subm Dr: Nino Russell MD Tissues: A Gastric Biopsy (GASTRIC ULCER BX) B Esophagus Biopsy (ESOPHAGUS BX) C Colon Biopsy (ASCENDING) Procedures: HE/6, Gross/Micro L4/3, H PYLORI Patient: Zena Witt [id number] (Continued) Specimen: [id number] Received: 08/26/22 (Continued) Gross Description (Continued) B. [...] support the above pathologic diagnosis. CPT Codes 59687?3 Specimen: [id number] Received: 08/26/22 Status: BETHANY Troncoso Num: [id number] Spec Type: Surgical Subm Dr: Nino Russell MD Tissues: A Gastric Biopsy (GASTRIC ULCER BX) B Esophagus Biopsy (ESOPHAGUS BX) C Colon Biopsy (ASCENDING) Procedures: HE/6, Gross/Micro L4/3, H PYLORI Patient: Zena Witt [id number] (Continued) (more content not included)... Normal [facility] CBC AUTO DIFFon 07-13-2022 BASO # 0.0 103/ul Normal 0.0-0.1 [facility] Comment on above: Performed By: #### C BC #### [facility] [address] [place], [place] [address] Dr. Tracy Amos Basophils/100 WBC (Bld) 0.4 % Normal 0.2-2.0 [facility] Comment on above: Performed By: #### C BC #### [facility] [address] [place] [address] Dr. Tracy Amos EO # 0.2 103/ul Normal 0.0-0.7 [facility] Comment on above: Performed By: #### C BC #### [facility] [address] [place] [address] Dr. Tracy Amos Eosinophils/100 WBC (Bld) 1.5 % Normal 0.9-7.0 [facility] Comment on above: Performed By: #### C BC #### [facility] [address] [place] [address] Dr. Tracy Amos Erythrocyte distribution width (RBC) [Ratio] 12.8 % Normal 11.0-15.0 [facility] Comment on above: Performed By: #### C BC #### [facility] [address] [place] [address] Dr. Tracy Amos Hematocrit (Bld) [Volume fraction] 38.2 % Critically low 42.0-54.0 [facility] Comment on above: Performed By: #### C BC #### [facility] [address] [place] [address] Dr. Tracy Amos Hemoglobin (Bld) [Mass/Vol] 12.7 g/dL Critically low 14.0-18.0 [facility] Comment on above: Performed By: #### C BC #### [facility] [address] [place] [address] Dr. Tracy Amos IG # 0.02 10e3/ul Normal 0.00-0.03 [facility] Comment on above: Performed By: #### C BC #### [facility] [address] [place] [address] Dr. Tracy Amos IG % 0.2 % Normal 0.0-0.5 [facility] Comment on above: Performed By: #### C BC #### [facility] [address] [place] [address] Dr. Tracy Amos LYMPH # 3.8 103/ul Normal 1.2-3.8 [facility] Comment on above: Performed By: #### C BC #### [facility] [address] [place] [address] Dr. Tracy Amos Lymphocytes/100 WBC (Bld) 38.1 % Normal 20.5-60.0 [facility] Comment on above: Performed By: #### C BC #### [facility] [address] [place] [address] Dr. Tracy Amos MANUAL DIFF REQ NO Normal [facility] Comment on above: Performed By: #### C BC #### [facility] [address] [place] [address] Dr. Tracy Amos MCH (RBC) [Entitic mass] 29.0 pg Normal 25.9-34.0 [facility] Comment on above: Performed By: #### C BC #### [facility] [address] [place] [address] Dr. Tracy Amos MCHC (RBC) [Mass/Vol] 33.2 g/dL Normal 29.9-35.2 [facility] Comment on above: Performed By: #### C BC #### [facility] [address] [place] [address] Dr. Tracy Amos MCV (RBC) [Entitic vol] 87.2 fL Normal 80.0-94.0 [facility] Comment on above: Performed By: #### C BC #### [facility] [address] [place] [address] Dr. Tracy Amos MONO # 0.5 103/ul Normal 0.3-0.8 [facility] Comment on above: Performed By: #### C BC #### [facility] [address] [place] [address] Dr. Tracy Amos Monocytes/100 WBC (Bld) 4.6 % Normal 1.7-12.0 [facility] Comment on above: Performed By: #### C BC #### [facility] [address] [place] [address] Dr. Tracy Amos NEUT # 5.5 103/ul Normal 1.4-6.5 [facility] Comment on above: Performed By: #### C BC #### [facility] [address] [place] [address] Dr. Tracy Amos Neutrophils/100 WBC (Bld) 55.2 % Normal 43.0-75.0 [facility] Comment on above: Performed By: #### C BC #### [facility] [address] [place] [address] Dr. Tracy Amos Platelet mean volume (Bld) [Entitic vol] 10.0 fL Normal 9.5-13.5 [facility] Comment on above: Performed By: #### C BC #### [facility] [address] [place] [address] Dr. Tracy Amos PLT 179 103/ul Normal 150-450 [facility] Comment on above: Performed By: #### C BC #### [facility] [address] [place] [address] Dr. Tracy Amos RBC 4.38 106/ul Critically low 4.70-6.10 [facility] Comment on above: Performed By: #### C BC #### [facility] [address] [place] [address] Dr. Tracy Amos WBC 9.9 103/ul Normal 4.0-11.0 [facility] Comment on above: Performed By: #### C BC #### [facility] [address] [place] [address] Dr. Tracy Amos CBC AUTO DIFFon 03-04-2022 BASO # 0.1 103/ul Normal 0.0-0.1 [facility] Comment on above: Performed By: #### C BC #### [facility] [address] [place] [address] Dr. Tracy Amos Basophils/100 WBC (Bld) 0.8 % Normal 0.2-2.0 [facility] Comment on above: Performed By: #### C BC #### [facility] [address] [place] [address] Dr. Tracy Amos EO # 0.1 103/ul Normal 0.0-0.7 [facility] Comment on above: Performed By: #### C BC #### [facility] [address] [place] [address] Dr. Tracy Amos Eosinophils/100 WBC (Bld) 1.8 % Normal 0.9-7.0 [facility] Comment on above: Performed By: #### C BC #### [facility] [address] [place] [address] Dr. Tracy Amos Erythrocyte distribution width (RBC) [Ratio] 12.7 % Normal 11.0-15.0 [facility] Comment on above: Performed By: #### C BC #### [facility] [address] [place] [address] Dr. Tracy Amos Hematocrit (Bld) [Volume fraction] 37.3 % Critically low 42.0-54.0 [facility] Comment on above: Performed By: #### C BC #### [facility] [address] [place] [address] Dr. Tracy Amos Hemoglobin (Bld) [Mass/Vol] 12.1 g/dL Critically low 14.0-18.0 [facility] Comment on above: Performed By: #### C BC #### [facility] [address] [place] [address] Dr. Tracy Amos IG # 0.01 10e3/ul Normal 0.00-0.03 [facility] Comment on above: Performed By: #### C BC #### [facility] [address] [place] [address] Dr. Tracy Amos IG % 0.1 % Normal 0.0-0.5 [facility] Comment on above: Performed By: #### C BC #### [facility] [address] [place] [address] Dr. Tracy Amos LYMPH # 3.0 103/ul Normal 1.2-3.8 [facility] Comment on above: Performed By: #### C BC #### [facility] [address] [place] [address] Dr. Tracy Amos Lymphocytes/100 WBC (Bld) 41.3 % Normal 20.5-60.0 [facility] Comment on above: Performed By: #### C BC #### [facility] [address] [place] [address] Dr. Tracy Amos MANUAL DIFF REQ NO Normal [facility] Comment on above: Performed By: #### C BC #### [facility] [address] [address] [address] Tracy Amos MCH (RBC) [Entitic mass] 29.7 pg Normal 25.9-34.0 [facility] Comment on above: Performed By: #### C BC #### [facility] [address] [address] [address] Tracy Amos MCHC (RBC) [Mass/Vol] 32.4 g/dL Normal 29.9-35.2 [facility] Comment on above: Performed By: #### C BC #### [facility] [address] [address] [address] Tracy Amos MCV (RBC) [Entitic vol] 91.4 fL Normal 80.0-94.0 [facility] Comment on above: Performed By: #### C BC #### [facility] [address] [place] [address] Dr. Tracy Amos MONO # 0.5 103/ul Normal 0.3-0.8 [facility] Comment on above: Performed By: #### C BC #### [facility] [address] [place] [address] Dr. Tracy Amos Monocytes/100 WBC (Bld) 6.1 % Normal 1.7-12.0 [facility] Comment on above: Performed By: #### C BC #### [facility] [address] [place] [address] Dr. Tracy Amos NEUT # 3.7 103/ul Normal 1.4-6.5 [facility] Comment on above: Performed By: #### C BC #### [facility] [address] [place] [address] Dr. Tracy Amos Neutrophils/100 WBC (Bld) 49.9 % Normal 43.0-75.0 [facility] Comment on above: Performed By: #### C BC #### [facility] [address] [place] [address] Dr. Tracy Amos Platelet mean volume (Bld) [Entitic vol] 9.9 fL Normal 9.5-13.5 [facility] Comment on above: Performed By: #### C BC #### [facility] [address] [address] [address] Tracy Amos PLT 156 103/ul Normal 150-450 [facility] Comment on above: Performed By: #### C BC #### [facility] [address] [address] [address] Tracy Amos RBC 4.08 106/ul Critically low 4.70-6.10 [facility] Comment on above: Performed By: #### C BC #### [facility] [address] [address] [address] Tracy Amos WBC 7.4 103/ul Normal 4.0-11.0 [facility] Comment on above: Performed By: #### C BC #### [facility] [address] [address] [address] Tracy Amos FERRITINon 03-04-2022 Ferritin [Mass/Vol] 99.0 ng/mL Normal 26.0-388.0 [facility] Comment on above: Performed By: #### F ETIBC, FERR, B12FOL ####[facility] [id number] [address] Tracy Amos IRON AND TIBCon 03-04-2022 % SATURATION 16.3 % Normal [facility] Comment on above: Performed By: #### F ETIBC, FERR, B12FOL #### [facility] [address] [address] [address] Tracy Amos Iron [Mass/Vol] 55.0 ug/dL Critically low 65.0-175.0 [facility] Comment on above: Performed By: #### F ETIBC, FERR, B12FOL #### [facility] [address] [address] [address] Tracy Amos TIBC DIRECT 337.0 ug/dL Normal 250.0-450.0 [facility] Comment on above: Performed By: #### F ETIBC, FERR, B12FOL #### [facility] [address] [address] [address] Tracy Amos VIT B12 AND FOLATEon 022 Cobalamin (Vitamin B12) [Mass/Vol] 505.0 pg/mL Normal 193.0-986.0 [facility] Comment on above: Performed By: #### F ETIBC, FERR, B12FOL #### [facility] [address] [place] [address] Dr. Tracy Amos FOLATE 20.70 ng/mL Normal 8.60-58.90 [facility] Comment on above: Performed By: #### F ETIBC, FERR, B12FOL #### [facility] [address] [place] [address] Dr. Tracy Amos CBC AUTO DIFFon 12-16-2021 BASO # 0.0 103/ul Normal 0.0-0.1 [facility] Comment on above: Performed By: #### C BC #### [facility] [address] [place] [address] Dr. Tracy Amos Basophils/100 WBC (Bld) 0.4 % Normal 0.2-2.0 [facility] Comment on above: Performed By: #### C BC #### [facility] [address] [place] [address] Dr. Tracy Amos EO # 0.2 103/ul Normal 0.0-0.7 [facility] Comment on above: Performed By: #### C BC #### [facility] [address] [place] [address] Dr. Tracy Amos Eosinophils/100 WBC (Bld) 2.6 % Normal 0.9-7.0 [facility] Comment on above: Performed By: #### C BC #### [facility] [address] [place] [address] Dr. Tracy Amos Erythrocyte distribution width (RBC) [Ratio] 12.6 % Normal 11.0-15.0 [facility] Comment on above: Performed By: #### C BC #### [facility] [address] [place] [address] Dr. Tracy Amos Hematocrit (Bld) [Volume fraction] 36.6 % Critically low 42.0-54.0 [facility] Comment on above: Performed By: #### C BC #### [facility] [address] [place] [address] Dr. Tracy Amos Hemoglobin (Bld) [Mass/Vol] 12.1 g/dL Critically low 14.0-18.0 [facility] Comment on above: Performed By: #### C BC #### [facility] [address] [place] [address] Dr. Tracy Amos IG # 0.01 10e3/ul Normal 0.00-0.03 [facility] Comment on above: Performed By: #### C BC #### [facility] [address] [place] [address] Dr. Tracy Amos IG % 0.1 % Normal 0.0-0.5 [facility] Comment on above: Performed By: #### C BC #### [facility] [address] [place] [address] Dr. Tracy Amos LYMPH # 2.8 103/ul Normal 1.2-3.8 [facility] Comment on above: Performed By: #### C BC #### [facility] [address] [place] [address] Dr. Tracy Amos Lymphocytes/100 WBC (Bld) 40.3 % Normal 20.5-60.0 [facility] Comment on above: Performed By: #### C BC #### [facility] [address] [place] [address] Dr. Tracy Amos MANUAL DIFF REQ NO Normal [facility] Comment on above: Performed By: #### C BC #### [facility] [address] [place] [address] Dr. Tracy Amos MCH (RBC) [Entitic mass] 30.0 pg Normal 25.9-34.0 [facility] Comment on above: Performed By: #### C BC #### [facility] [address] [place] [address] Dr. Tracy Amos MCHC (RBC) [Mass/Vol] 33.1 g/dL Normal 29.9-35.2 [facility] Comment on above: Performed By: #### C BC #### [facility] [address] [address] [address] Tracy Amos MCV (RBC) [Entitic vol] 90.8 fL Normal 80.0-94.0 [facility] Comment on above: Performed By: #### C BC #### [facility] [address] [address] [address] Tracy Amos MONO # 0.4 103/ul Normal 0.3-0.8 [facility] Comment on above: Performed By: #### C BC #### [facility] [address] [address] [address] Tracy Amos Monocytes/100 WBC (Bld) 5.8 % Normal 1.7-12.0 [facility] Comment on above: Performed By: #### C BC #### [facility] [address] [place] [address] Dr. Tracy Amos NEUT # 3.6 103/ul Normal 1.4-6.5 [facility] Comment on above: Performed By: #### C BC #### [facility] [address] [place] [address] Dr. Tracy Amos Neutrophils/100 WBC (Bld) 50.8 % Normal 43.0-75.0 [facility] Comment on above: Performed By: #### C BC #### [facility] [address] [place] [address] Dr. Tracy Amos Platelet mean volume (Bld) [Entitic vol] 10.3 fL Normal 9.5-13.5 [facility] Comment on above: Performed By: #### C BC #### [facility] [address] [address] [address] Tracy Amos PLT 164 103/ul Normal 150-450 [facility] Comment on above: Performed By: #### C BC #### [facility] [id number] Tracy Amos RBC 4.03 106/ul Critically low 4.70-6.[address] [facility] Comment on above: Performed By: #### C BC #### [facility] [address] [address] [address] Tracy Amos WBC 7.1 103/ul Normal 4.0-11.0 [facility] Comment on above: Performed By: #### C BC #### [facility] [address] [address] [address] Tracy Amos LIPID PROFILEon 12-16-2021 CHOL-HDL RATIO NORM SEE BELOW Normal [facility] Comment on above: Result Comment: 3.3 - 4.4 LOW RISK 4.4 - 7.1 AVERAGE RISK 7.1 - 11.0 MODERATE RISK >11.0 HIGH RISK Performed By: #### L IPID, BMP #### [facility] [address] [address] [address] Tracy Amos Cholesterol [Mass/Vol] 118 mg/dL Normal <=200 [facility] Comment on above: Performed By: #### L IPID, BMP #### [facility] [address] [address] [address] Tracy Amos Cholesterol in HDL [Mass/Vol] 40 mg/dL Normal 40-60 [facility] Comment on above: Performed By: #### L IPID, BMP #### [facility] [address] [address] [address] Tracy Amos Cholesterol in LDL [Mass/Vol] 62.6 mg/dL Normal [facility] Comment on above: Performed By: #### L IPID, BMP #### [facility] [address] [address] [address] Tracy Amos Cholesterol.total/Ch olesterol in HDL [Mass ratio] 3.0 {ratio} Normal [facility] Comment on above: Performed By: #### L IPID, BMP #### [facility] [address] [address] [address] Tracy Amos HDL NORMAL > or = 60 mg/dl - LO W CARDIOVASCULAR RISK <40 mg/dl - HIGH CARDIOVASCULAR RISK Normal [facility] Comment on above: Performed By: #### L IPID, BMP #### [facility] [address] [address] [address] Tracy Amos LDL CALC NORMAL SEE BELOW Normal [facility] Comment on above: Result Comment: <100 mg/dl OPTIMAL 100 - 129 mg/dl NEAR OR ABOVE OPTIMAL 130 - 159 mg/dl BORDERLINE HIGH 160 - 189 mg/dl HIGH >190 mg/dl VERY HIGH Performed By: #### L IPID, BMP #### [facility] [address] [place] [address] Dr. Tracy Amos Triglyceride [Mass/Vol] 77 mg/dL Normal <=150 [facility] Comment on above: Performed By: #### L IPID, BMP #### [facility] [address] [address] [address] Tracy Amos VLDL CALC 15.4 mg/dL Normal [facility] Comment on above: Performed By: #### L IPID, BMP #### [facility] [address] [place] [address] Dr. Tracy Amos PROF CHEM 8 (BAS METB)on Anion gap [Moles/Vol] 7.8 mmol/L Normal [facility] Comment on above: Performed By: #### L IPID, BMP #### [facility] [address] [address] [address] Tracy Amos Calcium [Mass/Vol] 8.8 mg/dL Normal 8.5-10.1 [facility] Comment on above: Performed By: #### L IPID, BMP #### [facility] [address] [place] [address] Dr. Tracy Amos Chloride [Moles/Vol] 108 mmol/L Critically high 98-107 [facility] Comment on above: Performed By: #### L IPID, BMP #### [facility] [address] [address] [address] Tracy Amos CO2 [Moles/Vol] 28.5 mmol/L Normal 21.0-32.0 [facility] Comment on above: Performed By: #### L IPID, BMP #### [facility] [address] [place] [address] Dr. Tracy Amos Creatinine [Mass/Vol] 0.94 mg/dL Normal 0.70-1.30 [facility] Comment on above: Performed By: #### L IPID, BMP #### [facility] [address] [address] [address] Tracy Amos EGFR-AF ARGENTINE >60 Normal >=60 [facility] Comment on above: Performed By: #### L IPID, BMP #### [facility] [address] [address] [address] Tracy Amos EGFR-NON AF ARGENTINE >60 Normal >=60 [facility] Comment on above: Performed By: #### L IPID, BMP #### [facility] [address] [address] [address] Tracy Amos Glucose [Mass/Vol] 116 mg/dL Critically high 74-[address] [facility] Comment on above: Performed By: #### L IPID, BMP #### [facility] [address] [place] [address] Dr. Tracy Amos Potassium [Moles/Vol] 4.3 mmol/L Normal 3.5-5.1 [facility] Comment on above: Performed By: #### L IPID, BMP #### [facility] [address] [place] [address] Dr. Tracy Amos Sodium [Moles/Vol] 140 mmol/L Normal 136-145 [facility] Comment on above: Performed By: #### L IPID, BMP #### [facility] [address] [place] [address] Dr. Tracy Amos Urea nitrogen [Mass/Vol] 24.0 mg/dL Critically high 7.0-18.0 [facility] Comment on above: Performed By: #### L IPID, BMP #### [facility] [address] [place] [address] Dr. Tracy Amos Urea nitrogen/Creatinine [Mass ratio] 25.5 mg/mg Normal [facility] Comment on above: Performed By: #### L IPID, BMP #### [facility] [address] [address] [address] Tracy Amos XR LSPINE 2_3 VIEWSon [...] by: SILVIA LI Date: 2021-12-16 21:55 Normal [facility] XR SHOULDER LEFT MIN 2 VIEWS on 05-10-2020 [facility] (RBC) [Entitic mass] EXAM: [facility] XR SHOULDER LEFT MIN 2 VIEWS, 05/10/2020 [...] SHOULDER LEFT MIN 2 VIEWS on 05-02-2020 [facility] (RBC) [Entitic mass] EXAM: [facility] XR SHOULDER LEFT MIN 2 VIEWS, 05/02/2020 [...] [facility] (DEFAULT) [address] [place] [address] BASIC METABOLIC PANELon 11-1 Anion gap [Moles/Vol] 13 mmol/L Normal [facility] Comment on above: Performed By: #### C 7C #### [facility] (DEFAULT) [address] [place] [address] Calcium [Mass/Vol] 9.7 mg/dL Normal 8.4-10.2 [facility] Comment on above: Performed By: #### C 7C #### [facility] (DEFAULT) [address] [place] [address] Chloride [Moles/Vol] 108 mmol/L High 98-107 [facility] Comment on above: Performed By: #### C 7C #### [facility] (DEFAULT) [address] [place] [address] CO2 [Moles/Vol] 25 mmol/L Normal 22-[address] [facility] Comment on above: Performed By: #### C 7C #### [facility] (DEFAULT) [address] [place] [address] Creatinine [Mass/Vol] 1.05 mg/dL Normal 0.72-1.[address] [facility] Comment on above: Performed By: #### C 7C #### [facility] (DEFAULT) [address] [place] [facility] [place] [address] Est Gfr, 86 mL/min/1.73sqM Normal [facility] Comment on above: Performed By: #### C 7C #### [facility] (DEFAULT) [address] [place] [address] Est Gfr,Non 71 mL/min/1.73sqM Normal [facility] Comment on above: Performed By: #### C 7C #### [facility] (DEFAULT) [address] [place] [address] Glucose [Mass/Vol] 102 mg/dL Normal 80-115 [facility] Comment on above: Performed By: #### C 7C #### [facility] (DEFAULT) [address] [place] [address] Osmolality [Osmolality] 301 mOsm/kg Normal [facility] Comment on above: Performed By: #### C 7C #### [facility] (DEFAULT) [address] [place] [facility] [place] [address] Potassium [Moles/Vol] 4.0 mmol/L Normal 3.5-5.[address] [facility] Comment on above: Performed By: #### C 7C #### [facility] (DEFAULT) [address] [place] [address] Sodium [Moles/Vol] 142 mmol/L Normal 136-145 [facility] Comment on above: Performed By: #### C 7C #### [facility] (DEFAULT) [address] [place] [address] Urea nitrogen [Mass/Vol] 24.0 mg/dL Normal 8.4-25.[address] [facility] Comment on above: Performed By: #### C 7C #### [facility] (DEFAULT) [address] [place] [address] Urea nitrogen/Creatinine [Mass ratio] 23 mg/mg Normal [facility] Comment on above: Performed By: #### C 7C #### [facility] (DEFAULT) [address] [place] [address] CBC AND ELECTRONIC DIFFon Hematocrit (Bld) [Volume fraction] 37.8 % Normal 37.0-51.[address] [facility] Comment on above: Performed By: #### L AB981, [id number] #### [facility] (DEFAULT) [address] [place] [address] Hemoglobin (Bld) [Mass/Vol] 12.6 g/dL Normal 12.6-17.[address] [facility] Comment on above: Performed By: #### L AB981, [id number] #### [facility] (DEFAULT) [address] [place] [address] MCV (RBC) [Entitic vol] 89.6 fL Normal 81.0-103.[address] [facility] Comment on above: Performed By: #### L AB981, [id number] #### [facility] (DEFAULT) [address] [place] [address] Mean Cell Hgb 30.0 pg Normal 27.0-34.[address] [facility] Comment on above: Performed By: #### L AB981, [id number] #### [facility] (DEFAULT) [address] [place] [address] Mean Cell Hgb Conc 33.5 pg Normal 31.0-36.0 [facility] Comment on above: Performed By: #### L AB981, [id number] #### [facility] (DEFAULT) [address] [place] [address] Platelet mean volume (Bld) [Entitic vol] 7.8 fL Normal 7.5-11.[address] [facility] Comment on above: Performed By: #### L AB981, [id number] #### [facility] (DEFAULT) [address] [place] [address] Platelets (Bld) [#/Vol] 204 10*3/uL Normal 150-[address] [facility] Comment on above: Performed By: #### L AB981, [id number] #### [facility] (DEFAULT) [address] [place] [address] RBC (Bld) [#/Vol] 13.1 % Normal 11.5-14.[address] [facility] Comment on above: Performed By: #### L AB981, [id number] #### [facility] (DEFAULT) [address] [place] [address] RBC (Bld) [#/Vol] 4.22 10*6/uL Normal Male: 3.8-5.8, Female: 3.8-5.[address] [facility] Comment on above: Performed By: #### L AB981, [id number] #### [facility] (DEFAULT) [address] [place] [address] WBC (Bld) [#/Vol] 11.2 10*3/uL High 4.5-11.0 [facility] Comment on above: Performed By: #### L AB981, [id number] #### [facility] (DEFAULT) [address] [place] [address] MANUAL DIFFon 04-15-2020 Abs Eos Manual 0.11 K\uL Normal [facility] Comment on above: Performed By: #### L AB981, [id number] #### [facility] (DEFAULT) [address] [place] [address] Abs Lymph Manual 6.05 K/uL High 1.00-4.[address] [facility] Comment on above: Performed By: #### L AB981, [id number] #### [facility] (DEFAULT) [address] [place] [address] Abs [place] Manual 0.45 K/uL High 0.20-0.[address] [facility] Comment on above: Performed By: #### L AB981, [id number] #### [facility] (DEFAULT) [address] [place] [address] Abs Segs Manual 4.59 K/uL Normal 1.80-7.[address] [facility] Comment on above: Performed By: #### L AB981, [id number] #### [facility] (DEFAULT) [address] [place] [address] Eosinophils % Manual 1 % Normal [facility] Comment on above: Performed By: #### L AB981, [id number] #### [facility] (DEFAULT) [address] [place] [address] Lymphocyte % Manual 54 % Normal [facility] Comment on above: Performed By: #### L AB981, [id number] #### [facility] (DEFAULT) [address] [place] [address] Monocyte % Manual 4 % Normal [facility] Comment on above: Performed By: #### L AB981, [id number] #### [facility] (DEFAULT) [address] [place] [address] Neutrophil Segmented Manual 41 % Normal [facility] Comment on above: Performed By: #### L AB981, [id number] #### [facility] (DEFAULT) [address] [place] [address] SARS-COV-2 RAPIDon 0 SARS-COV2, RT PCR NASOPHARYNGEAL [...] [facility] (DEFAULT) [address] [place] [address] COMPREHENSIVE METABOLIC PANE Delfino 02-28-2020 Albumin [Mass/Vol] 4.3 g/dL Normal 3.2-4.6 [facility] Comment on above: Performed By: #### H JENNIE, CMPN #### [facility] (DEFAULT) [address] [place] [address] ALP [Catalytic activity/Vol] 66 U/L Normal 40-[address] [facility] Comment on above: Performed By: #### H JENNIE, CMPN #### [facility] (DEFAULT) [address] [place] [address] ALT [Catalytic activity/Vol] 17 U/L Normal 0-[address] [facility] Comment on above: Performed By: #### H JENNIE, CMPN #### [facility] (DEFAULT) [address] [place] [address] Anion gap [Moles/Vol] 15 mmol/L Normal [facility] Comment on above: Performed By: #### H JENNIE, CMPN #### [facility] (DEFAULT) [address] [place] [address] AST [Catalytic activity/Vol] 19 U/L Normal <[address] [facility] Comment on above: Performed By: #### H JENNIE CMPN #### [facility] (DEFAULT) [address] [place] [address] Bilirubin [Mass/Vol] 0.5 mg/dL Normal 0.3-1.2 [facility] Comment on above: Performed By: #### H JENNIE CMPN #### [facility] (DEFAULT) [address] [place] [address] Calcium [Mass/Vol] 9.5 mg/dL Normal 8.4-10.2 [facility] Comment on above: Performed By: #### H JENNIE CMPN #### [facility] (DEFAULT) [address] [place] [address] Chloride [Moles/Vol] 106 mmol/L Normal 98-107 [facility] Comment on above: Performed By: #### H JENNIE CMPN #### [facility] (DEFAULT) [address] [place] [address] CO2 [Moles/Vol] 25 mmol/L Normal 22-[address] [facility] Comment on above: Performed By: #### H JENNIE CMPN #### [facility] (DEFAULT) [address] [place] [address] Creatinine [Mass/Vol] 1.00 mg/dL Normal 0.72-1.[address] [facility] Comment on above: Performed By: #### H JENNIE CMPN #### [facility] (DEFAULT) [address] [place] [address] Est Gfr, 91 mL/min/1.73sqM Normal [facility] Comment on above: Performed By: #### H JENNIE, CMPN #### [facility] (DEFAULT) [address] [place] [address] Est Gfr,Non 75 mL/min/1.73sqM Normal [facility] Comment on above: Performed By: #### H JENNIE, CMPN #### [facility] (DEFAULT) [address] [place] [address] Glucose [Mass/Vol] 111 mg/dL Normal 80-115 [facility] Comment on above: Performed By: #### H JENNIE, CMPN #### [facility] (DEFAULT) [address] [place] [address] Osmolality [Osmolality] 300 mOsm/kg Normal [facility] Comment on above: Performed By: #### H JENNIE, CMPN #### [facility] (DEFAULT) [address] [place] [address] Potassium [Moles/Vol] 4.5 mmol/L Normal 3.5-5.[address] [facility] Comment on above: Performed By: #### H JENNIE, CMPN #### [facility] (DEFAULT) [address] [place] [address] Protein [Mass/Vol] 7.3 g/dL Normal 6.4-8.3 [facility] Comment on above: Performed By: #### H JENNIE, CMPN #### [facility] (DEFAULT) [address] [place] [address] Sodium [Moles/Vol] 141 mmol/L Normal 136-145 [facility] Comment on above: Performed By: #### H JENNIE, CMPN #### [facility] (DEFAULT) [address] [place] [address] Urea nitrogen [Mass/Vol] 24.0 mg/dL Normal 8.4-25.[address] [facility] Comment on above: Performed By: #### H JENNIE, CMPN #### [facility] (DEFAULT) [address] [place] [address] Urea nitrogen/Creatinine [Mass ratio] 24 mg/mg Normal [facility] Comment on above: Performed By: #### H JENNIE, CMPN #### [facility] (DEFAULT) [address] [place] [address] LIPID PANEL W CALCULATED LDL on 02-28-2020 [...] [facility] (DEFAULT) [address] [place] [address] Cholesterol [Mass/Vol] 114 mg/dL Normal <[address] [facility] Comment on above: Performed By: #### H JENNIE, CMPN #### [facility] (DEFAULT) [address] [place] [address] Cholesterol in HDL [Mass/Vol] 41 mg/dL Low >[address] [facility] Comment on above: Result Comment: [<40 mg/dL: Low (High Risk)] [>59 mg/dL: High (Low Risk)] Performed By: #### H JENNIE, CMPN #### [facility] (DEFAULT) [address] [place] [address] Cholesterol.total/Ch olesterol in HDL [Mass ratio] 2.8 {ratio} Normal [facility] Comment on above: Performed By: #### H JENNIE, CMPN #### [facility] (DEFAULT) [address] [place] [address] Non Hdl Cholesterol 73 mg/dL Normal [facility] Comment on above: Performed By: #### H JENNIE, CMPN #### [facility] (DEFAULT) [address] [place] [address] Triglyceride [Mass/Vol] 93 mg/dL Normal <[address] [facility] Comment on above: Performed By: #### H JENNIE, CMPN #### [facility] (DEFAULT) [address] [place] [address] XR SPINE LUMBOSACRAL AP AND LATERALon 10-26-2019 XR SPINE LUMBOSACRAL AP AND LATERAL EXAM: [facility] XR SPINE LUMBOSACRAL AP AND LATERAL, 10/26/2019 [...] Dual curve lumbar scoliosis, worse than previously [facility] XR SPINE SCOLIOSIS 2/3 VIEWS on 10-26-2019 XR SPINE SCOLIOSIS 2/3 VIEWS EXAM: [facility] XR SPINE SCOLIOSIS 2/3 VIEWS, 10/26/2019 10:09 [...] of disc degeneration at L3-4 and L4-5. [facility] Hemoglobin and Hematocriton 02-17-2018 Hematocrit Auto Volume Fraction (Bld) 39.2 % Low 41 - 53 % [facility] Hemoglobin mass conc (Bld) 13.1 g/dL Low 13.5 - 17.5 g/dL [facility] Interpretation and review of laboratory results Abnormal Invalid Interpretation Code [facility] SCAN OTHER ORDERSon 01-07-20 18 Ordered by an unspecified provider. Invalid Interpretation Code [facility] CT ANKLE LEFT WITHOUT CONTRA STon 10-15-2017 [...] ankle both medially and laterally.CHANTAL/Paulat ation ID: [id number] by: LEON CAMARA on WedOctober 15, 2017 9:03:29 AM EDTTranscribed by: RUDDY CASAS on WedOctober 15, 2017 9:43:06 AM EDTFinalized by: LEON CAMARA on WedOctober 15, 2017 10:13:33 AM EDT [facility] Comment on above: Order Comment: Reaso n [...] about the ankle both medially and laterally. ACN/CELLFOR Workstation ID: [id number] Invalid Interpretation Code [place] [facility] CT Ankle Left Without Contrast EXAMINATION: [...] intact and appropriately located. Invalid Interpretation Code [place] [facility] CT Ankle Left Without Contrast Interface, [facility] 10/15/2017 10:16 AM EDT EXAMINATION: [...] ACN/ges Workstation ID: [id number] Invalid Interpretation Code [place] [facility] CBC Auto Differentialon 05-01 Basophils 0.03 K/mcL Invalid Interpretation Code 0.00 - 0.30 [facility] Basophils/100 leukocytes 0.4 % Invalid Interpretation Code [facility] ([facility] Eosinophils 0.15 K/mcL Invalid Interpretation Code 0.00 - 0.50 [facility] ([facility] Eosinophils/100 leukocytes 2.0 % Invalid Interpretation Code [facility] ([facility]) LAB Erythrocytes (RBC) 4.50 M/mcL Invalid Interpretation Code 4.50 - 5.90 [facility] ([facility]) LAB Hematocrit (HCT) 39.8 % Low 41 - 53 % [facility] ([facility]) LAB Hemoglobin (HGB) 13.2 g/dL Low 13.5 - 17.5 g/dL [facility] ([facility]) LAB Interpretation and review of laboratory results Abnormal Invalid Interpretation Code [facility] ([facility]) LAB Lymphocytes 2.38 K/mcL Invalid Interpretation Code 0.90 - 4.00 [facility] ([facility]) LAB Lymphocytes/100 leukocytes 32.1 % Invalid Interpretation Code [facility] ([facility]) LAB MCH 29.3 pg Invalid Interpretation Code 26 - 34 pg [facility] ([facility]) LAB MCHC 33.2 g/dL Invalid Interpretation Code 31 - 37 g/dL [facility] ([facility]) LAB MCV 88.4 fL Invalid Interpretation Code 80 - 100 fL [facility] ([facility]) LAB Monocytes 0.60 K/mcL Invalid Interpretation Code 0.30 - 0.90 [facility] ([facility]) LAB Monocytes/100 leukocytes 8.1 % Invalid Interpretation Code [facility] ([facility]) LAB Neutrophils 4.26 K/mcL Invalid Interpretation Code 1.70 - 7.00 [facility] ([facility]) LAB Neutrophils/100 leukocytes 57.4 % Invalid Interpretation Code [facility] ([facility]) LAB Platelet mean volume (PMV) 10.6 fL Invalid Interpretation Code 9 - 15.5 fL [facility] ([facility]) LAB Platelets 167 K/mcL Invalid Interpretation Code 150 - 400 [facility] ([facility]) LAB RDW-CA 12.1 % Invalid Interpretation Code 11.6 - 14.8 % [facility] WBC (Leukocytes) 7.42 K/mcL Invalid Interpretation Code 4.50 - 11.00 [facility] ([facility]) LAB CBC w/ Diffon 05-19-2017 Creatinine The following orders were created for panel order CBC w/ Diff. Procedure Abnormality Status --------- ------ CBC Auto Differential[[id number]] Abnormal Final result Please view results for these tests on the individual orders. Invalid Interpretation Code [facility] Work Phone: CMPon 05-19-2017 Alanine aminotransferase (ALT) 41 U/L High 0 - 40 U/L [facility] ([facility]) [facility] Albumin 4.2 g/dL Invalid Interpretation Code 3.2 - 5.2 g/dL [facility] ([facility]) LAB Alkaline phosphatase (ALP) 84 U/L Invalid Interpretation Code 40 - 150 U/L [facility] ([facility]) LAB Anion gap 22 mmol/L High 10 - 20 mmol/L [facility] ([facility]) LAB Aspartate aminotransferase (AST) 33 U/L Invalid Interpretation Code 0 - 45 U/L [facility] ([facility]) LAB Bicarbonate (HCO3) 26 mmol/L Invalid Interpretation Code 21 - 32 mmol/L [facility] ([facility]) LAB Bilirubin (total) 0.3 mg/dL Invalid Interpretation Code 0 - 1.3 mg/dL [facility] ([facility]) LAB BUN/Creatinine Ratio 20.5 mg/mg High 10.0 - 20.0 [facility] ([facility]) LAB Calcium 9.3 mg/dL Invalid Interpretation Code 8.4 - 10.2 mg/dL [facility] ([facility]) LAB Chloride 104 mmol/L Invalid Interpretation Code 98 - 108 mmol/L [facility] ([facility]) LAB Creatinine 0.83 mg/dL Invalid Interpretation Code 0.8 - 1.3 mg/dL [facility] ([facility]) LAB eGFR (non-black) 94 mL/min/{1.73_m2} Invalid Interpretation Code >=60 [facility] ([facility]) LAB eGFR (non-black) The eGFR should be u sed for monitoring renal function only and not for medication dosing. Invalid Interpretation Code [facility] ([facility]) LAB Glucose 115 mg/dL High 65 - 99 mg/dL [facility] ([facility]) [facility] Potassium 4.7 mmol/L Invalid Interpretation Code 3.5 - 5.1 mmol/L [facility] ([facility]) LAB Protein 7.4 g/dL Invalid Interpretation Code 6 - 8 g/dL [facility] ([facility]) LAB Sodium 147 mmol/L High 135 - 145 mmol/L [facility] ([facility] Urea nitrogen 17 mg/dL Invalid Interpretation Code 8 - 25 mg/dL [facility] LAB CT KIDNEY STONEon 05-19-2017 CT KIDNEY STONE EXAMINATION:STONE PROTOCOL CT OF THE ABDOMEN AND [id number] UE:CT of the abdomen and pelvis was [...] CT for further evaluation.Radiology 2017 http://pubs.rsna.org/do i/full/[email or web address] Managing Incidental Adrenal Nodule > or equal to 1 cmBenign adrenal nodule - No follow up is required (including myelolipomas, adenomas, or nodules stable for > or equal to 1 year)Reference:Tyrone et al. Managing Incidental Findings on Abdominal CT: White Paper of the ACR Incidental Findings Committee. J Am Anup Radiol 2010;7:754-773Workstati on ID: [id number] by: MARCELL LOYOLA on WedMay 19, 2017 [...] for further evaluation. Radiology 2017 http://pubs.rsna.org/do i/full/10.1148/radiol.2 674736626 Managing Incidental Adrenal Nodule > or equal to 1 cm Benign adrenal nodule - No follow up is required (including myelolipomas, adenomas, or nodules stable for > or equal to 1 year) Reference: Tyrone et al. Managing Incidental Findings on Abdominal CT: White Paper of the ACR Incidental Findings Committee. J Am Anup Radiol 2010;7:754-773 Workstation ID: [id number] Invalid Interpretation Code [place] [facility] CT Kidney Stone Interface, Rad In [...] for further evaluation. Radiology 2017 http://pubs.rsna.org/do i/full/10.1148/radiol.2 335094906 Managing Incidental Adrenal Nodule > or equal to 1 cm Benign adrenal nodule - No follow up is required (including myelolipomas, adenomas, or nodules stable for > or equal to 1 year) Reference: Tyrone et al. Managing Incidental Findings on Abdominal CT: White Paper of the ACR Incidental Findings Committee. J Am Anup Radiol 2010;7:754-773 Workstation ID: [id number] Invalid Interpretation Code [place] [facility] CT Kidney Stone EXAMINATION: STONE PROTOCOL [...] demonstrate no acute abnormality. Invalid Interpretation Code [facility] Lipaseon 05-19-2017 Interpretation and review of laboratory results Normal Invalid Interpretation Code [facility] Lipase 39 U/L Invalid Interpretation Code 15 - 65 U/L [facility] [place] Topon 05-19-2017 Extra Tube Hold for add-ons. Invalid Interpretation Code [facility] [place] Drawon 05-19-2017 Creatinine The following orders were created for panel order [place] Draw. Procedure Abnormality Status --------- ------ Lavender Top[[id number]] Final result [place] Top[[id number]] Final result Please view results for these tests on the individual orders. Invalid Interpretation Code [facility] Work Phone: SCAN OTHER ORDERSon 05-19-20 17 SCAN OTHER ORDERS Ordered by an unspecified provider. Invalid Interpretation Code [facility] Work Phone: Urinalysison 05-19-2017 Bilirubin, Urine Negative Invalid Interpretation Code Negative [facility] Blood, Urine Negative Invalid Interpretation Code Negative [facility] Hyaline Casts 0-2 Invalid Interpretation Code 0 - 2 /lpf [facility] Interpretation and review of laboratory results Abnormal Invalid Interpretation Code [facility] Mucus, Urine Rare Invalid Interpretation Code None Seen, Rare /lpf [facility] Nitrite, Urine Negative Invalid Interpretation Code Negative [facility] RBCs, Urine 4 /hpf High 0 - 3 [facility] Urine, bacteria in sediment None Seen Invalid Interpretation Code None Seen /hpf [facility] Urine, clarity Clear Invalid Interpretation Code Clear [facility] Urine, color Yellow Invalid Interpretation Code Colorless, Yellow [facility] Urine, glucose presence Negative Invalid Interpretation Code Negative mg/dL [facility] Urine, ketones presence Negative Invalid Interpretation Code Negative mg/dL [facility] Urine, leukocyte esterase presence Negative Invalid Interpretation Code Negative [facility] Urine, pH 5.0 [pH] Invalid Interpretation Code 5.0 - 7.0 [facility] Urine, protein Negative Invalid Interpretation Code Negative mg/dL [facility] Urine, specific gravity 1.019 1 Invalid Interpretation Code 1.005 - 1.025 [facility] Urine, urobilinogen <2.0 Invalid Interpretation Code <2.0 mg/dL [facility] WBCs, Urine 1 /hpf Invalid Interpretation Code 0 - 5 [facility] Urinalysis Microscopic examinat ion is performed on all urinalysis samples and only positive findings are reported. The test for blood on the chemical analytic portion of urinalysis may also be positive due to hemoglobinuria and myoglobinuria and if red blood cells are present they are quantified by microscopic examination. Invalid Interpretation Code [facility] Vital Signs Date Time Vital Sign Value Performing Clinician Facility 12-16-2022 08:30-0400 Body height 177.8 cm [facility] Other [facility] Other 12-16-2022 08:30-0400 Body mass index (BMI) [Ratio] 31.36 kg/m2 [facility] Other 12-16-2022 08:30-0400 Body weight 99.16 kg [facility] Other [facility] Other 12-16-2022 08:30-0400 Diastolic blood pressure 80 mm[Hg] Aaron Ball Other [facility] Other 12-16-2022 08:30-0400 Respiratory rate 12 /min Aaron Ball Other [facility] Other 12-16-2022 08:30-0400 Systolic blood pressure 150 mm[Hg] Aaron Ball Other [facility] Other 09-14-2022 10:00-0400 Body height 177.8 cm Craig Ken Other [facility] Other 09-14-2022 10:00-0400 Body mass index (BMI) [Ratio] 31.71 kg/m2 Craig Ken Other [facility] Other 09-14-2022 10:00-0400 Body weight 100.25 kg Craig Suellen Other [facility] Other 09-14-2022 10:00-0400 Diastolic blood pressure 69 mm[Hg] Craig Scovanner Other [facility] Other 09-14-2022 10:00-0400 Systolic blood pressure 138 mm[Hg] Craig Scovanner Other [facility] Other 08-26-2022 10:41-0400 Diastolic blood pressure 80 mm[Hg] DO Aaron Ball Work Phone: [facility] 08-26-2022 10:41-0400 Heart rate 58 /min DO Aaron Ball Work Phone: [facility] 08-26-2022 10:41-0400 Respiratory rate 20 /min DO Aaron Ball Work Phone: [facility] 08-26-2022 10:41-0400 SaO2% (BldA) [Mass fraction] 96 % DO Aaron Ball Work Phone: [facility] 08-26-2022 10:41-0400 Systolic blood pressure 128 mm[Hg] DO Aaron Ball Work Phone: [facility] 08-26-2022 09:19-0400 Body height 177.8 cm DO Aaron Ball Work Phone: [facility] 08-26-2022 09:19-0400 Body temperature 97.8 [degF] DO Aaron Ball Work Phone: [facility] 08-26-2022 09:19-0400 Body weight 97.97 kg DO Aaron Ball Work Phone: [facility] 07-16-2022 09:30-0500 Body height 177.8 cm Aaron Ball Other [facility] Other 07-16-2022 09:30-0500 Body mass index (BMI) [Ratio] 32.42 kg/m2 Aaron Ball Other [facility] Other 07-16-2022 09:30-0500 Body weight 102.51 kg Aaron Ball Other [facility] Other 07-16-2022 09:30-0500 Diastolic blood pressure 76 mm[Hg] Aaron Ball Other [facility] Other 07-16-2022 09:30-0500 Respiratory rate 12 /min Aaron Ball Other [facility] Other 07-16-2022 09:30-0500 Systolic blood pressure 118 mm[Hg] Aaron Ball Other [facility] Other 11-06-2018 17:53-0400 BMI (Body Mass Index) [...] Center 02-17-2018 15:50-0400 BP Diastolic 82 mm[Hg] [facility] 02-17-2018 15:50-0400 BP Systolic 134 mm[Hg] [facility] 02-17-2018 15:50-0400 Pulse (Heart Rate) 62 /min [facility] 02-17-2018 15:50-0400 Pulse Oximetry 95 % [facility] 02-17-2018 15:50-0400 Respiratory Rate 15 /min [facility] 02-17-2018 15:40-0400 Body Temperature 98.01 [degF] [facility] 02-17-2018 09:49-0400 BMI (Body Mass Index) 30.68 kg/m2 [facility] 02-17-2018 09:49-0400 Height 177.8 cm [facility] 02-17-2018 09:49-0400 Weight 97 kg [facility] 05-27-2017 14:00-0500 Body Temperature 97.81 [degF] [facility] Work Phone: 05-27-2017 14:00-0500 BP Diastolic 71 mm[Hg] [facility] Work Phone: 05-27-2017 14:00-0500 BP Systolic 133 mm[Hg] [facility] 05-27-2017 14:00-0500 Pulse (Heart Rate) 52 /min [facility] 05-27-2017 14:00-0500 Pulse Oximetry 99 % [facility] 05-27-2017 14:00-0500 Respiratory Rate 11 /min [facility] 05-27-2017 07:38-0500 BMI (Body Mass Index) 31.09 kg/m2 Laura Richard [facility] Work Phone: 05-27-2017 07:38-0500 Height 179.1 cm Laura Richard [facility] Work Phone: 05-27-2017 07:38-0500 Weight 99.7 kg Lauraangelina Richard [facility] Work Phone: 05-21-2017 14:38-0500 BMI (Body Mass Index) 31.31 kg/m2 [facility] Work Phone: 05-21-2017 14:38-0500 Body Temperature 97.81 [degF] [facility] 05-21-2017 14:38-0500 BP Diastolic 95 mm[Hg] [facility] Work Phone: 05-21-2017 14:38-0500 BP Systolic 153 mm[Hg] [facility] Work Phone: 05-21-2017 14:38-0500 Height 179.1 cm [facility] Work Phone: 05-21-2017 14:38-0500 Pulse (Heart Rate) 69 /min [facility] Work Phone: 05-21-2017 14:38-0500 Pulse Oximetry 93 % [facility] Work Phone: 05-21-2017 14:38-0500 Weight 100.4 kg [employer] [facility] Work Phone: 05-19-2017 06:36-0500 BP Diastolic 70 mm[Hg] Trang Bray [facility] Work Phone: 05-19-2017 06:36-0500 BP Systolic 138 mm[Hg] Trang Bray [facility] Work Phone: 05-19-2017 06:36-0500 Pulse (Heart Rate) 72 /min Trang Bray [facility] Work Phone: 05-19-2017 06:36-0500 Pulse Oximetry 96 % Trang Bray [facility] Work Phone: 05-19-2017 06:36-0500 Respiratory Rate 16 /min Trang Bray [facility] Work Phone: 05-19-2017 04:32-0500 BMI (Body Mass Index) 31.97 kg/m2 Trang Bray [facility] Work Phone: 05-19-2017 04:32-0500 Height 179.1 cm Trang Bray [facility] Work Phone: 05-19-2017 04:32-0500 Weight 102.51 kg Trang Bray [facility] Work Phone: 05-19-2017 04:28-0500 Body Temperature 97.11 [degF] Trang Bray [facility] Work Phone: Encounters Encounter Date Encounter Type Care Provider Facility Start: 03-10-2023 End: 03-10-2023 ambulatory Aaron Bush Other [facility] Other Start: 03-10-2023 Telephone encounter Aaron Howell [facility] Start: 03-04-2023 End: 03-04-2023 ambulatory Aaron Bush Other [facility] Other Start: 03-04-2023 Telephone encounter Aaron Ball [facility] Start: 03-02-2023 End: 03-02-2023 ambulatory Aaron Bush Other [facility] Other Start: 03-02-2023 Telephone encounter Aaron Bush [facility] Start: 12-25-2022 End: 12-25-2022 ambulatory Aaron Bush Other [facility] Other Start: 12-25-2022 Telephone encounter Aaron Bsuh [facility] Start: 12-24-2022 End: 12-24-2022 ambulatory Aaron Bush Other [facility] Other Start: 12-24-2022 Telephone encounter Aaron Bush [facility] Start: 12-16-2022 End: 12-16-2022 ambulatory Aaron Bush Other [facility] Other Start: 12-16-2022 Patient encounter procedure Aaron Bush [facility] Start: 12-16-2022 Telephone encounter Aaron Bush [facility] Start: 12-10-2022 End: 12-10-2022 ambulatory Aaorn Bush Other [facility] Other Start: 12-10-2022 Telephone encounter Aaron Bush [facility] Start: 12-04-2022 End: 12-04-2022 ambulatory Aaron Bush Other [facility] Other Start: 12-04-2022 Telephone encounter Aaron Bush [facility] Start: 09-16-2022 End: 09-17-[address] DOCTOR KHALIL Facility: Start: 09-14-2022 End: 09-14-2022 ambulatory Craig Ken Other [facility] Other Start: 09-14-2022 Office outpatient vi sit 15 minutes Craig Ken [facility] Start: 09-09-2022 End: 09-09-2022 ambulatory Aaron Bush Other [facility] Other Start: 09-09-2022 Telephone encounter Aaron Howell [employer] Start: 09-08-2022 End: 09-08-2022 ambulatory Imad Asaad Other [facility] Other Start: 09-08-2022 Telephone encounter Imad Asaad [facility] Start: 08-26-2022 Telephone encounter Aaron KING [facility] Start: 08-26-2022 End: 08-26-2022 Admission to same day surgery center DO Aaron Eleazar Work Phone: [facility] Work Phone: Start: 08-26-2022 End: 08-26-2022 ambulatory DO Aaron Bush Work Phone: [facility] Work Phone: Start: 08-13-2022 End: 08-13-2022 ambulatory Aaron Bush Other [facility] Other Start: 08-13-2022 Telephone encounter Aaron Howell [employer] Start: 07-28-2022 End: 07-28-2022 ambulatory Imad Asaad Other [facility] Other Start: 07-28-2022 Telephone encounter Imad Asaad [facility] [employer] Start: 07-16-2022 End: 07-16-2022 ambulatory Aaron Bush Other [facility] Other Start: 07-16-2022 Office outpatient vi sit 25 minutes Aaron Bush [facility] Start: 07-16-2022 Telephone encounter [facility] Start: 07-13-2022 End: 07-14-[address] AARON BUSH Facility:[facility] Start: 06-15-2022 End: 06-15-2022 ambulatory Aaron Bush Other [facility] Other Start: 06-15-2022 Telephone encounter Aaron Howell [facility] Start: 03-04-2022 End: 03-05-[address] AARON BUSH Facility:[facility] Start: 12-30-[address] AARON BUSH Facili ty:[facility] Start: 12-17-2021 Adult health examination Aaron Bush Other [facility] Other Start: 12-16-2021 End: 12-17-[address] AARON BUSH Facility:[facility] Start: 07-08-2020 End: 07-08-2020 Orders Only Sarika Souza Toñito Work Phone: [facility] Start: 11-06-2018 End: 11-06-2018 Patient encounter procedure NUPUR TONY [facility] Start: 11-06-2018 End: 11-06-2018 Office outpatient new 20 minutes Allison Rachael Allenwell Work Phone: [facility] Comment on above: Abrasion of left eye , initial encounter (Primary Dx) Start: 02-17-2018 End: 02-17-2018 Patient encounter LAURAANGELINA VIEYRA [facility] Start: 02-17-2018 End: 02-17-2018 Patient encounter Laura Richard Work Phone: [facility] Comment on above: Post-op pain (Primar y Dx) Start: 10-22-2017 End: 10-22-2017 Ambulatory LAURA JARRELL JOSE ALBERTOARMANDO [facility] Start: 10-15-2017 End: 10-16-2017 Ambulatory [address]RE[address] RICHARD [facility] Start: 10-15-2017 End: 10-15-2017 Ambulatory Laura Regaladoarmando Work Phone: [facility] Start: 08-05-2017 End: 08-05-2017 Ambulatory Laura Jarrell Richard Work Phone: [facility] Start: 07-29-2017 End: 07-29-2017 Ambulatory Laura Vieyra Jose Manuel Work Phone: [facility] Start: 07-21-2017 End: 07-21-2017 Ambulatory Laura Richard Work Phone: [facility] Start: 05-27-2017 End: 05-27-2017 Patient encounter LAURA VIEYRA [facility] Start: 05-27-2017 End: 05-27-2017 Ambulatory Laura Richard Work Phone: [facility] Start: 05-21-2017 Encounter for other preprocedural examination [facility] Start: 05-21-2017 Encounter for preprocedural cardiovascular examination [facility] Start: 05-21-2017 End: 05-21-2017 Patient encounter LAURAANGELINA VIEYRA [facility] Start: 05-21-2017 Office consultation Laura Richard Work Phone: [facility] Start: 05-19-2017 End: 05-19-2017 Emergency department patient visit NUPUR [facility] Start: 05-19-2017 End: 05-19-2017 Emergency department patient visit Trang Bray Work Phone: [facility] Encounter for other preprocedural examination [facility] Encounter for preprocedural cardiovascular examination [facility] Procedures Date Procedure Procedure Detail Performing Clinician Start: 08-26-2022 Esophagogastroduodenoscopy DO Aaron delgado Work Phone: Start: 12-16-[address] AARON BUSH Comment on above: Performed By: #### PSASC ####[facility] [id number] [place], [place] [address]Ns[facility] Amos Start: 02-17-2018 End: 02-17-2018 Hemoglobin and [...] Activity Detail Author Start: 09-04-2025 Tetanus vaccination [facility] Work Phone: Start: 08-26-2022 End: 08-26-2022 [facility] Start: 01-30-2020 Influenza vaccination given Sequential Influenza Vaccine (#1) [facility] Start: 2019 Pneumococcal vaccination Pneumococcal Vaccine Age 65+ (1 of 2 - PCV13) [facility] Start: 01-29-2019 Influenza vaccination given SEQUENTIAL INFLUENZA VACCINE (Season Ended) [facility] Start: 01-29-2018 Influenza vaccination [facility] Start: 08-12-2017 Ambulatory 08/12/2017 Treatment Rehabilitation Laura Richard, DO [address] [place] [address] [phone] Shila Islas, PT [address] [place] [address] [facility] Start: 08-10-2017 Ambulatory 08/10/2017 Treatment Rehabilitation Laura Richard, DO [address] [place] [address] [phone] Leia Richardson, PT [facility] Start: 08-05-2017 Ambulatory 08/05/2017 Treatment Laura Han, DO [address] [place] [address] [phone] Dk Treadwell, TUBE MAKER [facility] Start: 08-03-2017 Ambulatory 08/03/2017 Treatment Laura Han, DO [address] [place] [address] [phone] Leia Richardson, PT [facility] Start: 07-29-2017 Ambulatory 07/29/2017 Treatment Rehabilitation Laura Richard, DO [address] [place] [address] [phone] Shila Islas, PT [address] [place] [address] [facility] Start: 05-27-2017 Ambulatory [facility] Start: 05-21-2017 Ambulatory 05/21/2017 Office Visit Pre-Admission Testing Laura Richard, DO [address] [place] [address] [phone] Pre-op examination (Primary Dx); Varus deformity, not elsewhere classified, left ankle [facility] Start: 01-29-2017 Influenza vaccination SEQUENTIAL INFLUENZA VACCINE (#1) [facility] Work Phone: Start: 2014 Zoster vacc, sc ZOSTER VACCINE [facility] Work Phone: Start: 2004 Administration of herpes zoster vaccine Zoster Vaccines (1 of 2) [facility] Start: 2004 Screening for malignant neoplasm of colon [facility] Start: 2004 ZOSTER VACCINES (1 of 2) ZOSTER VACCINES (1 of 2) [facility] Start: 1972 Hepatitis C antibody, confirmatory test Hepatitis C Screening [facility] Start: 1970 COVID-19 Vaccine (1 of 2) COVID-19 Vaccine (1 of 2) [facility] Start: 1969 HIV screening [facility] Start: 1966 Adolescent depression screening assessment Depression Screening (PHQ9) [facility] Start: 1957 History and physical examination, annual for health maintenance Wellness Visit [facility] Start: 1954 Fall risk assessment Falls Risk Assessment [facility] Start: 1954 Hepatitis C antibody, confirmatory test HEPATITIS C SCREENING [facility] Start: 1954 HEPATITIS C SCREENING HEPATITIS C SCREENING [facility] Work Phone: Start: 1954 Prostate specific antigen measurement PSA Level [facility] Start: 1954 Screening colonoscopy COLONOSCOPY [facility] Work Phone: Start: 1954 Screening for malignant neoplasm of colon Colorectal Cancer Screening: Colonoscopy [facility] Start: 1954 US scan of abdominal aorta Abdominal Aortic Ultrasound [facility] End: 05-19-2017 Bacteria aerobode culture Urine Aerobic Culture Routine Once for 1 Occurrences starting 05/19/2017 until 05/19/2017 [facility] Work Phone: Bacteria aerobode culture Urine Aerobic Culture Routine 05/19/2017 6:29 AM EST [facility] Work Phone: ECG 12 Lead ECG 12 Lead Rout ine Pre-op examination Ordered: 05/21/2017 [facility] Work Phone: Patient Education Gastric Ulcer (DC) Colon Polypectomy (DC) [facility] Work Phone: Immunizations Immunization Date Immunization Notes Care Provider Fa [facility] 05-26-2021 COVID-19 Vaccine Pfi zer - Documentation Purposes Only Aaron Bush Other [facility] Other 11-01-2020 COVID-19 Vaccine Pfi zer - Documentation Purposes Only Aaron Eleazar Other [facility] Other 10-11-2020 COVID-19 Vaccine Pfi zer - Documentation Purposes Only Aaron Bush Other [facility] Other 07-19-2019 zoster vaccine recombinant Aaron Ball Other [facility] Other 07-01-2019 pneumococcal conjuga te vaccine, 13 valent Aaron Bush Other [facility] Other 12-13-2018 zoster vaccine recombinant Aaron Ball Other [facility] Other 09-05-2015 pneumococcal polysaccharide vaccine, 23 valent Aaron Bush Other [facility] Other Payers Date Payer Category Payer Self-pay 2020 Medicare [id number] 2016 Unknown xxxxxxxxxxxx [id number] 2016 Unknown [id number] 2016 Unknown [id number] 2016 Unknown [place]/PREF/HMO/PPO [id number] 2016-Present [id number] 1959 Medicare [id number] 1959 Medicare [id number] 1954 Unknown [id number] 1954 Unknown [id number] 1954 Unknown [id number] 1954 Unknown [id number] 1954 Unknown [id number] 1954 Unknown [id number] Unknown [id number] Social History Date Type Detail Facility Start: 05-27-2017 End: 08-26-2022 Tobacco smoking status NHIS Former smoker [facility] End: 04-30-2017 History of tobacco use Current smoker [facility] Work Phone: Sex Assigned At Not on file [facility] Work Phone: Start: 05-19-2017 Tobacco smoking status AKIS Current every day smoker [facility] Work Phone: Start: 11-06-2018 End: 04-30-2017 Tobacco smoking status NHIS Current some day smoker [facility] Start: 05-21-2017 Tobacco Comment social [facility] Start: 02-11-2018 Alcohol Comment weekly [facility] Start: 11-06-2018 Tobacco use and exposure Never used [facility] Start: 11-06-2018 Alcohol intake Current drinke r of alcohol (finding) [facility] Sex Assigned At Sex Assigned At [facility] [employer] Other Start: 1955 Sex Assigned At Male F [facility] Medical Equipment Procedure Code Equipment Code Equipment Origin al Text Equipment Identifier Dates [place] 1.45mm #2 Soft Short Rigid Juggerknot W/Drill Bit - [id number] Start: 05-27-2017 Allograft 5cc Fiber Dbm Stagraft - [id number] Start: 05-27-2017 Graft Femoral He ad - [id number] Start: 05-27-2017 Screw 3.5 X 32mm Low Profile Steven - [id number] Start: 05-27-2017 Screw 3.5 X 34mm Low Profile Steven - [id number] Start: 05-27-2017 Screw 3.5 X 34mm Steven Lock - [id number] Start: 05-27-2017 Screw 3.5 X 12mm Steven Lock - [id number] Start: 05-27-2017 Plate 6hl Fib Lo ck - [id number] Start: 05-27-2017 Birchwood 1.45mm #2 Soft Short Rigid Juggerknot W/Drill Bit - [id number] Start: 05-27-2017 Allograft 5cc Fiber Dbm Stagraft - [id number] Start: 05-27-2017 Graft Femoral He ad - [id number] Start: 05-27-2017 Screw 3.5 X 32mm Low Profile Steven - [id number] Start: 05-27-2017 Screw 3.5 X 34mm Low Profile Steven - [id number] Start: 05-27-2017 Screw 3.5 X 34mm Steven Lock - [id number] Start: 05-27-2017 Screw 3.5 X 12mm Steven Lock - [id number] Start: 05-27-2017 Plate 6hl Fib Lo ck - [id number] Start: 05-27-2017 Birchwood 1.45mm #2 Soft Short Rigid Juggerknot W/Drill Bit - [id number] Start: 05-27-2017 Allograft 5cc Fiber Dbm Stagraft - [id number] Start: 05-27-2017 Graft Femoral He ad - [id number] Start: 05-27-2017 Screw 3.5 X 32mm Low Profile Steven - [id number] Start: 05-27-2017 Screw 3.5 X 34mm Low Profile Steven - [id number] Start: 05-27-2017 Screw 3.5 X 34mm Steven Lock - [id number] Start: 05-27-2017 Screw 3.5 X 12mm Steven Lock - [id number] Start: 05-27-2017 Plate 6hl Fib Lo ck - [id number] Start: 05-27-2017 Birchwood 1.45mm #2 Soft Short Rigid Juggerknot W/Drill Bit - [id number] Start: 05-27-2017 Allograft 5cc Fiber Dbm Stagraft - [id number] Start: 05-27-2017 Graft Femoral He ad - [id number] Start: 05-27-2017 Screw 3.5 X 32mm Low Profile Steven - [id number] Start: 05-27-2017 Screw 3.5 X 34mm Low Profile Steven - [id number] Start: 05-27-2017 Screw 3.5 X 34mm Steven Lock - [id number] Start: 05-27-2017 Screw 3.5 X 12mm Steven Lock - [id number] Start: 05-27-2017 Plate 6hl Fib Lo ck - [id number] Start: 05-27-2017 Birchwood 1.45mm #2 Soft Short Rigid Juggerknot W/Drill Bit - [id number] Start: 05-27-2017 Allograft 5cc Fiber Dbm Stagraft - [id number] Start: 05-27-2017 Graft Femoral He ad - [id number] Start: 05-27-2017 Plate 6hl Fib Lo ck - [id number] Start: 05-27-2017 Screw 3.5 X 32mm Low Profile Steven - [id number] Start: 05-27-2017 Screw 3.5 X 34mm Low Profile Steven - [id number] Start: 05-27-2017 Screw 3.5 X 34mm Steven Lock - [id number] Start: 05-27-2017 Screw 3.5 X 12mm Steven Lock - [id number] Start: 05-27-2017 Screw 3.5 X 18mm Steven Lock - [id number] Screw 3.5 X 38mm Low Profile Steven - [id number] Birchwood 1.45mm #2 Soft Short Rigid Juggerknot W/Drill Bit - [id number] Start: 05-27-2017 Allograft 5cc Fiber Dbm Stagraft - [id number] Start: 05-27-2017 Graft Femoral He ad - [id number] Start: 05-27-2017 Screw 3.5 X 32mm Low Profile Steven - [id number] Start: 05-27-2017 Screw 3.5 X 34mm Low Profile Steven - [id number] Start: 05-27-2017 Screw 3.5 X 34mm Steven Lock - [id number] Start: 05-27-2017 Screw 3.5 X 12mm Steven Lock - [id number] Start: 05-27-2017 Plate 6hl Fib Lo ck - [id number] Start: 05-27-2017 Plate, Lateral Fibula, Sml, Right Start: 02-17-2018 Pin, Temporary Fixation Start: 02-17-2018 Screw, Locking Start: 02-17-2018 Screw, Locking Start: 02-17-2018 Screw, Locking Start: 02-17-2018 Screw, Non-Locking Start: 02-17-2018 Screw, Non-Locking Start: 02-17-2018 Screw, Non-Locking Start: 02-17-2018 Stagraft Fiber Start: 02-17-2018 Pin, Temporary Fixation Screw, Non-Locking Plate Screws Birchwood 1.45mm #2 Soft Short Rigid Juggerknot W/Drill Bit - [id number] Start: 05-27-2017 Allograft 5cc Fiber Dbm Stagraft - [id number] Start: 05-27-2017 Graft Femoral He ad - [id number] Start: 05-27-2017 Screw 3.5 X 32mm Low Profile Steven - [id number] Start: 05-27-2017 Screw 3.5 X 34mm Low Profile Steven - [id number] Start: 05-27-2017 Screw 3.5 X 34mm Steven Lock - [id number] Start: 05-27-2017 Screw 3.5 X 12mm Steven Lock - [id number] Start: 05-27-2017 Plate 6hl Fib Lo ck - [id number] Start: 05-27-2017 Plate, Lateral Fibula, Sml, [...] FRANCY (generalized anxiety disorder) (ICD-10 - F41.1) [facility] Other 10-05-2023 Evaluation note* Encounter Date Diagnosis Assessment Notes Treatment Notes Treatment Clinical Notes Feb, FRANCY (generalized anxiety disorder) (ICD-10 - F41.1) [facility] Other 10-03-2023 Evaluation note* Encounter Date Diagnosis Assessment Notes Treatment Notes Treatment Clinical Notes Feb, FRANCY (generalized anxiety disorder) (ICD-10 - F41.1) [facility] Other 07-27-2023 Evaluation note* Encounter Date Diagnosis Assessment Notes Treatment Notes Treatment Clinical Notes Nov, Left ventricular systolic dysfunction (LVSD) without heart failure (ICD-10 - I51.9) 27 Freddy, 2023 Abnormal stress test (ICD-10 - R94.39) [facility] Other 07-19-2023 Evaluation note* Encounter Date Diagnosis [...] (ICD-10 - Z12.5) Yearly KATELYNN and PSA [facility] Other 07-13-2023 Evaluation note* Encounter Date Diagnosis Assessment Notes Treatment Notes Treatment Clinical Notes Nov, Iron deficiency anemia due to chronic blood loss (ICD-10 - D50.0) [facility] Other 07-07-2023 Evaluation note* Encounter Date Diagnosis Assessment Notes Treatment Notes Treatment Clinical Notes Nov, Hypercholesterolemia (ICD-10 - E78.00) Nov, Screening PSA (prost ate specific antigen) (ICD-10 - Z12.5) Nov, High risk medication use (ICD-10 - Z79.899) Nov, IFG (impaired fastin g glucose) (ICD-10 - R73.01) Nov, Anemia, unspecified type (ICD-10 - D64.9) [facility] Other 04-17-2023 Evaluation note* Encounter Date Diagnosis [...] are. Otherwise patient to follow as needed. [facility] Other [facility]* Encounter Date Diagnosis Assessment Notes [...] They may safely use Tylenol as needed. [facility] Other 01-16-2023 Evaluation note* Encounter Date Diagnosis Assessment Notes Treatment Notes Treatment Clinical Notes May, Acute anemia (ICD-10 - D64.9) [facility] Other 07-19-2022 NotePROCEDURE: XR KNEE LT 3V [...] authenticated by: SILVIA LI Date: 2021-12-16 21:52[facility] noteNo InformationNortOSS Health [facility] Other Evaluation noteNo assessment information available [facility] Work Phone: History and physical note Author [facility] August 26, 2022 9:51am Note Date/Time August 26, 2022 9:5 1am [facility] [address] [place] [address] Gastroenterology H&P Signed Patient: Zena Witt MR#: [id number] : 1955 Acct:[id number] Age/Sex: 67 / M Adm Date: 3 Loc: Room: Type: [facility] Attending Dr: Nino Russell MD Copies to: [...] By: <Electronically signed by Nino Russell MD> 08/26/2212 [facility] Work Phone: History general Narrative [...] TOTAL KNEE ARTHROPLASTY Hospitalization History SEE SURGICAL [facility] Other History general Narrative - Reported* Type [...] polypectomy 08/17 22 Hospitalization History SEE SURGICAL [facility] Other Hospital Discharge instructions Additional Instructions DISCHARGE [...] -Follow up with PCP. - Office number [phone]. [facility] Work Phone: Assessments Diagnosis Varus deformity, [...] your doctor if you can take an dzlm-qqt-skhfslx medicine. Take your pain medicine as soon [...] Log into your personal health record on [email or web address] and enter M536 in the Education box [...] sent through Care Everywhere. * FLANK PAIN (IVORIAN) in this encounter* Tabitha Fenton CNP - [...] your surgery date, please call us at [phone] Preoperative Medication Instructions In preparation for surgery please continue all of your current medications with the following changes: Zena Witt Home Medication Instructions Prior to Surgery CAILIN:[id number] Printed on:05/21/17 6274 Medication Information Take last dose on Take [...] MG capsule TAKE 1 CAPSULE DAILY @ [facility] for GERD yes gemfibrozil (LOPID) 600 MG [...] or as directed by MD . no pjzcharf-twxk-omd-folic acid (kphnoalccxjy-wzwn-imjqcmyq-folic acid) 3,500-18-0.4 unit-mg-mg Chew Chew and Swallow [...] medications that contain aspirin, such as [place], Pepto- Bismol, Anacin), antiinflammatory medications such as Advil, Motrin, Ibuprofen, Naproxen, Aleve, [place], Pepto-Bismol, Anacin, Diclofenac, Voltaren, Daypro, Etodolac, Ketoprofen, Piroxicam, Relafen, Nabumetone, etc. Also discontinue Vitamin C, Vitamin E, [place]-3 Fatty Acid, Fish Oil or Lovaza, and [...] Log into your personal health record on [email or web address] and enter Z736 in the Education box to learn more about Feeling of an Object in the Eye: Care Instructions. Current as of: February 20, 2018 Content Version: 12.0 1417-7017 [employer]. Care instructions adapted under license by your healthcare professional. If you have questions about a medical condition or this instruction, always ask your healthcare professional. [employer] disclaims any warranty or liability for your use of this information. 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 meloxicam (MOBIC) 15 MG tablet cyzmffnm-uyoa-snt-folic acid (hkmxspihobpc-zbar-tekunqvg-folic acid) 3,500-18-0.4 unit-mg-mg Chew Chew and Swallow [...] morning . meloxicam (MOBIC) 15 MG tablet ihseaebn-ibzl-tbi-folic acid (zultqgepxfjs-pyhq-eaqaivef-folic acid) 3,500-18-0.4 unit-mg-mg Chew Chew and Swallow [...] iron deficienc y anemia (D50.8) Referral Organization [facility] John witt Referring Provider First Name Aaron Referring Provider Last Name Eleazar Referring Provider Specialty Internal Me dicine Referred Organization [facility] Kerryolo gy Referred Provider Nino Russell Referred Address [address],[address] Referred Provider Specialty Gastroentero logy Referral Priority [...] is of left knee (M17.12) Referral Organization [facility] Referring Provider First Name Aarno Referring Provider Last Name Eleazar Referring Provider Specialty Internal Me dicine Referred Organization [facility] Referred Provider Rik Villalobos Referred Address [address] [facility] [address] [place],[address] Referred Provider Specialty Orthopedic S urgery Referral [...] Zena Witt Admit Date: [id number] MR #: [id number] : 1955 The H&P has been reviewed [...] acceptable for elective surgery based on 2014 [place] [employer]/[place] [employer] Association (ACC/AHA) guidelines on Perioperative Cardiovascular [...] or GERD noted (K21.9) Well controlled with PPI/B8Yadpdim which should be dosed perioperatively on usual [...] EXCISION TIBIA, BROSTRUM, WEI, TIBIAL OSTEOTOMY @ [facility] on 05/27. Patient reports that he [...] Anemia 05/21/2017 Bleeding disorder (HCC) 05/21/2017 Cancer ([facility]) 05/21/2017 Complication of anesthesia 05/21/2017 Coronary artery disease 05/21/2017 Deep vein thrombosis (HCC) 05/21/2017 Diabetes mellitus type I (HCC) 05/21/2017 Diabetes mellitus, type 2 ([facility]) 05/21/2017 History of blood transfusion 05/21/2017 Hypertension [...] 12 hours or as directed by MD ttvaiqzf-jvep-qwo-folic acid (ayicoprdpyaq-vknm-lievwqru-folic acid) 3,500-18-0.4 unit-mg-mg Chew Chew and Swallow [...] BP (!) 153/95 Pulse 69 Temp 97.8 F (36.6 C ) (Oral) Ht 5' 10.5 Wt 100.4 kg (221 lb 5.5 oz) SpO2 93% BMI 31.31 kg/m Constitutional--Conversant, in no acute distress Eyes: [place] conjunctivae, no ptosis. Pupils equal Bilaterally, Anicteric [...] patient for surgery includes - More recent [facility] electronic records reviewed pertinent to history. [...] acceptable for elective surgery based on 2014 [place] [employer]/[place] Heart Association (ACC/AHA) guidelines on Perioperative Cardiovascular [...] or GERD noted (K21.9) Well controlled with PPI/H6Dqdzgsc which should be dosed perioperatively on usual [...] EXCISION TIBIA, BROSTRUM, WEI, TIBIAL OSTEOTOMY @ [facility] on 05/27. Patient reports that he [...] Anemia 05/21/2017 Bleeding disorder (HCC) 05/21/2017 Cancer ([facility]) 05/21/2017 Complication of anesthesia 05/21/2017 Coronary artery disease 05/21/2017 Deep vein thrombosis (HCC) 05/21/2017 Diabetes mellitus type I ([facility]) 05/21/2017 Diabetes mellitus, type 2 ([facility]) 05/21/2017 History of blood transfusion 05/21/2017 Hypertension 05/21/2017 No blood products 05/21/2017 Pulmonary embolism (HCC) 05/21/2017 Rheumatoid arthritis ([facility]) 05/21/2017 Sleep apnea, obstructive 05/21/2017 Past Surgical [...] 12 hours or as directed by MD cgpwxtxx-awdq-vvw-folic acid (pqacduesfmlb-knhj-zpzyrqrk-folic acid) 3,500-18-0.4 unit-mg-mg Chew Chew and Swallow [...] BP (!) 153/95 Pulse 69 Temp 97.8 F (36.6 C ) (Oral) Ht 5' 10.5 Wt 100.4 kg (221 lb 5.5 oz) SpO2 93% BMI 31.31 kg/m Constitutional--Conversant, in no acute distress Eyes: [place] conjunctivae, no ptosis. Pupils equal Bilaterally, Anicteric [...] patient for surgery includes - More recent [facility] electronic records reviewed pertinent to history. OUTSIDE RECORDS REQUESTED NONE in this encounter INTERVAL HISTORY AND PHYSICAL Patient Name: Zena Witt Admit Date: [id number] MR #: [id number] : 1955 The H&P has been reviewed and the patient has been examined. I concur with the findings of the H&P. There are no significant changes. It is appropriate to proceed with the planned procedure. Sriram Vallecillo Jr., DO 02/17/2018 10:38 Pearson this encounter Op Note - Allison Clemente, - 05/27/2017 2:06 PM ESTBrief Op Note - Allison Clemente, - 05/27/2017 1:04 PM ESTED Notes - Audelia Fisher, EVI - 05/19/2017 6:34 AM EST Miscellaneous Notes (unrecog nized section and content) WITTZENA CHEUNG [facility] [id number] 1955 DATE 05/27/2017 OPERATIVE REPORT SURGEON LAURA RICHARD, DO CASH RECONCILIATION SPECIALIST ALLISON CLEMENTE, DO CASH RECONCILIATION SPECIALIST 2 ANALI DIANE PA-C PREOPERATIVE DIAGNOSES 1. [...] tissue up to the fibula in a hesmy-fssl-epli fashion. We still had some laxity distally, [...] DO LAURA MONTES DO D 05/27/2017 13:18 [id number] T 05/27/2017 14:01 [facility] Formatting of this note may be different from the original. Brief Post Operative Note Patient Name: Zena Witt : 1955 (61 y.o.) Date of Service: 05/27/2017 [facility]: [id number] Procedure(s): LEFT ANKLE ARTHROSCOPY WITH DEBRIDEMENT, PARTIAL EXCISION TIBIA, BROSTRUM, WEI, TIBIAL OSTEOTOMY Pre-Operative Diagnoses: * LEFT VARUS ANKLE, INSTABILITY, TIBIA EXOSTOSIS Post-Operative Diagnoses: * Same as Pre-Op Diagnosis Surgeon(s) and Role: * Allison Clemente DO - Fellow * Laura Richard DO - Primary Anesthesiologist: Darrius Rand MD WEDDING DAY COORDINATOR: Craig Street CRNA Bow String Maker: Keyona Solorio RN Physician Double Needle Operator Lockstitch: Anali Diane PA-C Relief Bow String Maker: Eden Adam RN Relief Scrub: Debbie Ireland [...] Implant Name Type Inv. Item Serial No. Track Superintendent Lot No. LRB No. Used Action GRAFT FEMORAL HEAD - [id number] Graft GRAFT FEMORAL HEAD LIFENET Left 1 Implanted ANCHOR 1.45MM #2 SOFT SHORT RIGID JUGGERKNOT W/DRILL BIT - [id number] Birchwood ANCHOR 1.45MM #2 SOFT SHORT RIGID JUGGERKNOT W/DRILL BIT BIOMET SPORT [id number] Left 1 Implanted ALLOGRAFT 5CC FIBER DBM STAGRAFT - [id number] Bone ALLOGRAFT 5CC FIBER DBM STAGRAFT [employer] [id number] Left 1 Implanted SCREW 3.5 X 32MM LOW PROFILE STEVEN - [id number] SCREW 3.5 X 32MM LOW PROFILE STEVEN BIOMET SP/TR Left 1 Implanted SCREW 3.5 X 34MM LOW PROFILE STEVEN - [id number] SCREW 3.5 X 34MM LOW PROFILE STEVEN BIOMET SP/TR Left 2 Implanted SCREW 3.5 X 34MM STEVEN LOCK - [id number] SCREW 3.5 X 34MM STEVEN LOCK BIOMET SP/TR Left 1 Implanted SCREW 3.5 X 12MM STEVEN LOCK - [id number] SCREW 3.5 X 12MM STEVEN LOCK BIOMET SP/TR Left 1 Implanted PLATE 6HL FIB LOCK - [id number] PLATE 6HL FIB LOCK BIOMET SP/TR Left 1 Implanted Drain(s): Wound(s): Allison Clemente, 05/27/2017 1:04 PM in this encounter Patient is resting comfortably. Call light within reach. Patient updated on continued plan of care. Formatting of this note may be different from the original. PCP - Nupur Gil MD [phone] Chief Complaint Patient presents with Flank Pain Abdominal Pain HPI: Dictation on: 05/19/2017 4:40 AM by: TRANG BRAY [[id number]] Review of Systems Constitutional: No fevers Skin: [...] 6 (six) hours as needed for pain. TUEBSAAC-HMNL-TRO-FOLIC ACID (EUNLIWJEMNFM-RTOR-LLCNHOWH-FOLIC ACID) 3,500-18-0.4 UNIT-MG-MG CHEW Chew and Swallow. OMEPRAZOLE (PRILOSEC) 20 MG CAPSULE Take 40 mg by mouth. Modified Medications No medications on file Discontinued Medications No medications on file Physical Exam Initial Vital Signs BP 138/70 Pulse 72 Temp 97.1 F (36.2 C ) (Oral) Resp 16 Ht 5' 10.5 Wt [...] following orders were created for panel order [place] Draw. Procedure Abnormality Status --------- ------ Lavender Top[[id number]] Final result Mint Green Top[[id number]] Final result Please view results for these tests on the individual orders. LAVENDER TOP MINT GREEN TOP CBC AND DIFFERENTIAL Narrative: The following orders were created for panel order CBC w/ Diff. Procedure Abnormality Status --------- ------ CBC Auto Differential[[id number]] Abnormal Final result Please view results for [...] chest CT for further evaluation. Radiology 2017 http://pubs.rsna.org/doi/full/10.1148/radiol.3626164526 Managing Incidental Adrenal Nodule > or equal to 1 cm Benign adrenal nodule - No follow up is required (including myelolipomas, adenomas, or nodules stable for > or equal to 1 year) Reference: Tyrone et al. Managing Incidental Findings on Abdominal CT: White Paper of the ACR Incidental Findings Committee. J Am Anup Radiol 2010;7:754-773 Workstation ID: [id number] Vital Signs During ED Visit (as charted by nursing) Patient Vitals for the past 24 hrs: BP Temp Temp src Pulse Resp SpO2 Height Weight 05/19/17 0636 138/70 - - 72 16 96 % - - 05/19/17 0432 - - - - - - 5' 10.5 102.5 kg (226 lb) 05/19/17 0428 (!) 153/82 97.1 F (36.2 C ) Oral 70 16 100 % - - IMPRESSION: SNOMED CT(R) 1. Flank pain FLANK PAIN Trang Bray, DO 05/19/17 0706 Pt ambulatory to ed [...] 1955 (62 y.o.) Date of Service: 02/17/2018 [facility]: [id number] Procedure(s): LEFT TIBIAL NON UNION BONE GRAFT, CALCANEAL BONE GRAFT Pre-Operative Diagnoses: * LEFT TIBIA NON UNION Post-Operative Diagnoses: Surgeon(s) and Role: * Laura Richard, DO - Primary * Jarrell Cuellar DO - Resident - Assisting Anesthesiologist: Tello London MD; Trenton Qureshi MD WEDDING DAY COORDINATOR: Adia Hodge CRNA Bow String Maker: Keyona Solorio RN Relief Bow String Maker: Eden Adam RN Relief Scrub: ST Ada Scrub Person: ST Obed Renteria RN: Yojana Ordaz RN Operative findings: per op note Intra and immediate post-operative complications: none Type of anesthesia used: Regional, General Estimated blood loss: 25 mL Estimated urine output: 0 mL Specimen(s): * No specimens in log * Implant(s): Implant Name Type Inv. Item Serial No. Track Superintendent Lot No. LRB No. Used Action [id number] Left 1 Implanted PLATE, LATERAL FIBULA, SML, [...] (unrecognized section and content) Patient Instructions for [facility]: Prior to surgery: Please be sure to wear loose, comfortable clothing and non-skid shoes Bring your health insurance information and a photo ID, as well as your Living Will or Durable Power of Motor Scooter Mechanic for Healthcare if it is available to you. Bring your cane/walker any applicable assistive device. If you currently use a CPAP, please bring this device with you on the day of surgery. Bring a list of your medications with the name of the medication, dose and how often you are taking it. Be sure to include herbal preparations and ixfe-rzr-dmepepn medications on this list. Do not eat [...] the day of your surgery/procedure. Parking at [facility] is free. Please park in the lot in front of the main lobby. Enter the Main Entrance where a Assembler Final Liaison at the information desk will greet [...] of your surgery preparation process here at [facility]. It will provide you with additional important [...] DOS in this encounter Patient Instructions for [facility]: Prior to surgery: Please be sure to wear loose, comfortable clothing and non-skid shoes Bring your health insurance information and a photo ID, as well as your Living Will or Durable Power of Motor Scooter Mechanic for Healthcare if it is available to you. Bring your cane/walker any applicable assistive device. If you currently use a CPAP, please bring this device with you on the day of surgery. Bring a list of your medications with the name of the medication, dose and how often you are taking it. Be sure to include herbal preparations and yfbd-xvc-foafdlk medications on this list. Do not eat [...] the day of your surgery/procedure. Parking at [facility] is free. Please park in the lot in front of the main lobby. Enter the Main Entrance where a Assembler Final Liaison at the information desk will greet [...] of your surgery preparation process here at [facility]. It will provide you with additional important [...] section and content) DATE CREATED AUTHOR 11/17/2017 [facility] DATE CREATED AUTHOR AUTHOR'S ORGANIZ ATION 11/17/2017 [facility] DATE CREATED AUTHOR AUTHOR'S ORGANIZ ATION 03/18/2018 [facility] DATE CREATED AUTHOR AUTHOR'S ORGANIZ ATION 01/09/2019 [facility] [place] DATE CREATED AUTHOR AUTHOR'S ORGANIZ ATION 08/22/2020 [facility] DATE CREATED AUTHOR AUTHOR'S ORGANIZ ATION 09/20/2022 [facility] DATE CREATED AUTHOR AUTHOR'S ORGANIZ ATION 09/28/2022 [facility] Reason for Visit (unrecogniz ed section [...] BE BASED ON THE PRIMARY CLINICAL RECORDS. [facility] [facility]. provides no warranty or guarantee of the accuracy or completeness of information in this document.
[2024-04-21 07:14] LABS: Basophils Absolute Auto 0.1 10^3/uL (0.0-0.1); Basophils Percent Auto 0.7 % (0.2-2.0); Eosinophils Absolute Auto 0.2 10^3/uL (0.0-0.7); Eosinophils Percent Auto 2.4 % (0.9-7.0); Immature Granulocytes Abs Auto 0.02 10^3/uL (0.00-0.03); Immature Granulocytes Pct Auto 0.3 % (0.0-0.5); Lymphocytes Absolute Auto 3.6 10^3/uL (1.2-3.8); Lymphocytes Percent Auto 47.8 % (20.5-60.0); Mean Corpuscular HGB Conc 32.5 g/dL (29.9-35.2); Mean Corpuscular Hemoglobin 30.2 pg (25.9-34.0); Mean Corpuscular Volume 92.8 fL (80.0-94.0); Mean Platelet Volume 10.2 fL (9.5-13.5); Monocytes Absolute Auto 0.4 10^3/uL (0.3-0.8); Monocytes Percent Auto 4.7 % (1.7-12.0); Neutrophils Absolute Auto 3.3 10^3/uL (1.4-6.5); Neutrophils Percent Auto 44.1 % (43.0-75.0); Platelet Count 174 10^3/uL (150-450); Red Blood Count 4.31 10^6/uL (4.70-6.10); Red Cell Distribution Width 12.5 % (11.0-15.0); White Blood Count 7.5 10^3/uL (4.0-11.0)
[2024-04-21 07:30] LABS: Percent Iron Saturation 14.3 %
[2024-04-22 06:09] LABS: Vitamin B12 474 pg/mL (232-1245)
[2024-04-22 13:19] LABS: Internal Control Within Normal Limits; Occult Blood Positive
== END 2024-04-21 06:21 | disposition home or self-care (01) ==
LOC: LAB 06:22
PROVIDERS: PCP Internal Medicine; Visit Provider Internal Medicine
DX: D50.0 Iron deficiency anemia secondary to blood loss (chronic) (principal); E78.1 Pure hyperglyceridemia
CPT/HCPCS: 36415; 82607; 82728; 82746; 83540; 83550; 85025; G0328

== ENCOUNTER 2024-05-05 06:31 | Outpatient (OUT) | payer MEDICARE, SELFPAY ==
--- OUTSIDE RECORDS SUMMARY | 2024-05-05 06:34 | XMS_ITS | CCD ---
Author Organization [facility] Care Team Providers Care Porter Luggage Name Role Phone Al-Obosi, Nupur Tony Unavailable [...] BALL, DR MÁRQUEZ Attending Unavailable BALL, DR MÁRQEUZ Admitting Unavailable ZIEBER, DR SILVIA Mcclain Consulting [...] MG capsule TAKE 1 CAPSULE DAILY @ [facility] for GERD 06/01/2016 02/11/2018 Discontinued folic acid (7 sources) hqcrsqtr-moaj-yi n-folic acid (sxxjwhtlbbfe-htet-awbcjysy-folic acid) 3,500-18-0.4 unit-mg-mg Chew Indications: supplement Chew and Swallow every morning . Active gabapentin 300 mg oral capsule (19 sources) Anti-epilept ic Agent take 2 capsules by mouth at bedtime Gabapentin 300 MG 2 capsules Orally at bedtime Active take 1 capsule by [facility] every twenty-four hours Gabapentin 300 MG 1 [...] mg by mouth every morning. 02/17/2018 Suspended hawuzqej-xuuu-vkq-folic acid (zeuogycldhdg-rtfg-hikwuder-folic acid) 3,500-18-0.4 unit-mg-mg Chew (2 sources) mptqnmat-mgmm-vl n-folic acid (gptqugpxucpg-zqgf-qhbtwvlg-folic acid) 3,500-18-0.4 unit-mg-mg Chew Indications: supplement Chew [...] 11/04/2015 02/11/2018 Discontinued take [address] [facility] once daily in the morning atorvastatin [...] other day . 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 Tracy Amos Basophils/100 WBC (Bld) 0.6 % Normal 0.2-2.0 [facility] Comment on above: Performed By: #### C BC #### [facility] [address] [place] [address] Dr. Tracy Amos EO # 0.1 103/ul Normal 0.0-0.7 [facility] Comment on above: Performed By: #### C BC #### [facility] [address] [place] [address] Dr. Tracy Amos Eosinophils/100 WBC (Bld) 1.5 % Normal 0.9-7.0 [facility] Comment on above: Performed By: #### C BC #### [facility] [address] [place] [address] Dr. Tracy Amos Erythrocyte distribution width (RBC) [Ratio] 12.6 % Normal 11.0-15.0 [facility] Comment on above: Performed By: #### C BC #### [facility] [address] [place] [address] Dr. Tracy Amos Hematocrit (Bld) [Volume fraction] 41.2 % Critically low 42.0-54.0 [facility] Comment on above: Performed By: #### C BC #### [facility] [address] [place] [address] Dr. Tracy Amos Hemoglobin (Bld) [Mass/Vol] 13.3 g/dL Critically low 14.0-18.0 [facility] Comment on above: Performed By: #### C BC #### [facility] [address] [place] [address] Dr. Tracy Amos IG # 0.01 10e3/ul Normal 0.00-0.03 [facility] Comment on above: Performed By: #### C BC #### [facility] [address] [place] [address] Dr. Tracy Amos IG % 0.1 % Normal 0.0-0.5 [facility] Comment on above: Performed By: #### C BC #### [facility] [address] [place] [address] Dr. Tracy Amos LYMPH # 3.0 103/ul Normal 1.2-3.8 [facility] Comment on above: Performed By: #### C BC #### [facility] [address] [place] [address] Dr. Tracy Amos Lymphocytes/100 WBC (Bld) 42.0 % Normal 20.5-60.0 [facility] Comment on above: Performed By: #### C BC #### [facility] [address] [place] [address] Dr. Tracy Amos MANUAL DIFF REQ NO Normal [facility] Comment on above: Performed By: #### C BC #### [facility] [address] [place] [address] Dr. Tracy Amos MCH (RBC) [Entitic mass] 28.7 pg Normal 25.9-34.0 [facility] Comment on above: Performed By: #### C BC #### [facility] [address] [place] [address] Dr. Tracy Amos MCHC (RBC) [Mass/Vol] 32.3 g/dL Normal 29.9-35.2 [facility] Comment on above: Performed By: #### C BC #### [facility] [address] [place] [address] Dr. Tracy Amos MCV (RBC) [Entitic vol] 89.0 fL Normal 80.0-94.0 [facility] Comment on above: Performed By: #### C BC #### [facility] [address] [place] [address] Dr. Tracy Amos MONO # 0.5 103/ul Normal 0.3-0.8 [facility] Comment on above: Performed By: #### C BC #### [facility] [address] [place] [address] Dr. Tracy Amos Monocytes/100 WBC (Bld) 6.6 % Normal 1.7-12.0 [facility] Comment on above: Performed By: #### C BC #### [facility] [address] [place] [address] Dr. Tracy Amos NEUT # 3.6 103/ul Normal 1.4-6.5 [facility] Comment on above: Performed By: #### C BC #### [facility] [address] [place] [address] Dr. Tracy Amos Neutrophils/100 WBC (Bld) 49.2 % Normal 43.0-75.0 [facility] Comment on above: Performed By: #### C BC #### [facility] [address] [place] [address] Dr. Tracy Amos Platelet mean volume (Bld) [Entitic vol] 10.2 fL Normal 9.5-13.5 [facility] Comment on above: Performed By: #### C BC #### [facility] [id number] Tracy Amos PLT 164 103/ul Normal 150-450 [facility] Comment on above: Performed By: #### C BC #### [facility] [address] [place], [place] [address] Dr. Tracy Amos RBC 4.63 106/ul Critically low 4.70-6.10 [facility] Comment on above: Performed By: #### C BC #### [facility] [address] [place], [place] [address] Dr. Tracy Amos WBC 7.2 103/ul Normal 4.0-11.0 [facility] Comment on above: Performed By: #### C BC #### [facility] [address] [address] [address] Tracy Saleh 08-26-2022 L --- Specimen: [id number] Received: 08/26/22 Status: BETHANY Troncoso Num: [id number] Spec Type: Surgical Subm Dr: Nino Russell MD Tissues: A Gastric Biopsy (GASTRIC ULCER BX) B Esophagus Biopsy (ESOPHAGUS BX) C Colon Biopsy (ASCENDING) Procedures: HE/6, Gross/Micro L4/3, H PYLORI Age/ Patient Sex Location Account Attending Physician Zena Witt/[facility] [id number] Nino Russell MD SPEC NUM: [id number] RECD: 08/26/22 STATUS: BETHANY TRONCOSO NUM: [id number] ANUP: 08/26/22- SUBM DR: Nino Russell MD ENTERED: 08/26/[address] [facility] DR: LEONARDO TYPE: Surgical DEPT: S ORDERED: [...] submitted in one cassette labeled A1. Specimen: [id number] Received: 08/26/22 Status: BETHANY Troncoso Num: [id number] Spec Type: Surgical Subm Dr: Nino Russell MD Tissues: A Gastric Biopsy (GASTRIC ULCER BX) B Esophagus Biopsy (ESOPHAGUS BX) C Colon Biopsy (ASCENDING) Procedures: HE/6, Gross/Micro L4/3, H PYLORI Patient: Zena Witt [id number] (Continued) Specimen: [id number] Received: 08/26/22 (Continued) Gross Description (Continued) Signed (signature on file) Rosa Fischer MD 08/27/22 1520 Specimen: [id number] Received: 08/26/22 Status: BETHANY Troncoso Num: [id number] Spec Type: Surgical Subm Dr: Nino Russell MD Tissues: A Gastric Biopsy (GASTRIC ULCER BX) B Esophagus Biopsy (ESOPHAGUS BX) C Colon Biopsy (ASCENDING) Procedures: HE/6, Gross/Micro L4/3, H PYLORI Patient: Zena Witt [id number] (Continued) Specimen: [id number] Received: 08/26/22 (Continued) Gross Description (Continued) B. [...] support the above pathologic diagnosis. CPT Codes 47988?3 Specimen: [id number] Received: 08/26/22 Status: BETHANY Troncoso Num: [id number] Spec Type: Surgical Subm Dr: Nino Russell MD Tissues: A Gastric Biopsy (GASTRIC ULCER BX) B Esophagus Biopsy (ESOPHAGUS BX) C Colon Biopsy (ASCENDING) Procedures: HE/6, Gross/Micro L4/3, H PYLORI Patient: Zena Witt [id number] (Continued) (more content not included)... Normal [facility] CBC AUTO DIFFon 07-13-2022 BASO # 0.0 103/ul Normal 0.0-0.1 [facility] Comment on above: Performed By: #### C BC #### [facility] [address] [place], [place] [address] Dr. Tracy Amos Basophils/100 WBC (Bld) 0.4 % Normal 0.2-2.0 [facility] Comment on above: Performed By: #### C BC #### [facility] [address] [place] [address] Dr. Tracy Amos EO # 0.2 103/ul Normal 0.0-0.7 [facility] Comment on above: Performed By: #### C BC #### [facility] [address] [place] [address] Dr. Tracy Amos Eosinophils/100 WBC (Bld) 1.5 % Normal 0.9-7.0 [facility] Comment on above: Performed By: #### C BC #### [facility] [address] [place] [address] Dr. Tracy Amos Erythrocyte distribution width (RBC) [Ratio] 12.8 % Normal 11.0-15.0 [facility] Comment on above: Performed By: #### C BC #### [facility] [address] [place] [address] Dr. Tracy Amos Hematocrit (Bld) [Volume fraction] 38.2 % Critically low 42.0-54.0 [facility] Comment on above: Performed By: #### C BC #### [facility] [address] [place] [address] Dr. Tracy Amos Hemoglobin (Bld) [Mass/Vol] 12.7 g/dL Critically low 14.0-18.0 [facility] Comment on above: Performed By: #### C BC #### [facility] [address] [place] [address] Dr. Tracy Amos IG # 0.02 10e3/ul Normal 0.00-0.03 [facility] Comment on above: Performed By: #### C BC #### [facility] [address] [place] [address] Dr. Tracy Amos IG % 0.2 % Normal 0.0-0.5 [facility] Comment on above: Performed By: #### C BC #### [facility] [address] [place] [address] Dr. Tracy Amos LYMPH # 3.8 103/ul Normal 1.2-3.8 [facility] Comment on above: Performed By: #### C BC #### [facility] [address] [place] [address] Dr. Tracy Amos Lymphocytes/100 WBC (Bld) 38.1 % Normal 20.5-60.0 [facility] Comment on above: Performed By: #### C BC #### [facility] [address] [place] [address] Dr. Tracy Amos MANUAL DIFF REQ NO Normal [facility] Comment on above: Performed By: #### C BC #### [facility] [address] [place] [address] Dr. Tracy Amos MCH (RBC) [Entitic mass] 29.0 pg Normal 25.9-34.0 [facility] Comment on above: Performed By: #### C BC #### [facility] [address] [place] [address] Dr. Tracy Amos MCHC (RBC) [Mass/Vol] 33.2 g/dL Normal 29.9-35.2 [facility] Comment on above: Performed By: #### C BC #### [facility] [address] [place] [address] Dr. Tracy Amos MCV (RBC) [Entitic vol] 87.2 fL Normal 80.0-94.0 [facility] Comment on above: Performed By: #### C BC #### [facility] [address] [place] [address] Dr. Tracy Amos MONO # 0.5 103/ul Normal 0.3-0.8 [facility] Comment on above: Performed By: #### C BC #### [facility] [address] [place] [address] Dr. Tracy Amos Monocytes/100 WBC (Bld) 4.6 % Normal 1.7-12.0 [facility] Comment on above: Performed By: #### C BC #### [facility] [address] [place] [address] Dr. Tracy Amos NEUT # 5.5 103/ul Normal 1.4-6.5 [facility] Comment on above: Performed By: #### C BC #### [facility] [address] [place] [address] Dr. Tracy Amos Neutrophils/100 WBC (Bld) 55.2 % Normal 43.0-75.0 [facility] Comment on above: Performed By: #### C BC #### [facility] [address] [place] [address] Dr. Tracy Amos Platelet mean volume (Bld) [Entitic vol] 10.0 fL Normal 9.5-13.5 [facility] Comment on above: Performed By: #### C BC #### [facility] [address] [place] [address] Dr. Tracy Amos PLT 179 103/ul Normal 150-450 [facility] Comment on above: Performed By: #### C BC #### [facility] [address] [place] [address] Dr. Tracy Amos RBC 4.38 106/ul Critically low 4.70-6.10 [facility] Comment on above: Performed By: #### C BC #### [facility] [address] [place] [address] Dr. Tracy Amos WBC 9.9 103/ul Normal 4.0-11.0 [facility] Comment on above: Performed By: #### C BC #### [facility] [address] [place] [address] Dr. Tracy Amos CBC AUTO DIFFon 03-04-2022 BASO # 0.1 103/ul Normal 0.0-0.1 [facility] Comment on above: Performed By: #### C BC #### [facility] [address] [place] [address] Dr. Tracy Amos Basophils/100 WBC (Bld) 0.8 % Normal 0.2-2.0 [facility] Comment on above: Performed By: #### C BC #### [facility] [address] [place] [address] Dr. Tracy Amos EO # 0.1 103/ul Normal 0.0-0.7 [facility] Comment on above: Performed By: #### C BC #### [facility] [address] [place] [address] Dr. Tracy Amos Eosinophils/100 WBC (Bld) 1.8 % Normal 0.9-7.0 [facility] Comment on above: Performed By: #### C BC #### [facility] [address] [place] [address] Dr. Tracy Amos Erythrocyte distribution width (RBC) [Ratio] 12.7 % Normal 11.0-15.0 [facility] Comment on above: Performed By: #### C BC #### [facility] [address] [place] [address] Dr. Tracy Amos Hematocrit (Bld) [Volume fraction] 37.3 % Critically low 42.0-54.0 [facility] Comment on above: Performed By: #### C BC #### [facility] [address] [place] [address] Dr. Tracy Amos Hemoglobin (Bld) [Mass/Vol] 12.1 g/dL Critically low 14.0-18.0 [facility] Comment on above: Performed By: #### C BC #### [facility] [address] [place] [address] Dr. Tracy Amos IG # 0.01 10e3/ul Normal 0.00-0.03 [facility] Comment on above: Performed By: #### C BC #### [facility] [address] [place] [address] Dr. Tracy Amos IG % 0.1 % Normal 0.0-0.5 [facility] Comment on above: Performed By: #### C BC #### [facility] [address] [place] [address] Dr. Tracy Amos LYMPH # 3.0 103/ul Normal 1.2-3.8 [facility] Comment on above: Performed By: #### C BC #### [facility] [address] [place] [address] Dr. Tracy Amos Lymphocytes/100 WBC (Bld) 41.3 % Normal 20.5-60.0 [facility] Comment on above: Performed By: #### C BC #### [facility] [address] [place] [address] Dr. Tracy Amos MANUAL DIFF REQ NO Normal [facility] Comment on above: Performed By: #### C BC #### [facility] [address] [address] [address] Tracy Amos MCH (RBC) [Entitic mass] 29.7 pg Normal 25.9-34.0 [facility] Comment on above: Performed By: #### C BC #### [facility] [address] [address] [address] Tracy Amos MCHC (RBC) [Mass/Vol] 32.4 g/dL Normal 29.9-35.2 [facility] Comment on above: Performed By: #### C BC #### [facility] [address] [address] [address] Tracy Amos MCV (RBC) [Entitic vol] 91.4 fL Normal 80.0-94.0 [facility] Comment on above: Performed By: #### C BC #### [facility] [address] [place] [address] Dr. Tracy Amos MONO # 0.5 103/ul Normal 0.3-0.8 [facility] Comment on above: Performed By: #### C BC #### [facility] [address] [place] [address] Dr. Tracy Amos Monocytes/100 WBC (Bld) 6.1 % Normal 1.7-12.0 [facility] Comment on above: Performed By: #### C BC #### [facility] [address] [place] [address] Dr. Tracy Amos NEUT # 3.7 103/ul Normal 1.4-6.5 [facility] Comment on above: Performed By: #### C BC #### [facility] [address] [place] [address] Dr. Tracy Amos Neutrophils/100 WBC (Bld) 49.9 % Normal 43.0-75.0 [facility] Comment on above: Performed By: #### C BC #### [facility] [address] [place] [address] Dr. Tracy Amos Platelet mean volume (Bld) [Entitic vol] 9.9 fL Normal 9.5-13.5 [facility] Comment on above: Performed By: #### C BC #### [facility] [address] [address] [address] Tracy Amos PLT 156 103/ul Normal 150-450 [facility] Comment on above: Performed By: #### C BC #### [facility] [address] [address] [address] Tracy Amos RBC 4.08 106/ul Critically low 4.70-6.10 [facility] Comment on above: Performed By: #### C BC #### [facility] [address] [address] [address] Tracy Amos WBC 7.4 103/ul Normal 4.0-11.0 [facility] Comment on above: Performed By: #### C BC #### [facility] [address] [address] [address] Tracy Amos FERRITINon 03-04-2022 Ferritin [Mass/Vol] 99.0 ng/mL Normal 26.0-388.0 [facility] Comment on above: Performed By: #### F ETIBC, FERR, B12FOL ####[facility] [id number] [address] Tracy Amos IRON AND TIBCon 03-04-2022 % SATURATION 16.3 % Normal [facility] Comment on above: Performed By: #### F ETIBC, FERR, B12FOL #### [facility] [address] [address] [address] Tracy Amos Iron [Mass/Vol] 55.0 ug/dL Critically low 65.0-175.0 [facility] Comment on above: Performed By: #### F ETIBC, FERR, B12FOL #### [facility] [address] [address] [address] Tracy Amos TIBC DIRECT 337.0 ug/dL Normal 250.0-450.0 [facility] Comment on above: Performed By: #### F ETIBC, FERR, B12FOL #### [facility] [address] [address] [address] Tracy Amos VIT B12 AND FOLATEon 022 Cobalamin (Vitamin B12) [Mass/Vol] 505.0 pg/mL Normal 193.0-986.0 [facility] Comment on above: Performed By: #### F ETIBC, FERR, B12FOL #### [facility] [address] [place] [address] Dr. Tracy Amos FOLATE 20.70 ng/mL Normal 8.60-58.90 [facility] Comment on above: Performed By: #### F ETIBC, FERR, B12FOL #### [facility] [address] [place] [address] Dr. Tracy Amos CBC AUTO DIFFon 12-16-2021 BASO # 0.0 103/ul Normal 0.0-0.1 [facility] Comment on above: Performed By: #### C BC #### [facility] [address] [place] [address] Dr. Tracy Amos Basophils/100 WBC (Bld) 0.4 % Normal 0.2-2.0 [facility] Comment on above: Performed By: #### C BC #### [facility] [address] [place] [address] Dr. Tracy Amos EO # 0.2 103/ul Normal 0.0-0.7 [facility] Comment on above: Performed By: #### C BC #### [facility] [address] [place] [address] Dr. Tracy Amos Eosinophils/100 WBC (Bld) 2.6 % Normal 0.9-7.0 [facility] Comment on above: Performed By: #### C BC #### [facility] [address] [place] [address] Dr. Tracy Amos Erythrocyte distribution width (RBC) [Ratio] 12.6 % Normal 11.0-15.0 [facility] Comment on above: Performed By: #### C BC #### [facility] [address] [place] [address] Dr. Tracy Amos Hematocrit (Bld) [Volume fraction] 36.6 % Critically low 42.0-54.0 [facility] Comment on above: Performed By: #### C BC #### [facility] [address] [place] [address] Dr. Tracy Amos Hemoglobin (Bld) [Mass/Vol] 12.1 g/dL Critically low 14.0-18.0 [facility] Comment on above: Performed By: #### C BC #### [facility] [address] [place] [address] Dr. Tracy Amos IG # 0.01 10e3/ul Normal 0.00-0.03 [facility] Comment on above: Performed By: #### C BC #### [facility] [address] [place] [address] Dr. Tracy Amos IG % 0.1 % Normal 0.0-0.5 [facility] Comment on above: Performed By: #### C BC #### [facility] [address] [place] [address] Dr. Tracy Amos LYMPH # 2.8 103/ul Normal 1.2-3.8 [facility] Comment on above: Performed By: #### C BC #### [facility] [address] [place] [address] Dr. Tracy Amos Lymphocytes/100 WBC (Bld) 40.3 % Normal 20.5-60.0 [facility] Comment on above: Performed By: #### C BC #### [facility] [address] [place] [address] Dr. Tracy Amos MANUAL DIFF REQ NO Normal [facility] Comment on above: Performed By: #### C BC #### [facility] [address] [place] [address] Dr. Tracy Amos MCH (RBC) [Entitic mass] 30.0 pg Normal 25.9-34.0 [facility] Comment on above: Performed By: #### C BC #### [facility] [address] [place] [address] Dr. Tracy Amos MCHC (RBC) [Mass/Vol] 33.1 g/dL Normal 29.9-35.2 [facility] Comment on above: Performed By: #### C BC #### [facility] [address] [address] [address] Tracy Amos MCV (RBC) [Entitic vol] 90.8 fL Normal 80.0-94.0 [facility] Comment on above: Performed By: #### C BC #### [facility] [address] [address] [address] Tracy Amos MONO # 0.4 103/ul Normal 0.3-0.8 [facility] [facility] Comment on above: Performed By: #### C BC #### [facility] [address] [address] [address] Tracy Amos Monocytes/100 WBC (Bld) 5.8 % Normal 1.7-12.0 [facility] Comment on above: Performed By: #### C BC #### [facility] [address] [place] [address] Dr. Tracy Amos NEUT # 3.6 103/ul Normal 1.4-6.5 [facility] Comment on above: Performed By: #### C BC #### [facility] [address] [place] [address] Dr. Tracy Amos Neutrophils/100 WBC (Bld) 50.8 % Normal 43.0-75.0 [facility] Comment on above: Performed By: #### C BC #### [facility] [address] [place] [address] Dr. Tracy Amos Platelet mean volume (Bld) [Entitic vol] 10.3 fL Normal 9.5-13.5 [facility] Comment on above: Performed By: #### C BC #### [facility] [address] [address] [address] Tracy Amos PLT 164 103/ul Normal 150-450 [facility] Comment on above: Performed By: #### C BC #### [facility] [id number] Tracy Amos RBC 4.03 106/ul Critically low 4.70-6.10 [facility] Comment on above: Performed By: #### C BC #### [facility] [address] [address] [address] Tracy Amos WBC 7.1 103/ul Normal 4.0-11.0 [facility] Comment on above: Performed By: #### C BC #### [facility] [address] [address] [address] Tracy Amos LIPID PROFILEon 12-16-2021 CHOL-HDL RATIO NORM SEE BELOW Normal [facility] Comment on above: Result Comment: 3.3 - 4.4 LOW RISK 4.4 - 7.1 AVERAGE RISK 7.1 - 11.0 MODERATE RISK >11.0 HIGH RISK Performed By: #### L IPID, BMP #### [facility] [address] [address] [address] Tracy Amos Cholesterol [Mass/Vol] 118 mg/dL Normal <=200 [facility] Comment on above: Performed By: #### L IPID, BMP #### [facility] [address] [address] [address] Tracy Amos Cholesterol in HDL [Mass/Vol] 40 mg/dL Normal 40-60 [facility] Comment on above: Performed By: #### L IPID, BMP #### [facility] [address] [address] [address] Tracy Amos Cholesterol in LDL [Mass/Vol] 62.6 mg/dL Normal [facility] Comment on above: Performed By: #### L IPID, BMP #### [facility] [address] [address] [address] Tracy Amos Cholesterol.total/Ch olesterol in HDL [Mass ratio] 3.0 {ratio} Normal [facility] Comment on above: Performed By: #### L IPID, BMP #### [facility] [address] [address] [address] Tracy Amos HDL NORMAL > or = 60 mg/dl - LO W CARDIOVASCULAR RISK <40 mg/dl - HIGH CARDIOVASCULAR RISK Normal [facility] Comment on above: Performed By: #### L IPID, BMP #### [facility] [address] [address] [address] Tracy Amos LDL CALC NORMAL SEE BELOW Normal [facility] Comment on above: Result Comment: <100 mg/dl OPTIMAL 100 - 129 mg/dl NEAR OR ABOVE OPTIMAL 130 - 159 mg/dl BORDERLINE HIGH 160 - 189 mg/dl HIGH >190 mg/dl VERY HIGH Performed By: #### L IPID, BMP #### [facility] [address] [place] [address] Dr. Tracy Amos Triglyceride [Mass/Vol] 77 mg/dL Normal <=150 [facility] Comment on above: Performed By: #### L IPID, BMP #### [facility] [address] [address] [address] Tracy Amos VLDL CALC 15.4 mg/dL Normal [facility] Comment on above: Performed By: #### L IPID, BMP #### [facility] [address] [place] [address] Dr. Tracy Amos PROF CHEM 8 (BAS METB)on Anion gap [Moles/Vol] 7.8 mmol/L Normal [facility] Comment on above: Performed By: #### L IPID, BMP #### [facility] [address] [address] [address] Tracy Amos Calcium [Mass/Vol] 8.8 mg/dL Normal 8.5-10.1 [facility] Comment on above: Performed By: #### L IPID, BMP #### [facility] [address] [place] [address] Dr. Tracy Amos Chloride [Moles/Vol] 108 mmol/L Critically high 98-107 [facility] Comment on above: Performed By: #### L IPID, BMP #### [facility] [address] [address] [address] Tracy Amos CO2 [Moles/Vol] 28.5 mmol/L Normal 21.0-32.0 [facility] Comment on above: Performed By: #### L IPID, BMP #### [facility] [address] [place] [address] Dr. Tracy Amos Creatinine [Mass/Vol] 0.94 mg/dL Normal 0.70-1.30 [facility] Comment on above: Performed By: #### L IPID, BMP #### [facility] [address] [address] [address] Tracy Amos EGFR-AF [place] >60 Normal >=60 [facility] Comment on above: Performed By: #### L IPID, BMP #### [facility] [address] [address] [address] Tracy Amos EGFR-NON AF [place] >60 Normal >=60 [facility] Comment on above: Performed By: #### L IPID, BMP #### [facility] [address] [address] [address] Tracy Amos Glucose [Mass/Vol] 116 mg/dL Critically high 74-[address] [facility] Comment on above: Performed By: #### L IPID, BMP #### [facility] [address] [place] [address] Dr. Tracy Amos Potassium [Moles/Vol] 4.3 mmol/L Normal 3.5-5.1 [facility] Comment on above: Performed By: #### L IPID, BMP #### [facility] [address] [place] [address] Dr. Tracy Amos Sodium [Moles/Vol] 140 mmol/L Normal 136-145 [facility] Comment on above: Performed By: #### L IPID, BMP #### [facility] [address] [place] [address] Dr. Tracy Amos Urea nitrogen [Mass/Vol] 24.0 mg/dL Critically high 7.0-18.0 [facility] Comment on above: Performed By: #### L IPID, BMP #### [facility] [address] [place] [address] Dr. Tracy Amos Urea nitrogen/Creatinine [Mass ratio] 25.5 mg/mg Normal [facility] Comment on above: Performed By: #### L IPID, BMP #### [facility] [address] [address] [address] Tracy Amos XR LSPINE 2_3 VIEWSon [...] by: SILVIA LI Date: 2021-12-16 21:55 Normal [facility] XR SHOULDER LEFT MIN 2 VIEWS on 05-10-2020 [facility] (RBC) [Entitic mass] EXAM: [facility] XR SHOULDER LEFT MIN 2 VIEWS, [...] SHOULDER LEFT MIN 2 VIEWS on 05-02-2020 [facility] (RBC) [Entitic mass] EXAM: [facility] XR SHOULDER LEFT MIN 2 VIEWS, [...] #### [facility] (DEFAULT) [address] [place] [address] BASIC METABOLIC PANELon 11-1 Anion gap [Moles/Vol] 13 mmol/L Normal [facility] Comment on above: Performed By: #### C 7C #### [facility] (DEFAULT) [address] [place] [address] Calcium [Mass/Vol] 9.7 mg/dL Normal 8.4-10.2 [facility] Comment on above: Performed By: #### C 7C #### [facility] (DEFAULT) [address] [place] [address] Chloride [Moles/Vol] 108 mmol/L High 98-107 [facility] Comment on above: Performed By: #### C 7C #### [facility] (DEFAULT) [address] [place] [address] CO2 [Moles/Vol] 25 mmol/L Normal 22-31 [facility] Comment on above: Performed By: #### C 7C #### [facility] (DEFAULT) [address] [place] [address] Creatinine [Mass/Vol] 1.05 mg/dL Normal 0.72-1.25 [facility] Comment on above: Performed By: #### C 7C #### [facility] (DEFAULT) [address] [place] [facility] [place] [address] Est Gfr, 86 mL/min/1.73sqM Normal [facility] Comment on above: Performed By: #### C 7C #### [facility] (DEFAULT) [address] [place] [address] Est Gfr,Non 71 mL/min/1.73sqM Normal [facility] Comment on above: Performed By: #### C 7C #### [facility] (DEFAULT) [address] [place] [address] Glucose [Mass/Vol] 102 mg/dL Normal 80-115 [facility] Comment on above: Performed By: #### C 7C #### [facility] (DEFAULT) [address] [place] [address] Osmolality [Osmolality] 301 mOsm/kg Normal [facility] Comment on above: Performed By: #### C 7C #### [facility] (DEFAULT) [address] [place] [facility] [place] [address] Potassium [Moles/Vol] 4.0 mmol/L Normal 3.5-5.1 [facility] Comment on above: Performed By: #### C 7C #### [facility] (DEFAULT) [address] [place] [address] Sodium [Moles/Vol] 142 mmol/L Normal 136-145 [facility] Comment on above: Performed By: #### C 7C #### [facility] (DEFAULT) [address] [place] [address] Urea nitrogen [Mass/Vol] 24.0 mg/dL Normal 8.4-25.7 [facility] Comment on above: Performed By: #### C 7C #### [facility] (DEFAULT) [address] [place] [address] Urea nitrogen/Creatinine [Mass ratio] 23 mg/mg Normal [facility] Comment on above: Performed By: #### C 7C #### [facility] (DEFAULT) [address] [place] [address] CBC AND ELECTRONIC DIFFon Hematocrit (Bld) [Volume fraction] 37.8 % Normal 37.0-51.0 [facility] Comment on above: Performed By: #### L AB981, [id number] #### [facility] (DEFAULT) [address] [place] [address] Hemoglobin (Bld) [Mass/Vol] 12.6 g/dL Normal 12.6-17.4 [facility] Comment on above: Performed By: #### L AB981, [id number] #### [facility] (DEFAULT) [address] [place] [address] MCV (RBC) [Entitic vol] 89.6 fL Normal 81.0-103.0 [facility] Comment on above: Performed By: #### L AB981, [id number] #### [facility] (DEFAULT) [address] [place] [address] Mean Cell Hgb 30.0 pg Normal 27.0-34.0 [facility] Comment on above: Performed By: #### L AB981, [id number] #### [facility] (DEFAULT) [address] [place] [address] Mean Cell Hgb Conc 33.5 pg Normal 31.0-36.0 [facility] Comment on above: Performed By: #### L AB981, [id number] #### [facility] (DEFAULT) [address] [place] [address] Platelet mean volume (Bld) [Entitic vol] 7.8 fL Normal 7.5-11.2 [facility] Comment on above: Performed By: #### L AB981, [id number] #### [facility] (DEFAULT) [address] [place] [address] Platelets (Bld) [#/Vol] 204 10*3/uL Normal 150-400 [facility] Comment on above: Performed By: #### L AB981, [id number] #### [facility] (DEFAULT) [address] [place] [address] RBC (Bld) [#/Vol] 13.1 % Normal 11.5-14.5 [facility] Comment on above: Performed By: #### L AB981, [id number] #### [facility] (DEFAULT) [address] [place] [address] RBC (Bld) [#/Vol] 4.22 10*6/uL Normal Male: 3.8-5.8, Female: 3.8-5.2 [facility] Comment on above: Performed By: #### L AB981, [id number] #### [facility] (DEFAULT) [address] [place] [address] WBC (Bld) [#/Vol] 11.2 10*3/uL High 4.5-11.0 [facility] Comment on above: Performed By: #### L AB981, [id number] #### [facility] (DEFAULT) [address] [place] [address] MANUAL DIFFon 04-15-2020 Abs Eos Manual 0.11 K\uL Normal [facility] Comment on above: Performed By: #### L AB981, [id number] #### [facility] (DEFAULT) [address] [place] [address] Abs Lymph Manual 6.05 K/uL High 1.00-4.80 [facility] Comment on above: Performed By: #### L AB981, [id number] #### [facility] (DEFAULT) [address] [place] [address] Abs Mellette Manual 0.45 K/uL High 0.20-0.40 [facility] Comment on above: Performed By: #### L AB981, [id number] #### [facility] (DEFAULT) [address] [place] [address] Abs Segs Manual 4.59 K/uL Normal 1.80-7.70 [facility] Comment on above: Performed By: #### L AB981, [id number] #### [facility] (DEFAULT) [address] [place] [address] Eosinophils % Manual 1 % Normal [facility] Comment on above: Performed By: #### L AB981, [id number] #### [facility] (DEFAULT) [address] [place] [address] Lymphocyte % Manual 54 % Normal [facility] Comment on above: Performed By: #### L AB981, [id number] #### [facility] (DEFAULT) [address] [place] [address] Monocyte % Manual 4 % Normal [facility] Comment on above: Performed By: #### L AB981, [id number] #### [facility] (DEFAULT) [address] [place] [address] Neutrophil Segmented Manual 41 % Normal [facility] Comment on above: Performed By: #### L AB981, [id number] #### [facility] (DEFAULT) [address] [place] [address] SARS-COV-2 RAPIDon 0 SARS-COV2, RT PCR NASOPHARYNGEAL [...] #### [facility] (DEFAULT) [address] [place] [address] COMPREHENSIVE METABOLIC PANE Delfino 02-28-2020 Albumin [Mass/Vol] 4.3 g/dL Normal 3.2-4.6 [facility] Comment on above: Performed By: #### H JENNIE, CMPN #### [facility] (DEFAULT) [address] [place] [address] ALP [Catalytic activity/Vol] 66 U/L Normal 40-150 [facility] Comment on above: Performed By: #### H JENNIE, CMPN #### [facility] (DEFAULT) [address] [place] [address] ALT [Catalytic activity/Vol] 17 U/L Normal 0-55 [facility] Comment on above: Performed By: #### H JENNIE, CMPN #### [facility] (DEFAULT) [address] [place] [address] Anion gap [Moles/Vol] 15 mmol/L Normal [facility] Comment on above: Performed By: #### H JENNIE, CMPN #### [facility] (DEFAULT) [address] [place] [address] AST [Catalytic activity/Vol] 19 U/L Normal <39 [facility] Comment on above: Performed By: #### H JENNIE CMPN #### [facility] (DEFAULT) [address] [place] [address] Bilirubin [Mass/Vol] 0.5 mg/dL Normal 0.3-1.2 [facility] Comment on above: Performed By: #### H JENNIE CMPN #### [facility] (DEFAULT) [address] [place] [address] Calcium [Mass/Vol] 9.5 mg/dL Normal 8.4-10.2 [facility] Comment on above: Performed By: #### H JENNIE CMPN #### [facility] (DEFAULT) [address] [place] [address] Chloride [Moles/Vol] 106 mmol/L Normal 98-107 [facility] Comment on above: Performed By: #### H JENNIE CMPN #### [facility] (DEFAULT) [address] [place] [address] CO2 [Moles/Vol] 25 mmol/L Normal 22-31 [facility] Comment on above: Performed By: #### H JENNIE CMPN #### [facility] (DEFAULT) [address] [place] [address] Creatinine [Mass/Vol] 1.00 mg/dL Normal 0.72-1.25 [facility] Comment on above: Performed By: #### H JENNIE CMPN #### [facility] (DEFAULT) [address] [place] [address] Est Gfr, 91 mL/min/1.73sqM Normal [facility] Comment on above: Performed By: #### H JENNIE, CMPN #### [facility] (DEFAULT) [address] [place] [address] Est Gfr,Non 75 mL/min/1.73sqM Normal [facility] Comment on above: Performed By: #### H JENNIE, CMPN #### [facility] (DEFAULT) [address] [place] [address] Glucose [Mass/Vol] 111 mg/dL Normal 80-115 [facility] Comment on above: Performed By: #### H JENNIE, CMPN #### [facility] (DEFAULT) [address] [place] [address] Osmolality [Osmolality] 300 mOsm/kg Normal [facility] Comment on above: Performed By: #### H JENNIE, CMPN #### [facility] (DEFAULT) [address] [place] [address] Potassium [Moles/Vol] 4.5 mmol/L Normal 3.5-5.1 [facility] Comment on above: Performed By: #### H JENNIE, CMPN #### [facility] (DEFAULT) [address] [place] [address] Protein [Mass/Vol] 7.3 g/dL Normal 6.4-8.3 [facility] Comment on above: Performed By: #### H JENNIE, CMPN #### [facility] (DEFAULT) [address] [place] [address] Sodium [Moles/Vol] 141 mmol/L Normal 136-145 [facility] Comment on above: Performed By: #### H JENNIE, CMPN #### [facility] (DEFAULT) [address] [place] [address] Urea nitrogen [Mass/Vol] 24.0 mg/dL Normal 8.4-25.7 [facility] Comment on above: Performed By: #### H JENNIE, CMPN #### [facility] (DEFAULT) [address] [place] [address] Urea nitrogen/Creatinine [Mass ratio] 24 mg/mg Normal [facility] Comment on above: Performed By: #### H JENNIE, CMPN #### [facility] (DEFAULT) [address] [place] [address] LIPID PANEL W CALCULATED LDL on 02-28-2020 [...] #### [facility] (DEFAULT) [address] [place] [address] Cholesterol [Mass/Vol] 114 mg/dL Normal <200 [facility] Comment on above: Performed By: #### H JENNIE, CMPN #### [facility] (DEFAULT) [address] [place] [address] Cholesterol in HDL [Mass/Vol] 41 mg/dL Low >60 [facility] Comment on above: Result Comment: [<40 mg/dL: Low (High Risk)] [>59 mg/dL: High (Low Risk)] Performed By: #### H JENNIE, CMPN #### [facility] (DEFAULT) [address] [place] [address] Cholesterol.total/Ch olesterol in HDL [Mass ratio] 2.8 {ratio} Normal [facility] Comment on above: Performed By: #### H JENNIE, CMPN #### [facility] (DEFAULT) [address] [place] [address] Non Hdl Cholesterol 73 mg/dL Normal [facility] Comment on above: Performed By: #### H JENNIE, CMPN #### [facility] (DEFAULT) [address] [place] [address] Triglyceride [Mass/Vol] 93 mg/dL Normal <150 [facility] Comment on above: Performed By: #### H JENNIE, CMPN #### [facility] (DEFAULT) [address] [place] [address] XR SPINE LUMBOSACRAL AP AND LATERALon 10-26-2019 XR SPINE LUMBOSACRAL AP AND LATERAL EXAM: [facility] XR SPINE LUMBOSACRAL AP AND LATERAL, [...] Dual curve lumbar scoliosis, worse than previously [facility] XR SPINE SCOLIOSIS 2/3 VIEWS on 10-26-2019 XR SPINE SCOLIOSIS 2/3 VIEWS EXAM: [facility] XR SPINE SCOLIOSIS 2/3 VIEWS, 10/26/2019 [...] of disc degeneration at L3-4 and L4-5. [facility] Hemoglobin and Hematocriton 02-17-2018 Hematocrit Auto Volume Fraction (Bld) 39.2 % Low 41 - 53 % [facility] Hemoglobin mass conc (Bld) 13.1 g/dL Low 13.5 - 17.5 g/dL [facility] Interpretation and review of laboratory results Abnormal Invalid Interpretation Code [facility] SCAN OTHER ORDERSon 01-07-20 18 Ordered by an unspecified provider. Invalid Interpretation Code [facility] CT ANKLE LEFT WITHOUT CONTRA [...] ankle both medially and laterally.CHANTAL/Paulat ation ID: [id number] by: LEON CAMARA on WedOctober 15, 2017 9:03:29 AM EDTTranscribed by: RUDDY CASAS on WedOctober 15, 2017 9:43:06 AM EDTFinalized by: LEON CAMARA on WedOctober 15, 2017 10:13:33 AM EDT [facility] Comment on above: Order Comment: Reaso n [...] about the ankle both medially and laterally. [employer] Workstation ID: [id number] Invalid Interpretation Code [facility] CT Ankle Left Without Contrast EXAMINATION: [...] intact and appropriately located. Invalid Interpretation Code [facility] CT Ankle Left Without Contrast Interface, Rad [facility] [employer] [facility] 10/15/2017 10:16 AM EDT EXAMINATION: [...] ACN/ges Workstation ID: [id number] Invalid Interpretation Code [facility] CBC Auto Differentialon 05-01 Basophils 0.03 K/mcL Invalid Interpretation Code 0.00 - 0.30 [facility] ([facility]) [facility] Basophils/100 leukocytes 0.4 % Invalid Interpretation Code [facility] ([facility]) [facility] Eosinophils 0.15 K/mcL Invalid Interpretation Code 0.00 - 0.50 [facility] ([facility]) LAB Eosinophils/100 leukocytes 2.0 % Invalid Interpretation Code [facility] ([facility]) LAB Erythrocytes (RBC) 4.50 M/mcL Invalid Interpretation Code 4.50 - 5.90 [facility] ([facility]) LAB Hematocrit (HCT) 39.8 % Low 41 - 53 % [facility] ([facility]) LAB Hemoglobin (HGB) 13.2 g/dL Low 13.5 - 17.5 g/dL [facility] ([facility]) LAB Interpretation and review of laboratory results Abnormal Invalid Interpretation Code [facility] ([facility]) LAB Lymphocytes 2.38 K/mcL Invalid Interpretation Code 0.90 - 4.00 [facility] ([facility]) LAB Lymphocytes/100 leukocytes 32.1 % Invalid Interpretation Code [facility] ([facility]) LAB MCH 29.3 pg Invalid Interpretation Code 26 - 34 pg [facility] ([facility]) LAB MCHC 33.2 g/dL Invalid Interpretation Code 31 - 37 g/dL [facility] ([facility]) LAB MCV 88.4 fL Invalid Interpretation Code 80 - 100 fL [facility] ([facility]) LAB Monocytes 0.60 K/mcL Invalid Interpretation Code 0.30 - 0.90 [facility] ([facility]) LAB Monocytes/100 leukocytes 8.1 % Invalid Interpretation Code [facility] ([facility]) LAB Neutrophils 4.26 K/mcL Invalid Interpretation Code 1.70 - 7.00 [facility] ([facility]) LAB Neutrophils/100 leukocytes 57.4 % Invalid Interpretation Code [facility] ([facility]) LAB Platelet mean volume (PMV) 10.6 fL Invalid Interpretation Code 9 - 15.5 fL [facility] ([facility]) LAB Platelets 167 K/mcL Invalid Interpretation Code 150 - 400 [facility] ([facility]) LAB RDW-CA 12.1 % Invalid Interpretation Code 11.6 - 14.8 % [facility]) LAB WBC (Leukocytes) 7.42 K/mcL Invalid Interpretation Code 4.50 - 11.00 [facility] ([facility]) LAB CBC w/ Diffon 05-19-2017 Creatinine The following orders were created for panel order CBC w/ Diff. Procedure Abnormality Status --------- ------ CBC Auto Differential[[id number]] Abnormal Final result Please view results for these tests on the individual orders. Invalid Interpretation Code [facility] Work Phone: CMPon 05-19-2017 Alanine aminotransferase (ALT) 41 U/L High 0 - 40 U/L [facility] ([facility] Albumin 4.2 g/dL Invalid Interpretation Code 3.2 - 5.2 g/dL [facility] ([facility]) LAB Alkaline phosphatase (ALP) 84 U/L Invalid Interpretation Code 40 - 150 U/L [facility] ([facility]) LAB Anion gap 22 mmol/L High 10 - 20 mmol/L [facility] ([facility]) [facility] Aspartate aminotransferase (AST) 33 U/L Invalid Interpretation Code 0 - 45 U/L [facility] ([facility]) LAB Bicarbonate (HCO3) 26 mmol/L Invalid Interpretation Code 21 - 32 mmol/L [facility] ([facility]) LAB Bilirubin (total) 0.3 mg/dL Invalid Interpretation Code 0 - 1.3 mg/dL [facility] ([facility]) LAB BUN/Creatinine Ratio 20.5 mg/mg High 10.0 - 20.0 [facility] ([facility]) LAB Calcium 9.3 mg/dL Invalid Interpretation Code 8.4 - 10.2 mg/dL [facility] ([facility]) [facility] Chloride 104 mmol/L Invalid Interpretation Code 98 - 108 mmol/L [facility] ([facility]) [facility] Creatinine 0.83 mg/dL Invalid Interpretation Code 0.8 - 1.3 mg/dL [facility] ([facility] eGFR (non-black) 94 mL/min/{1.73_m2} Invalid Interpretation Code >=60 [facility] ([facility]) LAB eGFR (non-black) The eGFR should be u sed for monitoring renal function only and not for medication dosing. Invalid Interpretation Code [facility] Glucose 115 mg/dL High 65 - 99 mg/dL [facility] Potassium 4.7 mmol/L Invalid Interpretation Code 3.5 - 5.1 mmol/L [facility] Protein 7.4 g/dL Invalid Interpretation Code 6 - 8 g/dL [facility] Sodium 147 mmol/L High 135 - 145 mmol/L [facility] Urea nitrogen 17 mg/dL Invalid Interpretation Code 8 - 25 mg/dL [facility] CT KIDNEY STONEon 05-19-2017 CT KIDNEY STONE EXAMINATION:STONE PROTOCOL CT OF THE ABDOMEN AND PRLHVI1105/19/2017TECHNIQ UE:CT of the abdomen and pelvis was [...] CT for further evaluation.Radiology 2017 http://pubs.rsna.org/do i/full/10.1148/radiol.2 074517622 Managing Incidental Adrenal Nodule > or equal to 1 cmBenign adrenal nodule - No follow up is required (including myelolipomas, adenomas, or nodules stable for > or equal to 1 year)Reference:Tyrone et al. Managing Incidental Findings on Abdominal CT: White Paper of the ACR Incidental Findings Committee. J Am Anup Radiol 2010;7:754-773Workstati on ID: [id number] by: MARCELL LOYOLA on WedMay 19, 2017 5:28:03 AM ESTTranscribed by: MARCELL LOYOLA on WedMay 19, 2017 5:28:03 AM ESTFinalized by: MARCELL LOYOLA on WedMay 19, 2017 5:28:03 AM EST Normal [facility] Comment on above: Order Comment: Reaso [...] for further evaluation. Radiology 2017 http://pubs.rsna.org/do i/full/10.1148/radiol.2 643419563 Managing Incidental Adrenal Nodule > or equal to 1 cm Benign adrenal nodule - No follow up is required (including myelolipomas, adenomas, or nodules stable for > or equal to 1 year) Reference: Tyrone et al. Managing Incidental Findings on Abdominal CT: White Paper of the ACR Incidental Findings Committee. J Am Anup Radiol 2010;7:754-773 Workstation ID: [id number] Invalid Interpretation Code [facility] CT Kidney Stone Interface, Rad In [...] for further evaluation. Radiology 2017 http://pubs.rsna.org/do i/full/10.1148/radiol.2 576300052 Managing Incidental Adrenal Nodule > or equal to 1 cm Benign adrenal nodule - No follow up is required (including myelolipomas, adenomas, or nodules stable for > or equal to 1 year) Reference: Tyrone et al. Managing Incidental Findings on Abdominal CT: White Paper of the ACR Incidental Findings Committee. J Am Anup Radiol 2010;7:754-773 Workstation ID: [id number] Invalid Interpretation Code [facility] CT Kidney Stone EXAMINATION: STONE PROTOCOL [...] demonstrate no acute abnormality. Invalid Interpretation Code [facility] Lipaseon 05-19-2017 Interpretation and review of laboratory results Normal Invalid Interpretation Code [facility] Lipase 39 U/L Invalid Interpretation Code 15 - 65 U/L [facility] Mint Green Topon 05-19-2017 Extra Tube Hold for add-ons. Invalid Interpretation Code [facility] Stacy Drawon 05-19-2017 Creatinine The following orders were created for panel order Stacy Draw. Procedure Abnormality Status --------- ------ Lavender Top[[id number]] Final result Mint Green Top[[id number]] Final result Please view results for these tests on the individual orders. Invalid Interpretation Code [facility] Work Phone: SCAN OTHER ORDERSon 05-19-20 17 SCAN OTHER ORDERS Ordered by an unspecified provider. Invalid Interpretation Code [facility] Work Phone: Urinalysison 05-19-2017 Bilirubin, Urine Negative Invalid Interpretation Code Negative [facility] Blood, Urine Negative Invalid Interpretation Code Negative [facility] Hyaline Casts 0-2 Invalid Interpretation Code 0 - 2 /lpf [facility] Interpretation and review of laboratory results Abnormal Invalid Interpretation Code [facility] Mucus, Urine Rare Invalid Interpretation Code None Seen, Rare /lpf [facility] Nitrite, Urine Negative Invalid Interpretation Code Negative [facility]) [facility] RBCs, Urine 4 /hpf High 0 - 3 [facility] Urine, bacteria in sediment None Seen Invalid Interpretation Code None Seen /hpf [facility] Urine, clarity Clear Invalid Interpretation Code Clear [facility] Urine, color Yellow Invalid Interpretation Code Colorless, Yellow [facility] Urine, glucose presence Negative Invalid Interpretation Code Negative mg/dL [facility] Urine, ketones presence Negative Invalid Interpretation Code Negative mg/dL [facility] Urine, leukocyte esterase presence Negative Invalid Interpretation Code Negative [facility] Urine, pH 5.0 [pH] Invalid Interpretation Code 5.0 - 7.0 [facility] Urine, protein Negative Invalid Interpretation Code Negative mg/dL [facility] Urine, specific gravity 1.019 1 Invalid Interpretation Code 1.005 - 1.025 [facility] Urine, urobilinogen <2.0 Invalid Interpretation Code <2.0 mg/dL [facility] WBCs, Urine 1 /hpf Invalid Interpretation Code 0 - 5 [facility] Urinalysis Microscopic examinat ion is performed on all urinalysis samples and only positive findings are reported. The test for blood on the chemical analytic portion of urinalysis may also be positive due to hemoglobinuria and myoglobinuria and if red blood cells are present they are quantified by microscopic examination. Invalid Interpretation Code [facility]) [facility] Vital Signs Date Time Vital Sign Value Performing Clinician Facility 12-16-2022 08:30-0400 Body height 177.8 cm [employer] Other [employer] Other 12-16-2022 08:30-0400 Body mass index (BMI) [Ratio] 31.36 kg/m2 [employer] Other [employer] Other 12-16-2022 08:30-0400 Body weight 99.16 kg [employer] Other [employer] Other 12-16-2022 08:30-0400 Diastolic blood pressure 80 mm[Hg] Aaron Ball Other [employer] Other 12-16-2022 08:30-0400 Respiratory rate 12 /min Aaron Ball Other [employer] Other 12-16-2022 08:30-0400 Systolic blood pressure 150 mm[Hg] Aaron Ball Other [employer] Other 09-14-2022 10:00-0400 Body height 177.8 cm Craig Ken Other [employer] Other 09-14-2022 10:00-0400 Body mass index (BMI) [Ratio] 31.71 kg/m2 Craig Ken Other [employer] Other 09-14-2022 10:00-0400 Body weight 100.25 kg Craig Suellen Other [employer] Other 09-14-2022 10:00-0400 Diastolic blood pressure 69 mm[Hg] Craig Scovanner Other [employer] Other 09-14-2022 10:00-0400 Systolic blood pressure 138 mm[Hg] Craig Scovanner Other [employer] Other 08-26-2022 10:41-0400 Diastolic blood pressure 80 mm[Hg] DO Aaron Ball Work Phone: [facility] 08-26-2022 10:41-0400 Heart rate 58 /min DO Aaron Ball Work Phone: [facility] 08-26-2022 10:41-0400 Respiratory rate 20 /min DO Aaron Ball Work Phone: [facility] 08-26-2022 10:41-0400 SaO2% (BldA) [Mass fraction] 96 % DO Aaron Ball Work Phone: [facility] 08-26-2022 10:41-0400 Systolic blood pressure 128 mm[Hg] DO Aaron Ball Work Phone: [facility] 08-26-2022 09:19-0400 Body height 177.8 cm DO Aaron Ball Work Phone: [facility] 08-26-2022 09:19-0400 Body temperature 97.8 [degF] DO Aaron Ball Work Phone: [facility] 08-26-2022 09:19-0400 Body weight 97.97 kg DO Aaron Ball Work Phone: [facility] 07-16-2022 09:30-0500 Body height 177.8 cm Aaron Ball Other [facility] [employer] Other 07-16-2022 09:30-0500 Body mass index (BMI) [Ratio] 32.42 kg/m2 Aaron Ball Other [facility] [employer] Other 07-16-2022 09:30-0500 Body weight 102.51 kg Aaron Ball Other [employer] Other 07-16-2022 09:30-0500 Diastolic blood pressure 76 mm[Hg] Aaron Ball Other [employer] Other 07-16-2022 09:30-0500 Respiratory rate 12 /min Aaron Ball Other [employer] Other 07-16-2022 09:30-0500 Systolic blood pressure 118 mm[Hg] Aaron Ball Other [employer] Other 11-06-2018 17:53-0400 BMI (Body Mass Index) 31.42 kg/m2 [facility] 11-06-2018 17:53-0400 Body Temperature 97.3 [degF] [facility] 11-06-2018 17:53-0400 BP Diastolic 88 mm[Hg] [facility] 11-06-2018 17:53-0400 BP Systolic 149 mm[Hg] [facility] 11-06-2018 17:53-0400 Height 177.8 cm [facility] 11-06-2018 17:53-0400 Pulse (Heart Rate) 68 /min [facility] 11-06-2018 17:53-0400 Pulse Oximetry 96 % [facility] 11-06-2018 17:53-0400 Respiratory Rate 15 /min [facility] 11-06-2018 17:53-0400 Weight 99.34 kg [facility] 02-17-2018 15:50-0400 BP Diastolic 82 mm[Hg] [facility] 02-17-2018 15:50-0400 BP Systolic 134 mm[Hg] [facility] 02-17-2018 15:50-0400 Pulse (Heart Rate) 62 /min [facility] 02-17-2018 15:50-0400 Pulse Oximetry 95 % [facility] 02-17-2018 15:50-0400 Respiratory Rate 15 /min [facility] 02-17-2018 15:40-0400 Body Temperature 98.01 [degF] [facility] 02-17-2018 09:49-0400 BMI (Body Mass Index) 30.68 kg/m2 [facility] 02-17-2018 09:49-0400 Height 177.8 cm [facility] 02-17-2018 09:49-0400 Weight 97 kg [facility] 05-27-2017 14:00-0500 Body Temperature 97.81 [degF] [facility] Work Phone: 05-27-2017 14:00-0500 BP Diastolic 71 mm[Hg] [facility] Work Phone: 05-27-2017 14:00-0500 BP Systolic 133 mm[Hg] [facility] 05-27-2017 14:00-0500 Pulse (Heart Rate) 52 /min [facility]: 05-27-2017 14:00-0500 Pulse Oximetry 99 % [facility]: 05-27-2017 14:00-0500 Respiratory Rate 11 /min [facility]: 05-27-2017 07:38-0500 BMI (Body Mass Index) 31.09 kg/m2 Laura Richard [facility] Work Phone: 05-27-2017 07:38-0500 Height 179.[address] [facility] Work Phone: 05-27-2017 07:38-0500 Weight 99.[address] [facility] Work Phone: 05-21-2017 14:38-0500 BMI (Body Mass Index) 31.31 kg/m2 [facility] Work Phone: 05-21-2017 14:38-0500 Body Temperature 97.81 [degF] [facility]: 05-21-2017 14:38-0500 BP Diastolic 95 mm[Hg] [facility] Work Phone: 05-21-2017 14:38-0500 BP Systolic 153 mm[Hg] [facility] Work Phone: 05-21-2017 14:38-0500 Height 179.1 cm [facility] [employer] Work Phone: 05-21-2017 14:38-0500 Pulse (Heart Rate) 69 /min [facility] [employer] Work Phone: 05-21-2017 14:38-0500 Pulse Oximetry 93 % [facility] Work Phone: 05-21-2017 14:38-0500 Weight 100.[address] [facility] Work Phone: 05-19-2017 06:36-0500 BP Diastolic 70 mm[Hg] Trang Bray [facility] Work Phone: 05-19-2017 06:36-0500 BP Systolic 138 mm[Hg] Trang Bray [facility] Work Phone: 05-19-2017 06:36-0500 Pulse (Heart Rate) 72 /min [facility]ang Bray [facility] Work Phone: 05-19-2017 06:36-0500 Pulse Oximetry 96 % Trang Bray [facility] Work Phone: 05-19-2017 06:36-0500 Respiratory Rate 16 /min [facility]ang Bray [facility] Work Phone: 05-19-2017 04:32-0500 BMI (Body Mass Index) 31.97 kg/m2 [facility] Bray [facility] Work Phone: 05-19-2017 04:32-0500 Height 179.[address] [facility] Work Phone: 05-19-2017 04:32-0500 Weight 102.[address] [facility] Work Phone: 05-19-2017 04:28-0500 Body Temperature 97.11 [degF] Trang Bray [facility] Work Phone: Encounters Encounter Date Encounter Type Care Provider Facility Start: 03-10-2023 End: 03-10-2023 ambulatory Aaron Bush Other [employer] Other Start: 03-10-2023 Telephone encounter Aaron Howell [facility] Start: 03-04-2023 End: 03-04-2023 ambulatory Aaron Bush Other [employer] Other Start: 03-04-2023 Telephone encounter Aaron Ball [facility] Start: 03-02-2023 End: 03-02-2023 ambulatory Aaron Bush Other [employer] Other Start: 03-02-2023 Telephone encounter Aaron Bush [facility] Start: 12-25-2022 End: 12-25-2022 ambulatory Aaron Bush Other [employer] Other Start: 12-25-2022 Telephone encounter Aaron Bush [facility] Start: 12-24-2022 End: 12-24-2022 ambulatory Aaron Bush Other [employer] Other Start: 12-24-2022 Telephone encounter Aaron Bush [facility] Start: 12-16-2022 End: 12-16-2022 ambulatory Aaron Bush Other [employer] Other Start: 12-16-2022 Patient encounter procedure Aaron Bush [facility] Start: 12-16-2022 Telephone encounter Aaron Bush [facility] Start: 12-10-2022 End: 12-10-2022 ambulatory Aaron Bush Other [employer] Other Start: 12-10-2022 Telephone encounter Aaron Bush [facility] Start: 12-04-2022 End: 12-04-2022 ambulatory Aaron Bush Other [employer] Other Start: 12-04-2022 Telephone encounter Aaron Bush [facility] Start: 09-16-2022 End: 09-17-[address] DOCTOR KHALIL Facility: Start: 09-14-2022 End: 09-14-2022 ambulatory Craig Ken Other [employer] Other Start: 09-14-2022 Office outpatient vi sit 15 minutes Craig Ken [facility] Start: 09-09-2022 End: 09-09-2022 ambulatory Aaron Bush Other [employer] Other Start: 09-09-2022 Telephone encounter Aaron Howell [employer] Start: 09-08-2022 End: 09-08-2022 ambulatory Imad Asaad Other [employer] Other Start: 09-08-2022 Telephone encounter Imad Asaad [facility] Start: 08-26-2022 Telephone encounter Aaron KING [facility] Start: 08-26-2022 End: 08-26-2022 Admission to same day surgery center DO Aaron Eleazar Work Phone: [facility] Work Phone: Start: 08-26-2022 End: 08-26-2022 ambulatory DO Aaron Bush Work Phone: [facility] Work Phone: Start: 08-13-2022 End: 08-13-2022 ambulatory Aaron Bush Other [employer] Other Start: 08-13-2022 Telephone encounter Aaron Howell [employer] Start: 07-28-2022 End: 07-28-2022 ambulatory Imad Asaad Other [employer] Other Start: 07-28-2022 Telephone encounter Imad Asaad [facility] [employer] Start: 07-16-2022 End: 07-16-2022 ambulatory Aaron Bush Other [employer] Other Start: 07-16-2022 Office outpatient vi sit 25 minutes Aaron Bush [facility] Start: 07-16-2022 Telephone encounter [facility] Start: 07-13-2022 End: 07-14-[address] AARON BUSH Facility:[facility] Start: 06-15-2022 End: 06-15-2022 ambulatory Aaron Bush Other [employer] Other Start: 06-15-2022 Telephone encounter Aaron Howell [facility] Start: 03-04-2022 End: 03-05-[address] AARON BUSH Facility:[facility] Start: 12-30-[address] AARON BUSH Facili ty:[facility] Start: 12-17-2021 Adult health examination Aaron Bush Other [facility] [employer] Other Start: 12-16-2021 End: 12-17-[address] AAORN BUSH Facility:[facility] Start: 07-08-2020 End: 07-08-2020 Orders Only Sarika Souza Toñito Work Phone: [facility] Start: 11-06-2018 End: 11-06-2018 Patient encounter procedure NUPUR TONY [facility] Start: 11-06-2018 End: 11-06-2018 Office outpatient new 20 minutes Allison Rachael Allenwell Work Phone: [facility] Comment on above: Abrasion of left eye , initial encounter (Primary Dx) Start: 02-17-2018 End: 02-17-2018 Patient encounter LAURAANGELINA VIEYRA [facility] Start: 02-17-2018 End: 02-17-2018 Patient encounter Laura Richard Work Phone: [facility] Comment on above: Post-op pain (Primar y Dx) Start: 10-22-2017 End: 10-22-2017 Ambulatory LAURA JARRELL JOSE ALBERTOARMANDO [facility] Start: 10-15-2017 End: 10-16-2017 Ambulatory LAURA JARRELL RICHARD [facility] Start: 10-15-2017 End: 10-15-2017 Ambulatory Laura Regaladoarmando Work Phone: [facility] Scan Start: 08-05-2017 End: 08-05-2017 Ambulatory Laura Jarrell Richard Work Phone: [facility] Start: 07-29-2017 End: 07-29-2017 Ambulatory Laura Vieyra Jose Manuel Work Phone: [facility] Start: 07-21-2017 End: 07-21-2017 Ambulatory Laura Richard Work Phone: [facility] Start: 05-27-2017 End: 05-27-2017 Patient encounter LAURA VIEYRA [facility] Start: 05-27-2017 End: 05-27-2017 Ambulatory Laura Richard Work Phone: [facility] Start: 05-21-2017 Encounter for other preprocedural examination [facility] Start: 05-21-2017 Encounter for preprocedural cardiovascular examination [facility] Start: 05-21-2017 End: 05-21-2017 Patient encounter LUARAANGELINA VIEYRA [facility] Start: 05-21-2017 Office consultation Laura Richard Work Phone: [facility] Start: 05-19-2017 End: 05-19-2017 Emergency department patient visit NUPUR [facility] Start: 05-19-2017 End: 05-19-2017 Emergency department patient visit Trang Bray Work Phone: [facility] Encounter for other preprocedural examination [facility] Encounter for preprocedural cardiovascular examination [facility] Procedures Date Procedure Procedure Detail Performing Clinician Start: 08-26-2022 Esophagogastroduodenoscopy DO Aaron delgado Work Phone: Start: 12-16-[address] AARON BUSH Comment on above: Performed By: #### [facility] ####Far[facility] [id number] [place], [place] [address]JqMere Amos Start: 02-17-2018 End: 02-17-2018 Hemoglobin and [...] Activity Detail Author Start: 09-04-[address] [facility] Work Phone: Start: 08-26-2022 End: 08-26-2022 [facility] Start: 01-30-2020 Influenza vaccination given Sequential Influenza Vaccine (#1) [facility] Start: 2019 Pneumococcal vaccination Pneumococcal Vaccine Age 65+ (1 of 2 - PCV13) [facility] Start: 01-29-2019 Influenza vaccination given SEQUENTIAL INFLUENZA VACCINE (Season Ended) [facility] Start: 01-29-[address] [facility] Start: 08-12-2017 Ambulatory 08/12/2017 Treatment Rehabilitation Laura Richard, DO [address] [place] [address] [phone] Shila Islas, PT [address] [place] [address] [facility] Start: 08-10-2017 Ambulatory 08/10/2017 Treatment Rehabilitation Laura Richard, DO [address] [place] [address] [phone] Leia Richardson, PT [facility] Start: 08-05-2017 Ambulatory 08/05/2017 Treatment Laura Han, DO [address] [place] [address] [phone] Dk Treadwell, [employer] [facility] Start: 08-03-2017 Ambulatory 08/03/2017 Treatment Laura Han, DO [address] [place] [address] [phone] Leia Richardson, PT [facility] Start: 07-29-2017 Ambulatory 07/29/2017 Treatment Rehabilitation Laura Richard, DO [address] [place] [address] [phone] Shila Islas, PT [address] [place] [address] [facility] Start: 05-27-2017 Ambulatory [facility] Start: 05-21-2017 Ambulatory 05/21/2017 Office Visit Pre-Admission Testing Laura Richard, DO [address] [place] [address] [phone] Pre-op examination (Primary Dx); Varus deformity, not elsewhere classified, left ankle [facility] Start: 01-29-2017 Influenza vaccination SEQUENTIAL INFLUENZA VACCINE (#1) [facility] Work Phone: Start: 2014 Zoster vacc, sc ZOSTER VACCINE [facility] Work Phone: Start: 2004 Administration of herpes zoster vaccine Zoster Vaccines (1 of 2) [facility] Start: 2004 Screening for malignant neoplasm of colon [facility] Start: 2004 ZOSTER VACCINES (1 of 2) ZOSTER VACCINES (1 of 2) [facility] Start: 1972 Hepatitis C antibody, confirmatory test Hepatitis C Screening [facility] Start: 1970 COVID-19 Vaccine (1 of 2) COVID-19 Vaccine (1 of 2) [facility] Start: 1969 HIV [facility] Start: 1966 Adolescent depression screening assessment Depression Screening (PHQ9) [facility] Start: 1957 History and physical examination, annual for health maintenance Wellness Visit [facility] Start: 1954 Fall risk assessment Falls Risk Assessment [facility] Start: 1954 Hepatitis C antibody, confirmatory test [facility]IS [facility] Start: 1954 HEPATITIS C SCREENING HEPATITIS C SCREENING [facility] Work Phone: Start: 1954 Prostate specific antigen measurement PSA Level [facility] Start: [address] [facility] Work Phone: Start: 1954 Screening for malignant neoplasm of colon Colorectal Cancer Screening: Colonoscopy [facility] Start: 1954 US scan of abdominal aorta Abdominal Aortic Ultrasound [facility] End: 05-19-2017 Bacteria aerobode culture Urine Aerobic Culture Routine Once for 1 Occurrences starting 05/19/2017 until 05/19/2017 [facility] Work Phone: Bacteria aerobode culture Urine Aerobic Culture Routine 05/19/2017 6:[address] [facility] Work Phone: ECG 12 Lead ECG 12 Lead Rout ine Pre-op examination Ordered: 05/21/2017 [facility] Work Phone: Patient Education Gastric Ulcer (DC) Colon Polypectomy (DC) [facility] Work Phone: Immunizations Immunization Date Immunization Notes Care Provider [facility] 05-26-2021 COVID-19 Vaccine Pfi zer - Documentation Purposes Only Aaron Bush Other [employer] Other 11-01-2020 COVID-19 Vaccine Pfi zer - Documentation Purposes Only Aaron Eleazar Other [employer] Other 10-11-2020 COVID-19 Vaccine Pfi zer - Documentation Purposes Only Aaron Bush Other [employer] Other 07-19-2019 zoster vaccine recombinant Aaron Ball Other [employer] Other 07-01-2019 pneumococcal conjuga te vaccine, 13 valent Aaron Bush Other [employer] Other 12-13-2018 zoster vaccine recombinant Aaron Ball Other [employer] Other 09-05-2015 pneumococcal polysaccharide vaccine, 23 valent Aaron Bush Other [employer] Other Payers Date Payer Category Payer Self-pay 2020 Medicare [id number] [id number]. [id number] 2016 Unknown [id number] 2016 Unknown [id number] 2016 Unknown [id number] 2016 Unknown [place] GARCIA/PREF/HMO/PPO [id number] 2016-Present [id number] 1959 Medicare [id number] 1959 Medicare [id number] 1954 Unknown [id number] 1954 Unknown [id number] 1954 Unknown [id number] 1954 Unknown [id number] 1954 Unknown [id number] 1954 Unknown [id number] Unknown [id number] Social History Date Type Detail Facility Start: 05-27-2017 End: 08-26-2022 Tobacco smoking status NHIS Former smoker [facility] End: 04-30-2017 History of tobacco use Current smoker [employer] Work Phone: Sex Assigned At Not on file [employer] Work Phone: Start: 05-19-2017 Tobacco smoking status CTIS Current every day smoker [facility] Work Phone: Start: 11-06-2018 End: 04-30-2017 Tobacco smoking status NHIS Current some day smoker [facility] Start: 05-21-2017 Tobacco Comment social [facility] Start: 02-11-2018 Alcohol Comment weekly [facility] Start: 11-06-2018 Tobacco use and exposure Never used [facility] Start: 11-06-2018 Alcohol intake Current drinke r of alcohol (finding) [facility] Sex Assigned At Sex Assigned At Bir th [employer] Other Start: 1955 Sex Assigned At Male F [facility] Medical Equipment Procedure Code Equipment Code Equipment Origin al Text Equipment Identifier Dates [place] 1.45mm #2 Soft Short Rigid Juggerknot W/Drill Bit - [id number] Start: 05-27-2017 Allograft 5cc Fiber Dbm Stagraft - [id number] Start: 05-27-2017 Graft Femoral He ad - [id number] Start: 05-27-2017 Screw 3.5 X 32mm Low Profile Steven - [id number] Start: 05-27-2017 Screw 3.5 X 34mm Low Profile Steven - [id number] Start: 05-27-2017 Screw 3.5 X 34mm Steven Lock - [id number] Start: 05-27-2017 Screw 3.5 X 12mm Steven Lock - [id number] Start: 05-27-2017 Plate 6hl Fib Lo ck - [id number] Start: 05-27-2017 [place] 1.45mm #2 Soft Short Rigid Juggerknot W/Drill Bit - [id number] Start: 05-27-2017 Allograft 5cc Fiber Dbm Stagraft - [id number] Start: 05-27-2017 Graft Femoral He ad - [id number] Start: 05-27-2017 Screw 3.5 X 32mm Low Profile Steven - [id number] Start: 05-27-2017 Screw 3.5 X 34mm Low Profile Steven - [id number] Start: 05-27-2017 Screw 3.5 X 34mm Steven Lock - [id number] Start: 05-27-2017 Screw 3.5 X 12mm Steven Lock - [id number] Start: 05-27-2017 Plate 6hl Fib Lo ck - [id number] Start: 05-27-2017 [place] 1.45mm #2 Soft Short Rigid Juggerknot W/Drill Bit - [id number] Start: 05-27-2017 Allograft 5cc Fiber Dbm Stagraft - [id number] Start: 05-27-2017 Graft Femoral He ad - [id number] Start: 05-27-2017 Screw 3.5 X 32mm Low Profile Steven - [id number] Start: 05-27-2017 Screw 3.5 X 34mm Low Profile Steven - [id number] Start: 05-27-2017 Screw 3.5 X 34mm Steven Lock - [id number] Start: 05-27-2017 Screw 3.5 X 12mm Steven Lock - [id number] Start: 05-27-2017 Plate 6hl Fib Lo ck - [id number] Start: 05-27-2017 [place] 1.45mm #2 Soft Short Rigid Juggerknot W/Drill Bit - [id number] Start: 05-27-2017 Allograft 5cc Fiber Dbm Stagraft - [id number] Start: 05-27-2017 Graft Femoral He ad - [id number] Start: 05-27-2017 Screw 3.5 X 32mm Low Profile Steven - [id number] Start: 05-27-2017 Screw 3.5 X 34mm Low Profile Steven - [id number] Start: 05-27-2017 Screw 3.5 X 34mm Steven Lock - [id number] Start: 05-27-2017 Screw 3.5 X 12mm Steven Lock - [id number] Start: 05-27-2017 Plate 6hl Fib Lo ck - [id number] Start: 05-27-2017 [place] 1.45mm #2 Soft Short Rigid Juggerknot W/Drill Bit - [id number] Start: 05-27-2017 Allograft 5cc Fiber Dbm Stagraft - [id number] Start: 05-27-2017 Graft Femoral He ad - [id number] Start: 05-27-2017 Plate 6hl Fib Lo ck - [id number] Start: 05-27-2017 Screw 3.5 X 32mm Low Profile Steven - [id number] Start: 05-27-2017 Screw 3.5 X 34mm Low Profile Steven - [id number] Start: 05-27-2017 Screw 3.5 X 34mm Steven Lock - [id number] Start: 05-27-2017 Screw 3.5 X 12mm Steven Lock - [id number] Start: 05-27-2017 Screw 3.5 X 18mm Steven Lock - [id number] Screw 3.5 X 38mm Low Profile Steven - [id number] [place] 1.45mm #2 Soft Short Rigid Juggerknot W/Drill Bit - [id number] Start: 05-27-2017 Allograft 5cc Fiber Dbm Stagraft - [id number] Start: 05-27-2017 Graft Femoral He ad - [id number] Start: 05-27-2017 Screw 3.5 X 32mm Low Profile Steven - [id number] Start: 05-27-2017 Screw 3.5 X 34mm Low Profile Steven - [id number] Start: 05-27-2017 Screw 3.5 X 34mm Steven Lock - [id number] Start: 05-27-2017 Screw 3.5 X 12mm Steven Lock - [id number] Start: 05-27-2017 Plate 6hl Fib Lo ck - [id number] Start: 05-27-2017 Plate, Lateral Fibula, Sml, Right Start: 02-17-2018 Pin, Temporary Fixation Start: 02-17-2018 Screw, Locking Start: 02-17-2018 Screw, Locking Start: 02-17-2018 Screw, Locking Start: 02-17-2018 Screw, Non-Locking Start: 02-17-2018 Screw, Non-Locking Start: 02-17-2018 Screw, Non-Locking Start: 02-17-2018 Stagraft Fiber Start: 02-17-2018 Pin, Temporary Fixation Screw, Non-Locking Plate Screws [place] 1.45mm #2 Soft Short Rigid Juggerknot W/Drill Bit - [id number] Start: 05-27-2017 Allograft 5cc Fiber Dbm Stagraft - [id number] Start: 05-27-2017 Graft Femoral He ad - [id number] Start: 05-27-2017 Screw 3.5 X 32mm Low Profile Steven - [id number] Start: 05-27-2017 Screw 3.5 X 34mm Low Profile Steven - [id number] Start: 05-27-2017 Screw 3.5 X 34mm Steven Lock - [id number] Start: 05-27-2017 Screw 3.5 X 12mm Steven Lock - [id number] Start: 05-27-2017 Plate 6hl Fib Lo ck - [id number] Start: 05-27-2017 Plate, Lateral Fibula, Sml, [...] FRANCY (generalized anxiety disorder) (ICD-10 - F41.1) [employer] Other 10-05-2023 Evaluation note* Encounter Date Diagnosis Assessment Notes Treatment Notes Treatment Clinical Notes Feb, FRANCY (generalized anxiety disorder) (ICD-10 - F41.1) [employer] Other 10-03-2023 Evaluation note* Encounter Date Diagnosis Assessment Notes Treatment Notes Treatment Clinical Notes Feb, FRANCY (generalized anxiety disorder) (ICD-10 - F41.1) [employer] Other 07-27-2023 Evaluation note* Encounter Date Diagnosis Assessment Notes Treatment Notes Treatment Clinical Notes Nov, Left ventricular systolic dysfunction (LVSD) without heart failure (ICD-10 - I51.9) 27 Freddy, 2023 Abnormal stress test (ICD-10 - R94.39) [employer] Other 07-19-2023 Evaluation note* Encounter Date Diagnosis [...] (ICD-10 - Z12.5) Yearly KATELYNN and PSA [employer] Other 07-13-2023 Evaluation note* Encounter Date Diagnosis Assessment Notes Treatment Notes Treatment Clinical Notes Nov, Iron deficiency anemia due to chronic blood loss (ICD-10 - D50.0) [employer] Other 07-07-2023 Evaluation note* Encounter Date Diagnosis Assessment Notes Treatment Notes Treatment Clinical Notes Nov, Hypercholesterolemia (ICD-10 - E78.00) Nov, Screening PSA (prost ate specific antigen) (ICD-10 - Z12.5) Nov, High risk medication use (ICD-10 - Z79.899) Nov, IFG (impaired fastin g glucose) (ICD-10 - R73.01) Nov, Anemia, unspecified type (ICD-10 - D64.9) [employer] Other 04-17-2023 Evaluation note* Encounter Date Diagnosis [...] are. Otherwise patient to follow as needed. [employer] Other [facility]* Encounter Date Diagnosis Assessment [...] They may safely use Tylenol as needed. [employer] Other 01-16-2023 Evaluation note* Encounter Date Diagnosis Assessment Notes Treatment Notes Treatment Clinical Notes May, Acute anemia (ICD-10 - D64.9) [employer] Other 07-19-2022 NotePROCEDURE: XR KNEE LT 3V [...] authenticated by: SILVIA LI Date: 2021-12-16 21:52[facility] noteNo InformationNortLifecare [facility] [employer] Other Evaluation noteNo assessment information available [facility] Work Phone: History and physical note Author [facility] August 26, 2022 9:51am Note Date/Time August 26, 2022 9:[address] [facility] [address] [place] [address] Gastroenterology H&P Signed Patient: Zena Witt MR#: [id number] : 1955 Acct:[id number] Age/Sex: 67 / M Adm Date: 3 Loc: Room: Type: [facility] Attending Dr: Nino Russell MD Copies to: [...] By: <Electronically signed by Nino Russell MD> 08/26/2210 [facility] Work Phone: History general Narrative [...] TOTAL KNEE ARTHROPLASTY Hospitalization History SEE SURGICAL [employer] Other History general Narrative - Reported* Type [...] Surgical History APPENDECTOMY Surgical History RPR UMBIL TRYO, REDUC > 5 YR Surgical History TOTAL KNEE ARTHROPLASTY Surgical History EDG w/ biopsy 07/2022 Surgical History Colonoscopy w/ polypectomy 08/17 22 Hospitalization History SEE SURGICAL [employer] Other Hospital Discharge instructions Additional Instructions DISCHARGE [...] -Follow up with PCP. - Office number [phone]. [facility] Work Phone: Assessments Diagnosis Varus [...] your doctor if you can take an autp-onl-txgtftv medicine. Take your pain medicine as soon [...] Log into your personal health record on [email or web address] and enter M536 in the Education box [...] sent through Care Everywhere. * FLANK PAIN (MALAGASY) in this encounter* Tabitha Fenton CNP - [...] your surgery date, please call us at [phone] Preoperative Medication Instructions In preparation for surgery please continue all of your current medications with the following changes: Zena Witt Home Medication Instructions Prior to Surgery CAILIN:[id number] Printed on:05/21/17 9610 Medication Information Take last dose on Take [...] MG capsule TAKE 1 CAPSULE DAILY @ [facility] for GERD yes gemfibrozil (LOPID) [...] or as directed by MD . no efijcldd-qicg-xno-folic acid (mypeufojvzbb-gtra-shekalty-folic acid) 3,500-18-0.4 unit-mg-mg Chew Chew and Swallow [...] medications that contain aspirin, such as [place], Pepto- Bismol, Anacin), antiinflammatory medications such as Advil, Motrin, Ibuprofen, Naproxen, Aleve, [place], Pepto-Bismol, Anacin, Diclofenac, Voltaren, Daypro, Etodolac, Ketoprofen, Piroxicam, Relafen, Nabumetone, etc. Also discontinue Vitamin C, Vitamin E, Darby-3 Fatty Acid, Fish Oil or Lovaza, and [...] Log into your personal health record on [email or web address] and enter Z736 in the Education box to learn more about Feeling of an Object in the Eye: Care Instructions. Current as of: February 20, 2018 Content Version: 12.0 9976-1605 [employer]. Care instructions adapted under license by your healthcare professional. If you have questions about a medical condition or this instruction, always ask your healthcare professional. [employer] disclaims any warranty or liability for your use of this information. 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 [address] [facility] [id number] : 1955 DATE OF VISIT: 11/06/2018 #: [...] morning . meloxicam (MOBIC) 15 MG tablet ipejdxef-jnbf-gzi-folic acid (odmwxgvcwhyw-jwqp-histldze-folic acid) 3,500-18-0.4 unit-mg-mg Chew Chew and Swallow [...] morning . meloxicam (MOBIC) 15 MG tablet qccxhuqi-lpna-fuz-folic acid (mkjsnfxbljjz-lpud-rqtfyjup-folic acid) 3,500-18-0.4 unit-mg-mg Chew Chew and Swallow [...] iron deficienc y anemia (D50.8) Referral Organization [facility] [place] John witt Referring Provider First Name Aaron Referring Provider Last Name Eleazar Referring Provider Specialty Internal Me dicine Referred Organization [facility] Kerryolo gy Referred Provider Nino Russell Referred Address [address],[address] Referred Provider Specialty Gastroentero logy Referral Priority [...] is of left knee (M17.12) Referral Organization [facility] Referring Provider First Name Aaron Referring Provider Last Name Eleazar Referring Provider Specialty Internal Me dicine Referred Organization [facility] Referred Provider Rik Villalobos Referred Address [address] [facility] [address] [place],[address] Referred Provider Specialty Orthopedic S urgery Referral [...] Zena Witt Admit Date: [id number] MR #: [id number] : 1955 The H&P has been reviewed [...] acceptable for elective surgery based on 2014 [place] College [employer] Card[employer]/[place] Heart Association (ACC/AHA) guidelines on Perioperative Cardiovascular [...] or GERD noted (K21.9) Well controlled with PPI/P2Sxsnhwm which should be dosed perioperatively on usual [...] EXCISION TIBIA, BROSTRUM, WEI, TIBIAL OSTEOTOMY @ [facility] on 05/27. Patient reports that he has [...] 05/21/2017 Bleeding disorder (HCC) 05/21/2017 Cancer ([facility] 05/21/2017 Complication of anesthesia 05/21/2017 Coronary artery disease 05/21/2017 Deep vein thrombosis (HCC) 05/21/2017 Diabetes mellitus type I (HCC) 05/21/2017 Diabetes mellitus, type 2 ([facility]) 05/21/2017 History of blood transfusion [...] 12 hours or as directed by MD ekemuhhq-cacl-que-folic acid (nqprmuseosua-dkjs-wusjnvhp-folic acid) 3,500-18-0.4 unit-mg-mg Chew Chew and Swallow [...] kg/m Constitutional--Conversant, in no acute distress Eyes: [place] conjunctivae, no ptosis. Pupils equal Bilaterally, Anicteric [...] patient for surgery includes - More recent [facility] electronic records reviewed pertinent to history. [...] acceptable for elective surgery based on 2014 [place] [employer] Card[employer]/[place] Heart Association (ACC/AHA) guidelines on Perioperative Cardiovascular [...] or GERD noted (K21.9) Well controlled with PPI/L2Joatflo which should be dosed perioperatively on usual [...] EXCISION TIBIA, BROSTRUM, WEI, TIBIAL OSTEOTOMY @ [facility] on 05/27. Patient reports that he has [...] 05/21/2017 Bleeding disorder (HCC) 05/21/2017 Cancer ([facility]) 05/21/2017 Complication of anesthesia 05/21/2017 Coronary artery disease 05/21/2017 Deep vein thrombosis (HCC) 05/21/2017 Diabetes mellitus type I ([facility]) 05/21/2017 Diabetes mellitus, type 2 ([facility]) 05/21/2017 History of blood transfusion 05/21/2017 Hypertension 05/21/2017 No blood products 05/21/2017 Pulmonary embolism (HCC) 05/21/2017 Rheumatoid arthritis ([facility]) 05/21/2017 Sleep apnea, obstructive 05/21/2017 [...] 12 hours or as directed by MD ertqnaso-famq-mlu-folic acid (vlcdvohfwqnv-jasi-eikicnnu-folic acid) 3,500-18-0.4 unit-mg-mg Chew Chew and Swallow [...] kg/m Constitutional--Conversant, in no acute distress Eyes: [place] conjunctivae, no ptosis. Pupils equal Bilaterally, Anicteric [...] patient for surgery includes - More recent [facility] electronic records reviewed pertinent to history. OUTSIDE RECORDS REQUESTED NONE in this encounter INTERVAL HISTORY AND PHYSICAL Patient Name: Zena Witt Admit Date: [id number] MR #: [id number] : 1955 The H&P has been reviewed [...] (unrecog nized section and content) WITTZENA CHEUNG [facility] [id number] 1955 DATE 05/27/2017 OPERATIVE REPORT SURGEON LAURA RICHARD, DO PLY CUTTER ALLISON CLEMENTE, DO PLY CUTTER 2 ANALI DIANE PA-C PREOPERATIVE DIAGNOSES 1. [...] tissue up to the fibula in a jqwxi-rknd-jzbf fashion. We still had some laxity distally, [...] DO LAURA MONTES DO D 05/27/2017 13:18 [id number] T 05/27/2017 14:01 [facility] Formatting of this note may be different from the original. Brief Post Operative Note Patient Name: Zena Witt : 1955 (61 y.o.) Date of Service: 05/27/2017 [facility]: [id number] Procedure(s): LEFT ANKLE ARTHROSCOPY WITH DEBRIDEMENT, PARTIAL EXCISION TIBIA, BROSTRUM, WEI, TIBIAL OSTEOTOMY Pre-Operative Diagnoses: * LEFT VARUS ANKLE, INSTABILITY, TIBIA EXOSTOSIS Post-Operative Diagnoses: * Same as Pre-Op Diagnosis Surgeon(s) and Role: * Allison Clemente DO - Fellow * Laura Richard DO - Primary Anesthesiologist: Darrius Rand MD RECOVERY SPECIALIST: Craig [address] CRNA Scoreboard Operator: Keyona Solorio RN Physician Victims Advocate Clerk/Specialist: Anali Diane PA-C Relief Scoreboard Operator: Eden Adam RN Relief Scrub: Debbie Ireland [...] Implant Name Type Inv. Item Serial No. Director Maternal Child Lot No. LRB No. Used Action GRAFT FEMORAL HEAD - [id number] Graft GRAFT FEMORAL HEAD LIFENET Left 1 Implanted ANCHOR 1.45MM #2 SOFT SHORT RIGID JUGGERKNOT W/DRILL BIT - [id number] [place] ANCHOR 1.45MM #2 SOFT SHORT RIGID JUGGERKNOT W/DRILL BIT BIOMET SPORT [id number] Left 1 Implanted ALLOGRAFT 5CC FIBER DBM STAGRAFT - [id number] Bone ALLOGRAFT 5CC FIBER DBM STAGRAFT BIOMET INC [id number] Left 1 Implanted SCREW 3.5 X 32MM LOW PROFILE STEVEN - [id number] SCREW 3.5 X 32MM LOW PROFILE STEVEN BIOMET SP/TR Left 1 Implanted SCREW 3.5 X 34MM LOW PROFILE STEVEN - [id number] SCREW 3.5 X 34MM LOW PROFILE STEVEN BIOMET SP/TR Left 2 Implanted SCREW 3.5 X 34MM STEVEN LOCK - [id number] SCREW 3.5 X 34MM STEVEN LOCK BIOMET SP/TR Left 1 Implanted SCREW 3.5 X 12MM STEVEN LOCK - [id number] SCREW 3.5 X 12MM STEVEN LOCK BIOMET SP/TR Left 1 Implanted PLATE 6HL FIB LOCK - [id number] PLATE 6HL FIB LOCK BIOMET SP/TR Left 1 Implanted Drain(s): Wound(s): Allison Clemente, 05/27/2017 1:04 PM in this encounter Patient is resting comfortably. Call light within reach. Patient updated on continued plan of care. Formatting of this note may be different from the original. PCP - Nupur Gil MD [phone] Chief Complaint Patient presents with Flank Pain Abdominal Pain HPI: Dictation on: 05/19/2017 4:40 AM by: TRANG BRAY [[id number]] Review of Systems Constitutional: No fevers Skin: [...] 6 (six) hours as needed for pain. GZRHOAPC-YWWP-LBN-FOLIC ACID (EDYIRFVSUOZR-DIWD-VRGYXHBS-FOLIC ACID) 3,500-18-0.4 UNIT-MG-MG CHEW Chew and Swallow. [...] following orders were created for panel order Stacy Draw. Procedure Abnormality Status --------- ------ Lavender Top[[id number]] Final result Mint Green Top[[id number]] Final result Please view results for these tests on the individual orders. LAVENDER TOP MINT GREEN TOP CBC AND DIFFERENTIAL Narrative: The following orders were created for panel order CBC w/ Diff. Procedure Abnormality Status --------- ------ CBC Auto Differential[[id number]] Abnormal Final result Please view results for [...] chest CT for further evaluation. Radiology 2017 http://pubs.rsna.org/doi/full/10.1148/radiol.9223673992 Managing Incidental Adrenal Nodule > or equal to 1 cm Benign adrenal nodule - No follow up is required (including myelolipomas, adenomas, or nodules stable for > or equal to 1 year) Reference: Tyrone et al. Managing Incidental Findings on Abdominal CT: White Paper of the ACR Incidental Findings Committee. J Am Anup Radiol 2010;7:754-773 Workstation ID: [id number] Vital Signs During ED Visit (as charted [...] 1955 (62 y.o.) Date of Service: 02/17/2018 [facility]: [id number] Procedure(s): LEFT TIBIAL NON UNION BONE GRAFT, CALCANEAL BONE GRAFT Pre-Operative Diagnoses: * LEFT TIBIA NON UNION Post-Operative Diagnoses: Surgeon(s) and Role: * Laura Richard, DO - Primary * Jarrell Cuellar DO - Resident - Assisting Anesthesiologist: Tello London MD; Trenton Qureshi MD RECOVERY SPECIALIST: Adia Hodge CRNA Scoreboard Operator: Keyona Solorio RN Relief Scoreboard Operator: Eden Adam RN Relief Scrub: ST Ada Scrub Person: ST Obed Renteria RN: oYjana Ordaz RN Operative findings: per op note Intra and immediate post-operative complications: none Type of anesthesia used: Regional, General Estimated blood loss: 25 mL Estimated urine output: 0 mL Specimen(s): * No specimens in log * Implant(s): Implant Name Type Inv. Item Serial No. Director Maternal Child Lot No. LRB No. Used Action [employer]ET [id number] Left 1 Implanted PLATE, LATERAL FIBULA, SML, [...] (unrecognized section and content) Patient Inst[facility] for [facility]: Prior to surgery: Please be sure to wear loose, comfortable clothing and non-skid shoes Bring your health insurance information and a photo ID, as well as your Living Will or Durable Power of Bridge Maintenance Worker for Healthcare if it is available to you. Bring your cane/walker any applicable assistive device. If you currently use a CPAP, please bring this device with you on the day of surgery. Bring a list of your medications with the name of the medication, dose and how often you are taking it. Be sure to include herbal preparations and hcjm-voj-fklewjn medications on this list. Do not eat [...] of lotions, perfumes or powders. All nail sinhala is to be removed from fingernails and [...] the day of your surgery/procedure. Parking at [facility] is free. Please park in the lot in front of the main lobby. Enter the Main Entrance where a New Car Sales Manager Liaison at the information desk will greet [...] of your surgery preparation process here at [facility]. It will provide you with additional [...] DOS in this encounter Patient Instructions for [facility]: Prior to surgery: Please be sure to wear loose, comfortable clothing and non-skid shoes Bring your health insurance information and a photo ID, as well as your Living Will or Durable Power of Bridge Maintenance Worker for Healthcare if it is available to you. Bring your cane/walker any applicable assistive device. If you currently use a CPAP, please bring this device with you on the day of surgery. Bring a list of your medications with the name of the medication, dose and how often you are taking it. Be sure to include herbal preparations and kjgb-igo-tcxyluo medications on this list. Do not eat [...] of lotions, perfumes or powders. All nail sinhala is to be removed from fingernails and [...] the day of your surgery/procedure. Parking at [facility] is free. Please park in the lot in front of the main lobby. Enter the Main Entrance where a New Car Sales Manager Liaison at the information desk will greet [...] of your surgery preparation process here at [facility]. It will provide you with additional [...] section and content) DATE CREATED AUTHOR 11/17/2017 [facility] DATE CREATED AUTHOR AUTHOR'S ORGANIZ ATION 11/17/2017 [facility] DATE CREATED AUTHOR AUTHOR'S ORGANIZ ATION 03/18/2018 [facility] DATE CREATED AUTHOR AUTHOR'S ORGANIZ ATION 01/09/2019 [facility] DATE CREATED AUTHOR AUTHOR'S ORGANIZ ATION 08/22/2020 [facility] DATE CREATED AUTHOR AUTHOR'S ORGANIZ ATION 09/20/2022 [facility] DATE CREATED AUTHOR AUTHOR'S ORGANIZ ATION 09/28/2022 [facility] Reason for Visit (unrecogniz ed section [...] BE BASED ON THE PRIMARY CLINICAL RECORDS. [employer] [facility]. provides no warranty or guarantee of the accuracy or completeness of information in this document.
--- NOTE | 2024-05-05 06:45 | CT_ITS ---
[address] [address] Patient Name: ZENA TAMEZ MRN: [id number] date: 1955 Sex: M Assigned Patient Location: LAB Current Patient Location: LAB Accession/Order Number: [id number] Exam Date: 05/05/2024 08:25 Report Date: 05/05/2024 15:58 At the request of: WILLI BUSH Procedure: CT abdomen pelvis w con EXAMINATION: CT abdomen pelvis w con HISTORY: Gastritis, Anemia, Epigastric Pain COMPARISON: No relevant comparison available. TECHNIQUE: Axial, Coronal, and Sagittal images were obtained without and/or with IV contrast as indicated by examination type. Dose reduction techniques were achieved by using automated exposure control and/or adjustment of mA and/or kV according to patient size and/or use of iterative reconstruction technique. FINDINGS: LUNG BASES: No visible pulmonary or pleural disease. LIVER: No enlargement, atrophy, suspicious density, or significant focal lesion. BILIARY: 2.1 cm stone within noninflamed gallbladder. PANCREAS: No lesion, fluid collection, or abnormal duct dilatation. SPLEEN: No enlargement or focal lesion. ADRENALS: 1.7 cm nonspecific left adrenal nodule. KIDNEYS: Small hypodensity within right and left kidney; nonspecific but favoring a benign cyst. No mass, obstruction, or calcification. BOWEL/MESENTERY: Diverticulosis of distal colon without acute inflammatory changes. No visible mass, obstruction, or bowel wall thickening. AORTA/VASCULAR: No aneurysm or dissection. RETROPERITONEUM: No mass or adenopathy. LYMPH NODES: No adenopathy. URINARY BLADDER: No visible focal wall thickening, lesion, or calculus. PELVIC ORGANS: No visible mass. Pelvic organs appropriate for patient age. ABDOMINAL WALL: No mass or hernia. BONES: No bony lesion or fracture. Degenerative disc disease of lumbar spine. OTHER: Negative. CT/CT abdomen pelvis w con IMPRESSION: 1. Cholelithiasis. 2. Distal colonic diverticulosis. 3. No acute findings. Electronically authenticated by: SILVIA LI Date: 05/05/2024 15:58
[2024-05-05 06:50] LABS: Estimated GFR (African America >60 (>=60 mL/min/1.73m^2); Estimated GFR (Non-African Ame >60 (>=60 mL/min/1.73m^2)
== END 2024-05-05 06:32 | disposition home or self-care (01) ==
LOC: LAB 06:31
PROVIDERS: PCP Internal Medicine; Visit Provider Internal Medicine
DX: K29.31 Chronic superficial gastritis with bleeding (principal); D50.0 Iron deficiency anemia secondary to blood loss (chronic); R10.13 Epigastric pain; N40.1 Benign prostatic hyperplasia with lower urinary tract symptoms; K80.20 Calculus of gallbladder without cholecystitis without obstruction; K57.90 Diverticulosis of intestine, part unspecified, without perforation or abscess without bleeding
CPT/HCPCS: 36415; 74177; 82565; Q9967

== ENCOUNTER 2024-08-22 10:16 | Outpatient (OUT) | payer MEDICARE, SELFPAY ==
--- NOTE | 2024-08-22 10:21 | XR_ITS ---
The [address] [address] Patient Name: ZENA TAMEZ MRN: [id number] date: 1955 Sex: M Assigned Patient Location: RAD Current Patient Location: [facility] Accession/Order Number: [id number] Exam Date: 08/22/2024 10:47 Report Date: 08/22/2024 10:48 At the request of: WILLI BUSH DO Procedure: XR knee LT 4V LEFT KNEE - 6 views CLINICAL HISTORY: Chronic left knee pain. COMPARISON: Left knee series 12/16/2021 FINDINGS: Vascular calcifications. No significant knee joint effusion. No acute bony process or significant degenerative change. XR/XR knee LT 4V IMPRESSION: NO ACUTE BONY PROCESS. Impression dictated by: Randy Barbosa Jr., D.O.08/22/2024 10:48 AM Dictation Location: [place] [address] Electronically authenticated by: [id number] Y Date: 08/22/2024 10:48
--- OUTSIDE RECORDS SUMMARY | 2024-08-22 10:39 | XMS_ITS | CCD ---
Author Organization [facility] Care Team Providers Care [address] Cross[address] Guard Name Role Phone Al-Obosi, Nupur Tony Unavailable Price Swift Unavailable [phone] JOSE MANUEL, LAURA JARRELL Unavailable Unavai lable [...] Unavail able PHILBIN, LAURA JARRELL Unavailable Unavai labJONA Butt Unavailable Unavailable PHILBIN, LAURA JARRELL Unavailable Unavai [...] e AL-OBOSI, NUPUR TONY Unavailable Unavail able Nupur Gil I. Primary Care Provider NUPUR GIL Primary Care Unavail able ALLISON WILLIAMSON Attending Unavailab Nupur Bernal I. Primary Care Provider Aaron Bush Unavailable Nino Russell Unavailable MD Nino Russell Attending Provider DO [...] Unavailable BALL, DR MÁRQUEZ Primary Care Unavailable Aaron Bush DO Primary Care Provider Nino Russell MD Attending Provider Aaron Bush Primary Care Unavailable Asaad, Imwilliam Attending Unavailable Asaad, Imwilliam Admitting Unavailable Medications Current Medications Medication Drug [...] 10 capsule 0 05/27/2017 06/06/2017 Active escitalopram 20 mg oral tablet (10 sources) Serotonin Reuptake Inhibitor Start: 12-29-2023 take 1 tablet by mouth once daily Escitalopram Oxalate 20 mg tablet Active 20 MG PO Daily 90 December 29, 2023 9:08am Start: 11-03-2023 End: 12-29-2023 Escitalopram Oxalate 10 mg t ablet Discontinued 0 .ROUTE .COMPLEX November 03, 2023 12:59pm December 29, 2023 9:09am TAKE 1 TABLET AT BEDTIME Start: 11-03-2023 End: 11-03-2023 take 1 tablet by mouth once daily Escitalopram Oxalate 10 mg tablet Discontinued 10 MG PO Daily November 03, 2023 12:00am November 03, 2023 12:59pm Start: 12-16-2022 take 1 tablet by ric th once daily at bedtime Escitalopram Oxalate 10 MG 1 tablet Orally Once a day at bedtime for 90 days Nov, Active esomeprazole 40 mg delayed release oral capsule (20 sources) Proton Pump Inhibitor Start: 08-26-2022 take 1 capsule by mouth twice daily Esomeprazole Magnesium 40 mg capsule,delayed release(DR/EC) Active 40 MG PO Twice daily 0 90 August 26, 2022 10:07am Start: 08-26-2022 End: 08-26-2022 take 1 capsule by mouth once daily Esomeprazole Magnesium 40 mg capsule,delayed release(DR/EC) Discontinued 40 MG PO Daily August 26, 2022 12:00am August 26, 2022 10:07am Start: 06-01-2016 End: 02-11-2018 esomeprazole (NEXIUM) 40 MG capsule TAKE 1 CAPSULE DAILY @ [facility] for GERD 06/01/2016 02/11/2018 Discontinued fenofibrate 145 mg oral tablet (1 source) Peroxisome Proliferator Receptor alpha Agonist Start: 01-13-2024 take 1 tablet by mouth once daily Fenofibrate Nanocrystallized 145 mg tablet Active 145 MG PO Daily 90 90 January 13, 2024 12:00am folic acid (7 sources) ngfnanik-kdkx-kp n-fol ic acid (rgxepozkeucb-chry-vb nerals-folic acid) 3,500-18-0.4 unit-mg-mg Chew Indications: supplement Chew and Swallow every morning . Active gabapentin 300 mg oral capsule (20 sources) Anti-epileptic Agent Start: 08-24-2023 take 2 capsules by mouth once daily at bedtime Gabapentin 300 mg capsule Active 600 MG PO Daily at bedtime August 24, 2023 12:00am take 2 capsules by mouth at bedt colby Gabapentin 300 MG 2 capsules Orally at bedtime Active take 1 capsule by mo ut every twenty-four hours Gabapentin 300 MG 1 capsule Orally Once a day Active wvtwzqer-spcw-nks-folic acid (dgmmipavzpfg-icpw-fgkxwuqg-folic acid) 3,500-18-0.4 unit-mg-mg Chew (2 sources) dgwfijkz-wsot-bu n-folic acid (esiyrdezmpro-gugo-raafqbwf-folic acid) 3,500-18-0.4 unit-mg-mg Chew Indications: supplement Chew [...] mouth every morning . 0 02/03/2017 Active tobramycin 3 mg/ml ophthalmi c solution [...] 11/04/2015 02/11/2018 Discontinued take 1 tablet by ric th once daily in the morning atorvastatin (LIPITOR) [...] ection 0.5 mg 0.5 mg, Intravenous, Once, 12/20/17 at 0445, For 1 dose Given 05/19/2017 [...] End: 02-11-2018 lidocaine (LIDODERM) 5 % pat Indications: shingles Place 1 patch on the skin daily Remove & Discard patch within 12 hours or as directed by . 02/11/2018 Discontinued meloxicam 15 mg oral tablet (14 sources) Nonsteroidal Anti-inflammatory Drug Start: 07-16-2022 End: 08-24-2023 take 1 tablet by mouth once daily Meloxicam 15 mg tablet Discontinued 15 MG PO Daily August 26, 2022 12:00am August 24, 2023 2:57pm Start: 11-03-2018 meloxicam (MOB IC) 15 MG tablet End: 02-17-2018 take 1 tablet by mouth once daily in the morning meloxicam (MOBIC) 15 MG tablet Indications: pain Take 15 mg by mouth every morning. 02/17/2018 Suspended 2 ml midazolam 1 mg/ml injec tion (2 sources) Benzodiazepine Start: 02-17-2018 End: 02-17-2018 Start: 05-27-2017 End: 05-27-2017 midazolam (VERSED) injection 2 mg 2 mg, Intravenous, Once, [facility] 05/27/17 at 0830, For 1 dose, Pre-Procedure, [...] injection 4 mg 4 mg, Intravenous, Once, [facility] 05/19/17 at 0445, For 1 dose Given 05/19/2017 04:55 EST 4 mg polysaccharide iron complex 150 mg oral capsule (10 sources) Start: 08-24-2023 End: 08-02-2024 take 1 capsule by mouth every other day Polysaccharide Iron Complex (Ferrex 150) 150 mg iron capsule Discontinued 150 MG PO .qod 45 90 August 26, 2023 12:24pm August 02, 2024 11:45am FreeTextSi capsule Orally qod; Note: Source Status: Taking; Refills: 1; Provider: Eleazar Morgan Start: 12-11-2022 take 1 capsule by [facility] every other day Ferrex 150 150 MG 1 capsule Orally qod for 90 days Nov, Active predniSONE 10 mg oral tablet (7 sources) [...] Syrg 45 mL 45 mL, Infiltration, Once, [place] 05/27/17 at 0830, For 1 dose, Pre-Procedure, [] for anesthesia block administration Given 05/27/2017 08:19 EST 45 mL Semaglutide (Weight Loss) (1 source) Start: 08-25-2023 End: 05-01-2024 Semaglutide (Weight Loss) (Wegovy) 0.25 mg/0.5 mL pen injector Discontinued 0.25 MG SUBCUT every week 2 August 25, 2023 12:00am May 01, 2024 10:20am administer weeks 1 through 4 of therapy 1000 ml sodium chloride 9 mg /ml injection (2 sources) Start: 02-17-2018 End: 02-17-2018 Start: 05-19-2017 End: 05-19-2017 sodium chloride 0.9% (NS) rain maynor 500 mL 500 mL, Intravenous, at 1,000 mL/hr, Once, 05/19/17 at 0445, For 1 dose New Bag [...] Problem Date Documented Date Episodic/Chronic Abdominal pain (3 sources) Unspecified abdominal pain; Translations: [Epigastric pain] Onset: 05-19-2017 05-01-2024 Episodic Anxiety disorders (12 sources) Generalized anxiety disorder; Translations: [Generalized anxiety disorder] Chronic Biliary tract disease (1 source) Biliary calculus; Translations: [Calculus of gallbladder without cholecystitis without obstruction] 05-07-2024 Episodic Comment on above: CT: 2.1cm stone in G 04/2024 Complications of surgical procedures or medical care [...] deficiency anemias] Episodic Deficiency and other anemia (18 sources) Anemia; Translations: [Anemia, unspecified] 08-25-2023 Episodic Deficiency and other anemia (7 sources) Anemia, unspecified; Translations: [ANEMIA UNSPECIFIED] Onset: 09-16-2022 Episodic Deficiency and other anemia (1 source) Other iron deficiency anemias Episodic Diabetes mellitus without complication (2 sources) Impaired fasting glucose; Translations: [Impaired fasting glycemia] Episodic Disorders of lipid metabolism (20 sources) Hyperlipidemia, unspecified; Translations: [Hypercholesterolemia ] Onset: 05-21-2017 Resolved: 08-13-2020 Chronic Esophageal disorders (20 sources) Gastro-esophageal reflux disease without esophagitis; Translations: [...] nonunion] Onset: 10-22-2017 Episodic Gastritis and duodenitis (6 sources) Gastritis; Translations: [Gastritis, unspecified, without bleeding] Episodic Gastroduodenal ulcer (except hemorrhage) (12 sources) Gastric ulcer; Translations: [Gastric ulcer, unspecified as acute or chronic, without hemorrhage or perforation] Chronic Hyperplasia of prostate (20 sources) Lower urinary tract symptoms due to benign prostatic hypertrophy; Translations: [Benign prostatic hyperplasia with lower urinary tract symptoms] 08-24-2023 Chronic Miscellaneous mental health disorders (6 sources) Primary insomnia; Translations: [Primary insomnia] 08-24-2023 Chronic Nonspecific chest pain (8 sources) Precordial pain; Translations: [Precordial pain] Episodic Nutritional deficiencies (2 sources) Vitamin D deficiency, unspecified; Translations: [Vitamin D deficiency, unspecified] Onset: 10-22-2017 Chronic Osteoarthritis (20 sources) Osteoarthritis of left knee joint; Translations: [Unilateral primary osteoarthritis, left knee] Onset: 12-16-2021 Chronic Other aftercare (2 sources) Other terminal block assembler (current) drug therapy; Translations: [OTH NEURODIAGNOSTIC TECHNICIAN CURRENT DRUG THERAPY] Onset: 12-17-2021 Episodic Other aftercare (5 sources) Long-term current use of drug therapy; Translations: [Other senior care (current) drug therapy] Episodic Other and ill-defined [...] Translations: [Pain in left foot] Episodic Other endocrine disorders (1 source) Adrenal mass; 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, unspecified] 05-07-2024 Chronic Comment on above: CT: 1.7cm left adren al nodule - 04/2024 Other injuries and conditions due to external [...] lower limb Chronic Other nervous system disorders (8 sources) Idiopathic peripheral neuropathy; Translations: [Hereditary and idiopathic neuropathy, unspecified] 08-24-2023 Chronic Other nervous system disorders (1 source) [...] Chronic Other nutritional; endocrine; and metabolic disorders (1 source) Obesity; Translations: [Obesity, unspecified] 12-29-2023 Chronic Other nutritional; endocrine; and metabolic disorders (5 sources) Overweight; Translations: [Overweight] 05-01-2024 Episodic Other nutritional; endocrine; and metabolic disorders [...] Problem Classification Problem Date Documented Date Episodic/Chronic Acquired foot deformities (4 sources) Varus deformity, [...] Test Name Value Interpretation Reference Range Facility [facility] 08-16-2024 L - -------- Specimen: [id number] Received: 08/16/24 Status: BETHANY Troncoso Num: [id number] Spec Type: Surgical Subm Dr: Nino Russell MD Tissues: A Small Intestine - Biopsy/Polyp (SM BOWEL) B Gastric Biopsy (GASTRIC BX) C Esophagus Biopsy (ESO BX) Procedures: HE/6, Gross/Micro L4/3 -------- Age/ Patient Sex Location Account Attending Physician -------- Zena Witt/Pelon [id number] Nino Russell MD -------- SPEC NUM: [id number] RECD: 08/16/24 STATUS: BETHANY TRONCOSO NUM: [id number] ANUP: 08/16/[address] [facility] [address]: Nino Russell MD ENTERED: 08/16/[address] [facility] [address]: SPEC TYPE: Surgical DEPT: S ENTERED BY: [id number] RECV BY: [id number] ORDERED: HE/6, Gross/Micro L4/3 ORDERED: HE/6, Gross/Micro L4/3 Pathological Diagnosis A. Duodenum (mucosal biopsies): Within normal limits No features of celiac disease or dysplasia seen B. Stomach (mucosal biopsies): Within normal limits No Helicobacter pylori, intestinal metaplasia, or dysplasia seen C. Esophagus (mucosal biopsies): Chaudhry's esophagus, distinctive-type No active inflammation or dysplasia seen Clinical Information Epigastric pain iron deficient anemia chronic superficial gastritis. Part A rule out celiac, Part B rule out H. pylori, Part C rule out Chaudhry's -------- Specimen: [id number] Received: 08/16/24 Status: BETHANY Hoffmattie Num: [id number] Spec Type: Surgical Subm Dr: Nino Russell MD Tissues: A Small Intestine - Biopsy/Polyp (SM BOWEL) B Gastric Biopsy (GASTRIC BX) C Esophagus Biopsy (ESO BX) Procedures: HE/6, Gross/Micro L4/3 -------- Patient: WittZena Sarahi [id number] (Continued) -------- Specimen: Received: 08/16/24 (Continued) Signed (signature on file) Abhishek Laws Jr., MD 08/17/24 1047 -------- Specimen: Received: 08/16/24 Status: BETHANY Lexi Num: [id number] Spec Type: Surgical Subm Dr: Nino Russell MD Tissues: A Small Intestine - Biopsy/Polyp (SM BOWEL) B Gastric Biopsy (GASTRIC BX) C Esophagus Biopsy (ESO BX) Procedures: HE/6, Gross/Micro L4/3 -------- Patient: Zena Witt [id number] (Continued) -------- Specimen: Received: 08/16/24 (Continued) Gross Description Part A is received in formalin labeled with the patients name, date of , and Sm bowel BX are 2 mcintyre-jorge, focally erythematous, friable, 0.3 and 0.4 cm in greatest dimension tissue bits. The specimen is entirely submitted in a single cassette. (1, ns, [id number] A) JG Part B is received in formalin labeled with the patients name, date of , and gastric BX are 2 mcintyre-jorge, focally erythematous, friable, 0.2 and 0.3 cm in greatest dimension tissue bits. The specimen is entirely submitted in a single cassette. (1, ns, [id number] B) JG Part C is received in formalin labeled with the patients name, date of , and esophagus BX are 2 pale jorge, focally erythematous, feathery, 0.1 and 0.3 cm in greatest dimension tissue bits. The specimen is entirely submitted in a single cassette. (1, ns, [id number] C) CPT Codes 29210 x 3 -------- -------- Specimen: [id number] Received: 08/16/24 Status: BETHANY Troncoso Num: [id number] Spec Type: Surgical Subm Dr: Nino Russell MD Tissues: A Small Intestine - Biopsy/Polyp (SM BOWEL) B Gastric Biopsy (GASTRIC BX) C Esophagus Biopsy (ESO BX) Procedures: HE/6, Gross/Micro L4/3 -------- Patient: Zena Witt [id number] (Continued) -------- Signed (signature on file) Abhishek Laws Jr., MD 08/17/24 1047 Normal [facility] CBC AUTO DIFFon 09-16-2022 BASO # 0.0 103/ul Normal 0.0-0.1 [facility] Comment on above: Performed By: #### C BC #### [facility] [address] [place] [address] Dr. Tracy Amos Basophils/100 WBC (Bld) 0.6 % Normal 0.2-2.0 [facility] Comment on above: Performed By: #### C BC #### [facility] [address] [place] [address] Dr. Tracy Amos EO # 0.1 103/ul Normal 0.0-0.7 [facility] Comment on above: Performed By: #### C BC #### [facility] [address] [place] [address] Dr. Tracy Amos Eosinophils/100 WBC (Bld) 1.5 % Normal 0.9-7.0 [facility] Comment on above: Performed By: #### C BC #### [facility] [address] [place] [address] Dr. Tracy Amos Erythrocyte distribution width (RBC) [Ratio] 12.6 % Normal 11.0-15.0 [facility] Comment on above: Performed By: #### C BC #### [facility] [address] [place] [address] Dr. Tracy Amos Hematocrit (Bld) [Volume fraction] 41.2 % Critically low 42.0-54.0 [facility] Comment on above: Performed By: #### C BC #### [facility] [address] [place] [address] Dr. Tracy Amos Hemoglobin (Bld) [Mass/Vol] 13.3 g/dL Critically low 14.0-18.0 [facility] Comment on above: Performed By: #### C BC #### [facility] [address] [place] [address] Dr. Tracy Amos IG # 0.01 10e3/ul Normal 0.00-0.03 [facility] Comment on above: Performed By: #### C BC #### [facility] [address] [place] [address] Dr. Tracy Amos IG % 0.1 % Normal 0.0-0.5 [facility] Comment on above: Performed By: #### C BC #### [facility] [address] [place] [address] Dr. Tracy Amos LYMPH # 3.0 103/ul Normal 1.2-3.8 [facility] Comment on above: Performed By: #### C BC #### [facility] [address] [place] [address] Dr. Tracy Amos Lymphocytes/100 WBC (Bld) 42.0 % Normal 20.5-60.0 [facility] Comment on above: Performed By: #### C BC #### [facility] [address] [place] [address] Dr. Tracy Amos MANUAL DIFF REQ NO Normal [facility] Comment on above: Performed By: #### C BC #### [facility] [address] [place] [address] Dr. Tracy Amos MCH (RBC) [Entitic mass] 28.7 pg Normal 25.9-34.0 [facility] Comment on above: Performed By: #### C BC #### [facility] [address] [place] [address] Dr. Tracy Amos MCHC (RBC) [Mass/Vol] 32.3 g/dL Normal 29.9-35.2 [facility] Comment on above: Performed By: #### C BC #### [facility] [address] [place] [address] Dr. Tracy Amos MCV (RBC) [Entitic vol] 89.0 fL Normal 80.0-94.0 [facility] Comment on above: Performed By: #### C BC #### [facility] [address] [place] [address] Dr. Tracy Amos MONO # 0.5 103/ul Normal 0.3-0.8 [facility] Comment on above: Performed By: #### C BC #### [facility] [address] [place] [address] Dr. Tracy Amos Monocytes/100 WBC (Bld) 6.6 % Normal 1.7-12.0 [facility] Comment on above: Performed By: #### C BC #### [facility] [address] [place] [address] Dr. Tracy Amos NEUT # 3.6 103/ul Normal 1.4-6.5 [facility] Comment on above: Performed By: #### C BC #### [facility] [address] [place] [address] Dr. Tracy Amos Neutrophils/100 WBC (Bld) 49.2 % Normal 43.0-75.0 [facility] Comment on above: Performed By: #### C BC #### [facility] [address] [place] [address] Dr. Tracy Amos Platelet mean volume (Bld) [Entitic vol] 10.2 fL Normal 9.5-13.5 [facility] Comment on above: Performed By: #### C BC #### [facility] [address] [place] [address] Dr. Tracy Amos PLT 164 103/ul Normal 150-450 [facility] Comment on above: Performed By: #### C BC #### [facility] [address] [address] [address] Tracy Amos RBC 4.63 106/ul Critically low 4.70-6.10 [facility] [place] Comment on above: Performed By: #### C BC #### [facility] [address] [address] [address] Tracy Amos WBC 7.2 103/ul Normal 4.0-11.0 [facility] Comment on above: Performed By: #### C BC #### [facility] [address] [address] [address] Tracy Amos CBC AUTO DIFFon 07-13-2022 BASO # 0.0 103/ul Normal 0.0-0.1 [facility] Comment on above: Performed By: #### C BC #### [facility] [address] [address] [address] Tracy Amos Basophils/100 WBC (Bld) 0.4 % Normal 0.2-2.0 [facility] Comment on above: Performed By: #### C BC #### [facility] [address] [address] [address] Tracy Amos EO # 0.2 103/ul Normal 0.0-0.7 [facility] Comment on above: Performed By: #### C BC #### [facility] [address] [address] [address] Tracy Amos Eosinophils/100 WBC (Bld) 1.5 % Normal 0.9-7.0 [facility] Comment on above: Performed By: #### C BC #### [facility] [address] [address] [address] Tracy Amos Erythrocyte distribution width (RBC) [Ratio] 12.8 % Normal 11.0-15.0 [facility] Comment on above: Performed By: #### C BC #### [facility] [address] [place] [address] Dr. Tracy Amos Hematocrit (Bld) [Volume fraction] 38.2 % Critically low 42.0-54.0 [facility] Comment on above: Performed By: #### C BC #### [facility] [address] [address] [address] Tracy Amos Hemoglobin (Bld) [Mass/Vol] 12.7 g/dL Critically low 14.0-18.0 [facility] Comment on above: Performed By: #### C BC #### [facility] [address] [address] [address] Tracy Amos IG # 0.02 10e3/ul Normal 0.00-0.03 [facility] Comment on above: Performed By: #### C BC #### [facility] [address] [place] [address] Dr. Tracy Amos IG % 0.2 % Normal 0.0-0.5 [facility] Comment on above: Performed By: #### C BC #### [facility] [address] [place] [address] Dr. Tracy Amos LYMPH # 3.8 103/ul Normal 1.2-3.8 [facility] Comment on above: Performed By: #### C BC #### [facility] [address] [place] [address] Dr. Tracy Amos Lymphocytes/100 WBC (Bld) 38.1 % Normal 20.5-60.0 [facility] Comment on above: Performed By: #### C BC #### [facility] [address] [place] [address] Dr. Tracy Amos MANUAL DIFF REQ NO Normal [facility] Comment on above: Performed By: #### C BC #### [facility] [address] [place] [address] Dr. Tracy Amos MCH (RBC) [Entitic mass] 29.0 pg Normal 25.9-34.0 [facility] Comment on above: Performed By: #### C BC #### [facility] [address] [place] [address] Dr. Tracy Amos MCHC (RBC) [Mass/Vol] 33.2 g/dL Normal 29.9-35.2 [facility] Comment on above: Performed By: #### C BC #### [facility] [address] [address] [address] Tracy Amos MCV (RBC) [Entitic vol] 87.2 fL Normal 80.0-94.0 [facility] Comment on above: Performed By: #### C BC #### [facility] [address] [address] [address] Tracy Amos MONO # 0.5 103/ul Normal 0.3-0.8 [facility] Comment on above: Performed By: #### C BC #### [facility] [address] [address] [address] Tracy Amos Monocytes/100 WBC (Bld) 4.6 % Normal 1.7-12.0 [facility] Comment on above: Performed By: #### C BC #### [facility] [address] [place] [address] Dr. Tracy Amos NEUT # 5.5 103/ul Normal 1.4-6.5 [facility] Comment on above: Performed By: #### C BC #### [facility] [address] [address] [address] Tracy Amos Neutrophils/100 WBC (Bld) 55.2 % Normal 43.0-75.0 [facility] Comment on above: Performed By: #### C BC #### [facility] [address] [place] [address] Dr. Tracy Amos Platelet mean volume (Bld) [Entitic vol] 10.0 fL Normal 9.5-13.5 [facility] Comment on above: Performed By: #### C BC #### [facility] [address] [place] [address] Dr. Tracy Amos PLT 179 103/ul Normal 150-450 [facility] Comment on above: Performed By: #### C BC #### [facility] [address] [address] [address] Tracy Amos RBC 4.38 106/ul Critically low 4.70-6.10 [facility] [place] Comment on above: Performed By: #### C BC #### [facility] [id number] Tracy Amos WBC 9.9 103/ul Normal 4.0-11.0 [facility] Comment on above: Performed By: #### C BC #### [facility] [address] [place], [place] [id number] Dr. Tracy Amos CBC AUTO DIFFon 03-04-2022 BASO # 0.1 103/ul Normal 0.0-0.1 [facility] Comment on above: Performed By: #### C BC #### [facility] [address] [place] [address] Dr. Tracy Amos Basophils/100 WBC (Bld) 0.8 % Normal 0.2-2.0 [facility] Comment on above: Performed By: #### C BC #### [facility] [address] [place] [address] Dr. Tracy Amos EO # 0.1 103/ul Normal 0.0-0.7 [facility] Comment on above: Performed By: #### C BC #### [facility] [address] [place] [address] Dr. Tracy Amos Eosinophils/100 WBC (Bld) 1.8 % Normal 0.9-7.0 [facility] Comment on above: Performed By: #### C BC #### [facility] [address] [place] [address] Dr. Tracy Amos Erythrocyte distribution width (RBC) [Ratio] 12.7 % Normal 11.0-15.0 [facility] Comment on above: Performed By: #### C BC #### [facility] [address] [place] [address] Dr. Tracy Amos Hematocrit (Bld) [Volume fraction] 37.3 % Critically low 42.0-54.0 [facility] Comment on above: Performed By: #### C BC #### [facility] [address] [place] [address] Dr. Tracy Amos Hemoglobin (Bld) [Mass/Vol] 12.1 g/dL Critically low 14.0-18.0 [facility] Comment on above: Performed By: #### C BC #### [facility] [address] [place] [address] Dr. Tracy Amos IG # 0.01 10e3/ul Normal 0.00-0.03 [facility] Comment on above: Performed By: #### C BC #### [facility] [address] [place] [address] Dr. Tracy Amos IG % 0.1 % Normal 0.0-0.5 [facility] Comment on above: Performed By: #### C BC #### [facility] [address] [place] [address] Dr. Tracy Amos LYMPH # 3.0 103/ul Normal 1.2-3.8 [facility] Comment on above: Performed By: #### C BC #### [facility] [address] [place] [address] Dr. Tracy Amos Lymphocytes/100 WBC (Bld) 41.3 % Normal 20.5-60.0 [facility] Comment on above: Performed By: #### C BC #### [facility] [address] [place] [address] Dr. Tracy Amos MANUAL DIFF REQ NO Normal [facility] Comment on above: Performed By: #### C BC #### [facility] [address] [place] [address] Dr. Tracy Amos MCH (RBC) [Entitic mass] 29.7 pg Normal 25.9-34.0 [facility] Comment on above: Performed By: #### C BC #### [facility] [address] [place] [address] Dr. Tracy Amos MCHC (RBC) [Mass/Vol] 32.4 g/dL Normal 29.9-35.2 [facility] Comment on above: Performed By: #### C BC #### [facility] [address] [place] [address] Dr. Tracy Amos MCV (RBC) [Entitic vol] 91.4 fL Normal 80.0-94.0 [facility] Comment on above: Performed By: #### C BC #### [facility] [address] [address] [address] Tracy Amos MONO # 0.5 103/ul Normal 0.3-0.8 [facility] Comment on above: Performed By: #### C BC #### [facility] [address] [place] [address] Dr. Trcay Amos Monocytes/100 WBC (Bld) 6.1 % Normal 1.7-12.0 [facility] Comment on above: Performed By: #### C BC #### [facility] [address] [place] [address] Dr. Tracy Amos NEUT # 3.7 103/ul Normal 1.4-6.5 [facility] Comment on above: Performed By: #### C BC #### [facility] [address] [place] [address] Dr. Tracy Amos Neutrophils/100 WBC (Bld) 49.9 % Normal 43.0-75.0 [facility] Comment on above: Performed By: #### C BC #### [facility] [address] [place] [address] Dr. Tracy Amos Platelet mean volume (Bld) [Entitic vol] 9.9 fL Normal 9.5-13.5 [facility] Comment on above: Performed By: #### C BC #### [facility] [address] [place] [address] Dr. Tracy Amos PLT 156 103/ul Normal 150-450 [facility] Comment on above: Performed By: #### C BC #### [facility] [address] [place] [address] Dr. Trcay Amos RBC 4.08 106/ul Critically low 4.70-6.10 [facility] Comment on above: Performed By: #### C BC #### [facility] [address] [place] [address] Dr. Tracy Amos WBC 7.4 103/ul Normal 4.0-11.0 [facility] Comment on above: Performed By: #### C BC #### [facility] [address] [place] [address] Dr. Tracy Amos FERRITINon 03-04-2022 Ferritin [Mass/Vol] 99.0 ng/mL Normal 26.0-388.0 [facility] Comment on above: Performed By: #### F ETIBC, FERR, B12FOL ####[facility] [id number] [address]Dr. Tracy Amos IRON AND TIBCon 03-04-2022 % SATURATION 16.3 % Normal [facility] Comment on above: Performed By: #### F ETIBC, FERR, B12FOL #### [facility] [address] [address] [address] Tracy Amos Iron [Mass/Vol] 55.0 ug/dL Critically low 65.0-175.0 [facility] Comment on above: Performed By: #### F ETIBC, FERR, B12FOL #### [facility] [address] [place] [address] Dr. Tracy Amos TIBC DIRECT 337.0 ug/dL Normal 250.0-450.0 [facility] Comment on above: Performed By: #### F ETIBC, FERR, B12FOL #### [facility] [address] [address] [address] Tracy Amos VIT B12 AND FOLATEon 022 Cobalamin (Vitamin B12) [Mass/Vol] 505.0 pg/mL Normal 193.0-986.0 [facility] Comment on above: Performed By: #### F ETIBC, FERR, B12FOL #### [facility] [address] [address] [address] Tracy Amos FOLATE 20.70 ng/mL Normal 8.60-58.90 [facility] Comment on above: Performed By: #### F ETIBC, FERR, B12FOL #### [facility] [address] [place] [address] Dr. Tracy Amos CBC AUTO DIFFon 12-16-2021 BASO # 0.0 103/ul Normal 0.0-0.1 [facility] Comment on above: Performed By: #### C BC #### [facility] [address] [place] [address] Dr. Tracy Amos Basophils/100 WBC (Bld) 0.4 % Normal 0.2-2.0 [facility] Comment on above: Performed By: #### C BC #### [facility] [address] [place] [address] Dr. Tracy Amos EO # 0.2 103/ul Normal 0.0-0.7 [facility] Comment on above: Performed By: #### C BC #### [facility] [address] [place] [address] Dr. Tracy Amos Eosinophils/100 WBC (Bld) 2.6 % Normal 0.9-7.0 [facility] Comment on above: Performed By: #### C BC #### [facility] [address] [place] [address] Dr. Tracy Amos Erythrocyte distribution width (RBC) [Ratio] 12.6 % Normal 11.0-15.0 [facility] Comment on above: Performed By: #### C BC #### [facility] [address] [place] [address] Dr. Tracy Amos Hematocrit (Bld) [Volume fraction] 36.6 % Critically low 42.0-54.0 [facility] Comment on above: Performed By: #### C BC #### [facility] [address] [place] [address] Dr. Tracy Amos Hemoglobin (Bld) [Mass/Vol] 12.1 g/dL Critically low 14.0-18.0 [facility] Comment on above: Performed By: #### C BC #### [facility] [address] [place] [address] Dr. Tracy Amos IG # 0.01 10e3/ul Normal 0.00-0.03 [facility] Comment on above: Performed By: #### C BC #### [facility] [address] [place] [address] Dr. Tracy Amos IG % 0.1 % Normal 0.0-0.5 [facility] Comment on above: Performed By: #### C BC #### [facility] [address] [place] [address] Dr. Tracy Amos LYMPH # 2.8 103/ul Normal 1.2-3.8 [facility] Comment on above: Performed By: #### C BC #### [facility] [address] [place] [address] Dr. Tracy Amos Lymphocytes/100 WBC (Bld) 40.3 % Normal 20.5-60.0 [facility] Comment on above: Performed By: #### C BC #### [facility] [address] [place] [address] Dr. Tracy Amos MANUAL DIFF REQ NO Normal [facility] Comment on above: Performed By: #### C BC #### [facility] [address] [place] [address] Dr. Tracy Amos MCH (RBC) [Entitic mass] 30.0 pg Normal 25.9-34.0 [facility] Comment on above: Performed By: #### C BC #### [facility] [address] [place] [address] Dr. Tracy Amos MCHC (RBC) [Mass/Vol] 33.1 g/dL Normal 29.9-35.2 [facility] Comment on above: Performed By: #### C BC #### [facility] [address] [place] [address] Dr. Tracy Amos MCV (RBC) [Entitic vol] 90.8 fL Normal 80.0-94.0 [facility] Comment on above: Performed By: #### C BC #### [facility] [address] [place] [address] Dr. Tracy Amos MONO # 0.4 103/ul Normal 0.3-0.8 [facility] Comment on above: Performed By: #### C BC #### [facility] [address] [place] [address] Dr. Tracy Amos Monocytes/100 WBC (Bld) 5.8 % Normal 1.7-12.0 [facility] Comment on above: Performed By: #### C BC #### [facility] [address] [place] [address] Dr. Tracy Amos NEUT # 3.6 103/ul Normal 1.4-6.5 [facility] Comment on above: Performed By: #### C BC #### [facility] [address] [address] [address] Tracy Amos Neutrophils/100 WBC (Bld) 50.8 % Normal 43.0-75.0 [facility] Comment on above: Performed By: #### C BC #### [facility] [address] [address] [address] Tracy Amos Platelet mean volume (Bld) [Entitic vol] 10.3 fL Normal 9.5-13.5 [facility] Comment on above: Performed By: #### C BC #### [facility] [address] [place] [address] Dr. Tracy Amos PLT 164 103/ul Normal 150-450 [facility] Comment on above: Performed By: #### C BC #### [facility] [address] [place] [address] Dr. Tracy Amos RBC 4.03 106/ul Critically low 4.70-6.10 [facility] Comment on above: Performed By: #### C BC #### [facility] [address] [place] [address] Dr. Tracy Amos WBC 7.1 103/ul Normal 4.0-11.0 [facility] Comment on above: Performed By: #### C BC #### [facility] [address] [place] [address] Dr. Tracy Amos LIPID PROFILEon 12-16-2021 CHOL-HDL RATIO NORM SEE BELOW Normal [facility] Comment on above: Result Comment: 3.3 - 4.4 LOW RISK 4.4 - 7.1 AVERAGE RISK 7.1 - 11.0 MODERATE RISK >11.0 HIGH RISK Performed By: #### L IPID BMP #### [facility] [address] [place] [address] Dr. Tracy Amos Cholesterol [Mass/Vol] 118 mg/dL Normal <=200 [facility] Comment on above: Performed By: #### L IPID, BMP #### [facility] [address] [place] [address] Dr. Tracy Amos Cholesterol in HDL [Mass/Vol] 40 mg/dL Normal 40-60 [facility] Comment on above: Performed By: #### L IPID, BMP #### [facility] [address] [place] [address] Dr. Tracy Amos Cholesterol in LDL [Mass/Vol] 62.6 mg/dL Normal [facility] Comment on above: Performed By: #### L IPID, BMP #### [facility] [address] [address] [address] Tracy Amos Cholesterol.total/Ch olesterol in HDL [Mass ratio] 3.0 {ratio} Normal [facility] Comment on above: Performed By: #### L IPID, BMP #### [facility] [address] [place] [address] Dr. Tracy Amos HDL NORMAL > or = 60 mg/dl - LO W CARDIOVASCULAR RISK <40 mg/dl - HIGH CARDIOVASCULAR RISK Normal [facility] Comment on above: Performed By: #### L IPID, BMP #### [facility] [address] [place] [address] Dr. Tracy Amos LDL CALC NORMAL SEE BELOW Normal [facility] Comment on above: Result Comment: <100 mg/dl OPTIMAL 100 - 129 mg/dl NEAR OR ABOVE OPTIMAL 130 - 159 mg/dl BORDERLINE HIGH 160 - 189 mg/dl HIGH >190 mg/dl VERY HIGH Performed By: #### L IPID, BMP #### [facility] [address] [place] [address] Dr. Tracy Amos Triglyceride [Mass/Vol] 77 mg/dL Normal <=150 [facility] Comment on above: Performed By: #### L IPID, BMP #### [facility] [address] [address] [address] Tracy Amos VLDL CALC 15.4 mg/dL Normal [facility] Comment on above: Performed By: #### L IPID, BMP #### [facility] [address] [place] [address] Dr. Tracy Amos PROF CHEM 8 (BAS METB)on Anion gap [Moles/Vol] 7.8 mmol/L Normal [facility] Comment on above: Performed By: #### L IPID, BMP #### [facility] [address] [place] [address] Dr. Tracy Amos Calcium [Mass/Vol] 8.8 mg/dL Normal 8.5-10.1 [facility] Comment on above: Performed By: #### L IPID, BMP #### [facility] [address] [place] [address] Dr. Tracy Amos Chloride [Moles/Vol] 108 mmol/L Critically high 98-107 [facility] Comment on above: Performed By: #### L IPID, BMP #### [facility] [address] [place] [address] Dr. Tracy Amos CO2 [Moles/Vol] 28.5 mmol/L Normal 21.0-32.0 [facility] Comment on above: Performed By: #### L IPID, BMP #### [facility] [address] [place] [address] Dr. Tracy Amos Creatinine [Mass/Vol] 0.94 mg/dL Normal 0.70-1.30 [facility] Comment on above: Performed By: #### L IPID, BMP #### [facility] [address] [place] [address] Dr. Tracy Amos EGFR-AF HONDURAN >60 Normal >=60 [facility] Comment on above: Performed By: #### L IPID, BMP #### [facility] [address] [place] [address] Dr. Tracy Amos EGFR-NON AF HONDURAN >60 Normal >=60 [facility] Comment on above: Performed By: #### L IPID, BMP #### [facility] [address] [place] [address] Dr. Tracy Amos Glucose [Mass/Vol] 116 mg/dL Critically high 74-106 [facility] Comment on above: Performed By: #### L IPID, BMP #### [facility] [address] [place] [address] Dr. Tracy Amos Potassium [Moles/Vol] 4.3 mmol/L Normal 3.5-5.1 [facility] Comment on above: Performed By: #### L IPID, BMP #### [facility] [address] [address] [address] Tracy Amos Sodium [Moles/Vol] 140 mmol/L Normal 136-145 [facility] Comment on above: Performed By: #### L IPID, BMP #### [facility] [address] [address] [address] Tracy Amos Urea nitrogen [Mass/Vol] 24.0 mg/dL Critically high 7.0-18.0 [facility] Comment on above: Performed By: #### L IPID, BMP #### [facility] [address] [place] [address] Dr. Tracy Amos Urea nitrogen/Creatinine [Mass ratio] 25.5 mg/mg Normal [facility] Comment on above: Performed By: #### L IPID, BMP #### [facility] [address] [place] [address] Dr. 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 The glenohumeral joint is unremarkable. Mild degenerative changes of the acromioclavicular joint. Changes of a biceps tenodesis. Aortic calcification. IMPRESSION: Mild degenerative change No acute findings Normal [facility] XR SHOULDER LEFT MIN 2 VIEWS on 05-02-2020 [facility] (RBC) [Entitic mass] EXAM: [facility] XR SHOULDER LEFT MIN 2 VIEWS, 05/02/2020 09:46 AM CLINICAL INDICATIONS: Grashey and outlet views;, post op fu COMPARISON: August 23, 2018 left shoulder radiograph. FINDINGS: No acute fracture or dislocation. There is a new suture anchor in the proximal humeral diaphysis. Joint spaces are well-maintained. Soft tissues normal. IMPRESSION: New suture anchor in the proximal humerus. No acute osseous abnormality. Normal [facility] SARS-COV-2 RAPIDon 0 SARS-COV2, RT PCR NASOPHARYNGEAL NOT DETECTED Normal NOT DETECTED [facility] Comment on above: Order Comment: Use [...] deteriorating. Performed By: #### L ABSARS1 #### [facility] (DEFAULT) [address] [place] [address] BASIC METABOLIC PANELon 11- Anion gap [Moles/Vol] 13 mmol/L Normal [facility] Comment on above: Performed By: #### C 7C #### [facility] (DEFAULT) [address] [place] [address] Calcium [Mass/Vol] 9.7 mg/dL Normal 8.4-10.2 [facility] Comment on above: Performed By: #### C 7C #### [facility] (DEFAULT) [address] [place] [address] Chloride [Moles/Vol] 108 mmol/L High 98-107 [facility] Comment on above: Performed By: #### C 7C #### [facility] (DEFAULT) [address] [place] [address] CO2 [Moles/Vol] 25 mmol/L Normal 22-31 [facility] Comment on above: Performed By: #### C 7C #### [facility] (DEFAULT) [address] [place] [address] Creatinine [Mass/Vol] 1.05 mg/dL Normal 0.72-1.25 [facility] Comment on above: Performed By: #### C 7C #### [facility] (DEFAULT) [address] [place] [address] Est Gfr, 86 mL/min/1.73sqM Normal [facility] Comment on above: Performed By: #### C 7C #### [facility] (DEFAULT) [address] [place] [address] Est Gfr,Non 71 mL/min/1.73sqM [facility] Comment on above: Performed By: #### C 7C #### [facility] (DEFAULT) [address] [place] [address] Glucose [Mass/Vol] 102 mg/dL Normal 80-115 [facility] Comment on above: Performed By: #### C 7C #### [facility] (DEFAULT) [address] [place] [address] Osmolality [Osmolality] 301 mOsm/kg Normal [facility] Comment on above: Performed By: #### C 7C #### [facility] (DEFAULT) [address] [place] [address] Potassium [Moles/Vol] 4.0 mmol/L Normal 3.5-5.1 [facility] Comment on above: Performed By: #### C 7C #### [facility] (DEFAULT) [address] [place] [address] Sodium [Moles/Vol] 142 mmol/L Normal 136-145 [facility] Comment on above: Performed By: #### C 7C #### [facility] (DEFAULT) [address] [place] [address] Urea nitrogen [Mass/Vol] 24.0 mg/dL Normal 8.4-25.7 [facility] Comment on above: Performed By: #### C 7C #### [facility] (DEFAULT) [address] [place] [address] Urea nitrogen/Creatinine [Mass ratio] 23 mg/mg Normal [facility] Comment on above: Performed By: #### C 7C #### [facility] (DEFAULT) [address] [place] [address] CBC AND ELECTRONIC DIFFon Hematocrit (Bld) [Volume fraction] 37.8 % Normal 37.0-51.0 [facility] Comment on above: Performed By: #### L AB981, [id number] #### [facility] (DEFAULT) [address] [place] [address] Hemoglobin (Bld) [Mass/Vol] 12.6 g/dL Normal 12.6-17.4 [facility] Comment on above: Performed By: #### L AB981, [id number] #### [facility] (DEFAULT) [address] [place] [address] MCV (RBC) [Entitic vol] 89.6 fL Normal 81.0-103.0 [facility] Comment on above: Performed By: #### L AB981, [id number] #### [facility] (DEFAULT) [address] [place] [address] Mean Cell Hgb 30.0 pg Normal 27.0-34.0 [facility] Comment on above: Performed By: #### L AB981, [id number] #### [facility] (DEFAULT) [address] [place] [address] Mean Cell Hgb Conc 33.5 pg Normal 31.0-36.0 [facility] Comment on above: Performed By: #### L AB981, [id number] #### [facility] (DEFAULT) [address] [place] [address] Platelet mean volume (Bld) [Entitic vol] 7.8 fL Normal 7.5-11.2 [facility] Comment on above: Performed By: #### L AB981, [id number] #### [facility] (DEFAULT) [address] [place] [address] Platelets (Bld) [#/Vol] 204 10*3/uL Normal 150-400 [facility] Comment on above: Performed By: #### L AB981, [id number] #### [facility] (DEFAULT) [address] [place] [address] RBC (Bld) [#/Vol] 13.1 % Normal 11.5-14.5 [facility] Comment on above: Performed By: #### L AB981, [id number] #### [facility] (DEFAULT) [address] [place] [address] RBC (Bld) [#/Vol] 4.22 10*6/uL Normal Male: 3.8-5.8, Female: 3.8-5.2 [facility] Comment on above: Performed By: #### L AB981, [id number] #### [facility] (DEFAULT) [address] [place] [address] WBC (Bld) [#/Vol] 11.2 10*3/uL High 4.5-11.0 [facility] Comment on above: Performed By: #### L AB981, [id number] #### [facility] (DEFAULT) [address] [place] [address] MANUAL DIFFon 04-15-2020 Abs Eos Manual 0.11 K\uL Normal [facility] Comment on above: Performed By: #### L AB981, [id number] #### [facility] (DEFAULT) [address] [place] [address] Abs Lymph Manual 6.05 K/uL High 1.00-4.80 [facility] Comment on above: Performed By: #### L AB981, [id number] #### [facility] (DEFAULT) [address] [place] [address] Abs [place] Manual 0.45 K/uL High 0.20-0.40 [facility] Comment on above: Performed By: #### L AB981, [id number] #### [facility] (DEFAULT) [address] [place] [address] Abs Segs Manual 4.59 K/uL Normal 1.80-7.70 [facility] Comment on above: Performed By: #### L AB981, [id number] #### [facility] (DEFAULT) [address] [place] [address] Eosinophils % Manual 1 % Normal [facility] Comment on above: Performed By: #### L AB981, [id number] #### [facility] (DEFAULT) [address] [place] [address] Lymphocyte % Manual 54 % Normal [facility] Comment on above: Performed By: #### L AB981, [id number] #### [facility] (DEFAULT) [address] [place] [address] Monocyte % Manual 4 % Normal [facility] Comment on above: Performed By: #### L AB981, [id number] #### [facility] (DEFAULT) [address] [place] [address] Neutrophil Segmented Manual 41 % Normal [facility] Comment on above: Performed By: #### L AB981, [id number] #### [facility] (DEFAULT) [address] [place] [address] SARS-COV-2 RAPIDon 0 SARS-COV2, RT PCR NASOPHARYNGEAL NOT DETECTED Normal NOT DETECTED [facility] Comment on above: Order Comment: Use [...] deteriorating. Performed By: #### L ABSARS1 #### [facility] (DEFAULT) [address] [place] [address] COMPREHENSIVE METABOLIC PANE [facility] 02-28-2020 Albumin [Mass/Vol] 4.3 g/dL Normal 3.2-4.6 [facility] Comment on above: Performed By: #### H JENNEI, CMPN #### [facility] (DEFAULT) [address] [place] [address] ALP [Catalytic activity/Vol] 66 U/L Normal 40-150 [facility] Comment on above: Performed By: #### H JENNIE, CMPN #### [facility] (DEFAULT) [address] [place] [address] ALT [Catalytic activity/Vol] 17 U/L Normal 0-55 [facility] Comment on above: Performed By: #### H JENNIE, CMPN #### [facility] (DEFAULT) [address] [place] [address] Anion gap [Moles/Vol] 15 mmol/L Normal [facility] Comment on above: Performed By: #### H JENNIE, CMPN #### [facility] (DEFAULT) [address] [place] [address] AST [Catalytic activity/Vol] 19 U/L Normal <39 [facility] Comment on above: Performed By: #### H JENNIE, CMPN #### [facility] (DEFAULT) [address] [place] [address] Bilirubin [Mass/Vol] 0.5 mg/dL Normal 0.3-1.2 [facility] Comment on above: Performed By: #### H JENNIE, CMPN #### [facility] (DEFAULT) [address] [place] [address] Calcium [Mass/Vol] 9.5 mg/dL Normal 8.4-10.2 [facility] Comment on above: Performed By: #### H JENNIE, CMPN #### [facility] (DEFAULT) [address] [place] [address] Chloride [Moles/Vol] 106 mmol/L Normal 98-107 [facility] Comment on above: Performed By: #### H JENNIE, CMPN #### [facility] (DEFAULT) [address] [place] [address] CO2 [Moles/Vol] 25 mmol/L Normal 22-31 [facility] Comment on above: Performed By: #### H JENNIE, CMPN #### [facility] (DEFAULT) [address] [place] [address] Creatinine [Mass/Vol] 1.00 mg/dL Normal 0.72-1.25 [facility] Comment on above: Performed By: #### H JENNIE, CMPN #### [facility] (DEFAULT) [address] [place] [address] Est Gfr, 91 mL/min/1.73sqM Normal [facility] Comment on above: Performed By: #### H JENNIE, CMPN #### [facility] (DEFAULT) [address] [place] [address] Est Gfr,Non 75 mL/min/1.73sqM Normal [facility] Comment on above: Performed By: #### H JENNIE CMPN #### [facility] (DEFAULT) [address] [place] [address] Glucose [Mass/Vol] 111 mg/dL Normal 80-115 [facility] Comment on above: Performed By: #### H JENNIE, CMPN #### [facility] (DEFAULT) [address] [place] [address] Osmolality [Osmolality] 300 mOsm/kg Normal [facility] Comment on above: Performed By: #### H JENNIE, CMPN #### [facility] (DEFAULT) [address] [place] [address] Potassium [Moles/Vol] 4.5 mmol/L Normal 3.5-5.1 [facility] Comment on above: Performed By: #### H JENNIE, CMPN #### [facility] (DEFAULT) [address] [place] [address] Protein [Mass/Vol] 7.3 g/dL Normal 6.4-8.3 [facility] Comment on above: Performed By: #### H JENNIE, CMPN #### [facility] (DEFAULT) [address] [place] [address] Sodium [Moles/Vol] 141 mmol/L Normal 136-145 [facility] Comment on above: Performed By: #### H JENNIE, CMPN #### [facility] (DEFAULT) [address] [place] [address] Urea nitrogen [Mass/Vol] 24.0 mg/dL Normal 8.4-25.7 [facility] Comment on above: Performed By: #### H JENNIE, CMPN #### [facility] (DEFAULT) [address] [place] [address] Urea nitrogen/Creatinine [Mass ratio] 24 mg/mg Normal [facility] Comment on above: Performed By: #### H JENNIE, CMPN #### [facility] (DEFAULT) [address] [place] [address] LIPID PANEL W CALCULATED LDL on 02-28-2020 Calculated LDL Cholesterol 54 mg/dL Normal <130 [facility] Comment on above: Result Comment: LDL ADULT LEVELS IN TERMS OF RISK FOR CORONARY HEART DISEASE Optimal: <100 mg/dL Near optimal: 100 to 129 mg/dL Borderline High: 130 to 159 mg/dL High: 160 to 189 mg/dL Very High: >189 mg/dL Performed By: #### H JENNIE, CMPN #### [facility] (DEFAULT) [address] [place] [address] Cholesterol [Mass/Vol] 114 mg/dL Normal <200 [facility] Comment on above: Performed By: #### H JENNIE, CMPN #### [facility] (DEFAULT) [address] [place] [address] Cholesterol in HDL [Mass/Vol] 41 mg/dL Low >60 [facility] Comment on above: Result Comment: [<40 mg/dL: Low (High Risk)] [>59 mg/dL: High (Low Risk)] Performed By: #### H JENNIE, CMPN #### [facility] (DEFAULT) [address] [place] [address] Cholesterol.total/Ch olesterol in HDL [Mass ratio] 2.8 {ratio} Normal [facility] Comment on above: Performed By: #### H JENNIE, CMPN #### [facility] (DEFAULT) [address] [place] [address] Non Hdl Cholesterol 73 mg/dL Normal [facility] Comment on above: Performed By: #### H JENNIE, CMPN #### [facility] (DEFAULT) [address] [place] [address] Triglyceride [Mass/Vol] 93 mg/dL Normal <150 [facility] Comment on above: Performed By: #### H JENNIE, CMPN #### [facility] (DEFAULT) [address] [place] [address] XR SPINE LUMBOSACRAL AP AND LATERALon 10-26-2019 XR SPINE LUMBOSACRAL AP AND LATERAL EXAM: [facility] XR SPINE LUMBOSACRAL AP AND LATERAL, [...] Dual curve lumbar scoliosis, worse than previously Normal [facility] XR SPINE SCOLIOSIS 2/3 VIEWS on 10-26-2019 XR SPINE SCOLIOSIS 2/3 VIEWS EXAM: [facility] XR SPINE SCOLIOSIS 2/3 VIEWS, 10/26/2019 [...] of disc degeneration at L3-4 and L4-5. Normal [facility] Hemoglobin and Hematocriton 02-17-2018 Hematocrit Auto Volume Fraction (Bld) 39.2 % Low 41 - 53 % [facility] Hemoglobin mass conc (Bld) 13.1 g/dL Low 13.5 - 17.5 g/dL [facility] Interpretation and review of laboratory results Abnormal Invalid Interpretation Code [facility] SCAN OTHER ORDERSon 01-07-20 Ordered by an unspecified provider. Invalid Interpretation Code [facility] CT ANKLE LEFT WITHOUT CONTRA STon 10-15-2017 CT ANKLE LEFT WITHOUT CONTRAST EXAMINATION:CT OF THE LEFT ANKLE WITHOUT CONTRAST 10/15/2017TECHNIQUE:CT of the left ankle was performed without the administration of intravenous contrast. Multiplanar reformatted images are provided for review. Dose modulation, iterative reconstruction, and/or weight based adjustment of the mA/kV was utilized to reduce the radiation dose to as low as reasonably achievable.COMPARISON :None.HISTORY:ORDERIN G SYSTEM PROVIDED HISTORY: Varus deformity, not elsewhere [...] visualized tendons appear grossly intact and appropriately located.IMPRESSION:Reggie arredondo is status post prior surgical intervention to [...] edema/induration about the ankle both medially and laterally.[facility]/gesWork station ID: [id number] by: LEON CAMARA on WedOctober 15, 2017 9:03:29 AM EDTTranscribed by: RUDDY CASAS on WedOctober 15, 2017 9:43:06 AM EDTFinalized by: LEON CAMARA on WedOctober 15, 2017 10:13:33 AM EDT [facility] Comment on above: Order Comment: Reaso [...] ACN/ges Workstation ID: [id number] Invalid Interpretation Code [employer] CT Ankle Left Without Contrast EXAMINATION: [...] intact and appropriately located. Invalid Interpretation Code [employer] [facility] CT Ankle Left Without Contrast Interface, Rad In [employer] [facility] - 10/15/2017 10:16 AM EDT EXAMINATION: CT [...] ACN/ges Workstation ID: [id number] Invalid Interpretation Code [employer] CBC Auto Differentialon 12-2 Basophils 0.03 K/mcL Invalid Interpretation Code 0.00 - 0.30 [facility] ([facility] Basophils/100 leukocytes 0.4 % Invalid Interpretation Code [facility] ([facility] Eosinophils 0.15 K/mcL Invalid Interpretation Code 0.00 - 0.50 [facility] ([facility] Eosinophils/100 leukocytes 2.0 % Invalid Interpretation Code [facility] ([facility] Erythrocytes (RBC) 4.50 M/mcL Invalid Interpretation Code 4.50 - 5.90 [facility] ([facility] Hematocrit (HCT) 39.8 % Low 41 - 53 % [facility] ([facility] Hemoglobin (HGB) 13.2 g/dL Low 13.5 - 17.5 g/dL [facility] ([facility] Interpretation and review of laboratory results Abnormal Invalid Interpretation Code [facility] ([facility] Lymphocytes 2.38 K/mcL Invalid Interpretation Code 0.90 - 4.00 [facility] ([facility]) [facility] Lymphocytes/100 leukocytes 32.1 % Invalid Interpretation Code [facility] ([facility] MCH 29.3 pg Invalid Interpretation Code 26 - 34 pg [facility] ([facility] MCHC 33.2 g/dL Invalid Interpretation Code 31 - 37 g/dL [facility] ([facility] MCV 88.4 fL Invalid Interpretation Code 80 - 100 fL [facility] ([facility] Monocytes 0.60 K/mcL Invalid Interpretation Code 0.30 - 0.90 [facility] ([facility] Monocytes/100 leukocytes 8.1 % Invalid Interpretation Code [facility] ([facility] Neutrophils 4.26 K/mcL Invalid Interpretation Code 1.70 - 7.00 [facility] ([facility]) [facility] Neutrophils/100 leukocytes 57.4 % Invalid Interpretation Code [facility] ([facility] Platelet mean volume (PMV) 10.6 fL Invalid Interpretation Code 9 - 15.5 fL [facility] ([facility] Platelets 167 K/mcL Invalid Interpretation Code 150 - 400 [facility] ([facility]) [facility] RDW-CA 12.1 % Invalid Interpretation Code 11.6 - 14.8 % [facility] ([facility] WBC (Leukocytes) 7.42 K/mcL Invalid Interpretation Code 4.50 - 11.00 [facility] ([facility] CBC w/ Diffon 05-19-2017 Creatinine The following orders were created for panel order CBC w/ Diff. Procedure Abnormality Status --------- ------ CBC Auto Differential[[id number]] Abnormal Final result Please view results for these tests on the individual orders. Invalid Interpretation Code [facility] Work Phone: CMPon 05-19-2017 Alanine aminotransferase (ALT) 41 U/L High 0 - 40 U/L [facility] ([facility] Albumin 4.2 g/dL Invalid Interpretation Code 3.2 - 5.2 g/dL [facility] ([facility] Alkaline phosphatase (ALP) 84 U/L Invalid Interpretation Code 40 - 150 U/L [facility] ([facility] Anion gap 22 mmol/L High 10 - 20 mmol/L [facility] ([facility] Aspartate aminotransferase (AST) 33 U/L Invalid Interpretation Code 0 - 45 U/L [facility] ([facility] Bicarbonate (HCO3) 26 mmol/L Invalid Interpretation Code 21 - 32 mmol/L [facility] ([facility] Bilirubin (total) 0.3 mg/dL Invalid Interpretation Code 0 - 1.3 mg/dL [facility] ([facility] BUN/Creatinine Ratio 20.5 mg/mg High 10.0 - 20.0 [facility] ([facility] Calcium 9.3 mg/dL Invalid Interpretation Code 8.4 - 10.2 mg/dL [facility] ([facility] Chloride 104 mmol/L Invalid Interpretation Code 98 - 108 mmol/L [facility] ([facility] Creatinine 0.83 mg/dL Invalid Interpretation Code 0.8 - 1.3 mg/dL [facility] ([facility] eGFR (non-black) 94 mL/min/{1.73_m2} Invalid Interpretation Code >=60 [facility] ([facility] eGFR (non-black) The eGFR should be used for monitoring renal function only and not for medication dosing. Invalid Interpretation Code [facility] ([facility] Glucose 115 mg/dL High 65 - 99 mg/dL [facility] ([facility] Potassium 4.7 mmol/L Invalid Interpretation Code 3.5 - 5.1 mmol/L [facility] ([facility] Protein 7.4 g/dL Invalid Interpretation Code 6 - 8 g/dL [facility] ([facility] Sodium 147 mmol/L High 135 - 145 mmol/L [facility] ([facility] Urea nitrogen 17 mg/dL Invalid Interpretation Code 8 - 25 mg/dL [facility] ([facility] CT KIDNEY STONEon 05-19-2017 CT KIDNEY STONE EXAMINATION:STONE PROTOCOL CT OF THE ABDOMEN AND FNSQYP1105/19/2017TECHN IQUE:CT of the abdomen and pelvis was performed without the administration of intravenous contrast. Multiplanar reformatted images are provided for review. Dose modulation, iterative reconstruction, and/or weight based adjustment of the mA/kV was utilized to reduce the radiation dose to as low as reasonably achievable.COMPARISON :None.HISTORY:[employer] PROVIDED HISTORY: left flank pain; TECHNOLOGIST [...] seen.PELVIS: The bladder and pelvic organs are unremarkable.PERITONE UM/RETROPERITONEUM: No lymphadenopathy is noted.BONES/SOFT TISSUES: The osseous structures demonstrate no acute abnormality.IMPRESSIO N:No evidence of obstructive uropathy.Colonic diverticulosis.Cholel ithiasis.3 mm pulmonary nodule within the left lower lobe. Please see recommendations below.RECOMMENDATIONS : Guidelines for follow-up and management of pulmonary nodules found on abdomen CT:<6 mm - No follow up recommend on the basis of the estimated low risk of malignancy.6-8-mm - recommend follow-up chest CT after an appropriate interval (3-12 months depending on clinical risk).>8mm - immediate chest CT for further evaluation.Radiology 2017 http://pubs.rsna.org/ doi/full/10.1148/radi ol.[email or web address] Managing Incidental Adrenal Nodule > or equal to 1 cmBenign adrenal nodule - No follow up is required (including myelolipomas, adenomas, or nodules stable for > or equal to 1 year)Reference:Gilma mirza et al. Managing Incidental Findings on Abdominal CT: White Paper of the ACR Incidental Findings Committee. J Am Anup Radiol 2010;7:754-773Worksta tion ID: [id number] by: MARCELL LOYOLA on WedMay 19, 2017 5:28:03 AM ESTTranscribed by: MARCELL LOYOLA on WedMay 19, 2017 5:28:03 AM ESTFinalized by: MARCELL LOYOLA on WedMay 19, 2017 5:28:03 AM EST Normal [facility] Comment on above: Order Comment: [...] chest CT for further evaluation. Radiology 2017 http://pubs.rsna.org/ doi/full/10.1148/radi ol.[email or web address] Managing Incidental Adrenal Nodule > or equal to 1 cm Benign adrenal nodule - No follow up is required (including myelolipomas, adenomas, or nodules stable for > or equal to 1 year) Reference: Jameland et al. Managing Incidental Findings on Abdominal CT: White Paper of the ACR Incidental Findings Committee. J Am Anup Radiol 2010;7:754-773 Workstation ID: [id number] Invalid Interpretation Code [employer] CT Kidney Stone Interface, Rad In [employer] [facility] - 05/19/2017 5:30 AM EST EXAMINATION: [...] The bladder and pelvic organs are unremarkable. PERITONEUM/RETROPERIT ONEUM: No lymphadenopathy is noted. BONES/SOFT TISSUES: The [...] chest CT for further evaluation. Radiology 2017 http://pubs.rsna.org/ doi/full/10.1148/radi ol.[id number] Managing Incidental Adrenal Nodule > or equal to 1 cm Benign adrenal nodule - No follow up is required (including myelolipomas, adenomas, or nodules stable for > or equal to 1 year) Reference: Tyrone et al. Managing Incidental Findings on Abdominal CT: White Paper of the ACR Incidental Findings Committee. J Am Anup Radiol 2010;7:754-773 Workstation ID: [id number] Invalid Interpretation Code [employer] [place] Kidney Stone EXAMINATION: STONE PROTOCOL CT [...] The bladder and pelvic organs are unremarkable. PERITONEUM/RETROPERIT ONEUM: No lymphadenopathy is noted. BONES/SOFT TISSUES: The osseous structures demonstrate no acute abnormality. Invalid Interpretation Code [facility] Lipaseon 12-20-2017 Interpretation and review of laboratory results Normal Invalid Interpretation Code [facility] ([facility] Lipase 39 U/L Invalid Interpretation Code 15 - 65 U/L [facility] ([facility] Mint Green Topon 05-19-2017 Extra Tube Hold for add-ons. Invalid Interpretation Code [facility] ([facility] Frakes Drawon 05-19-2017 Creatinine The following orders were created for panel order Frakes Draw. Procedure Abnormality Status --------- ------ Lavender Top[[id number]] Final result Mint Green Top[[id number]] Final result Please view results for these tests on the individual orders. Invalid Interpretation Code [facility] Work Phone: SCAN OTHER ORDERSon 05-19-20 17 SCAN OTHER ORDERS Ordered by an unspecified provider. Invalid Interpretation Code [facility] Work Phone: Urinalysison 05-19-2017 Bilirubin, Urine Negative Invalid Interpretation Code Negative [facility] ([facility] Blood, Urine Negative Invalid Interpretation Code Negative [facility] ([facility] Hyaline Casts 0-2 Invalid Interpretation Code 0 - 2 /lpf [facility] ([facility] Interpretation and review of laboratory results Abnormal Invalid Interpretation Code [facility] ([facility] Mucus, Urine Rare Invalid Interpretation Code None Seen, Rare /lpf [facility] ([facility] Nitrite, Urine Negative Invalid Interpretation Code Negative [facility] ([facility] RBCs, Urine 4 /hpf High 0 - 3 [facility] ([facility] Urine, bacteria in sediment None Seen Invalid Interpretation Code None Seen /hpf [facility] ([facility] Urine, clarity Clear Invalid Interpretation Code Clear [facility] ([facility] Urine, color Yellow Invalid Interpretation Code Colorless, Yellow [facility] ([facility] Urine, glucose presence Negative Invalid Interpretation Code Negative mg/dL [facility] ([facility] Urine, ketones presence Negative Invalid Interpretation Code Negative mg/dL [facility] ([facility] Urine, leukocyte esterase presence Negative Invalid Interpretation Code Negative [facility] ([facility] Urine, pH 5.0 [pH] Invalid Interpretation Code 5.0 - 7.0 [facility] ([facility] Urine, protein Negative Invalid Interpretation Code Negative mg/dL [facility] ([facility] Urine, specific gravity 1.019 1 Invalid Interpretation Code 1.005 - 1.025 [facility] ([facility] Urine, urobilinogen <2.0 Invalid Interpretation Code <2.0 mg/dL [facility] ([facility] WBCs, Urine 1 /hpf Invalid Interpretation Code 0 - 5 [facility] ([facility] Urinalysis Microscopic examination is performed on all urinalysis samples and only positive findings are reported. The test for blood on the chemical analytic portion of urinalysis may also be positive due to hemoglobinuria and myoglobinuria and if red blood cells are present they are quantified by microscopic examination. Invalid Interpretation Code [facility] ([facility] Vital Signs Date Time Vital Sign Value Performing Clinician Facility 08-16-2024 08:55-0400 Diastolic blood pressure 65 mm[Hg] Aaron Ball DO Work Phone: [facility] 08-16-2024 08:55-0400 Heart rate 59 /min Aaron Ball DO Work Phone: [facility] 08-16-2024 08:55-0400 Respiratory rate 16 /min Aaron Ball DO Work Phone: [facility] 08-16-2024 08:55-0400 SaO2% (BldA) [Mass fraction] 96 % Aaron Ball DO Work Phone: [facility] 08-16-2024 08:55-0400 Systolic blood pressure 122 mm[Hg] Aaron Ball DO Work Phone: [facility] 08-16-2024 07:12-0400 Body height 179.07 cm Aaron Ball DO Work Phone: [facility] 08-16-2024 07:12-0400 Body weight 92.98 kg Aaron Ball DO Work Phone: [facility] 12-16-2022 08:30-0400 Body height 177.8 cm Maana Other [facility] [employer] Other 12-16-2022 08:30-0400 Body mass index (BMI) [Ratio] 31.36 kg/m2 [facility] Other [employer] Other 12-16-2022 08:30-0400 Body weight 99.16 kg Aaron Ball Other [employer] Other 12-16-2022 08:30-0400 Diastolic blood pressure 80 mm[Hg] Aaron Ball Other [employer] Other 12-16-2022 08:30-0400 Respiratory rate 12 /min Aaron Ball Other [employer] Other 12-16-2022 08:30-0400 Systolic blood pressure 150 mm[Hg] Aaron Ball Other [employer] Other 09-14-2022 10:00-0400 Body height 177.8 cm Craig Ken Other [employer] Other 09-14-2022 10:00-0400 Body mass index (BMI) [Ratio] 31.71 kg/m2 Craig Scaristidesner Other [employer] Other 09-14-2022 10:00-0400 Body weight 100.25 kg Craig Scovanner Other [employer] Other 09-14-2022 10:00-0400 Diastolic blood pressure 69 mm[Hg] Craig Scovanner Other [facility] Other 09-14-2022 10:00-0400 Systolic blood pressure 138 mm[Hg] Craig Scovanner Other [employer] Other 08-26-2022 10:41-0400 Diastolic blood pressure 80 mm[Hg] DO Aaron Ball Work Phone: [facility] 08-26-2022 10:41-0400 Heart rate 58 /min DO Aaron Ball Work Phone: [facility] 08-26-2022 10:41-0400 Respiratory rate 20 /min DO Aaron Ball Work Phone: [facility] 08-26-2022 10:41-0400 SaO2% (BldA) [Mass fraction] 96 % DO Aaron Ball Work Phone: [facility] 08-26-2022 10:41-0400 Systolic blood pressure 128 mm[Hg] DO Aaron Ball Work Phone: [facility] 08-26-2022 09:19-0400 Body height 177.8 cm DO Aaron Ball Work Phone: [facility] 08-26-2022 09:19-0400 Body temperature 97.8 [degF] DO Aaron Ball Work Phone: [facility] 08-26-2022 09:19-0400 Body weight 97.97 kg DO Aaron Ball Work Phone: [facility] 07-16-2022 09:30-0500 Body height 177.8 cm Aaron Ball Other [facility] [employer] Other 07-16-2022 09:30-0500 Body mass index (BMI) [Ratio] 32.42 kg/m2 Aaron Ball Other [facility] [employer] Other 07-16-2022 09:30-0500 Body weight 102.51 kg Aaron Ball Other [facility] [employer] Other 07-16-2022 09:30-0500 Diastolic blood pressure 76 mm[Hg] Aaron Ball Other [facility] [employer] Other 07-16-2022 09:30-0500 Respiratory rate 12 /min Aaron Ball Other [employer] Other 07-16-2022 09:30-0500 Systolic blood pressure 118 mm[Hg] Aaron Bush Other [employer] Other 11-06-2018 17:53-0400 BMI (Body Mass Index) 31.42 kg/m2 [facility] 11-06-2018 17:53-0400 Body Temperature 97.3 [degF] [facility] 11-06-2018 17:53-0400 BP Diastolic 88 mm[Hg] [facility] 11-06-2018 17:53-0400 BP Systolic 149 mm[Hg] [facility] 11-06-2018 17:53-0400 Height 177.8 cm [facility] 11-06-2018 17:53-0400 Pulse (Heart Rate) 68 /min [facility] 11-06-2018 17:53-0400 Pulse Oximetry 96 % [facility] 11-06-2018 17:53-0400 Respiratory Rate 15 /min [facility] 11-06-2018 17:53-0400 Weight 99.34 kg [facility] 02-17-2018 15:50-0400 BP Diastolic 82 mm[Hg] 02-17-2018 15:50-0400 BP Systolic 134 mm[Hg] 02-17-2018 15:50-0400 Pulse (Heart Rate) 62 /min 02-17-2018 15:50-0400 Pulse Oximetry 95 % 02-17-2018 15:50-0400 Respiratory Rate 15 /min 02-17-2018 15:40-0400 Body Temperature 98.01 [degF] 02-17-2018 09:49-0400 BMI (Body Mass Index) 30.68 kg/m2 02-17-2018 09:49-0400 Height 177.8 cm 02-17-2018 09:49-0400 Weight 97 kg 05-27-2017 14:00-0500 Body Temperature 97.81 [degF] Work Phone: 05-27-2017 14:00-0500 BP Diastolic 71 mm[Hg] [facility]: 05-27-2017 14:00-0500 BP Systolic 133 mm[Hg] Laura Jose Manuel [facility] Work Phone: 05-27-2017 14:00-0500 Pulse (Heart Rate) 52 /min Laura Jose Manuel [facility] Work Phone: 05-27-2017 14:00-0500 Pulse Oximetry 99 % Laura Jose Manuel [facility] Work Phone: 05-27-2017 14:00-0500 Respiratory Rate 11 /min [facility] Work [facility]: 05-27-2017 07:38-0500 BMI (Body Mass Index) 31.09 kg/m2 [facility] Work Phone: 05-27-2017 07:38-0500 Height 179.[address] [facility] Work Phone: 05-27-2017 07:38-0500 Weight 99.7 kg [facility] Work Phone: 05-21-2017 14:38-0500 BMI (Body Mass Index) 31.31 kg/m2 [facility] Work Phone: 05-21-2017 14:38-0500 Body Temperature 97.81 [degF] Price Swift [facility] Work Phone: 05-21-2017 14:38-0500 BP Diastolic 95 mm[Hg] Price Swift [facility] Work Phone: 05-21-2017 14:38-0500 BP Systolic 153 mm[Hg] Price Swift [email or web address] Work Phone: 05-21-2017 14:38-0500 Height 179.1 cm Price Swift [facility] Work Phone: 05-21-2017 14:38-0500 Pulse (Heart Rate) 69 /min Price Swift [facility] Work Phone: 05-21-2017 14:38-0500 Pulse Oximetry 93 % Price Swift [facility] Work Phone: 05-21-2017 14:38-0500 Weight 100.4 kg Price Swift [facility] Work Phone: 05-19-2017 06:36-0500 BP Diastolic 70 mm[Hg] Trang Bray [facility] Work Phone: 05-19-2017 06:36-0500 BP Systolic 138 mm[Hg] Trang Bray [facility] Work Phone: 05-19-2017 06:36-0500 Pulse (Heart Rate) 72 /min Trang Bray [facility] Work Phone: 05-19-2017 06:36-0500 Pulse Oximetry 96 % Trang Bray [facility] Work Phone: 05-19-2017 06:36-0500 Respiratory Rate 16 /min Trang Bray [facility] Work Phone: 05-19-2017 04:32-0500 BMI (Body Mass Index) 31.97 kg/m2 Trang Bray [facility] Work Phone: 05-19-2017 04:32-0500 Height 179.1 cm Trang Bray [facility] Work Phone: 05-19-2017 04:32-0500 Weight 102.51 kg Trang Bray [facility] Work Phone: 05-19-2017 04:28-0500 Body Temperature 97.11 [degF] Trang Bray [facility] Work Phone: Encounters Encounter Date Encounter Type Care Provider Facility Start: 08-16-2024 Non-patient / Non-visit Benjam in Eleazar JONES Work Phone: [facility] Work Phone: Start: 08-16-2024 End: 08-16-2024 Admission to same day surgery center Aaron Ball DO Work Phone: [facility] Work Phone: Start: 08-16-2024 End: 08-16-2024 ambulatory Aaron Ball DO Work Phone: [facility] Work Phone: Start: 03-10-2023 End: 03-10-2023 ambulatory Aaron Ball Other [facility] Other Start: 03-10-2023 Telephone encounter Aaron Ball [facility] Start: 03-04-2023 End: 03-04-2023 ambulatory Aaron Ball Other [facility] Other Start: 03-04-2023 Telephone encounter Aaron Ball [facility] Start: 03-02-2023 End: 03-02-2023 ambulatory Aaron Ball Other [facility] Other Start: 03-02-2023 Telephone encounter Aaron Ball [facility] Start: 12-25-2022 End: 12-25-2022 ambulatory Aaron Ball Other [facility] Other Start: 12-25-2022 Telephone encounter Aaron Ball [facility] Start: 12-24-2022 End: 12-24-2022 ambulatory Aaron Ball Other [facility] Other Start: 12-24-2022 Telephone encounter Aaron Ball [facility] Start: 12-16-2022 End: 12-16-2022 ambulatory Aaron Ball Other [facility] Other Start: 12-16-2022 Patient encounter procedure Aaron Ball [facility] Start: 12-16-2022 Telephone encounter Aaron Ball [facility] Start: 12-10-2022 End: 12-10-2022 ambulatory Aaron Ball Other [facility] Other Start: 12-10-2022 Telephone encounter Aaron Hwoell [facility] Start: 12-04-2022 End: 12-04-2022 ambulatory Aaron Bush Other [facility] Other Start: 12-04-2022 Telephone encounter Aaron Howell [facility] Start: 09-16-2022 End: 09-17-[address] DOCTOR CAMPBELL Facility: Start: 09-14-2022 End: 09-14-2022 ambulatory Craig Ken Other [facility] Other Start: 09-14-2022 Office outpatient vi sit 15 minutes Craig Ken [facility] Start: 09-09-2022 End: 09-09-2022 ambulatory Aaron Bush Other [facility] Other Start: 09-09-2022 Telephone encounter Aaron Eleazar KING [facility] [employer] Start: 09-08-2022 End: 09-08-2022 ambulatory Imad Asaad Other [facility] Other Start: 09-08-2022 Telephone encounter Imad Asaad [facility] Start: 08-26-2022 Telephone encounter Aaron Bush CHRISTINE [facility] Start: 08-26-2022 End: 08-26-2022 Admission to same day surgery center DO Aaron Bush Work Phone: [facility] Work Phone: Start: 08-26-2022 End: 08-26-2022 ambulatory DO Aaron Bush Work Phone: [facility] Work Phone: Start: 08-13-2022 End: 08-13-2022 ambulatory Aaron Bush Other [facility] Other Start: 08-13-2022 Telephone encounter Aaron Eleazar Howell [employer] Start: 07-28-2022 End: 07-28-2022 ambulatory Imad Asaad Other [facility] Other Start: 07-28-2022 Telephone encounter Nino Russell [facility] [employer] Start: 07-16-2022 End: 07-16-2022 ambulatory Aaron Bush Other [facility] Other Start: 07-16-2022 Office outpatient vi sit 25 minutes Aaron Bush [facility] Start: 07-16-2022 Telephone encounter Aaron Bush [facility] Start: 07-13-2022 End: 07-14-[address] AARON BUSH Facility:[facility] Start: 06-15-2022 End: 06-15-2022 ambulatory Aaron Bush Other [facility] Other Start: 06-15-2022 Telephone encounter Aaron Bush [facility] Start: 03-04-2022 End: 03-05-[address] AARON BUSH Facility:[facility] Start: 12-30-[address] AARON BUSH Facili ty:[facility] Start: 12-17-2021 Adult health examination Aaron Bush Other [facility] Other Start: 12-16-2021 End: 12-17-[address] AARON BUSH Facility:[facility] Start: 07-08-2020 End: 07-08-2020 Orders Only Sarika Sibley Work Phone: [facility] Start: 11-06-2018 End: 11-06-2018 Patient encounter procedure NUPUR TONY AL-OBOSI [facility] Start: 11-06-2018 End: 11-06-2018 Office outpatient new 20 minutes Allison Williamson Work Phone: [facility] Comment on above: Abrasion of left eye , initial encounter (Primary Dx) Start: 02-17-2018 End: 02-17-2018 Patient encounter LAURA RICHARD [facility] Start: 02-17-2018 End: 02-17-2018 Patient encounter Laura Richard Work Phone: [facility] Comment on above: Post-op pain (Primar y Dx) Start: 10-22-2017 End: 10-22-2017 Ambulatory LAURA RICHARD [facility] Start: 10-15-2017 End: 10-16-2017 Ambulatory LAURAANGELINA VIEYRA [facility] Start: 10-15-2017 End: 10-15-2017 Ambulatory Laura Richard Work Phone: [facility] CT Scan Start: 08-05-2017 End: 08-05-2017 Ambulatory Laura Richard Work Phone: [facility] Start: 07-29-2017 End: 07-29-2017 Ambulatory Laura Richard Work Phone: [facility] Start: 07-21-2017 End: 07-21-2017 Ambulatory Laura Richard Work Phone: [facility] Start: 05-27-2017 End: 05-27-2017 Patient encounter LAURAANGELINA VIEYRA [facility] Start: 05-27-2017 End: 05-27-2017 Ambulatory Lauraangelina Richard Work Phone: [facility] Start: 05-21-2017 Encounter for other preprocedural examination [facility] Start: 05-21-2017 Encounter for preprocedural cardiovascular examination [facility] Start: 05-21-2017 End: 05-21-2017 Patient encounter LAURAANGELINA VIEYRA [facility] Start: 05-21-2017 Office consultation Laura Richard Work Phone: [facility] Preadmission Testing Start: 05-19-2017 End: 05-19-2017 Emergency department patient visit NUPUR TONY [facility] Start: 05-19-2017 End: 05-19-2017 Emergency department patient visit Trang Bray Work Phone: [facility] Encounter for other preprocedural examination [facility] Encounter for preprocedural cardiovascular examination LAURA RICHARD [facility] Procedures Date Procedure Procedure Detail Performing Clinician Start: 08-16-2024 Esophagogastroduodenoscopy Aaron Bush DO Work Phone: Start: 08-26-2022 Esophagogastroduodenoscopy DO Aaron Dodson all Work Phone: Start: 12-16-[address] AARON BUSH Comment on above: Performed By: #### [facility] ####Farzad [facility] [id number] [place] [address] [id number] Amos Start: 02-17-2018 End: 02-17-2018 Hemoglobin and Hematocrit panel - Blood Laura Richard Work Phone: Start: 01-06-2018 End: 01-06-2018 SCAN OTHER ORDERS Provider Not In System Start: 05-27-2017 End: 05-27-2017 LEFT ANKLE ARTHROSCOPY WITH DEBRIDEMENT, PARTIAL EXCISION TIBIA, BROSTRUM, WEI, TIBIAL OSTEOTOMY Laura Richard Work Phone: Depression screening Georgia Bush Other Incision and drainage of abscess Aaron Bush Other Screening for malign ant neoplasm of prostate Aaron Bush Other Plan of Treatment Date Care Activity Detail Author Start: 09-04-2025 Tetanus vaccination [facility] Work Phone: Start: 08-16-2024 [facility] Start: 08-26-2022 End: 08-26-2022 [facility] Start: 01-30-2020 Influenza vaccination given Sequential Influenza Vaccine (#1) [facility] Start: 2019 Pneumococcal vaccination Pneumococcal Vaccine Age 65+ (1 of 2 - PCV13) [facility] Start: 01-29-2019 Influenza vaccination given SEQUENTIAL INFLUENZA VACCINE (Season Ended) [facility] Start: 01-29-2018 Influenza vaccination [facility] Start: 08-12-2017 Ambulatory 08/12/2017 Treatment Rehabilitation Laura Richard, DO [address] [place] [address] [phone] Shila Islas, PT [address] [place] [address] [facility] Start: 08-10-2017 Ambulatory 08/10/2017 Treatment Rehabilitation Laura Richard, DO [address] [place] [place] [address] [phone] Leia Richardson, PT [facility] Start: 08-05-2017 Ambulatory 08/05/2017 Treatment Rehabilitation Jose ManuelLaura, DO [address] [place] [address] [phone] Dk Treadwell, SUPERVISOR VENEER [facility] Start: 08-03-2017 Ambulatory 08/03/2017 Treatment Rehabilitation Jose ManuelLaura, DO [address] [place] [place] [address] [phone] Leia Richardson, PT [facility] Start: 07-29-2017 Ambulatory 07/29/2017 Treatment Rehabilitation Jose ManuelLaura, DO [address] [place] [address] [phone] Shila Islas, PT [address] [place] [address] [facility] Start: 05-27-2017 Ambulatory [facility] Start: 05-21-2017 Ambulatory 05/21/2017 Office Visit Pre-Admission Testing Nicolás Richardence Jarrell, DO [address] [place] [place] [address] [phone] Pre-op examination (Primary Dx); Varus deformity, not elsewhere classified, left ankle [facility] Start: 01-29-2017 Influenza vaccination SEQUENTIAL INFLUENZA VACCINE (#1) [facility] Work Phone: Start: 2014 Zoster vacc, sc ZOSTER VACCINE [facility] Work Phone: Start: 2004 Administration of herpes zoster vaccine Zoster Vaccines (1 of 2) [facility] Start: 2004 Screening for malignant neoplasm of colon [facility] Start: 2004 ZOSTER VACCINES (1 of 2) ZOSTER VACCINES (1 of 2) [facility] Start: 1972 Hepatitis C antibody, confirmatory test Hepatitis C Screening [facility] Start: 1970 COVID-19 Vaccine (1 of 2) COVID-19 Vaccine (1 of 2) [facility] Start: 1969 HIV screening HIV Screening [facility] Start: 1966 Adolescent depression screening assessment Depression Screening (PHQ9) [facility] Start: 1957 History and physical examination, annual for health maintenance Wellness Visit [facility] Start: 1954 Fall risk assessment Falls Risk Assessment [facility] Start: 1954 Hepatitis C antibody, confirmatory test HEPATITIS C SCREENING [facility] Start: 1954 HEPATITIS C SCREENING HEPATITIS C SCREENING [facility] Work Phone: Start: 1954 Prostate specific antigen measurement PSA Level [facility] Start: 1954 Screening colonoscopy COLONOSCOPY [facility] Work Phone: Start: 1954 Screening for malignant neoplasm of colon Colorectal Cancer Screening: Colonoscopy [facility] Start: 1955 US scan of abdominal aorta Abdominal Aortic Ultrasound [facility] End: 05-19-2017 Bacteria aerobode culture Urine Aerobic Culture Routine Once for 1 Occurrences starting 05/19/2017 until 05/19/2017 [facility] Work Phone: Bacteria aerobode culture Urine Aerobic Culture Routine 05/19/2017 6:29 AM EST [facility] Work Phone: ECG 12 Lead ECG 12 Lead Rout ine Pre-op examination Ordered: 05/21/2017 [facility] Work Phone: Patient Education [facility] Work Phone: Immunizations Immunization Date Immunization Notes Care Provider Kelly fritz 05-26-2021 COVID-19 Vaccine Pfi zer - Documentation Purposes Only Aaron Bush Other [facility] 11-01-2020 COVID-19 Vaccine Pfi zer - Documentation Purposes Only Aaron Bush Other [facility] 10-11-2020 COVID-19 Vaccine Pfi zer - Documentation Purposes Only Aaron Bush Other [facility] 07-19-2019 zoster vaccine recombinant Aaron Bush Other [facility] 07-01-2019 pneumococcal conjuga te vaccine, 13 valent Aaron Bush Other [facility] 12-13-2018 zoster vaccine recombinant Aaron Bush Other [facility] 09-05-2015 pneumococcal polysaccharide vaccine, 23 valent Aaron Bush Other [facility] Payers Date Payer Category Payer Self-pay 2024 Private Health Insurance CLI [id number] 2020 Medicare [id number] 2016 Unknown [id number] 2016 Unknown [id number] 2016 Unknown [id number] 2016 Unknown [place] GARCIA/NBA/HMO/PPO [id number] 2016-Present [id number] 1959 Medicare [id number] 1959 Medicare [id number] 1954 Unknown [id number] 1954 Unknown [id number] 1954 Unknown [id number] 93 1954 Unknown [id number] 93 1954 Unknown [id number] 93 1954 Unknown [id number] 93 Unknown [id number] 31 Social History Date Type Detail Facility Start: 05-27-2017 End: 08-26-2022 Tobacco smoking status NHIS Former smoker [facility] End: 04-30-2017 History of tobacco use Current smoker [facility] Work Phone: Sex Assigned At Not on file [facility] Work Phone: Start: 05-19-2017 Tobacco smoking status [facility] Current every day smoker [facility] Work Phone: Start: 11-06-2018 End: 08-16-2024 Tobacco smoking status [facility] Current some day smoker [facility] Start: 05-21-2017 Tobacco Comment social [facility] Start: 02-11-2018 Alcohol Comment weekly [facility] Start: 11-06-2018 Tobacco use and exposure Never used [facility] Start: 11-06-2018 Alcohol intake Current drinke r of alcohol (finding) [facility] Sex Assigned At Sex Assigned At [facility] th [facility] Other Start: 1955 Sex Assigned At Male F [facility] Start: 08-16-2024 Sex Male (finding) [facility] Medical Equipment Procedure Code Equipment Code Equipment Origin al Text Equipment Identifier Dates Seward 1.45mm #2 Soft Short Rigid Juggerknot W/Drill Bit - [id number] Start: 05-27-2017 Allograft 5cc Fiber Dbm Stagraft - [id number] Start: 05-27-2017 Graft Femoral He ad - [id number] Start: 05-27-2017 Screw 3.5 X 32mm Low Profile Steven - [id number] Start: 05-27-2017 Screw 3.5 X 34mm Low Profile Steven - [id number] Start: 05-27-2017 Screw 3.5 X 34mm Steven Lock - [id number] Start: 05-27-2017 Screw 3.5 X 12mm Steven Lock - [id number] Start: 05-27-2017 Plate 6hl Fib Lo ck - [id number] Start: 05-27-2017 Seward 1.45mm #2 Soft Short Rigid Juggerknot W/Drill Bit - [id number] Start: 05-27-2017 Allograft 5cc Fiber Dbm Stagraft - [id number] Start: 05-27-2017 Graft Femoral He ad - [id number] Start: 05-27-2017 Screw 3.5 X 32mm Low Profile Steven - [id number] Start: 05-27-2017 Screw 3.5 X 34mm Low Profile Steven - [id number] Start: 05-27-2017 Screw 3.5 X 34mm Steven Lock - [id number] Start: 05-27-2017 Screw 3.5 X 12mm Steven Lock - [id number] Start: 05-27-2017 Plate 6hl Fib Lo ck - [id number] Start: 05-27-2017 Seward 1.45mm #2 Soft Short Rigid Juggerknot W/Drill Bit - [id number] Start: 05-27-2017 Allograft 5cc Fiber Dbm Stagraft - [id number] Start: 05-27-2017 Graft Femoral He ad - [id number] Start: 05-27-2017 Screw 3.5 X 32mm Low Profile Steven - [id number] Start: 05-27-2017 Screw 3.5 X 34mm Low Profile Steven - [id number] Start: 05-27-2017 Screw 3.5 X 34mm Steven Lock - [id number] Start: 05-27-2017 Screw 3.5 X 12mm Steven Lock - [id number] Start: 05-27-2017 Plate 6hl Fib Lo ck - [id number] Start: 05-27-2017 Seward 1.45mm #2 Soft Short Rigid Juggerknot W/Drill Bit - [id number] Start: 05-27-2017 Allograft 5cc Fiber Dbm Stagraft - [id number] Start: 05-27-2017 Graft Femoral He ad - [id number] Start: 05-27-2017 Screw 3.5 X 32mm Low Profile Steven - [id number] Start: 05-27-2017 Screw 3.5 X 34mm Low Profile Steven - [id number] Start: 05-27-2017 Screw 3.5 X 34mm Steven Lock - [id number] Start: 05-27-2017 Screw 3.5 X 12mm Steven Lock - [id number] Start: 05-27-2017 Plate 6hl Fib Lo ck - [id number] Start: 05-27-2017 Seward 1.45mm #2 Soft Short Rigid Juggerknot W/Drill Bit - [id number] Start: 05-27-2017 Allograft 5cc Fiber Dbm Stagraft - [id number] Start: 05-27-2017 Graft Femoral He ad - [id number] Start: 05-27-2017 Plate 6hl Fib Lo ck - [id number] Start: 05-27-2017 Screw 3.5 X 32mm Low Profile Steven - [id number] Start: 05-27-2017 Screw 3.5 X 34mm Low Profile Steven - [id number] Start: 05-27-2017 Screw 3.5 X 34mm Steven Lock - [id number] Start: 05-27-2017 Screw 3.5 X 12mm Steven Lock - [id number] Start: 05-27-2017 Screw 3.5 X 18mm Setven Lock - [id number] Screw 3.5 X 38mm Low Profile Steven - [id number] Seward 1.45mm #2 Soft Short Rigid Juggerknot W/Drill Bit - [id number] Start: 05-27-2017 Allograft 5cc Fiber Dbm Stagraft - [id number] Start: 05-27-2017 Graft Femoral He ad - [id number] Start: 05-27-2017 Screw 3.5 X 32mm Low Profile Steven - [id number] Start: 05-27-2017 Screw 3.5 X 34mm Low Profile Steven - [id number] Start: 05-27-2017 Screw 3.5 X 34mm Steven Lock - [id number] Start: 05-27-2017 Screw 3.5 X 12mm Steven Lock - [id number] Start: 05-27-2017 Plate 6hl Fib Lo ck - [id number] Start: 05-27-2017 Plate, Lateral Fibula, Sml, Right Start: 02-17-2018 Pin, Temporary Fixation Start: 02-17-2018 Screw, Locking Start: 02-17-2018 Screw, Locking Start: 02-17-2018 Screw, Locking Start: 02-17-2018 Screw, Non-Locking Start: 02-17-2018 Screw, Non-Locking Start: 02-17-2018 Screw, Non-Locking Start: 02-17-2018 Stagraft Fiber Start: 02-17-2018 Pin, Temporary Fixation Screw, Non-Locking Plate Screws Seward 1.45mm #2 Soft Short Rigid Juggerknot W/Drill Bit - [id number] Start: 05-27-2017 Allograft 5cc Fiber Dbm Stagraft - [id number] Start: 05-27-2017 Graft Femoral He ad - [id number] Start: 05-27-2017 Screw 3.5 X 32mm Low Profile Steven - [id number] Start: 05-27-2017 Screw 3.5 X 34mm Low Profile Steven - [id number] Start: 05-27-2017 Screw 3.5 X 34mm Steven Lock - [id number] Start: 05-27-2017 Screw 3.5 X 12mm Steven Lock - [id number] Start: 05-27-2017 Plate 6hl Fib Lo ck - [id number] Start: 05-27-2017 Plate, Lateral Fibula, Sml, [...] Desired Activity /State Clinical Notes 12-16-2021 to 08-16-2024 Note Date & Type Note Facility 08-16-2024 Procedure note [facility] 08-16-2024 History and physical note [facility] 07-29-2024 History and physical note Note Date/Time August 16, 2024 8:22am [facility] [address] [place] [address] Gastroenterology H&P Signed Patient: Zena Witt MR#: [id number] : 1955 Acct:[id number] Age/Sex: 69 / M Adm Date: 5 Loc: Room: Type: [facility] Attending Dr: Nino Russell MD Copies to: Aaron Bush,DO Nino Russell MD~ Date of Service: 08/16/2024 HISTORY & PHYSICAL: Patient's history with special attention to the cardiovascular, pulmonary systems and the current problem was reviewed with the patient immediately prior to the procedure. Present medications and doses reviewed in the EMR. Allergies and pertinent laboratory tests were also reviewedat this time in the EMR. The physical examination, as below, was then performed. Indication, assessment and HPI: 69-year-old man here for EGD for evaluation of epigastric pain Family history of GI malignancy? No PHYSICAL EXAMINATION General appearance: NAD Skin: No jaundice Head: NC/AT Eyes: Anicteric Neck: Supple Lungs: Normal respiratory effort, no use of accessory muscles Abdomen: nondistended Neuro: Ox3. REVIEW OF SYSTEMS Constitutional: Denies malaise, fevers Cardiovascular: Denies chest pain, palpitations Respiratory: Denies shortness of breath, wheezing Gastrointestinal: As per HPI Genitourinary: Denies dysuria, polyuria Musculoskeletal: Denies joint swelling, joint stiffness Neurological: Denies confusion, numbness, tingling Endocrine: Denies fatigue Written informed consent obtained from the patient. Risks (including but not limited to perforation, infection, bloating, bleeding, need for emergent surgeryand loss of life), benefits and alternatives explained and questions answered. The patient verbalized understanding. Based on history patient is an appropriate candidate for the procedure. Nino Russell M.D. Documented By: Nino Russell MD 08/16/24819 Signed By: <Electronically signed by Nino Russell MD> 08/16/24 0822 [facility] Work Phone: 1(635) 113-223910-11-2023 Evaluation note* Encounter Date Diagnosis Assessment Notes Treatment Notes Treatment Clinical Notes Feb, FRANCY (generalized anxiety disorder) (ICD-10 - F41.1) [facility] Other 10-05-2023 Evaluation note* Encounter Date Diagnosis Assessment Notes Treatment Notes Treatment Clinical Notes Feb, FRANCY (generalized anxiety disorder) (ICD-10 - F41.1) [facility] Other 10-03-2023 Evaluation note* Encounter Date Diagnosis Assessment Notes Treatment Notes Treatment Clinical Notes Feb, FRANCY (generalized anxiety disorder) (ICD-10 - F41.1) [facility] Other 07-27-2023 Evaluation note* Encounter Date Diagnosis Assessment Notes Treatment Notes Treatment Clinical Notes Nov, Left ventricular systolic dysfunction (LVSD) without heart failure (ICD-10 - I51.9) Nov, Abnormal stress test (ICD-10 - R94.39) [facility] Other 07-19-2023 Evaluation note* Encounter Date Diagnosis [...] (ICD-10 - Z12.5) Yearly KATELYNN and PSA [facility] Other 07-13-2023 Evaluation note* Encounter Date Diagnosis Assessment Notes Treatment Notes Treatment Clinical Notes Nov, Iron deficiency anemia due to chronic blood loss (ICD-10 - D50.0) [facility] Other 07-07-2023 Evaluation note* Encounter Date Diagnosis Assessment Notes Treatment Notes Treatment Clinical Notes Nov, Hypercholesterolemia (ICD-10 - E78.00) Nov, Screening PSA (prost ate specific antigen) (ICD-10 - Z12.5) Nov, High risk medication use (ICD-10 - Z79.899) Nov, IFG (impaired fastin g glucose) (ICD-10 - R73.01) Nov, Anemia, unspecified type (ICD-10 - D64.9) [facility] Other 04-17-2023 Evaluation note* Encounter Date Diagnosis [...] are. Otherwise patient to follow as needed. [facility]* Encounter Date Diagnosis Assessment [...] They may safely use Tylenol as needed. [facility] Other 01-16-2023 Evaluation note* Encounter Date Diagnosis Assessment Notes Treatment Notes Treatment Clinical Notes May, Acute anemia (ICD-10 - D64.9) [facility] Other 07-19-2022 NotePROCEDURE: XR KNEE LT 3V [...] authenticated by: SILVIA LI Date: 2021-12-16 21:52[facility] note[facility] InformationNort MIGSIF Other Evaluation noteNo assessment information available [facility] Work Phone: History and physical note Author Nino Russell [facility] August 26, 2022 9:51am Note Date/Time August 26, 2022 9:5 1am [facility] ENTER [address] [place] [address] Gastroenterology H&P Signed Patient: Zena Witt MR#: [id number] : 1955 Acct:[id number] Age/Sex: 67 / M Adm Date: 3 Loc: Room: Type: [facility] Attending Dr: Nino Russell MD Copies [...] By: <Electronically signed by Nino Russell MD> 08/26/22 0959 [facility] Work Phone: History general Narrative - Reported* [...] TOTAL KNEE ARTHROPLASTY Hospitalization History SEE SURGICAL [facility] Other History general Narrative - Reported* Type [...] polypectomy 08/17 22 Hospitalization History SEE SURGICAL HX Merged With [facility] Other Hospital Discharge instructions Additional Instructions DISCHARGE [...] NOT operate machinery such as power tools, OnDeckn mowers, snow blowers, sewing machines, etc. for [...] -Follow up with PCP. - Office number [phone]. [facility] Work Phone: Assessments Diagnosis Varus deformity, not [...] eye, initial encounter- Primary Discharge Instructions * Elías Sharla McintyreOBED beckman - 05/27/2017 - Follow the preprinted instruction [...] your doctor if you can take an mitu-fpd-jodeois medicine. Take your pain medicine as soon [...] Log into your personal health record on [email or web address] and enter M536 in the Education box [...] sent through Care Everywhere. * FLANK PAIN (WOLOF) in this encounter* Tabitha Fenton CNP - [...] your surgery date, please call us at [phone] Preoperative Medication Instructions In preparation for surgery please continue all of your current medications with the following changes: Zena Witt Home Medication Instructions Prior to Surgery CAILIN:[id number] Printed on:05/21/17 0710 Medication Information Take last dose on Take [...] 1 CAPSULE DAILY @ moring for GERD yes gemfibrozil (LOPID) 600 MG [...] or as directed by MD . no pxrogtmo-koyc-mtw-folic acid (zlvokoehnumj-fmek-xeobusdt-folic acid) 3,500-18-0.4 unit-mg-mg Chew Chew and Swallow [...] medications that contain aspirin, such as Mary Thompson, Pepto- Bismol, Anacin), antiinflammatory medications such as Advil, Motrin, Ibuprofen, Naproxen, Aleve, Mary Thompson, Pepto-Bismol, Anacin, Diclofenac, Voltaren, Daypro, Etodolac, Ketoprofen, Piroxicam, Relafen, Nabumetone, etc. Also discontinue Vitamin C, Vitamin E, Derby-3 Fatty Acid, Fish Oil or Lovaza, and [...] Log into your personal health record on [email or web address] and enter Z736 in the Education box to learn more about Feeling of an Object in the Eye: Care Instructions. Current as of: February 20, 2018 Content Version: 12.0 4341-9212 [employer]. Care instructions adapted under license by your healthcare professional. If you have questions about a medical condition or this instruction, always ask your healthcare professional. [employer] disclaims any warranty or liability for your use of this information. documented in this encounter Summary Purpose Family History No Family History Records Found Relationship Condition Age at Onset Recorded Date/T colby father Heart disease Unknown Malignant neoplasm of colon Unknown Not Specified Heart disease Unknown Relationship Condition Age at Onset Recorded Date/T colby father Malignant neoplasm of colon Unknown Heart disease Unknown Malignant neoplasm Unknown mother Heart disease Unknown Advance Directives No Advanced Directives Records FoundDocuments on File Type Date Recorded Patient Jewel Gauger Expl anation Advance Directives and Living Will Advance Directive Response Recorded Date/ Time Advance Directives No August 24, 2 023 1:40pm History of Present Illness * Allison Williamson MD - 11/06/2018 6:07 PM EDT PATIENT NAME: Zena Witt [facility] [address] [place] [id number] : 1955 DATE OF VISIT: 11/06/2018 #: [...] file Gets together: Not on file Attends adventism service: Not on file Active member of [...] morning . meloxicam (MOBIC) 15 MG tablet kdvkqkls-jbex-exw-folic acid (nslqxqaxaldn-tjwc-zvysbhbj-folic acid) 3,500-18-0.4 unit-mg-mg Chew Chew and Swallow [...] morning . meloxicam (MOBIC) 15 MG tablet zvgdepkn-ktqa-cpx-folic acid (agymrlemfmpj-qvdi-njsnlhyi-folic acid) 3,500-18-0.4 unit-mg-mg Chew Chew and Swallow [...] encounter Reason for Referral Reason 08/26/22 Patient cornelius eiprashant referred for EGD and Colonoscopy Diagnosis 1 Other iron deficienc y anemia (D50.8) Referral Organization [facility] eduar Referring Provider First Name Aaron Referring Provider Last Name Eleazar Referring Provider Specialty Internal Me dicine Referred Organization [facility] Gastroenterolo gy Referred Provider Nino Russell Referred Address [address] [facility] [address] [facility] [address] ,[place], [place],[address] Referred Provider Specialty Gastroentero logy Referral Priority [...] EGD and colonoscopy. Reason 08/12/22 Patient b eiprashant referred for osteoarthritis of the left knee. Pain interfering with ADL and sleep. He denies swelling, erythema, locking or giving way. Requesting evaluation for joint replacement. Diagnosis 1 Primary osteoarthrit is of left knee (M17.12) Referral Organization [facility] Referring Provider First Name Aaron Referring Provider Last Name Eleazar Referring Provider Specialty Internal Tx dicine Referred Organization [facility] Referred Provider Rik Villalobos Referred Address [address] [place],[address] Referred Provider Specialty Orthopedic S urgery Referral Priority Routine Referral Appointment Date 2022-08-12 General Notes Nancy Story 12:04:02 PM >received today, sent P2P Chief Complaint and Reason for Visit Chief Complaint Other Iron Deficienc y Anemia Chief Complaint Admit Date epigastric pain/FABIAN/chronic superficial gastritis August 16, 2024 6:47am epigastric pain/FABIAN/chronic superficial gastritis August 16, 2024 8:20am Additional Source Comments Allison Clemente, - 05/27/2017 10:29 AM Price Nunn MD - 05/21/2017 4:06 PM Price Nunn MD - 05/21/2017 4:06 PM EST H&P Notes (unrecognized sect ion and content) INTERVAL HISTORY AND PHYSICAL Patient Name: Zena Witt Admit Date: [id number] MR #: [id number] : 1955 The H&P has been reviewed [...] acceptable for elective surgery based on 2014 [place] [employer] Cardiology/[place] Heart Association (ACC/AHA) guidelines on Perioperative Cardiovascular [...] or GERD noted (K21.9) Well controlled with PPI/R6Taijzkb which should be dosed perioperatively on usual [...] EXCISION TIBIA, BROSTRUM, WEI, TIBIAL OSTEOTOMY @ [facility] on 05/27. Patient reports that [...] I (HCC) 05/21/2017 Diabetes mellitus, type 2 (HCC) 05/21/2017 History of blood transfusion 05/21/2017 Hypertension [...] 12 hours or as directed by MD polnyejh-dfxn-swu-folic acid (gctbuidnzivu-vxlg-kxewrirb-folic acid) 3,500-18-0.4 unit-mg-mg Chew Chew and Swallow [...] kg/m Constitutional--Conversant, in no acute distress Eyes: [place] conjunctivae, no ptosis. Pupils equal Bilaterally, Anicteric [...] patient for surgery includes - More recent [facility] electronic records reviewed pertinent to history. OUTSIDE [...] acceptable for elective surgery based on 2014 [place] [employer] Cardiology/[place] Heart Association (ACC/AHA) guidelines on Perioperative Cardiovascular [...] or GERD noted (K21.9) Well controlled with PPI/O0Usjhbqo which should be dosed perioperatively on usual home schedule. 6. Obesity (BMI 30-39.9) Obesity, Unspecified (E66.9) Body mass index is 31.31 kg/m . Patient will require close monitoring of respiratory status while on IV opiates and I would recommend continuous pulse oximetry. Please see ENEDINA risk assessment. Would recommend ENEDINA protocol with utilization of ETCO2 monitoring for patients with or at risk for ENEDNIA while on IV opiates. 7. Elevated blood [...] EXCISION TIBIA, BROSTRUM, WEI, TIBIAL OSTEOTOMY @ [facility] on 05/27. Patient reports that [...] Anemia 05/21/2017 Bleeding disorder (HCC) 05/21/2017 Cancer (HCC) 05/21/2017 Complication of anesthesia 05/21/2017 Coronary artery disease 05/21/2017 Deep vein thrombosis (HCC) 05/21/2017 Diabetes mellitus type I (HCC) 05/21/2017 Diabetes mellitus, type 2 (HCC) 05/21/2017 History of blood transfusion 05/21/2017 Hypertension [...] within 12 hours or as directed by . Yes 1 patch, Transdermal, Every 24 hours, Remove & Discard patch within 12 hours or as directed by tmoaxufq-frau-lym-folic acid (mfncmtkgfhwg-fnwh-culvcueh-folic acid) 3,500-18-0.4 unit-mg-mg Chew Chew and Swallow [...] kg/m Constitutional--Conversant, in no acute distress Eyes: [place] conjunctivae, no ptosis. Pupils equal Bilaterally, Anicteric [...] patient for surgery includes - More recent [facility] electronic records reviewed pertinent to history. OUTSIDE RECORDS REQUESTED NONE in this encounter INTERVAL HISTORY AND PHYSICAL Patient Name: Zena Witt Admit Date: [id number] MR #: [id number] : 1955 The H&P has been reviewed [...] Miscellaneous Notes (unrecog nized section and content) ZENA WITT [facility] [id number] 1955 DATE 05/27/2017 OPERATIVE REPORT SURGEON LAURA RICHARD, BARIATRIC PROGRAM COORDINATOR ALLISON CLEMENTE, BARIATRIC PROGRAM COORDINATOR 2 ANALI DIANE PA-C PREOPERATIVE DIAGNOSES 1. [...] tissue up to the fibula in a qrjag-ppmz-xisw fashion. We still had some laxity distally, [...] Dictated by DO LAURA MONTES DO D 05/27/2017:18 [id number] T 05/27/2017 14:01 MRM/MODL Formatting of this note may be different from the original. Brief Post Operative Note Patient Name: Zena Witt : 1955 (61 y.o.) Date of Service: 05/27/2017 CSN: [id number] Procedure(s): LEFT ANKLE ARTHROSCOPY WITH DEBRIDEMENT, PARTIAL EXCISION TIBIA, BROSTRUM, WEI, TIBIAL OSTEOTOMY Pre-Operative Diagnoses: * LEFT VARUS ANKLE, INSTABILITY, TIBIA EXOSTOSIS Post-Operative Diagnoses: * Same as Pre-Op Diagnosis Surgeon(s) and Role: * Allison Clemente, DO - Fellow * Laura Richard DO - Primary Anesthesiologist: Darrius Rand MD REGIONAL ECONOMIST: Craig Street CRNA Forensic Nurse: Keyona Solorio RN Physician Public Health Internship: Anali Diane PA-C Relief Forensic Nurse: Eden Adam RN Relief Scrub: Debbie Ireland [...] Implant Name Type Inv. Item Serial No. Cloth Covered Helmet Puller Lot No. LRB No. Used Action GRAFT FEMORAL HEAD - [id number] Graft GRAFT FEMORAL HEAD LIFENET Left 1 Implanted ANCHOR 1.45MM #2 SOFT SHORT RIGID JUGGERKNOT W/DRILL BIT - [id number] [place] ANCHOR 1.45MM #2 SOFT SHORT RIGID JUGGERKNOT W/DRILL BIT BIOMET SPORT [id number] Left 1 Implanted ALLOGRAFT 5CC FIBER DBM STAGRAFT - [id number] Bone ALLOGRAFT 5CC FIBER DBM STAGRAFT BI[employer] INC [id number] Left 1 Implanted SCREW 3.5 X 32MM LOW PROFILE STEVEN - [id number] SCREW 3.5 X 32MM LOW PROFILE STEVEN BIOMET SP/TR Left 1 Implanted SCREW 3.5 X 34MM LOW PROFILE STEVEN - [id number] SCREW 3.5 X 34MM LOW PROFILE STEVEN BIOMET SP/TR Left 2 Implanted SCREW 3.5 X 34MM STEVEN LOCK - [id number] SCREW 3.5 X 34MM STEVEN LOCK BIOMET SP/TR Left 1 Implanted SCREW 3.5 X 12MM STEVEN LOCK - [id number] SCREW 3.5 X 12MM STEVEN LOCK BIOMET SP/TR Left 1 Implanted PLATE 6HL FIB LOCK - [id number] PLATE 6HL FIB LOCK BIOMET SP/TR Left 1 Implanted Drain(s): Wound(s): Allison Clemente, DO 05/27/2017 1:04 PM in this encounter Patient is resting comfortably. Call light within reach. Patient updated on continued plan of care. Formatting of this note may be different from the original. PCP - Nupur Gil MD [phone] Chief Complaint Patient presents with Flank Pain Abdominal Pain HPI: Dictation on: 05/19/2017 4:40 AM by: TRANG BRAY [[id number]] Review of Systems Constitutional: No fevers Skin: [...] 6 (six) hours as needed for pain. CNUSSGCM-LWJT-ZJB-FOLIC ACID (LMSGBCZNEYGW-VONL-WLSMIYZR-FOLIC ACID) 3,500-18-0.4 UNIT-MG-MG CHEW Chew and Swallow. [...] following orders were created for panel order Frakes Draw. Procedure Abnormality Status --------- ------ Lavender Top[[id number]] Final result Mint Green Top[[id number]] Final result Please view results for these tests on the individual orders. LAVENDER TOP MINT GREEN TOP CBC AND DIFFERENTIAL Narrative: The following orders were created for panel order CBC w/ Diff. Procedure Abnormality Status --------- ------ CBC Auto Differential[[id number]] Abnormal Final result Please view results for [...] chest CT for further evaluation. Radiology 2017 http://pubs.rsna.org/doi/full/10.1148/radiol.7580061344 Managing Incidental Adrenal Nodule > or equal to 1 cm Benign adrenal nodule - No follow up is required (including myelolipomas, adenomas, or nodules stable for > or equal to 1 year) Reference: Tyrone et al. Managing Incidental Findings on Abdominal CT: White Paper of the ACR Incidental Findings Committee. J Am Anup Radiol 2010;7:754-773 Workstation ID: [id number] Vital Signs During ED Visit (as charted [...] 1955 (62 y.o.) Date of Service: 02/17/2018 CSN: [id number] Procedure(s): LEFT TIBIAL NON UNION BONE GRAFT, CALCANEAL BONE GRAFT Pre-Operative Diagnoses: * LEFT TIBIA NON UNION Post-Operative Diagnoses: Surgeon(s) and Role: * Laura Richard DO - Primary * Jarrell Cuellar DO - Resident - Assisting Anesthesiologist: Tello London MD; Trenton Qureshi MD REGIONAL ECONOMIST: Adia Hodge CRNA Forensic Nurse: Keyona Solorio RN Relief Forensic Nurse: Eden Adam RN Relief Scrub: ST Ada Scrub Person: ST Oebd Renteria RN: Yoajna Ordaz RN Operative findings: per op note Intra and immediate post-operative complications: none Type of anesthesia used: Regional, General Estimated blood loss: 25 mL Estimated urine output: 0 mL Specimen(s): * No specimens in log * Implant(s): Implant Name Type Inv. Item Serial No. Cloth Covered Helmet Puller Lot No. LRB No. Used Action [id number] Left 1 Implanted PLATE, LATERAL FIBULA, SML, [...] (unrecognized section and content) Patient Instructions for [facility]: Prior to surgery: Please be sure to wear loose, comfortable clothing and non-skid shoes Bring your health insurance information and a photo ID, as well as your Living Will or Durable Power of Swimming Coach for Healthcare if it is available to you. Bring your cane/walker any applicable assistive device. If you currently use a CPAP, please bring this device with you on the day of surgery. Bring a list of your medications with the name of the medication, dose and how often you are taking it. Be sure to include herbal preparations and ayqp-fnd-ctjlukz medications on this list. Do not eat [...] of lotions, perfumes or powders. All nail nepali is to be removed from fingernails and [...] the day of your surgery/procedure. Parking at [facility] is free. Please park in the lot in front of the main lobby. Enter the Main Entrance where a Public Relations Officer Liaison at the information desk will greet [...] of your surgery preparation process here at [facility]. It will provide you with [...] DOS in this encounter Patient Instructions for [facility]: Prior to surgery: Please be sure to wear loose, comfortable clothing and non-skid shoes Bring your health insurance information and a photo ID, as well as your Living Will or Durable Power of Swimming Coach for Healthcare if it is available to you. Bring your cane/walker any applicable assistive device. If you currently use a CPAP, please bring this device with you on the day of surgery. Bring a list of your medications with the name of the medication, dose and how often you are taking it. Be sure to include herbal preparations and tdoj-bby-ijgzrpz medications on this list. Do not eat [...] of lotions, perfumes or powders. All nail nepali is to be removed from fingernails and [...] the day of your surgery/procedure. Parking at [facility] is free. Please park in the lot in front of the main lobby. Enter the Main Entrance where a Public Relations Officer Liaison at the information desk will greet [...] of your surgery preparation process here at [facility]. It will provide you with [...] section and content) DATE CREATED AUTHOR 11/17/2017 [facility] DATE CREATED AUTHOR AUTHOR'S ORGANIZ ATION 11/17/2017 [facility] DATE CREATED AUTHOR AUTHOR'S ORGANIZ ATION 03/18/2018 [facility] DATE CREATED AUTHOR AUTHOR'S ORGANIZ ATION 01/09/2019 [facility] DATE CREATED AUTHOR AUTHOR'S ORGANIZ ATION 08/22/2020 [facility] DATE CREATED AUTHOR AUTHOR'S ORGANIZ ATION 09/20/2022 [facility] DATE CREATED AUTHOR AUTHOR'S ORGANIZ ATION 08/18/2024 [facility] Reason for Visit (unrecogniz ed section and content) Reason Comments Foreign Body possible foreign bod [...] Russell MD Attending Provider Active Aaron Bush DO Primary Care Provider Active Team Status: Inactive Member Role Status Dates Aaron Bush Primary Care Provider Active Start: August 16, 2024 End: August 16, 2024 Nino Russell MD Attending Provider Active Start: August 16, 2024 End: August 16, 2024 Team Status: Active Member Role Status Dates Aaron Bush DO Primary Care Provider Active Start: August 16, 2024 Nino Russell MD Attending Provider, Other Provider Act jose luis Start: August 16, 2024 FOR RECORDS PERTAINING TO PATIENTS WHO ARE [...] BE BASED ON THE PRIMARY CLINICAL RECORDS. [facility] provides no warranty or guarantee of the accuracy or completeness of information in this document.
== END 2024-08-22 10:17 | disposition home or self-care (01) ==
LOC: RAD 10:18
PROVIDERS: PCP Internal Medicine; Visit Provider Internal Medicine
DX: M25.562 Pain in left knee (principal)
CPT/HCPCS: 73564

== ENCOUNTER 2025-01-17 07:36 | Outpatient (OUT) | payer MEDICARE, SELFPAY ==
--- OUTSIDE RECORDS SUMMARY | 2011-11-23 05:10 | XMS_ITS | Continuity of Care Document ---
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 Name Role Phone Inocencio Guy MD Unavailable Unavailable Allergies, Adverse Reactions, Alerts Substance Reaction Status Criticality No Known allergies Medications Medication Instructions Dosage Effective Dates (start - stop) Status Comments CIPROFLOXACIN HCL (unknown strength) Not Available - Active NEXIUM (unknown strength) Unknown Not Available - Active Levitra 20 mg Tab take one tablet by mouth everyday as needed - Active Lopid 600 mg Tab Unknown - Active Procedures Procedure Date Urinalysis, non-automated, w/scope Office/outpatient visit,estmarcy 2011 Urinalysis, non-automated, w/scope Office consultation, moderate-high Advance Directives Directive Yes / No Effective Date File Name Resuscitation Not Answered N/A N/A Life Support Not Answered N/A N/A Intubation Not Answered N/A N/A Antibiotics Not Answered N/A N/A IV Fluid Support Not Answered N/A N/A Tube Feed Not Answered N/A N/A Other Directive N/A N/A WARNING:The information contained in this section is historical and is provided for information only and does not constitute a legal document or any assurance that the information is still accurate. Please verify the information with the regalado of the legal document before using it for clinical purposes. Encounters Encounter Description Practice Location Reason(s) For Visit Diagnoses Date Provider Providers Copied on Encounter Office/outpa tient visit,est, mod [facility], [address], [place], [place], [id number], [place] tel:[phone] [facility] Prostatitis (chief complaint) CHRONIC PROSTATITISSC EVI GIBBS-PROSTATE Erectile DysfunctionTo bacco Abuse 2 Guy Inocencio. [address], [place], [place], [id number] , . tel:[phone] Referring Provider: Inocencio Herrera, [address], [place], [address] . tel:[phone] Office consultation , [facility], [address], [place], [place], [id number], tel:[phone] [facility] Prostatitis (chief complaint)Ur inary tract infection, recurrent (chief complaint) CHRONIC PROSTATITISEr ectile DysfunctionSC EVI GIBBS-PROSTATE Tobacco Abuse 2 Guy Inocencio. [address], [place], [place], [id number] , [place]. tel:[phone] Referring Provider: Moose Womack, [address] [place] [address], [address]. tel:[phone] Family History Family Member Type Diagnosis Age At Onset Father Problem (finding) prostate cancer Payers Payer name Insurance type Covered democrat ID Shayne bejarano(rodrick) Riddhi FARFAN [id number] Social History Type Description Quantity Date Captured Comments Alcohol Use Details No Caffeine Use Details Unknown Tobacco Use Status Smoking Status No Information Sex Male Vital Signs Date / Time: Height Weight BMI Pulse Rate Blood Pressure Temperature Respiratory Rate Body Surface Area Head Circumference Head Circ. Percentile Wt./Devang. Percentile BMI percentile Pulse Ox Inhaled Ox 9:12 AM 71.00 in 218.00 lbs 30.4 0 kg/m eter (2) 86 /min 124/80 mm[Hg] 17 /min Chief Complaint And Reason For Visit From encounter dated '11/23/2011 09:10'. Prostatitis (chief complaint) Reason For Referral Reason For Referral No Information Plan Of Treatment Date Type Action Status Goal H&P. Due on due History Of Present Illness Encounter Date Complaint History Of Prese nt Illness No Information Functional Status Date Functional Assessmen t No Information Instructions Date Instruction Additional Infor mation No Information Assessments Type Assessment Date No Information Patient Care Teams Name Effective Dates (start - stop) Status Members No Information
--- OUTSIDE RECORDS SUMMARY | 2024-04-06 05:06 | XMS_ITS ---
Author Organization [facility] in [place] Address [address] [place] [address] Care Team Providers Care Effervescent Salts Compounder Name Role Phone None, Unknown or Primary Care Provider Unavailab Wesley Shelton Unavailable [phone] REASON FOR VISIT post op meds Medications Medication SIG (Take, Route, Fr equency, Duration) Notes Start Date End Date Status Ondansetron HCl 4 MG 1 tablet Orally norman ry 6 hours for 5 days 04/06/2024 Active Aspirin 325 MG 1 tablet Orally bid for 30 days 11/2023 Active Cephalexin 500 MG 1 capsule Orally tid for 7 days 04/06/2024 Active Encounters Encounter Location Date Provider Diagnosis [facility] (PODIATRY) [address] [place] [address] [place] [address] 04/06/2024 Wesley Pimentel Plan Of Treatment Medication Medication Name Sig Start Date Stop Date Notes Ondansetron HCl 4 MG 1 tablet Orally norman ry 6 hours for 5 days 04/06/2024 Aspirin 325 MG 1 tablet Orally bid for 30 days 04/06/2024 Cephalexin 500 MG 1 capsule Orally tid for 7 days 04/06/20 24 Progress Notes * Cody TAMEZDOB:[birth year] (68 yo M)Acc No.[id number]:04/06/2024 Patient: Cody MONTEMAYOR :1955 A ge:68 Y S ex:Male Address:[address] [place], [address] * Refills Start Cephalexin Capsule, 500 MG, Orally, 21 Capsule, 1 capsule, tid, 7 days, Refills=0 Start Aspirin Tablet, 325 MG, Orally, 60 Tablet, 1 tablet, bid, 30 days, Refills=0 Start Ondansetron HCl Tablet, 4 MG, Orally, 20 Tablet, 1 tablet, every 6 hours, 5 days, Refills=0 * true * Date: Generated for Shashi cerda/Tayler/Wangitting on: 0 01/17/2025 07:39 AM EDT
--- OUTSIDE RECORDS SUMMARY | 2024-04-13 10:20 | XMS_ITS ---
Author Organization The [facility] in [place] Address [address] [place] [address] Care Team Providers Care Rn Transfer Name Role Phone None, Unknown or Primary Care Provider Unavailab Gayle Silva Unavailable [phone] REASON FOR VISIT PO #1, The patient states his pain has been tolerable. He does not feel the [place] does anything andis requesting oxycodone instead. He has been ambulating in the surgical shoe and denies drainage from the surgical site. Medications Medication SIG (Take, Route, Frequency, Duration) Notes Start Date End Date Status Ondansetron HCl 4 MG 1 tablet Orally norman ry 6 hours for 5 days 04/06/2024 Unknown oxyCODONE-Acetaminophen 5-325 MG 1 tablet as needed Orally every 6 hrs for 5 days 04/13/2024 Active Aspirin 325 MG 1 tablet Orally bid for 30 days 04/06/2024 Unknown Gabapentin 300 MG 1 capsule Orally Onc e a day Unknown Cephalexin 500 MG 1 capsule Orally tid for 7 days 04/06/2024 Unknown Esomeprazole Magnesium 40 MG 1 capsule Orally Once a day Unknown Vital Signs Temperature 97.4 degrees Fahrenheit 04/13/20 24 Oximetry 96 % 04/13/2024 Encounters Encounter Location Date Provider Diagnosis [facility] (P[facility]) [address] [place] [address] [place] [address] 04/13/2024 Gayle Cisneros Bunionette of right foot M21.621 ; Other hammer toe(s) (acquired), right foot M20.41 and Right foot pain M79.671 Assessments Encounter Date Diagnosis (ICD Code) Assessment Notes Treatment Notes Treatment Clinical Notes Section Notes 04/13/2024 Bunionette of right foot (ICD-10 - M21.621) The patient is 1 week status post right tailor's bunionectomy and repair of fifth hammertoe, DOS: 04/06/2024. He is progressing as expected. No evidence of infection or DVT on examination.He may continue weightbearing as tolerated in the surgical shoe.Follow-up in 2 to 3 weeks for removal of sutures. No x-rays necessary at that time. 04/13/2024 Other hammer toe(s) (acquired), right foot (ICD-10 - M20.41) 04/13/2024 Right foot pain (ICD-10 - M79.671) Plan Of Treatment Medication Medication Name Sig Start Date Stop Date Notes oxyCODONE-Acetaminophen 5-32 5 MG 1 tablet as needed Orally every 6 hrs for 5 days 04/13/2024 Treatment Notes Assessment Notes Bunionette of right foot The patient is 1 week status post right tailor's bunionectomy and repair of fifth hammertoe, DOS: 04/06/2024. He is progressing as expected. No evidence of infection or DVT on examination.He may continue weightbearing as tolerated in the surgical shoe.Follow-up in 2 to 3 weeks for removal of sutures. No x-rays necessary at that time. Next Appt Details Follow Up: 2 Weeks, Reason: Progress Notes * Cody TAMEZDOB:[birth year] (68 yo M)Acc No.[id number]:04/13/2024 Progress Note Patient: Cody MONTEMAYOR Provider: Denver Cisneros PA-C :1955 A ge:68 Y S ex:Male Date:04/13/2024 Address:[facility] [place] [id number] Pcp:Unknown or None Check In:02:04 PM ESTCheck O ut:02:58 PM EST Subjective: * Chief Complaints: * P O #1The patient states his pain has been tolerable. He does not feel the [place] does anything and is requesting oxycodone instead. He has been ambulating in the surgical shoe and denies drainage from the surgical site. * HPI: G eneral: Patient presents for POV #1. S/P Right tailors bunionectomy and PIPJ arthroplasty of the fifth toe on 04/06/2024. Denies N/V, fever or chills. Reports pain is 5/10 at worst, currently 3/10. States [place] is not helping with discomfort. Patient is weightbearing in surgical shoe. Sock and dry dressing removed by patient. Suture intact with minimal swelling. * ROS: G eneral/Constitutional: Chills d enies. F ever d enies. W eight gain?denies. W eight loss d enies. S kin: Skin Ulcers d enies. S kin lesion(s) d enies. ? C ardiovascular: Difficulty breathing on exertion d enies. L eg cramps?denies. E dilip d enies. C hest pain d enies. R espiratory: Difficulty breathing d enies. D yspnea d enies.?Cough d enies. G astrointestinal: Diarrhea d enies. N ausea d enies. V omiting?denies. M usculoskeletal: Bone/Joint Symptoms d enies. C half-way Pain d enies.?Leg cramps d enies. N eurologic: Numbness d enies. T ingling d enies . G ait abnormality d enies. ? H ematology: Anemia D enies. E asy bruising d enies. ? A ll Other Systems: Review of Systems (ROS) S ee HPI for details,All others negative except those mentioned in HPI. * Active Problem List M79.672 Left foot pain Modified On:01/26/2024W/U Status:confirmed M79.671 Right foot pain Modified On:01/26/2024W/U Status:confirmed M20.41 Other hammer toe(s) (acquired), right foot Modified On:01/26/2024/U Status:confirmed * Medical History: * Surgical History: l eft superficial release peroneal nerve, tibial nerve, tarsal tunnel release, medial plantar nerve release, bone marrow harvest 04/03/2021ilateral shoulder arthroscopy left ankle arthroscopy with stabilization right total knee Right tailor's bunionectomy and PIPJ arthroplasty of the fifth toe 04/06/2024 * Hospitalization/Major Diagno stic Procedure: * Medications: D iscontinuedHYDROcodone-Acetaminophen 5-325 MG Tablet 1 tablet as needed Orally every 4 hrs Discontinued HYDROcodone-Acetaminophen 5-325 MG Tablet 1 tablet as needed Orally every 4 hrs UnknownAspirin 325 MG Tablet 1 tablet Orally bid Cephalexin 500 MG Capsule 1 capsule Orally tid Esomeprazole Magnesium 40 MG Capsule Delayed Release 1 capsule Orally Once a day Gabapentin 300 MG Capsule 1 capsule Orally Once a day Ondansetron HCl 4 MG Tablet 1 tablet Orally every 6 hours Unknown Aspirin 325 MG Tablet 1 tablet Orally bid Unknown Cephalexin 500 MG Capsule 1 capsule Orally tid Unknown Esomeprazole Magnesium 40 MG Capsule Delayed Release 1 capsule Orally Once a day Unknown Gabapentin 300 MG Capsule 1 capsule Orally Once a day Unknown Ondansetron HCl 4 MG Tablet 1 tablet Orally every 6 hours Objective: * Vitals: T emp:97.4F, Pain scale:31-10, Oxygen sat %:96%. * Examination: P odiatry Examination: I ncisions are well coapted. No signs of infection. Swelling consistent with postoperative status No calf pain on squeeze Strength and range of motion deferred. Assessment: * Assessment: 1. B unionette of right foot - M21.621 (Primary) 2 . O ther hammer toe(s) (acquired), right foot - M20.41 3 . R ight foot pain - M79.671 Plan: * Treatment: * Procedure Codes: * Follow Up: 2 Weeks * * Sign off status: Completed Visit Status: C HK (Check Out) true * Provider: Denver Cisneros PA-C Date: 06/13/2023 Generated for Shashi cerda/Tayler/Wangitting on: 0 01/17/2025 07:39 AM EDT History and Physical Notes * HPI (History of Present Illness) Category Sub-Category Detail Notes Category Not es General Patient present s for POV #1. S/P Right tailors bunionectomy and PIPJ arthroplasty of the fifth toe on 04/06/2024. Denies N/V, fever or chills. Reports pain is 5/10 at worst, currently 3/10. States [place] is not helping with discomfort. Patient is weightbearing in surgical shoe. Sock and dry dressing removed by patient. Suture intact with minimal swelling. Examination Category Sub-Category Detail Notes Category Not es Podiatry Examination Incisions are well coapted. No signs of infection. Swelling consistent with postoperative status No calf pain on squeeze Strength and range of motion deferred
--- OUTSIDE RECORDS SUMMARY | 2024-04-25 04:45 | XMS_ITS ---
Author Organization [facility] in [place] Address [address] [place] [address] Care Team Providers Care Grease Refining Supervisor Name Role Phone None, Unknown or Primary Care Provider Unavailab Wesley Shelton Unavailable [phone] REASON FOR VISIT pov #2 Medications Medication SIG (Take, Route, Frequency, Duration) Notes Start Date End Date Status Ondansetron HCl 4 MG 1 tablet Orally norman ry 6 hours for 5 days 04/06/2024 Unknown oxyCODONE-Acetaminophen 5-325 MG 1 tablet as needed Orally every 6 hrs for 5 days 04/13/2024 Active Aspirin 325 MG 1 tablet Orally bid for 30 days 04/06/2024 Unknown Cephalexin 500 MG 1 capsule Orally tid for 7 days 04/06/2024 Unknown Esomeprazole Magnesium 40 MG 1 capsule Orally Once a day Unknown Gabapentin 300 MG 1 capsule Orally Onc e a day Unknown Vital Signs Temperature 96.8 degrees Fahrenheit 04/25/20 24 Heart Rate 75 /min 04/25/2024 Oximetry 93 % 04/25/2024 Encounters Encounter Location Date Provider Diagnosis [facility] (POD[facility]AT[facility]) [address] [place] [address] [place] [address] 04/25/2024 Wesley Pimentel Bunionette of right foot M21.621 and Other hammer toe(s) (acquired), right foot M20.41 Assessments Encounter Date Diagnosis (ICD Code) Assessment Notes Treatment Notes Treatment Clinical Notes Section Notes 04/25/2024 Bunionette of right foot (ICD-10 - M21.621) Patient presents for second postoperative appointment and sutures were discontinued. He may transition to normal shoes as pain allows. He should consider wider shoes especially in the toebox and should consider padding the surgical site with Band-Aids if there is rubbing or irritation. He will be traveling to [place] for the winter in the next 2 weeks and may call for follow-up prior to that point if he needs otherwise he will follow-up after he returns. He is to call the office with any issues even if he is down in [place] and we can insist him that way as well 04/25/2024 Other hammer toe(s) (acquired), right foot (ICD-10 - M20.41) Plan Of Treatment Treatment Notes Assessment Notes Bunionette of right foot Patient presents for second postoperative appointment and sutures were discontinued. He may transition to normal shoes as pain allows. He should consider wider shoes especially in the toebox and should consider padding the surgical site with Band-Aids if there is rubbing or irritation. He will be traveling to [place] for the winter in the next 2 weeks and may call for follow-up prior to that point if he needs otherwise he will follow-up after he returns. He is to call the office with any issues even if he is down in [place] and we can insist him that way as well Progress Notes * Cody TAMEZDOB:[birth year] (68 yo M)Acc No.[id number]:04/25/2024 Progress Note Patient: Cody MONTEMAYOR Provider: Leigh Ann Pimentel DPM MS :1955 A ge:68 Y S ex:Male Date:04/25/2024 Address:[address] [place] [address] Pcp:Unknown or None Check In:08:33 AM ESTCheck O ut:09:00 AM EST Subjective: * Chief Complaints: * P ov #2 * HPI: G eneral: Patient presents for POV #1. S/P Right tailors bunionectomy and PIPJ arthroplasty of the fifth toe on 04/06/2024. Patient overall doing well. Sutures are well intact and aproximated no signs of concern. He has minimal pain and swelling rating it today 3/10. Taking the oxycodone- Acetaminophen has helped decrease his pain. HE has been walking in a normal shoe around his house, but when leaving the house he wears his surgical shoe. * Active Problem List M79.672 Left foot pain Modified On:01/26/2024W/U Status:confirmed M79.671 Right foot pain Modified On:01/26/2024W/U Status:confirmed M20.41 Other hammer toe(s) (acquired), right foot Modified On:01/26/2024W/U Status:confirmed * Medical History: * Surgical History: l eft superficial release peroneal nerve, tibial nerve, tarsal tunnel release, medial plantar nerve release, bone marrow harvest 04/03/2021ilateral shoulder arthroscopy left ankle arthroscopy with stabilization right total knee Right tailor's bunionectomy and PIPJ arthroplasty of the fifth toe 04/06/2024 * Hospitalization/Major Diagno stic Procedure: N o Hospitalization History. * Family History: F ather: diagnosed with Other malignant neoplasm of unspecified site, Unspecified heart disease. M other: diagnosed with Unspecified heart disease. * Medications: T akingoxyCODONE-Acetaminophen 5-325 MG Tablet 1 tablet as needed Orally every 6 hrs Taking oxyCODONE-Acetaminophen 5-325 MG Tablet 1 tablet as needed Orally every 6 hrs UnknownAspirin 325 MG Tablet 1 tablet [...] Tablet 1 tablet Orally every 6 hours * Allergies: n o[Allergies Verified] Objective: * Vitals: T emp:96.8F, HR:75/min, Pain scale:31-10, Oxygen sat %:93%. * Examination: P odiatry Examination: S kin is intact with coapted incisions. No SOI. Pedal pulses are palpable & LABEL FUSER TENDER brisk. No calf pain on squeeze. No pain out of proportion. No pain on palpation. Mild swelling over the fifth metatarsal head and fifth toe of the right foot. Assessment: * Assessment: 1. B unionette of right foot - M21.621 (Primary) 2 . O ther hammer toe(s) (acquired), right foot - M20.41 Plan: * Treatment: * Procedure Codes: * * Sign off status: Completed Visit Status: C HK (Check Out) true * Provider: Leigh Ann Pimentel DPM, MS Date: 06/25/2023 Generated for Shashi cerda/Tayler/Brindasmitting on: 0 01/17/2025 07:39 AM EDT History and Physical Notes * HPI (History of Present Illness) Category Sub-Category Detail Notes Category Not es General Patient present s for POV #1. S/P Right tailors bunionectomy and PIPJ arthroplasty of the fifth toe on 04/06/2024. Patient overall doing well. Sutures are well intact and aproximated no signs of concern. He has minimal pain and swelling rating it today 3/10. Taking the oxycodone- Acetaminophen has helped decrease his pain. HE has been walking in a normal shoe around his house, but when leaving the house he wears his surgical shoe. Examination Category Sub-Category Detail Notes Category Not es Podiatry Examination Skin is intact with coapted incisions. No SOI. Pedal pulses are palpable & LABEL FUSER TENDER brisk. No calf pain on squeeze. No pain out of proportion. No pain on palpation. Mild swelling over the fifth metatarsal head and fifth toe of the right foot
--- OUTSIDE RECORDS SUMMARY | 2025-01-17 07:39 | XMS_ITS | Clinical Summary ---
Author Organization [facility] Address [address] [place] [address] Care Team Providers Care Berry Planter Name Role Phone Jordin Loza MD Unavailable [phone] Nupur Suresh MD Primary Care Provider Unav ailable Nupur Suresh MD Unavailable Unavailabl e Allergies Active Allergy Reactions Criticality Noted Date Comments Meloxicam Headache High 06/11/2020 Medications atorvastatin 80 MG tabletIndications:Pur e hyperglyceridemia TAKE 1/2 TABLET BY MOUTH EVERY DAY 90 tablet 3 0 Active gabapentin 400 MG capsuleIndications:Ta rsal tunnel syndrome of left side Take 1 capsule by mouth at bedtime. 30 capsule 1 Active fenofibrate 145 MG tabletIndications:Hyp ertriglyceridemia TAKE 1 TABLET BY MOUTH EVERY DAY 90 tablet 1 1 Active omeprazole [address] capsuleIndications:Ga stroesophageal reflux disease without esophagitis TAKE 1 CAPSULE BY MOUTH EVERY DAY NEEDED 90 capsule 1 Active Active Problems Patient Care Coordination No te Formatting of this note migh t be different from the original. 09/26/12 precerted 2 days per office replacement of knee replacement Carole STEVE 09/27 participating with therapy, completed iv ancef/ cont cpm Carole STEVE 09/28/2012 Called discharge to [facility] at [phone], ref # for call [id number]. Pt discharged with services. Tabitha Monge RN Problem Noted Date Diagnosed Date Carpal tunnel syndrome of left wrist 03/01/2019 Spondylosis of lumbosacral r egion without myelopathy or radiculopathy 11/24/2016 Primary osteoarthritis involving multiple joints 11/03/2016 Obesity: body mass index of 30.0-34.9 11/02/2016 Gastroesophageal reflux disease without esophagi tis 11/05/2015 SK (seborrheic keratosis) 09/20/2015 Hypertriglyceridemia 09/20/2015 Hypercholesteremia 09/05/2015 Encounter for smoking cessation counseling 06/06 Resolved Problems Problem Noted Date Diagnosed Date Resolved Date Back pain 12/08/2016 08/02/2017 Complete tear of right rotator cuff 05/12/2016 08/02/2017 Rotator cuff impingement syn drome of right shoulder 03/19/2016 08/02/2017 Poison jayla dermatitis 12/12/20152017 Paresthesia of left foot 11/05/201509/2017 Chronic right SI joint pain 11/05/2015 08/02/2017 Allergic rhinitis 11/05/2015 08/02/2017 Paraspinal muscle spasm 09/20/2015 03/09/2017 Screening for colon cancer 09/09/2015 0 08/02/2017 Need for prophylactic vaccin ation and inoculation against unspecified single disease 09/09/2015 08/02/2017 Benign skin lesion of lower back 09/05/2015 09/20/2015 Fatigue 09/05/2015 08/02/2017 Right groin pain 06/06/2015 08/02/2017 Right range of motion deficit 06/09/2012 08/02/2017 Weakness of right leg 06/09/20122017 Gait abnormality 06/09/2012 08/02/2017 Balance problem 06/09/2012 08/02/2017 Immunizations Immunization Administration Dates Next Due Influenza, High-dose Seasona l, Quadrivalent, Preservative Free 02/27/2020 Influenza, Injectable, Mdck, Quadrivalent, Preservative 05/01/2019 Influenza, injectable, quadr ivalent, preservative free 03/07/2018,01/12/2017,03/12/2016 Pneumococcal Polysac 23-Valent Vaccine 6 Tdap Vaccine 09/05/2015 Zoster Vaccine, Live 07/19/2019 Zoster Vaccine, Recomb 07/19/2019,12/13/2018 influenza, injectable, quadrivalent 03/12/2016 Family History Medical History Relation Name Comments Colorectal Cancer Father Heart Disease - Other Father Stroke Father Heart Disease - Other Mother Stroke Mother Relation Name Status Comments Father Mother Social History Tobacco Use Types Packs/Day Years Used Date Smoking Tobacco: Former Cigarettes Smokeless Tobacco: Never Tobacco Cessation:Counseling Given: Yes Comments:1 pack a month- social smoker Alcohol Use Standard Drinks/Week Comments Yes 0 (1 standard drink = 0.6 oz pur e alcohol) occasionally AUDIT-C Answer Date Recorded Q1: How often do you have a drink containing alc ohol? Monthly or less 04/17/2020 Average Number of Drinks Not on file 020 Frequency of Binge Drinking Not on file 03/31 Overall Financial Resource Strain (CARDIA) Answe r Date Recorded How hard is it for you to pa y for the very basics like food, housing, medical care, and heating? Not hard at all 04/17/2020 Hunger Vital Sign Answer Date Recorded Within the past 12 months, y ou worried that your food would run out before you got the money to buy more. Never true 04/17/20 20 Within the past 12 months, t he food you bought just didn't last and you didn't have money to get more. Never true 04/17/2020 PRAPARE - Transportation Answer Date Re corded In the past 12 months, has l ack of transportation kept you from medical appointments or from getting medications? No 03/31 In the past 12 months, has l ack of transportation kept you from meetings, work, or from getting things needed for daily living? 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 Not on file Not on file Not on file Last Filed Vital Signs Vital Sign Reading Time Taken Comments Blood Pressure 128/72 04/17/2020 2:01 PM EST Pulse 57 06/11/2020 1:13 PM EST Temperature 35.6 C (96 F) 04/17/2020 12:13 PM EST Respiratory Rate 20 06/11/2020 1:13 PM EST Oxygen Saturation 98% 06/11/2020 1:13 PM EST Inhaled Oxygen Concentration - - Weight 98.9 kg (218 lb) 06/11/2020 1:13 PM EST Height 180.3 cm (5' 11 ) 06/11/2020 1:13 PM EST Body Mass Index 30.4 06/11/2020 1:13 PM EST Plan of Treatment Health Maintenance Due Date Last Done Comments PNEUMOCOCCAL VACCINE SERIES (2 of 2 - PCV) 09/04/2016 09/05/2015 PREVENTATIVE HEALTH VISIT 12/20/20182017, 05/05/2017, 09/05/2015 ABDOMINAL AORTIC ANEURYSM HIGH RISK SCREEN 2019 COVID-19 VACCINE (1 - season) 2024 INFLUENZA VACCINE (#1) 2025 0, 05/01/2019, 03/07/2018, Additional history exists LIPID SCREENING 02/27/2025 02/28/2020, 09/29, 03/14/2019, Additional history exists TETANUS 09/04/2025 09/05/2015 COLONOSCOPY 02/07/2029 02/07/2019, 10/30, 10/21/2015 RSV VACCINE (1 - 1-dose 75+ series) 2029 TDAP (ADULT) Completed 09/05/2015 HEPATITIS C VIRUS SCREENING Completed 09/18/2016 PROSTATE CANCER SCREENING DISCUSSION Discontinued 07/19/2019, 07/19/2019, 07/19/2019, Additional history exists ZOSTER (SHINGLES) VACCINE Completed 2019, 07/19/2019, 12/13/2018 HEP B VACCINE Aged Out No longer elig ible based on patient's age to complete this topic Medical Devices Implanted Type Area Prepleater Device Identifier Shelf Expiration Date Model / Serial / Lot Ssk Femoral Interlok W/ Screw Implanted:Qty: 1 on 09/26/2012 by Jordin Loza MD at [facility] Right: Knee BIOMET 09/26/2021 [id number] / / [id number] Splined Knee Stem With Screw Implanted:Qty: 1 on 09/26/2012 by Jordin Loza MD at [facility] Right: Knee BIOMET 09/26/2021 [id number] / / [id number] Grit Blast Knee Stem With Screw Implanted:Qty: 1 on 09/26/2012 by Jordin Loza MD at [facility] Right: Knee 11/27/2019 [id number] / / [id number] Stemmed Tibial Traay With Locking Bar And Plugs Implanted:Qty: 1 on 09/26/2012 by Jordin Loza MD at [facility] Right: Knee 02/27/2016 [id number] / / [id number] [place] Hv Bone [employer]ement 40/20 Implanted:Qty: 2 on 09/26/2012 by Jordin Loza MD at [facility] Right: Knee BIOMET 02/26/2014 [id number] / / [id number] Constrained Vanguard Dcm Tibial Bearing Implanted:Qty: 1 on 09/26/2012 by Jordin Loza MD at [facility] Right: Knee BIOMET 04/28/2017 [id number] / / [id number] Suture [place], Biocomposite Swivlelock C, Closed Eyelet Implanted:Qty: 1 on 06/24/2016 by Lex Martinez MD at [facility] Right: Shoulder HIST ARTHREX 11/27/2017 / (REF)AR-23 24BCC / [id number] Suture [place], Biocomposite Corkscrew Ft, Vented Implanted:Qty: 1 on 06/24/2016 by Lex Martinez MD at [facility] Right: Shoulder HIST ARTHREX 03/30/2017 / (REF)AR-19 27BCF / [id number] Biceps Button Implanted:Qty: 1 on 06/24/2016 by Lex Martinez MD at [facility] Right: Shoulder HIST ARTHREX 04/29/2021 / (REF)AR-22 61 / [id number] 3.5mm Twin Loopflex Se Peek Implanted:Qty: 2 on 04/17/2020 by Lex Martinez MD at [facility] Left: Shoulder 05/31/2021 3910-405-7 / [id number] Biceps Button Implanted:Qty: 1 on 04/17/2020 by Lex Martinez MD at [facility] Left: Shoulder HIST ARTHREX 10/28/2024 / [id number] / [id number] 5.5mm Peek Intraline [place] Two Strands Of #2 Force Fiber Implanted:Qty: 1 on 04/17/2020 by Lex Martinez MD at [facility] Left: Shoulder TITO 09/12/2021 / [id number] Procedures Procedure Name Priority Date/Time Associated Diagnosis Comments LIPID PANEL W CALCULATED LDL Routine 02/28/2020 6:47 AM EDT Screening for cardiovascular condition PSA, SCREENING Routine 07/19/2019 2:00 PM EST Special screening for malignant neoplasm of prostate HEPATITIS C ANTIBODY Routine 09/18/2016 8:40 AM EDT Need for hepatitis C screening test from Last 3 Months or Most Recently Relevant to Health Maintenance Results * (ABNORMAL) LIPID PANEL W CALCULATED LDL (02/28/2020 6:47 AM EDT) Cholesterol 114 <200 mg/dL 02/28/2020 10:55 AM EDT [facility] Triglycerides 93 <150 mg/dL 02/28/2020 10:55 AM EDT [facility] HDL Cholesterol 41(L) >60 mg/dL 0 10:55 AM EDT [facility] Comment: [<40 mg/dL: Low (High Risk)] [>59 mg/dL: High (Low Risk)] Calculated LDL Cholesterol 54 <130 mg/dL 02/28/2020 10:55 AM EDT [facility] Comment: LDL ADULT LEVELS IN TERMS OF RISK FOR CORONARY HEART DISEASE Optimal: <100 mg/dL Near optimal: 100 to 129 mg/dL Borderline High: 130 to 159 mg/dL High: 160 to 189 mg/dL Very High: >189 mg/dL Tot Chol/HDL 2.8 02/28/2020 10:55 AM EDT [facility] Non Hdl Cholesterol 73 mg/dL 02/28/2020 10:55 AM EDT [facility] Blood Venipuncture / Unknown 02/28/2020 6:47 AM EDT 02/28/2020 6:47 AM EDT us Nupur Suresh MD CHEMISTRY ORDERABLES Final Result Performing Organization Address City/State/[facility] Co de Phone Number [facility], [place] [address] [place] [address] * PSA, SCREENING (07/19/2019 2:00 PM EST) PSA (Prostate Sp Ag) 1.18 <=4.00 ng/mL 07/19/2019 3:54 PM EST [facility] Blood Venipuncture / Unknown 07/19/2019 2:00 PM EST 07/19/2019 2:00 PM EST us Nupur Suresh MD IMMUNOLOGY ORDERABLES Final Result [facility], [facility] [address] [place] [address] * HEPATITIS C ANTIBODY (09/18/2016 8:40 AM EDT) HEP C AB Negative Negative LAB, [facility] 09/18/2016 8:40 AM EDT 09/18/2016 8:41 AM EDT us Libby Miller DO IMMUNOLOGY ORDERABLES Final Result LAB, [facility] [address] [place] [address] from Last 3 Months or Most Recently Relevant to Health Maintenance Insurance [facility] PPO POS Advance Directives For more information, please contact: [phone] (7:30 AM - 6PM [facility], Wednesday-Wednesday) * Full Code (Latest Code Status on File) Date Activated Date Inactivated Comments 09/28/2012 6:08 AM Care Teams Berry Planter Relationship Specialty Start Date End Date Nupur Suresh MD PCP - General Family Medicine 06/06/15 Nupur Suresh MD PCP - Referring 1 Family Medicine 03/13/16 Jordin Loza MD Orthopaedic Surgery 10/13/12
--- OUTSIDE RECORDS SUMMARY | 2025-01-17 07:39 | XMS_ITS | Patient Health Record ---
Author Organization [facility] [place] Address [address] [place] [address] Care Team Providers Care Heel Se[employer]ber Name Role Phone None, Unknown or Primary Care Provider Unavailab Destiny Shelton Unavailable [phone] Gayle Cisneros Unavailable [phone] Allergies No Known Allergies Results Component Value Reference Range Notes PROF CHEM 8 (BAS METB) (Not yet reviewed by provider) Interpretation: Performing Lab: Notes/Report: [facility] , Sodium 142 136-145 mmol/L Potassium 5.0 3.5-5.1 mmol/L Chloride 106 98-107 mmol/L Carbon Dioxide 28.5 21.0-32.0 mmol/L Anion Gap 12.5 Glucose 104 74-106 mg/dL Blood Urea Nitrogen 21.0 7.0-18.0 mg/dL Creatinine 1.12 0.70-1.30 mg/dL Estimated GFR ( Purnima >60 >=60 mL/min/1.73m 2 Estimated GFR (Non- Belle >60 >=60 mL/min/1.73m 2 BUN Creatinine Ratio 18.8 Calcium 9.4 8.5-10.1 mg/dL Performing Lab: see note ML - [facility] LB XR foot ARMAND min 3V (Not yet reviewed by provider) Interpretation: Performing Lab: Notes/Report: Source Facility: [facility]-[address] [place] [address] [place] [address] XRay Report Signed Patient: CODY TAMEZ MR#: [id number] : 1955 Acct:[id number] Age/Sex: 68 / M ADM Date: 01/26/24 Loc: EC Attending Dr: Deep Mir M.D. Ordering Physician: Destiny Pimentel D.P.M. Date of Service: 01/26/24 Procedure(s): XR foot ARMAND min 3V Accession Number(s): [id number] cc: Aaron Bush D.O.; Destiny Pimentel D.P.M. [facility] [place] [id number] Patient Name: CODY TAMEZ MRN: [id number] date: 1955 Sex: M Assigned Patient Location: Current Patient Location: Accession/Order Number: [id number] Exam Date: 01/26/2024 09:33 Report Date: 01/26/2024 14:32 At the request of: DESTINY PIMENTEL Procedure: XR foot ARMAND min 3V EXAMINATION: XR foot ARMAND min 3V HISTORY: BILATERAL FOOT PAIN COMPARISON: 10/03/2020 FINDINGS: RIGHT FINDINGS: BONES: No acute fracture or dislocation. Minimal degenerative changes with enthesopathic spurring of the calcaneus and mild marginal osteophyte formation SOFT TISSUES: Negative. No visible soft tissue swelling. OTHER: Negative. LEFT FINDINGS: BONES: No acute fracture or dislocation. Minimal degenerative changes with enthesopathic spurring mild marginal osteophyte formation. Internal fixation of the distal tibia with a medial plate and screws, partially visualized SOFT TISSUES: Negative. No visible soft tissue swelling. OTHER: Negative. XR/XR foot ARMAND min 3V IMPRESSION: Minimal bilateral degenerative changes Electronically authenticated by: CINDY CHANDRA Date: 01/26/2024 14:32 Dictated By: Cindy Chandra M.D. Signed By: 01/26/24 1434 DD/ 1432 TD/TT: [employer]: [place] [address] XRay Report Signed Patient: FRANK TAMEZ MR#: [id number] : 1955 Acct:[id number] Age/Sex: 68 / M ADM Date: 01/26/24 Loc: EC Attending Dr: Danielle Mir M.D. Ordering Physician: Destiny Pimentel D.P.M. Date of Service: 01/26/24 Procedure(s): XR ammon t ARMAND min 3V Accession Number(s): [id number] cc: Aaron Bush; Destiny Pimentel D.P.M. [place] [address] Patient Name: CODY TAMEZ MRN: [id number] date: 1955 Sex: M Assigned Patient Loc ation: EC Current Patient Loca tion: EC Accession/Order Numb er: [id number] Exam Date: 01/26/2024 09:33 Report Date: 01/26/2024 14:32 At the request of: DESTINY PIMENTEL Procedure: XR foot B IL min 3V EXAMINATION: XR foot ARMAND min 3V HISTORY: BILATERAL F OOT PAIN COMPARISON: 10/03/2020 FINDINGS: RIGHT FINDINGS: BONES: No acute frac ture or dislocation. Minimal degenerative changes with enthesopathic spurri ng of the calcaneus and mild marginal osteophyte formation SOFT TISSUES: Negati ve. No visible soft tissue swelling. OTHER: Negative. LEFT FINDINGS: BONES: No acute frac ture or dislocation. Minimal degenerative changes with enthesopathic spurri ng mild marginal osteophyte formation. Internal fixation of the distal tibia wit h a medial plate and screws, partially visualized SOFT TISSUES: Negati ve. No visible soft tissue swelling. OTHER: Negative. X R/XR foot ARMAND min 3V IMPRESSION: Minimal bilateral degenerative changes Electronically authenticated by: CINDY CHANDRA Date: 01/26/2024 14:32 Dictated By: Balbir Chandra M.D. Signed By: 01/26/24 1434 DD/ 1432 TD/TT: [employer]: XR foot RT min 3V (Not yet r eviewed by provider) Interpretation: Performing Lab: Notes/Report: Source Facility: [facility]-[address] [place] [address] [place] [address] XRay Report Signed Patient: CODY TAMEZ MR#: [id number] : 1955 Acct:[id number] Age/Sex: 68 / M ADM Date: 04/06/24 Loc: SURGOUT Attending Dr: Destiny Pimentel D.P.M. Ordering Physician: Destiny Pimentel D.P.M. Date of Service: 04/06/24 Procedure(s): XR foot RT min 3V Accession Number(s): [id number] cc: Aaron Bush D.O.; Destiny Pimentel D.P.M. [place] [address] Patient Name: CODY TAMEZ MRN: [id number] date: 1955 Sex: M Assigned Patient Location: [facility] Current Patient Location: [facility] Accession/Order Number: [id number] Exam Date: 04/06/2024 09:30 Report Date: 04/10/2024 08:11 At the request of: DESTINY PIMENTEL Procedure: XR foot RT min 3V PROCEDURE: XR foot RT min 3V COMPARISON: 01/26/2024 HISTORY: tailor's bunion FINDINGS: BONES:Shave osteotomy lateral head of the fifth metatarsal. Resection head of the fifth proximal phalanx SOFT TISSUES:Postsurgical swelling and subcutaneous emphysema EFFUSION:None visible. OTHER: Negative. XR/XR foot RT min 3V IMPRESSION: Postsurgical changes of the fifth digit Electronically authenticated by: CINDY CHANDRA Date: 04/10/2024 08:11 Dictated By: Cindy Chandra M.D. Signed By: 04/10/24813 DD/ 0 TD/TT: [employer]: [place] [address] XRay Report Signed Patient: FRANK TAMEZ MR#: [id number] : 1955 Acct:[id number] Age/Sex: 68 / M ADM Date: 04/06/24 Loc: SURGOUT Attending Dr: Destiny Pimentel D.P.M. Ordering Physician: Destiny Pimentel D.P.M. Date of Service: 04/06/24 Procedure(s): XR ammon t RT min 3V Accession Number(s): [id number] cc: Aaron Bush; Destiny Pimentel D.P.M. [place] [address] Patient Name: CODY TAMEZ MRN: [id number] date: 1955 Sex: M Assigned Patient Loc ation: SURGOUT Current Patient Loca tion: PST Accession/Order Numb er: [id number] Exam Date: 09:30 Report Date: 04/10/2024 08:11 At the request of: DESTINY PIMENTEL Procedure: XR foot R T min 3V PROCEDURE: XR foot R T min 3V COMPARISON: 01/26/2024 HISTORY: tailor's bunion FINDINGS: BONES:Shave osteotom y lateral head of the fifth metatarsal. Resection head of the fifth proximal phalanx SOFT TISSUES:Postsur gical swelling and subcutaneous emphysema EFFUSION:None visible. OTHER: Negative. X R/XR foot RT min 3V IMPRESSION: Postsurgical changes of the fifth digit Electronically authenticated by: CINDY CHANDRA Date: 04/10/2024 08:11 Dictated By: Balbir Chandra M.D. Signed By: 04/10/24813 DD/ 0 TD/TT: [employer]: ECG 12 lead (Not yet reviewe d by provider) Interpretation: Performing Lab: Notes/Report: Source Facility: [place] [address] [place] [address] Electrocardiograph Report Signed Patient: CODY TAMEZ MR#: [id number] : 1955 Acct:[id number] Age/Sex: 68 / M ADM Date: 03/29/24 Loc: LALO Attending Dr: Destiny Pimentel D.P.M. Ordering Physician: Destiny Pimentel D.P.M. 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 Signed By: 03/29/242323 DD/ 3 TD/TT: [employer]: [place] [address] Electrocardiograph Report Signed Patient: FRANK TAMEZ MR#: [id number] : 1955 Acct:[id number] Age/Sex: 68 / M ADM Date: 03/29/24 Loc: PST Attending Dr: Destiny Pimentel D.P.M. Ordering Physician: Destiny Pimentel D.P.M. 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 Signed By: 03/29/242323 DD/ 3 TD/TT: [employer]: Reason For Referral No Information Medications Medication SIG (Take, Route, Frequency, Duration) Notes Start Date End Date Status Gabapentin 300 MG 1 capsule Orally Onc e a day Unknown Ondansetron HCl 4 MG 1 tablet Orally [...] 1 capsule Orally Once a day Unknown Problems Problem Type SNOMED Code ICD Code Onset Dates Problem Status W/U Status Risk Notes Problem 477480797 Other hammer toe(s) (acquired), right foot (M20.41) Active confirmed Problem Pain in right foot (90185494169288 7) Right foot pain (M79.671) Active confirmed Problem Left foot pain (M79.672) Active confirmed Vital Signs Heart Rate 75 /min 04/25/2024 Temperature 96.8 degrees Fahrenheit 04/25/2024 Oximetry 93 % 04/25/2024 Encounters Encounter Location Date Provider Diagnosis [facility] [address] [place] [address] 01/25/2024 Destiny Pimentel [facility] ([facility]) [address] [place] [address] 04/06/2024 Destiny Pimentel [facility] ([facility]) [address] [place] [address] 04/06/2024 Destiny Pimentel [facility] ([facility]) [address] [place] [address] 04/06/2024 Destiny Pimentel [facility] ([facility]) [address] [place] [address] 01/26/2024 Destiny Pimentel Bunionette of right foot M21.621 ; Other hammer toe(s) (acquired), right foot M20.41 ; Right foot pain M79.671 ; Left foot pain M79.672 and Bunionette of left foot M21.622 [facility] OUTPATIENT [facility] [place] [address] 04/06/2024 Destiny Pimentel [facility] ([facility]) [address] [place] [address] 04/13/2024 Gayle Cisneros Bunionette of right foot M21.621 ; Other hammer toe(s) (acquired), right foot M20.41 and Right foot pain M79.671 [facility]) [address] [place] [address] [place] [address] 04/25/2024 Destiny Pimentel Bunionette of right foot M21.621 and Other hammer toe(s) (acquired), right foot M20.41 Assessments Encounter Date Diagnosis (ICD Code) Assessment Notes Treatment Notes Treatment Clinical Notes Section Notes 01/26/2024 Bunionette of right foot (ICD-10 - M21.621) Patient was seen and evaluated. Patient's condition was provided and all questions were answered to satisfaction. I reviewed x-rays and physical exam findings. Patient has had pain and symptoms for over 6 months but over the last 2 months has been become much worse and now affecting activities of daily living and recreation. He has attempted OTC pain medicine such as Tylenol and ibuprofen as well as wider fitting shoes without help.Patient would like to undergo surgery and I recommended: Right tailor's bunionectomy and correction of fifth hammertoe I reviewed the possible complications which include but not limited to infection, wound healing issue, numbness and tingling, bleeding, blood clot, pain, need for additional surgery. Postoperative course was reviewed and the patient will likely be: Weightbearing as tolerated in surgical shoe for 3 weeks or until incision is healed Patient will be: outpatient postoperatively Proposed anesthesia:Genera l: Proposed implants: None 01/26/2024 Other hammer toe(s) (acquired), right foot (ICD-10 - M20.41) 04/13/2024 Bunionette of right foot (ICD-10 - [...] toe(s) (acquired), right foot (ICD-10 - M20.41) 04/25/2024 Bunionette of right foot (ICD-10 - M21.621) Patient presents for second postoperative appointment and sutures were discontinued. He may transition to normal shoes as pain allows. He should consider wider shoes especially in the toebox and should consider padding the surgical site with Band-Aids if there is rubbing or irritation. He will be traveling to [place] for the winter in the next 2 weeks and may call for follow-up prior to that point if he needs otherwise he will follow-up after he returns. He is to call the office with any issues even if he is down in [place] and we can insist him that way as well 04/25/2024 Other hammer toe(s) (acquired), right foot (ICD-10 - M20.41) 04/13/2024 Right foot pain (ICD-10 - M79.671) 01/26/2024 Right foot pain (ICD-10 - M79.671) 01/26/2024 Left foot pain (ICD-10 - M79.672) 01/26/2024 Bunionette of left foot (ICD-10 - M21.622) Patient has similar symptoms on his left foot but are not as severe as his right foot. I recommended fixing the right foot first then once healed may consider having left foot surgery. Plan Of Treatment Pending Test Test Name Order Date XR Foot LT (3 views) * 01/26/2024 XR Foot RT (3 views) * 01/26/2024 PROF CHEM 8 (BAS METB) 03/29/2024 XR foot RT min 3V 04/10/2024 ECG 12 lead 03/29/2024 XR foot ARMAND min 3V 01/26/2024 Insurance Providers Payer Name Payer Address Payer Phone Subscriber Number Group Number Insured Name Patient Relationship to Insured Coverage Start Date Coverage End Date MEDICARE [place] [address] [phone] [id number] Cody Tamez Self - patient is the insured [employer] SUPPLEMENTAL INSURANCE [address] [address] [place], [place] [phone] [id number] PLAN G Cody Tamez Self - patient is the insured Medical (General) History Medical History History ICD Code chronic ankle pain nerve entrapment syndrome left ankle hx of incisional abscess right foot pain Surgical History Surgery Date(Month/Year) left superficial release per sampson nerve, tibial nerve, tarsal tunnel release, medial plantar nerve release, bone marrow harvest 04/03/2021 bilateral shoulder arthroscopy left ankle arthroscopy with stabilizatio n right total knee Right tailor's bunionectomy and PIPJ art hroplasty of the fifth toe 04/06/2024
--- OUTSIDE RECORDS SUMMARY | 2025-01-17 07:40 | XMS_ITS | CCD ---
Author Organization [facility] Care Team Providers Care Banana Grader Name Role Phone Al-Obosi, Nupur Tony Unavailable Price Swift Unavailable [phone] JOSE MANUEL, LAURA JARRELL Unavailable Unavai lable [...] Russell Unavailable MD Nino Russell Attending Provider [phone] DO Aaron Bush Primary Care Provider Craig [...] Unavailable Aaron Bush DO Primary Care Provider [phone] Nino Russell MD Attending Provider [phone] Aaron Bush Primary Care Unavailable Asaad, Nino Attending Unavailable Asaad, Imwilliam Admitting Unavailable Aaron Bush DO Primary Care Provider [phone] Aaron Bush DO Attending Provider [phone] Medications Current Medications Medication Drug Class(es) Dates [...] 06/06/2017 Active escitalopram 20 mg oral tablet (14 sources) Serotonin Reuptake Inhibitor Start: 11-28-2024 Escitalopram Oxalate 20 mg tablet Active 0 .ROUTE .COMPLEX November 28, 2024 1:19pm TAKE 1 TABLET EVERY DAY Complies with drug therapy Start: 12-29-2023 End: 11-28-2024 take 1 tablet by mouth once daily Escitalopram Oxalate 20 mg tablet Discontinued 20 MG PO Daily December 29, 2023 9:08am November 28, 2024 1:19pm Start: 11-03-2023 End: 12-29-2023 Escitalopram Oxalate 10 mg t ablet Discontinued 0 .ROUTE .COMPLEX November 03, 2023 12:59pm December 29, 2023 9:09am TAKE 1 TABLET AT BEDTIME Start: 11-03-2023 End: 11-03-2023 take 1 tablet by mouth once daily Escitalopram Oxalate 10 mg tablet Discontinued 10 MG PO Daily November 03, 2023 12:00am November 03, 2023 12:59pm Start: 12-16-2022 take 1 tablet by ric once daily at bedtime Escitalopram Oxalate 10 MG 1 tablet Orally Once a day at bedtime for 90 days Nov, Active esomeprazole 40 mg delayed release oral capsule (20 sources) Proton Pump Inhibitor Start: 08-22-2024 take 1 capsule by mouth once Esomeprazole Magnesium 40 mg capsule,delayed release(DR/EC) Active 40 MG PO Once August 22, 2024 9:33am Complies with drug therapy Start: 08-26-2022 End: 08-22-2024 take 1 capsule by mouth twice daily Esomeprazole Magnesium 40 mg capsule,delayed release(DR/EC) Discontinued 40 MG PO Twice daily 0 90 August 26, 2022 10:07am August 22, 2024 9:33am Start: 08-26-2022 End: 08-26-2022 take 1 capsule by mouth once daily Esomeprazole Magnesium 40 mg capsule,delayed release(DR/EC) Discontinued 40 MG PO Daily August 26, 2022 12:00am August 26, 2022 10:07am Start: 06-01-2016 End: 02-11-2018 esomeprazole (NEXIUM) 40 MG capsule TAKE 1 CAPSULE DAILY @ [facility]ER[facility] 06/01/2016 02/11/2018 Discontinued fenofibrate 145 mg oral tablet (2 sources) Peroxisome Proliferator Receptor alpha Agonist Start: 01-13-2024 take 1 tablet by mouth once daily Fenofibrate Nanocrystallized 145 mg tablet Active 145 MG PO Daily 90 90 January 13, 2024 12:00am Complies with drug therapy folic acid (7 sources) pgmsclny-vbah-qq n-fol ic acid (vbdgqobyzhmr-aciq-av nerals-folic acid) 3,500-18-0.4 unit-mg-mg Chew Indications: supplement Chew and Swallow every morning . Active gabapentin 300 mg oral capsule (20 sources) Anti-epileptic Agent Start: 08-24-2023 take 2 capsules by mouth once daily at bedtime Gabapentin 300 mg capsule Active 600 MG PO Daily at bedtime August 24, 2023 12:00am Complies with drug therapy take 2 capsules by mouth at bedt colby Gabapentin 300 MG 2 capsules Orally at bedtime Active take 1 capsule by mo ut every twenty-four hours Gabapentin 300 MG 1 capsule Orally Once a day Active jpuvecca-mhez-two-folic acid (cilecuqwhjii-ccdy-hzbkninp-folic acid) 3,500-18-0.4 unit-mg-mg Chew (2 sources) pfxrwehd-dgbi-bv n-folic acid (onacxnmffhbx-fnlu-ljxdfoth-folic acid) 3,500-18-0.4 unit-mg-mg Chew Indications: supplement Chew [...] mouth every morning . 0 02/03/2017 Active predniSONE 20 mg oral tablet (8 sources) Corticos teroid S t a r t : 0 8 - 0 8 - 2 0 2 5 Prednisone 20 mg tablet Acti ve 20 MG PO As Directed January 05, 2025 12:00am 1 tab tid w/ food x 3 days, then bid w/ food x 3 days, then qd w/ food x 3 days Complies with drug therapy End: 02-11-2018 predniSONE (DELTASONE) 10 MG tablet Take 10 mg by mouth Take 2 tablets twice a day for 3 days, 1 tablet twice a day for 3 days, 1 tablet once a day for 5 days for shingles . 02/11/2018 Discontinued tobramycin 3 mg/ml ophthalmic solution (1 source) Aminoglycoside Antibacterial Start: 11-06-2018 End: 11-11-2018 take 1 drop(s) into the eye(s) every [...] 11/04/2015 02/11/2018 Discontinued take 1 tablet by [facility] once daily in the morning atorvastatin [...] 02/11/2018 Discontinued meloxicam 15 mg oral tablet (15 sources) Nonsteroidal Anti-inflammatory Drug Start: 07-16-2022 End: [...] polysaccharide iron complex 150 mg oral capsule (12 sources) Start: 08-24-2023 End: 08-02-2024 take 1 capsule by mouth every other day Polysaccharide Iron Complex (Ferrex 150) 150 mg iron capsule Discontinued 150 MG PO .qod 45 90 August 26, 2023 12:24pm August 02, 2024 11:45am [employer] capsule Orally qod; Note: Source Status: Taking; Refills: 1; Provider: Eleazar Morgan Start: 12-11-2022 take 1 capsule by [facility] every other day Ferrex 150 150 MG 1 capsule Orally qod for 90 days Nov, Active 20 ml ropivacaine hydrochlor gabriel 5 mg/ml injection (2 sources) Amide Local Anesthetic Start: 02-17-2018 End: 02-17-2018 Start: 05-27-2017 End: 05-27-2017 ropivacaine (PF) 100 mg/20 m L (5 mg/mL) 0.5 % Syrg 45 mL 45 mL, Infiltration, Once, [place] 05/27/17 at 0830, For 1 dose, Pre-Procedure, [] for anesthesia block administration Given 05/27/2017 08:19 EST 45 mL Semaglutide (Weight Loss) (2 sources) Start: 08-25-2023 End: 05-01-2024 Semaglutide (Weight Loss) [...] Problem Date Documented Date Episodic/Chronic Abdominal pain (5 sources) Unspecified abdominal pain; Translations: [Epigastric pain] Onset: 05-19-2017 05-01-2024 Episodic Allergic reactions (2 sources) Allergic contact dermatitis; Translations: [Allergic contact dermatitis, unspecified cause] 01-05-2025 Episodic Anxiety disorders (14 sources) Generalized anxiety disorder; Translations: [Generalized anxiety disorder] Chronic Biliary tract disease (3 sources) Biliary calculus; Translations: [Calculus of gallbladder without cholecystitis without obstruction] 05-07-2024 Episodic Comment on above: CT: 2.1cm stone in G B - 04/2024 Complications of surgical procedures or medical [...] deficiency anemias] Episodic Deficiency and other anemia (20 sources) Anemia; Translations: [Anemia, unspecified] 08-25-2023 Episodic Deficiency and other anemia (7 sources) Anemia, unspecified; Translations: [ANEMIA UNSPECIFIED] Onset: 09-16-2022 Episodic Deficiency and other anemia (1 source) Other iron deficiency anemias Episodic Diabetes mellitus without complication (4 sources) Impaired fasting glucose; Translations: [Impaired fasting [...] symptoms] 08-24-2023 Chronic Miscellaneous mental health disorders (7 sources) Primary insomnia; Translations: [Primary insomnia] 08-24-2023 Chronic Nonspecific chest pain (8 sources) Precordial pain; Translations: [Precordial pain] Episodic Nutritional deficiencies (2 sources) Vitamin D deficiency, unspecified; Translations: [Vitamin D deficiency, unspecified] Onset: 10-22-2017 Chronic Osteoarthritis (20 sources) Osteoarthritis of left knee joint; Translations: [Unilateral primary osteoarthritis, left knee] Onset: 12-16-2021 Chronic Other aftercare (2 sources) 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; 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] Onset: 12-17-2021 Episodic Other aftercare (5 sources) Long-term current use of drug therapy; Translations: [Other fdc (current) drug therapy] Episodic Other and ill-defined [...] in left foot] Episodic Other endocrine disorders (2 sources) Adrenal mass; 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, unspecified] 05-07-2024 Chronic Comment on above: CT: 1.7cm left adren al nodule 04/2024 Other injuries and conditions due to [...] lower limb Chronic Other nervous system disorders (10 sources) Idiopathic peripheral neuropathy; Translations: [Hereditary and [...] left foot] Episodic Other non-traumatic joint disorders (2 sources) Pain in left knee; Translations: [Left knee pain] 08-22-2024 Episodic Other nutritional; endocrine; and metabolic disorders (3 sources) Obesity, unspecified; Translations: [Obesity, unspecified] Onset: 05-21-2017 Chronic Other nutritional; endocrine; and metabolic disorders (19 sources) Body mass index 30+ - obesity; Translations: [Obesity, unspecified] Chronic Other nutritional; endocrine; and metabolic disorders (3 sources) Obesity; Translations: [Obesity, unspecified] 12-29-2023 Chronic Other nutritional; endocrine; and metabolic disorders (7 sources) Overweight; Translations: [Overweight] 05-01-2024 Episodic Other nutritional; endocrine; and metabolic disorders (1 source) Overweight; Translations: [Overweight] Episodic Other screening for suspected conditions (not mental disorders or infectious disease) (14 sources) Encounter for screening for malignant neoplasm [...] Test Name Value Interpretation Reference Range Facility [facility] 08-16-2024 L - -------- Specimen: [id number] Received: 08/16/24 Status: BETHANY Troncoso Num: [id number] Spec Type: Surgical Subm Dr: Nino Russell MD Tissues: A Small Intestine - Biopsy/Polyp (SM BOWEL) B Gastric Biopsy (GASTRIC BX) C Esophagus Biopsy (ESO BX) Procedures: HE/6, Gross/Micro L4/3 -------- Age/ Patient Sex Location Account Attending Physician -------- Zena Witt/[facility] [id number] Nino Russell MD -------- SPEC NUM: [id number] RECD: 08/16/24 STATUS: BETHANY TRONCOSO NUM: [id number] ANUP: 08/16/24 [facility] DR: Nino Russell MD ENTERED: 08/16/[address]: LEONARDO TYPE: Surgical DEPT: S ENTERED BY: [id number] RECV BY: [id number] ORDERED: HE/6, Gross/Micro L4/3 ORDERED: HE/6, Gross/Micro [...] Part C rule out Chaudhry's -------- Specimen: [id number] Received: 08/16/24 Status: BETHANY Troncoso Num: [id number] Spec Type: Surgical Subm Dr: Nino Russell MD Tissues: A Small Intestine - Biopsy/Polyp (SM BOWEL) B Gastric Biopsy (GASTRIC BX) C Esophagus Biopsy (ESO BX) Procedures: HE/6, Gross/Micro L4/3 -------- Patient: Zena Witt [id number] (Continued) -------- Specimen: Received: 08/16/24 (Continued) Signed (signature on file) Abhishek Laws Jr., MD 08/17/24 1047 -------- Specimen: Received: 08/16/24 Status: BETHANY Troncoso Num: [id number] Spec Type: Surgical Subm Dr: Nino Russell MD Tissues: A Small Intestine - Biopsy/Polyp (SM BOWEL) B Gastric Biopsy (GASTRIC BX) C Esophagus Biopsy (ESO BX) Procedures: HE/6, Gross/Micro L4/3 -------- Patient: Zena Witt [id number] (Continued) -------- Specimen: [id number] Received: 08/16/24 (Continued) Gross Description Part A is received in formalin labeled with the patients name, date of , and Sm bowel BX are 2 mcintyre-jorge, focally erythematous, friable, 0.3 and 0.4 cm in greatest dimension tissue bits. The specimen is entirely submitted in a single cassette. (1, ns, [id number] A) Part B is received in formalin labeled with the patients name, date of , and gastric BX are 2 mcintyre-jorge, focally erythematous, friable, 0.2 and 0.3 cm in greatest dimension tissue bits. The specimen is entirely submitted in a single cassette. (1, ns, [id number] B) Part C is received in formalin labeled with the patients name, date of , and esophagus BX are 2 pale jorge, focally erythematous, feathery, 0.1 and 0.3 cm in greatest dimension tissue bits. The specimen is entirely submitted in a single cassette. (1, ns, [id number] C) CPT Codes 06420 x 3 -------- -------- Specimen: [id number] Received: 08/16/24 Status: BETHANY Troncoso Num: [id number] Spec Type: Surgical Subm Dr: Nino Russell MD Tissues: A Small Intestine - Biopsy/Polyp (SM BOWEL) B Gastric Biopsy (GASTRIC BX) C Esophagus Biopsy (ESO BX) Procedures: HE/6, Gross/Micro L4/3 -------- Patient: Zena Witt [id number] (Continued) -------- Signed (signature on file) Abhishek Laws Jr., MD 08/17/24 1047 Normal [facility] CBC AUTO DIFFon 09-16-2022 BASO # 0.0 103/ul Normal 0.0-0.1 [facility] Comment on above: Performed By: #### C BC #### [facility] [address] [address] [address] Tracy Amos Basophils/100 WBC (Bld) 0.6 % Normal 0.2-2.0 [facility] Comment on above: Performed By: #### C BC #### [facility] [address] [address] [address] Tracy Amos EO # 0.1 103/ul Normal 0.0-0.7 [facility] Comment on above: Performed By: #### C BC #### [facility] [address] [place] [address] Dr. Tracy Amos Eosinophils/100 WBC (Bld) 1.5 % Normal 0.9-7.0 [facility] Comment on above: Performed By: #### C BC #### [facility] [address] [address] [address] Tracy Amos Erythrocyte distribution width (RBC) [Ratio] 12.6 % Normal 11.0-15.0 [facility] Comment on above: Performed By: #### C BC #### [facility] [address] [place] [address] Dr. Tracy Amos Hematocrit (Bld) [Volume fraction] 41.2 % Critically low 42.0-54.0 [facility] Comment on above: Performed By: #### C BC #### [facility] [address] [address] [address] Tracy Amos Hemoglobin (Bld) [Mass/Vol] 13.3 g/dL Critically low 14.0-18.0 [facility] Comment on above: Performed By: #### C BC #### [facility] [address] [address] [address] Tracy Amos IG # 0.01 10e3/ul Normal 0.00-0.03 [facility] Comment on above: Performed By: #### C BC #### [facility] [address] [place] [address] Dr. Tracy Amos IG % 0.1 % Normal 0.0-0.5 [facility] Comment on above: Performed By: #### C BC #### [facility] [address] [place] [address] Dr. Tracy Amos LYMPH # 3.0 103/ul Normal 1.2-3.8 [facility] Comment on above: Performed By: #### C BC #### [facility] [address] [place] [address] Dr. Tracy Amos Lymphocytes/100 WBC (Bld) 42.0 % Normal 20.5-60.0 [facility] Comment on above: Performed By: #### C BC #### [facility] [address] [place] [address] Dr. Tracy Amos MANUAL DIFF REQ NO Normal [facility] Comment on above: Performed By: #### C BC #### [facility] [address] [place] [address] Dr. Tracy Amos MCH (RBC) [Entitic mass] 28.7 pg Normal 25.9-34.0 [facility] Comment on above: Performed By: #### C BC #### [facility] [address] [place] [address] Dr. Tracy Amos MCHC (RBC) [Mass/Vol] 32.3 g/dL Normal 29.9-35.2 [facility] Comment on above: Performed By: #### C BC #### [facility] [address] [place] [address] Dr. Tracy Amos MCV (RBC) [Entitic vol] 89.0 fL Normal 80.0-94.0 [facility] Comment on above: Performed By: #### C BC #### [facility] [address] [place] [address] Dr. Tracy Amos MONO # 0.5 103/ul Normal 0.3-0.8 [facility] Comment on above: Performed By: #### C BC #### [facility] [address] [place] [address] Dr. Tracy Amos Monocytes/100 WBC (Bld) 6.6 % Normal 1.7-12.0 [facility] Comment on above: Performed By: #### C BC #### [facility] [address] [place] [address] Dr. Tracy Amos NEUT # 3.6 103/ul Normal 1.4-6.5 [facility] Comment on above: Performed By: #### C BC #### [facility] [address] [place] [address] Dr. Tracy Amos Neutrophils/100 WBC (Bld) 49.2 % Normal 43.0-75.0 [facility] Comment on above: Performed By: #### C BC #### [facility] [address] [place] [address] Dr. Tracy Amos Platelet mean volume (Bld) [Entitic vol] 10.2 fL Normal 9.5-13.5 [facility] Comment on above: Performed By: #### C BC #### [facility] [address] [place] [address] Dr. Tracy Amos PLT 164 103/ul Normal 150-450 [facility] Comment on above: Performed By: #### C BC #### [facility] [address] [place] [address] Dr. Tracy Amos RBC 4.63 106/ul Critically low 4.70-6.10 [facility] Comment on above: Performed By: #### C BC #### [facility] [address] [place] [address] Dr. Tracy Amos WBC 7.2 103/ul Normal 4.0-11.0 [facility] Comment on above: Performed By: #### C BC #### [facility] [address] [place] [address] Dr. Tracy Amos CBC AUTO DIFFon 07-13-2022 BASO # 0.0 103/ul Normal 0.0-0.1 [facility] Comment on above: Performed By: #### C BC #### [facility] [address] [place] [address] Dr. Tracy Amos Basophils/100 WBC (Bld) 0.4 % Normal 0.2-2.0 [facility] Comment on above: Performed By: #### C BC #### [facility] [address] [place] [address] Dr. Tracy Amos EO # 0.2 103/ul Normal 0.0-0.7 [facility] Comment on above: Performed By: #### C BC #### [facility] [address] [place] [address] Dr. Tracy Amos Eosinophils/100 WBC (Bld) 1.5 % Normal 0.9-7.0 [facility] Comment on above: Performed By: #### C BC #### [facility] [address] [place] [address] Dr. Tracy Amos Erythrocyte distribution width (RBC) [Ratio] 12.8 % Normal 11.0-15.0 [facility] Comment on above: Performed By: #### C BC #### [facility] [address] [place] [address] Dr. Tracy Amos Hematocrit (Bld) [Volume fraction] 38.2 % Critically low 42.0-54.0 [facility] Comment on above: Performed By: #### C BC #### [facility] [address] [place] [address] Dr. Tracy Amos Hemoglobin (Bld) [Mass/Vol] 12.7 g/dL Critically low 14.0-18.0 [facility] Comment on above: Performed By: #### C BC #### [facility] [address] [place] [address] Dr. Tracy Amos IG # 0.02 10e3/ul Normal 0.00-0.03 [facility] Comment on above: Performed By: #### C BC #### [facility] [address] [place] [address] Dr. Tracy Amos IG % 0.2 % Normal 0.0-0.5 [facility] Comment on above: Performed By: #### C BC #### [facility] [address] [place] [address] Dr. Tracy Amos LYMPH # 3.8 103/ul Normal 1.2-3.8 [facility] Comment on above: Performed By: #### C BC #### [facility] [address] [place] [address] Dr. Tracy Amos Lymphocytes/100 WBC (Bld) 38.1 % Normal 20.5-60.0 [facility] Comment on above: Performed By: #### C BC #### [facility] [address] [place] [address] Dr. Tracy Amos MANUAL DIFF REQ NO Normal [facility] Comment on above: Performed By: #### C BC #### [facility] [address] [place] [address] Dr. Tracy Amos MCH (RBC) [Entitic mass] 29.0 pg Normal 25.9-34.0 [facility] Comment on above: Performed By: #### C BC #### [facility] [address] [place] [address] Dr. Tracy Amos MCHC (RBC) [Mass/Vol] 33.2 g/dL Normal 29.9-35.2 [facility] Comment on above: Performed By: #### C BC #### [facility] [address] [place] [address] Dr. Tracy Amos MCV (RBC) [Entitic vol] 87.2 fL Normal 80.0-94.0 [facility] Comment on above: Performed By: #### C BC #### [facility] [address] [place] [address] Dr. Tracy Amos MONO # 0.5 103/ul Normal 0.3-0.8 [facility] Comment on above: Performed By: #### C BC #### [facility] [address] [place] [address] Dr. Tracy Amos Monocytes/100 WBC (Bld) 4.6 % Normal 1.7-12.0 [facility] Comment on above: Performed By: #### C BC #### [facility] [address] [place] [address] Dr. Tracy Amos NEUT # 5.5 103/ul Normal 1.4-6.5 [facility] Comment on above: Performed By: #### C BC #### [facility] [address] [place] [address] Dr. Tracy Amos Neutrophils/100 WBC (Bld) 55.2 % Normal 43.0-75.0 [facility] Comment on above: Performed By: #### C BC #### [facility] [address] [place] [address] Dr. Tracy Amos Platelet mean volume (Bld) [Entitic vol] 10.0 fL Normal 9.5-13.5 [facility] Comment on above: Performed By: #### C BC #### [facility] [address] [place] [address] Dr. Tracy Amos PLT 179 103/ul Normal 150-450 [facility] Comment on above: Performed By: #### C BC #### [facility] [address] [place] [address] Dr. Tracy Amos RBC 4.38 106/ul Critically low 4.70-6.10 [facility] Comment on above: Performed By: #### C BC #### [facility] [address] [place] [address] Dr. Tracy Aoms WBC 9.9 103/ul Normal 4.0-11.0 [facility] Comment on above: Performed By: #### C BC #### [facility] [address] [place] [address] Dr. Tracy Amos CBC AUTO DIFFon 03-04-2022 BASO # 0.1 103/ul Normal 0.0-0.1 [facility] Comment on above: Performed By: #### C BC #### [facility] [address] [place] [address] Dr. Tracy Amos Basophils/100 WBC (Bld) 0.8 % Normal 0.2-2.0 [facility] Comment on above: Performed By: #### C BC #### [facility] [address] [place] [address] Dr. Tracy Amos EO # 0.1 103/ul Normal 0.0-0.7 [facility] Comment on above: Performed By: #### C BC #### [facility] [address] [place] [address] Dr. Tracy Amos Eosinophils/100 WBC (Bld) 1.8 % Normal 0.9-7.0 [facility] Comment on above: Performed By: #### C BC #### [facility] [address] [place] [address] Dr. Tracy Amos Erythrocyte distribution width (RBC) [Ratio] 12.7 % Normal 11.0-15.0 [facility] Comment on above: Performed By: #### C BC #### [facility] [address] [place] [address] Dr. Tracy Amos Hematocrit (Bld) [Volume fraction] 37.3 % Critically low 42.0-54.0 [facility] Comment on above: Performed By: #### C BC #### [facility] [address] [place] [address] Dr. Tracy Amos Hemoglobin (Bld) [Mass/Vol] 12.1 g/dL Critically low 14.0-18.0 [facility] Comment on above: Performed By: #### C BC #### [facility] [address] [place] [address] Dr. Tracy Amos IG # 0.01 10e3/ul Normal 0.00-0.03 [facility] Comment on above: Performed By: #### C BC #### [facility] [address] [place] [address] Dr. Tracy Amos IG % 0.1 % Normal 0.0-0.5 [facility] Comment on above: Performed By: #### C BC #### [facility] [address] [place] [place] [address] Dr. Tracy Amos LYMPH # 3.0 103/ul Normal 1.2-3.8 [facility] Comment on above: Performed By: #### C BC #### [facility] [address] [place] [address] Dr. Tracy Amos Lymphocytes/100 WBC (Bld) 41.3 % Normal 20.5-60.0 [facility] Comment on above: Performed By: #### C BC #### [facility] [address] [place] [address] Dr. Tracy Amos MANUAL DIFF REQ NO Normal [facility] Comment on above: Performed By: #### C BC #### [facility] [address] [place] [address] Dr. Tracy Amos MCH (RBC) [Entitic mass] 29.7 pg Normal 25.9-34.0 [facility] Comment on above: Performed By: #### C BC #### [facility] [address] [place] [address] Dr. Tracy Amos MCHC (RBC) [Mass/Vol] 32.4 g/dL Normal 29.9-35.2 [facility] Comment on above: Performed By: #### C BC #### [facility] [address] [place] [address] Dr. Tracy Amos MCV (RBC) [Entitic vol] 91.4 fL Normal 80.0-94.0 [facility] Comment on above: Performed By: #### C BC #### [facility] [address] [place] [address] Dr. Tracy Amos MONO # 0.5 103/ul Normal 0.3-0.8 [facility] Comment on above: Performed By: #### C BC #### [facility] [address] [place] [address] Dr. Tracy Amos Monocytes/100 WBC (Bld) 6.1 % Normal 1.7-12.0 [facility] Comment on above: Performed By: #### C BC #### [facility] [address] [place] [address] Dr. Tracy Amos NEUT # 3.7 103/ul Normal 1.4-6.5 [facility] Comment on above: Performed By: #### C BC #### [facility] [address] [place] [address] Dr. Tracy Amos Neutrophils/100 WBC (Bld) 49.9 % Normal 43.0-75.0 [facility] Comment on above: Performed By: #### C BC #### [facility] [address] [address] [address] Tracy Amos Platelet mean volume (Bld) [Entitic vol] 9.9 fL Normal 9.5-13.5 [facility] Comment on above: Performed By: #### C BC #### [facility] [address] [address] [address] Tracy Amos PLT 156 103/ul Normal 150-450 [facility] Comment on above: Performed By: #### C BC #### [facility] [address] [address] [address] Tracy Amos RBC 4.08 106/ul Critically low 4.70-6.10 [facility] Comment on above: Performed By: #### C BC #### [facility] [address] [address] [address] Tracy Amos WBC 7.4 103/ul Normal 4.0-11.0 [facility] Comment on above: Performed By: #### C BC #### [facility] [address] [address] [address] Tracy Amos FERRITINon 03-04-2022 Ferritin [Mass/Vol] 99.0 ng/mL Normal 26.0-388.0 The [facility] Comment on above: Performed By: #### F ETIBC, FERR, B12FOL ####[facility] [id number] [address]Dr. Tracy Amos IRON AND TIBCon 03-04-2022 % SATURATION 16.3 % Normal [facility] Comment on above: Performed By: #### F ETIBC, FERR, B12FOL #### [facility] [address] [address] [address] Tracy Amos Iron [Mass/Vol] 55.0 ug/dL Critically low 65.0-175.0 The [facility] Comment on above: Performed By: #### F ETIBC, FERR, B12FOL #### [facility] [address] [address] [address] Tracy Amos TIBC DIRECT 337.0 ug/dL Normal 250.0-450.0 [facility] Comment on above: Performed By: #### F ETIBC, FERR, B12FOL #### [facility] [address] [place] [address] Dr. Tracy Amos VIT B12 AND FOLATEon 022 Cobalamin (Vitamin B12) [Mass/Vol] 505.0 pg/mL Normal 193.0-986.0 [facility] Comment on above: Performed By: #### F ETIBC, FERR, B12FOL #### [facility] [address] [place] [address] Dr. Tracy Amos FOLATE 20.70 ng/mL Normal 8.60-58.90 [facility] Comment on above: Performed By: #### F ETIBC, FERR, B12FOL #### [facility] [address] [place] [address] Dr. Tracy Amos CBC AUTO DIFFon 12-16-2021 BASO # 0.0 103/ul Normal 0.0-0.1 [facility] Comment on above: Performed By: #### C BC #### [facility] [address] [place] [address] Dr. Tracy Amos Basophils/100 WBC (Bld) 0.4 % Normal 0.2-2.0 [facility] Comment on above: Performed By: #### C BC #### [facility] [address] [place] [address] Dr. Tracy Amos EO # 0.2 103/ul Normal 0.0-0.7 [facility] Comment on above: Performed By: #### C BC #### [facility] [address] [place] [address] Dr. Tracy Amos Eosinophils/100 WBC (Bld) 2.6 % Normal 0.9-7.0 [facility] Comment on above: Performed By: #### C BC #### [facility] [address] [place] [address] Dr. Tracy Amos Erythrocyte distribution width (RBC) [Ratio] 12.6 % Normal 11.0-15.0 [facility] Comment on above: Performed By: #### C BC #### [facility] [address] [place] [address] Dr. Tracy Amos Hematocrit (Bld) [Volume fraction] 36.6 % Critically low 42.0-54.0 [facility] Comment on above: Performed By: #### C BC #### [facility] [address] [place] [address] Dr. Tracy Amos Hemoglobin (Bld) [Mass/Vol] 12.1 g/dL Critically low 14.0-18.0 [facility] Comment on above: Performed By: #### C BC #### [facility] [address] [place] [address] Dr. Tracy Amos IG # 0.01 10e3/ul Normal 0.00-0.03 [facility] Comment on above: Performed By: #### C BC #### [facility] [address] [place] [address] Dr. Tracy Amos IG % 0.1 % Normal 0.0-0.5 [facility] Comment on above: Performed By: #### C BC #### [facility] [address] [place] [address] Dr. Tracy Amos LYMPH # 2.8 103/ul Normal 1.2-3.8 [facility] Comment on above: Performed By: #### C BC #### [facility] [address] [place] [address] Dr. Tracy Amos Lymphocytes/100 WBC (Bld) 40.3 % Normal 20.5-60.0 [facility] Comment on above: Performed By: #### C BC #### [facility] [address] [place] [address] Dr. Tracy Amos MANUAL DIFF REQ NO Normal [facility] Comment on above: Performed By: #### C BC #### [facility] [address] [place] [address] Dr. Tracy Amos MCH (RBC) [Entitic mass] 30.0 pg Normal 25.9-34.0 [facility] Comment on above: Performed By: #### C BC #### [facility] [address] [place] [address] Dr. Tracy Amos MCHC (RBC) [Mass/Vol] 33.1 g/dL Normal 29.9-35.2 [facility] Comment on above: Performed By: #### C BC #### [facility] [address] [place] [address] Dr. Tracy Amos MCV (RBC) [Entitic vol] 90.8 fL Normal 80.0-94.0 [facility] Comment on above: Performed By: #### C BC #### [facility] [address] [place] [address] Dr. Tracy Amos MONO # 0.4 103/ul Normal 0.3-0.8 [facility] Comment on above: Performed By: #### C BC #### [facility] [address] [place] [address] Dr. Tracy Amos Monocytes/100 WBC (Bld) 5.8 % Normal 1.7-12.0 [facility] Comment on above: Performed By: #### C BC #### [facility] [address] [place] [address] Dr. Tracy Amos NEUT # 3.6 103/ul Normal 1.4-6.5 [facility] Comment on above: Performed By: #### C BC #### [facility] [address] [place] [address] Dr. Tracy Amos Neutrophils/100 WBC (Bld) 50.8 % Normal 43.0-75.0 [facility] Comment on above: Performed By: #### C BC #### [facility] [address] [place] [address] Dr. Tracy Amos Platelet mean volume (Bld) [Entitic vol] 10.3 fL Normal 9.5-13.5 [facility] Comment on above: Performed By: #### C BC #### [facility] [address] [place] [address] Dr. Tracy Amos PLT 164 103/ul Normal 150-450 [facility] Comment on above: Performed By: #### C BC #### [facility] [address] [place] [address] Dr. Tracy Amos RBC 4.03 106/ul Critically low 4.70-6.10 [facility] Comment on above: Performed By: #### C BC #### [facility] [address] [address] [address] Tracy Amos WBC 7.1 103/ul Normal 4.0-11.0 [facility] Comment on above: Performed By: #### C BC #### [facility] [address] [address] [address] Tracy Amos LIPID PROFILEon 12-16-2021 CHOL-HDL RATIO NORM SEE BELOW Normal [facility] Comment on above: Result Comment: 3.3 - 4.4 LOW RISK 4.4 - 7.1 AVERAGE RISK 7.1 - 11.0 MODERATE RISK >11.0 HIGH RISK Performed By: #### L IPID, BMP #### [facility] [address] [address] [address] Tracy Amos Cholesterol [Mass/Vol] 118 mg/dL Normal <=200 [facility] Comment on above: Performed By: #### L IPID, BMP #### [facility] [address] [address] [address] Tracy Amos Cholesterol in HDL [Mass/Vol] 40 mg/dL Normal 40-60 [facility] Comment on above: Performed By: #### L IPID, BMP #### [facility] [address] [address] [address] Tracy Amos Cholesterol in LDL [Mass/Vol] 62.6 mg/dL Normal [facility] Comment on above: Performed By: #### L IPID, BMP #### [facility] [address] [address] [address] Tracy Amos Cholesterol.total/Ch olesterol in HDL [Mass ratio] 3.0 {ratio} Normal [facility] Comment on above: Performed By: #### L IPID, BMP #### [facility] [address] [address] [address] Tracy Amos HDL NORMAL > or = 60 mg/dl - LO W CARDIOVASCULAR RISK <40 mg/dl - HIGH CARDIOVASCULAR RISK Normal [facility] Comment on above: Performed By: #### L IPID, BMP #### [facility] [address] [address] [address] Tracy Amos LDL CALC NORMAL SEE BELOW Normal [facility] Comment on above: Result Comment: <100 mg/dl OPTIMAL 100 - 129 mg/dl NEAR OR ABOVE OPTIMAL 130 - 159 mg/dl BORDERLINE HIGH 160 - 189 mg/dl HIGH >190 mg/dl VERY HIGH Performed By: #### L IPID, BMP #### [facility] [address] [address] [address] Tracy Amos Triglyceride [Mass/Vol] 77 mg/dL Normal <=150 [facility] Comment on above: Performed By: #### L IPID, BMP #### [facility] [address] [address] [address] Tracy Amos VLDL CALC 15.4 mg/dL Normal [facility] Comment on above: Performed By: #### L IPID, BMP #### [facility] [address] [address] [address] Tracy Amos PROF CHEM 8 (BAS METB)on Anion gap [Moles/Vol] 7.8 mmol/L Normal [facility] Comment on above: Performed By: #### L IPID, BMP #### [facility] [address] [place] [address] Dr. Tracy Amos Calcium [Mass/Vol] 8.8 mg/dL Normal 8.5-10.1 [facility] Comment on above: Performed By: #### L IPID, BMP #### [facility] [address] [place] [address] Dr. Tracy Amos Chloride [Moles/Vol] 108 mmol/L Critically high 98-107 [facility] Comment on above: Performed By: #### L IPID, BMP #### [facility] [address] [place] [address] Dr. Tracy Amos CO2 [Moles/Vol] 28.5 mmol/L Normal 21.0-32.0 [facility] Comment on above: Performed By: #### L IPID, BMP #### [facility] [address] [address] [address] Tracy Amos Creatinine [Mass/Vol] 0.94 mg/dL Normal 0.70-1.30 [facility] Comment on above: Performed By: #### L IPID, BMP #### [facility] [address] [address] [address] Tracy Amos EGFR-AF TOGOLESE >60 Normal >=60 [facility] Comment on above: Performed By: #### L IPID, BMP #### [facility] [address] [address] [address] Tracy Amos EGFR-NON AF TOGOLESE >60 Normal >=60 [facility] Comment on above: Performed By: #### L IPID, BMP #### [facility] [address] [address] [address] Tracy Amos Glucose [Mass/Vol] 116 mg/dL Critically high 74-106 [facility] Comment on above: Performed By: #### L IPID, BMP #### [facility] [address] [address] [address] Tracy Amos Potassium [Moles/Vol] 4.3 mmol/L Normal 3.5-5.1 [facility] Comment on above: Performed By: #### L IPID, BMP #### [facility] [address] [address] [address] Tracy Amos Sodium [Moles/Vol] 140 mmol/L Normal 136-145 [facility] Comment on above: Performed By: #### L IPID, BMP #### [facility] [address] [address] [address] Tracy Amos Urea nitrogen [Mass/Vol] 24.0 mg/dL Critically high 7.0-18.0 [facility] Comment on above: Performed By: #### L IPID, BMP #### [facility] [address] [address] [address] Tracy Amos Urea nitrogen/Creatinine [Mass ratio] 25.5 mg/mg Normal [facility] Comment on above: Performed By: #### L IPID, BMP #### [facility] [address] [address] [address] Tracy Amos XR LSPINE 2_3 VIEWSon [...] by: SILVIA LI Date: 2021-12-16 21:55 Normal [facility] XR SHOULDER LEFT MIN 2 VIEWS on 05-10-2020 [facility] (RBC) [Entitic mass] EXAM: [facility] XR SHOULDER LEFT MIN 2 VIEWS, 05/10/2020 [...] SHOULDER LEFT MIN 2 VIEWS on 05-02-2020 [facility] (RBC) [Entitic mass] EXAM: [facility] XR SHOULDER LEFT MIN 2 VIEWS, 05/02/2020 09:46 AM CLINICAL INDICATIONS: Grashey and outlet views;, post op fu COMPARISON: August 23, 2018 left shoulder radiograph. FINDINGS: No acute fracture or dislocation. There is a new suture anchor in the proximal humeral diaphysis. Joint spaces are well-maintained. Soft tissues normal. IMPRESSION: New suture anchor in the proximal humerus. No acute osseous abnormality. [facility] SARS-COV-2 RAPIDon 0 SARS-COV2, RT PCR [...] #### [facility] (DEFAULT) [address] [place] [address] BASIC METABOLIC PANELon 03-31 Anion gap [Moles/Vol] 13 mmol/L Normal [facility] Comment on above: Performed By: #### C 7C #### [facility] (DEFAULT) [address] [place] [address] Calcium [Mass/Vol] 9.7 mg/dL Normal 8.4-10.2 [facility] Comment on above: Performed By: #### C 7C #### [facility] (DEFAULT) [address] [place] [address] Chloride [Moles/Vol] 108 mmol/L High 98-107 [facility] Comment on above: Performed By: #### C 7C #### [facility] (DEFAULT) [address] [place] [address] CO2 [Moles/Vol] 25 mmol/L Normal 22-[address] [facility] Comment on above: Performed By: #### C 7C #### [facility] (DEFAULT) [address] [place] [address] Creatinine [Mass/Vol] 1.05 mg/dL Normal 0.72-1.[address] [facility] Comment on above: Performed By: #### C 7C #### [facility] (DEFAULT) [address] [place] [address] Est Gfr, 86 mL/min/1.73sqM Normal [facility] Comment on above: Performed By: #### C 7C #### [facility] (DEFAULT) [address] [place] [address] Est Gfr,Non 71 mL/min/1.73sqM Normal [facility] Comment on above: Performed By: #### C 7C #### [facility] (DEFAULT) [address] [place] [address] Glucose [Mass/Vol] 102 mg/dL Normal 80-115 [facility] Comment on above: Performed By: #### C 7C #### [facility] (DEFAULT) [address] [place] [address] Osmolality [Osmolality] 301 mOsm/kg Normal [facility] Comment on above: Performed By: #### C 7C #### [facility] (DEFAULT) [address] [place] [address] Potassium [Moles/Vol] 4.0 mmol/L Normal 3.5-5.[address] [facility] Comment on above: Performed By: #### C 7C #### [facility] (DEFAULT) [address] [place] [address] Sodium [Moles/Vol] 142 mmol/L Normal 136-145 [facility] Comment on above: Performed By: #### C 7C #### [facility] (DEFAULT) [address] [place] [address] Urea nitrogen [Mass/Vol] 24.0 mg/dL Normal 8.4-25.[address] [facility] Comment on above: Performed By: #### C 7C #### [facility] (DEFAULT) [address] [place] [address] Urea nitrogen/Creatinine [Mass ratio] 23 mg/mg Normal [facility] Comment on above: Performed By: #### C 7C #### [facility] (DEFAULT) [address] [place] [address] CBC AND ELECTRONIC DIFFon Hematocrit (Bld) [Volume fraction] 37.8 % Normal 37.0-51.[address] [facility] Comment on above: Performed By: #### L AB981, [id number] #### [facility] (DEFAULT) [address] [place] [address] Hemoglobin (Bld) [Mass/Vol] 12.6 g/dL Normal 12.6-17.[address] [facility] Comment on above: Performed By: #### L AB981, [id number] #### [facility] (DEFAULT) [address] [place] [address] MCV (RBC) [Entitic vol] 89.6 fL Normal 81.0-103.[address] [facility] Comment on above: Performed By: #### L AB981, [id number] #### [facility] (DEFAULT) [address] [place] [address] Mean Cell Hgb 30.0 pg Normal 27.0-34.[address] [facility] Comment on above: Performed By: #### L AB981, [id number] #### [facility] (DEFAULT) [address] [place] [address] Mean Cell Hgb Conc 33.5 pg Normal 31.0-36.0 [facility] Comment on above: Performed By: #### L AB981, [id number] #### [facility] (DEFAULT) [address] [place] [address] Platelet mean volume (Bld) [Entitic vol] 7.8 fL Normal 7.5-11.[address] [facility] Comment on above: Performed By: #### L AB981, [id number] #### [facility] (DEFAULT) [address] [place] [address] Platelets (Bld) [#/Vol] 204 10*3/uL Normal 150-[address] [facility] Comment on above: Performed By: #### L AB981, [id number] #### [facility] (DEFAULT) [address] [place] [address] RBC (Bld) [#/Vol] 13.1 % Normal 11.5-14.[address] [facility] Comment on above: Performed By: #### L AB981, [id number] #### [facility] (DEFAULT) [address] [place] [address] RBC (Bld) [#/Vol] 4.22 10*6/uL Normal Male: 3.8-5.8, Female: 3.8-5.[address] [facility] Comment on above: Performed By: #### L AB981, [id number] #### [facility] (DEFAULT) [address] [place] [address] WBC (Bld) [#/Vol] 11.2 10*3/uL High 4.5-11.0 [facility] Comment on above: Performed By: #### L AB981, [id number] #### [facility] (DEFAULT) [address] [place] [address] MANUAL DIFFon 04-15-2020 Abs Eos Manual 0.11 K\uL Normal [facility] Comment on above: Performed By: #### L AB981, [id number] #### [facility] (DEFAULT) [address] [place] [address] Abs Lymph Manual 6.05 K/uL High 1.00-4.[address] [facility] Comment on above: Performed By: #### L AB981, [id number] #### [facility] (DEFAULT) [address] [place] [address] Abs [place] Manual 0.45 K/uL High 0.20-0.[address] [facility] Comment on above: Performed By: #### L AB981, [id number] #### [facility] (DEFAULT) [address] [place] [address] Abs Segs Manual 4.59 K/uL Normal 1.80-7.[address] [facility] Comment on above: Performed By: #### L AB981, [id number] #### [facility] (DEFAULT) [address] [place] [address] Eosinophils % Manual 1 % Normal [facility] Comment on above: Performed By: #### L AB981, [id number] #### [facility] (DEFAULT) [address] [place] [address] Lymphocyte % Manual 54 % Normal [facility] Comment on above: Performed By: #### L AB981, [id number] #### [facility] (DEFAULT) [address] [place] [address] Monocyte % Manual 4 % Normal [facility] Comment on above: Performed By: #### L AB981, [id number] #### [facility] (DEFAULT) [address] [place] [address] Neutrophil Segmented Manual 41 % Normal [facility] Comment on above: Performed By: #### L AB981, [id number] #### [facility] (DEFAULT) [address] [place] [address] SARS-COV-2 RAPIDon 0 SARS-COV2, RT PCR NASOPHARYNGEAL [...] [facility] (DEFAULT) [address] [place] [address] COMPREHENSIVE METABOLIC PANE Delfino 02-28-2020 Albumin [Mass/Vol] 4.3 g/dL Normal 3.2-4.6 [facility] Comment on above: Performed By: #### H JENNIE, CMPN #### [facility] (DEFAULT) [address] [place] [address] ALP [Catalytic activity/Vol] 66 U/L Normal 40-[address] [facility] Comment on above: Performed By: #### H JENNIE, CMPN #### [facility] (DEFAULT) [address] [place] [address] ALT [Catalytic activity/Vol] 17 U/L Normal 0-[address] [facility] Comment on above: Performed By: #### H JENNIE, CMPN #### [facility] (DEFAULT) [address] [place] [address] Anion gap [Moles/Vol] 15 mmol/L Normal [facility] Comment on above: Performed By: #### H JENNIE CMPN #### [facility] (DEFAULT) [address] [place] [address] AST [Catalytic activity/Vol] 19 U/L Normal <[address] [facility] Comment on above: Performed By: #### H JENNIE CMPN #### [facility] (DEFAULT) [address] [place] [address] Bilirubin [Mass/Vol] 0.5 mg/dL Normal 0.3-1.2 [facility] Comment on above: Performed By: #### H JENNIE CMPN #### [facility] (DEFAULT) [address] [place] [address] Calcium [Mass/Vol] 9.5 mg/dL Normal 8.4-10.2 [facility] Comment on above: Performed By: #### H JENNIE CMPN #### [facility] (DEFAULT) [address] [place] [address] Chloride [Moles/Vol] 106 mmol/L Normal 98-107 [facility] Comment on above: Performed By: #### H JENNIE CMPN #### [facility] (DEFAULT) [address] [place] [address] CO2 [Moles/Vol] 25 mmol/L Normal 22-[address] [facility] Comment on above: Performed By: #### H JENNIE CMPN #### [facility] (DEFAULT) [address] [place] [address] Creatinine [Mass/Vol] 1.00 mg/dL Normal 0.72-1.[address] [facility] Comment on above: Performed By: #### H JENNIE, CMPN #### [facility] (DEFAULT) [address] [place] [address] Est Gfr, 91 mL/min/1.73sqM Normal [facility] Comment on above: Performed By: #### H JENNIE CMPN #### [facility] (DEFAULT) [address] [place] [address] Est Gfr,Non 75 mL/min/1.73sqM Normal [facility] Comment on above: Performed By: #### H JENNIE, CMPN #### [facility] (DEFAULT) [address] [place] [address] Glucose [Mass/Vol] 111 mg/dL Normal 80-115 [facility] Comment on above: Performed By: #### H JENNIE, CMPN #### [facility] (DEFAULT) [address] [place] [address] Osmolality [Osmolality] 300 mOsm/kg Normal [facility] Comment on above: Performed By: #### H JENNIE, CMPN #### [facility] (DEFAULT) [address] [place] [address] Potassium [Moles/Vol] 4.5 mmol/L Normal 3.5-5.[address] [facility] Comment on above: Performed By: #### H JENNIE, CMPN #### [facility] (DEFAULT) [address] [place] [address] Protein [Mass/Vol] 7.3 g/dL Normal 6.4-8.3 [facility] Comment on above: Performed By: #### H JENNIE CMPN #### [facility] (DEFAULT) [address] [place] [address] Sodium [Moles/Vol] 141 mmol/L Normal 136-145 [facility] Comment on above: Performed By: #### H JENNIE, CMPN #### [facility] (DEFAULT) [address] [place] [address] Urea nitrogen [Mass/Vol] 24.0 mg/dL Normal 8.4-25.[address] [facility] Comment on above: Performed By: #### H JENNIE, CMPN #### [facility] (DEFAULT) [address] [place] [address] Urea nitrogen/Creatinine [Mass ratio] 24 mg/mg Normal [facility] Comment on above: Performed By: #### H JENNIE, CMPN #### [facility] (DEFAULT) [address] [place] [address] LIPID PANEL W CALCULATED LDL on 02-28-2020 [...] [facility] (DEFAULT) [address] [place] [address] Cholesterol [Mass/Vol] 114 mg/dL Normal <[address] [facility] Comment on above: Performed By: #### H JENNIE, CMPN #### [facility] (DEFAULT) [address] [place] [address] Cholesterol in HDL [Mass/Vol] 41 mg/dL Low >[address] [facility] Comment on above: Result Comment: [<40 mg/dL: Low (High Risk)] [>59 mg/dL: High (Low Risk)] Performed By: #### H JENNIE, CMPN #### [facility] (DEFAULT) [address] [place] [address] Cholesterol.total/Ch olesterol in HDL [Mass ratio] 2.8 {ratio} Normal [facility] Comment on above: Performed By: #### H JENNIE, CMPN #### [facility] (DEFAULT) [address] [place] [address] Non Hdl Cholesterol 73 mg/dL Normal [facility] Comment on above: Performed By: #### H JENNIE, CMPN #### [facility] (DEFAULT) [address] [place] [address] Triglyceride [Mass/Vol] 93 mg/dL Normal <[address] [facility] Comment on above: Performed By: #### H JENNIE, CMPN #### 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 [facility] Hemoglobin and Hematocriton 02-17-2018 Hematocrit Auto Volume Fraction (Bld) 39.2 % Low 41 - 53 % [facility] Hemoglobin mass conc (Bld) 13.1 g/dL Low 13.5 - 17.5 g/dL [facility] Interpretation and review of laboratory results Abnormal Invalid Interpretation Code [facility] SCAN OTHER ORDERSon 01-07-20 Ordered by an unspecified provider. Invalid Interpretation Code [facility] CT ANKLE LEFT WITHOUT CONTRA STon [...] tendons appear grossly intact and appropriately located.IMPRESSION:Reggie arnulfo is status post prior surgical intervention to [...] edema/induration about the ankle both medially and laterally.[facility]/gesWork station ID: [id number] by: LEON CAMARA on WedOctober 15, 2017 9:03:29 AM EDTTranscribed by: RUDDY CASAS on WedOctober 15, 2017 9:43:06 AM EDTFinalized by: LEON CAMARA on WedOctober 15, 2017 10:13:33 AM EDT [facility] Comment on above: Order Comment: Reaso n [...] about the ankle both medially and laterally. [employer] Workstation ID: [id number] Invalid Interpretation Code Generate [facility] CT Ankle Left Without Contrast EXAMINATION: [...] intact and appropriately located. Invalid Interpretation Code Generate [facility] CT Ankle Left Without Contrast Interface, Rad In [employer] - 10/15/2017 10:16 AM EDT EXAMINATION: CT [...] ACN/ges Workstation ID: [id number] Invalid Interpretation Code [employer] [facility] CBC Auto Differentialon 05-01 Basophils 0.03 K/mcL Invalid Interpretation Code 0.00 - 0.30 [facility] ([facility]) [facility] Basophils/100 leukocytes 0.4 % Invalid Interpretation Code [facility] ([facility] Eosinophils 0.15 K/mcL Invalid Interpretation Code 0.00 - 0.50 [facility] ([facility]) LAB Eosinophils/100 leukocytes 2.0 % Invalid Interpretation Code [facility] ([facility] Erythrocytes (RBC) 4.50 M/mcL Invalid Interpretation Code 4.50 - 5.90 [facility] ([facility]) [facility] Hematocrit (HCT) 39.8 % Low 41 - 53 % [facility] ([facility]) LAB Hemoglobin (HGB) 13.2 g/dL Low 13.5 - 17.5 g/dL [facility] ([facility]) [facility] Interpretation and review of laboratory results Abnormal Invalid Interpretation Code [facility] ([facility] Lymphocytes 2.38 K/mcL Invalid Interpretation Code 0.90 - 4.00 [facility] ([facility]) LAB Lymphocytes/100 leukocytes 32.1 % Invalid Interpretation Code [facility] ([facility]) [facility] MCH 29.3 pg Invalid Interpretation Code 26 - 34 pg [facility] ([facility]) [facility] MCHC 33.2 g/dL Invalid Interpretation Code 31 - 37 g/dL [facility] ([facility]) [facility] MCV 88.4 fL Invalid Interpretation Code 80 - 100 fL [facility] ([facility]) LAB Monocytes 0.60 K/mcL Invalid Interpretation Code 0.30 - 0.90 [facility] ([facility]) [facility] Monocytes/100 leukocytes 8.1 % Invalid Interpretation Code [facility] ([facility] Neutrophils 4.26 K/mcL Invalid Interpretation Code 1.70 - 7.00 [facility] ([facility] Neutrophils/100 leukocytes 57.4 % Invalid Interpretation Code [facility] ([facility] Platelet mean volume (PMV) 10.6 fL Invalid Interpretation Code 9 - 15.5 fL [facility] Platelets 167 K/mcL Invalid Interpretation Code 150 - 400 [facility] ([facility] RDW-CA 12.1 % Invalid Interpretation Code 11.6 - 14.8 % [facility] ([facility] WBC (Leukocytes) 7.42 K/mcL Invalid Interpretation Code 4.50 - 11.00 [facility] ([facility] CBC w/ Diffon 05-19-2017 Creatinine The following orders were created for panel order CBC w/ Diff. Procedure Abnormality Status --------- ------ CBC Auto Differential[[id number]] Abnormal Final result Please view results for these tests on the individual orders. Invalid Interpretation Code [facility] Work Phone: CMPon 05-19-2017 Alanine aminotransferase (ALT) 41 U/L High 0 - 40 U/L [facility] ([facility] Albumin 4.2 g/dL Invalid Interpretation Code 3.2 - 5.2 g/dL [facility] ([facility] Alkaline phosphatase (ALP) 84 U/L Invalid Interpretation Code 40 - 150 U/L [facility] Anion gap 22 mmol/L High 10 - 20 mmol/L [facility] ([facility] Aspartate aminotransferase (AST) 33 U/L Invalid Interpretation Code 0 - 45 U/L [facility] Bicarbonate (HCO3) 26 mmol/L Invalid Interpretation Code 21 - 32 mmol/L [facility] Bilirubin (total) 0.3 mg/dL Invalid Interpretation Code 0 - 1.3 mg/dL [facility] ([facility] BUN/Creatinine Ratio 20.5 mg/mg High 10.0 - 20.0 [facility] ([facility] Calcium 9.3 mg/dL Invalid Interpretation Code 8.4 - 10.2 mg/dL [facility] Chloride 104 mmol/L Invalid Interpretation Code 98 - 108 mmol/L [facility] Creatinine 0.83 mg/dL Invalid Interpretation Code 0.8 - 1.3 mg/dL [facility] ([facility] eGFR (non-black) 94 mL/min/{1.73_m2} Invalid Interpretation Code >=60 [facility] eGFR (non-black) The eGFR should be used for monitoring renal function only and not for medication dosing. Invalid Interpretation Code [facility] Glucose 115 mg/dL High 65 - 99 mg/dL [facility] Potassium 4.7 mmol/L Invalid Interpretation Code 3.5 - 5.1 mmol/L [facility] ([facility] Protein 7.4 g/dL Invalid Interpretation Code 6 - 8 g/dL [facility] Sodium 147 mmol/L High 135 - 145 mmol/L [facility] Urea nitrogen 17 mg/dL Invalid Interpretation Code 8 - 25 mg/dL [facility] ([facility] LAB CT KIDNEY STONEon 05-19-2017 CT KIDNEY STONE EXAMINATION:STONE PROTOCOL CT OF THE ABDOMEN AND [id number]/[id number]/2017TECHN IQUE:CT of the abdomen and pelvis was performed without the administration of intravenous contrast. Multiplanar reformatted images are provided for review. Dose modulation, iterative reconstruction, and/or weight based adjustment of the mA/kV was utilized to reduce the radiation dose to as low as reasonably achievable.COMPARISON :None.HISTORY:ORDERIN G SYSTEM PROVIDED HISTORY: left flank pain; TECHNOLOGIST [...] CT for further evaluation.Radiology 2017 http://pubs.rsna.org/ doi/full/10.1148/radi ol.[id number] Managing Incidental Adrenal Nodule > or equal to 1 cmBenign adrenal nodule - No follow up is required (including myelolipomas, adenomas, or nodules stable for > or equal to 1 year)Reference:Gilma mirza et al. Managing Incidental Findings on Abdominal CT: White Paper of the ACR Incidental Findings Committee. J Am Anup Radiol 2010;7:754-773Worksta tion ID: [id number] by: MARCELL LOYOLA on WedMay 19, 2017 5:28:03 AM ESTTranscribed by: MARCELL LOYOLA on WedMay 19, 2017 5:28:03 AM ESTFinalized by: MARCELL LOYOLA on WedMay 19, 2017 5:28:03 AM EST [facility] Comment on above: Order Comment: Reaso n [...] for further evaluation. Radiology 2017 http://pubs.rsna.org/ doi/full/10.1148/radi ol.[email or web address] Managing Incidental Adrenal Nodule > or equal to 1 cm Benign adrenal nodule - No follow up is required (including myelolipomas, adenomas, or nodules stable for > or equal to 1 year) Reference: Tyrone et al. Managing Incidental Findings on Abdominal CT: White Paper of the ACR Incidental Findings Committee. J Am Anup Radiol 2010;7:754-773 Workstation ID: [id number] Invalid Interpretation Code Generate [facility] CT Kidney Stone Interface, Rad In [employer] - 05/19/2017 5:30 AM EST EXAMINATION: STONE [...] for further evaluation. Radiology 2017 http://pubs.rsna.org/ doi/full/10.1148/radi ol.7220281110 Managing Incidental Adrenal Nodule > or equal to 1 cm Benign adrenal nodule - No follow up is required (including myelolipomas, adenomas, or nodules stable for > or equal to 1 year) Reference: Tyrone et al. Managing Incidental Findings on Abdominal CT: White Paper of the ACR Incidental Findings Committee. J Am Anup Radiol 2010;7:754-773 Workstation ID: [id number] Invalid Interpretation Code Generate [facility] CT Kidney Stone EXAMINATION: STONE PROTOCOL [...] demonstrate no acute abnormality. Invalid Interpretation Code [facility] Lipaseon 05-19-2017 Interpretation and review of laboratory results Normal Invalid Interpretation Code [facility]) LAB Lipase 39 U/L Invalid Interpretation Code 15 - 65 U/L [facility]) LAB Mint Green Topon 05-19-2017 Extra Tube Hold for add-ons. Invalid Interpretation Code [facility]) LAB Dubberly Drawon 05-19-2017 Creatinine The following orders were created for panel order Dubberly Draw. Procedure Abnormality Status --------- ------ Lavender Top[[id number]] Final result Mint Green Top[[id number]] Final result Please view results for these tests on the individual orders. Invalid Interpretation Code [facility] Work Phone: SCAN OTHER ORDERSon 05-19-20 17 SCAN OTHER ORDERS Ordered by an unspecified provider. Invalid Interpretation Code [facility] Work Phone: Urinalysison 05-19-2017 Bilirubin, Urine Negative Invalid Interpretation Code Negative [facility]) LAB Blood, Urine Negative Invalid Interpretation Code Negative [facility] Hyaline Casts 0-2 Invalid Interpretation Code 0 - 2 /lpf [facility] Interpretation and review of laboratory results Abnormal Invalid Interpretation Code [facility]) LAB Mucus, Urine Rare Invalid Interpretation Code None Seen, Rare /lpf [facility] Nitrite, Urine Negative Invalid Interpretation Code Negative [facility]) LAB RBCs, Urine 4 /hpf High 0 - 3 [facility] Urine, bacteria in sediment None Seen Invalid Interpretation Code None Seen /hpf [facility] Urine, clarity Clear Invalid Interpretation Code Clear [facility]) LAB Urine, color Yellow Invalid Interpretation Code Colorless, Yellow [facility] Urine, glucose presence Negative Invalid Interpretation Code Negative mg/dL [facility]) LAB Urine, ketones presence Negative Invalid Interpretation Code Negative mg/dL [facility]) LAB Urine, leukocyte esterase presence Negative Invalid Interpretation Code Negative [facility] Urine, pH 5.0 [pH] Invalid Interpretation Code 5.0 - 7.0 [facility] Urine, protein Negative Invalid Interpretation Code Negative mg/dL [facility] Urine, specific gravity 1.019 1 Invalid Interpretation Code 1.005 - 1.025 [facility]) LAB Urine, urobilinogen <2.0 Invalid Interpretation Code <2.0 mg/dL [facility]) LAB WBCs, Urine 1 /hpf Invalid Interpretation Code 0 - 5 [facility] Urinalysis Microscopic examination is performed on all urinalysis samples and only positive findings are reported. The test for blood on the chemical analytic portion of urinalysis may also be positive due to hemoglobinuria and myoglobinuria and if red blood cells are present they are quantified by microscopic examination. Invalid Interpretation Code [facility] Vital Signs Date Time Vital Sign Value Performing Clinician Facility 01-05-2025 09:58-0400 Body height 179.07 cm [employer] Work Phone: [facility] 01-05-2025 09:58-0400 Body mass index (BMI) [Ratio] 28.9 kg/m2 [employer] Work Phone: [facility] 01-05-2025 09:58-0400 Body weight 92.75 kg Aaron Ball DO Work Phone: [facility] 01-05-2025 09:58-0400 Diastolic blood pressure 89 mm[Hg] Aaron Ball DO Work Phone: [facility] 01-05-2025 09:58-0400 Heart rate 50 /min Aaron Ball DO Work Phone: [facility] 01-05-2025 09:58-0400 Respiratory rate 12 /min Aaron Ball DO Work Phone: [facility] 01-05-2025 09:58-0400 Systolic blood pressure 139 mm[Hg] Aaron Ball DO Work Phone: [facility] 08-16-2024 08:55-0400 Diastolic blood pressure 65 mm[Hg] Aaron Ball DO Work Phone: [facility] 08-16-2024 08:55-0400 Heart rate 59 /min Aaron Ball DO Work Phone: [facility] 08-16-2024 08:55-0400 Respiratory rate 16 /min Aaron Ball DO Work Phone: [facility] 08-16-2024 08:55-0400 SaO2% (BldA) [Mass fraction] 96 % Aaron Ball DO Work Phone: [facility] 08-16-2024 08:55-0400 Systolic blood pressure 122 mm[Hg] Aaron Ball DO Work Phone: [facility] 08-16-2024 07:12-0400 Body height 179.07 cm Aaron Ball DO Work Phone: [facility] 08-16-2024 07:12-0400 Body weight 92.98 kg Aaron Ball DO Work Phone: [facility] 12-16-2022 08:30-0400 Body height 177.8 cm Aaron Ball Other [facility] [employer] Other 12-16-2022 08:30-0400 Body mass index (BMI) [Ratio] 31.36 kg/m2 Aaron Ball Other [employer] Other 12-16-2022 08:30-0400 Body weight 99.16 kg Aaron Ball Other [employer] Other 12-16-2022 08:30-0400 Diastolic blood pressure 80 mm[Hg] Aaron Ball Other [employer] Other 12-16-2022 08:30-0400 Respiratory rate 12 /min Aaron Ball Other [employer] Other 12-16-2022 08:30-0400 Systolic blood pressure 150 mm[Hg] Aaron Ball Other [employer] Other 09-14-2022 10:00-0400 Body height 177.8 cm Craig Scovanner Other [employer] Other 09-14-2022 10:00-0400 Body mass index (BMI) [Ratio] 31.71 kg/m2 Craig Scovanner Other [employer] Other 09-14-2022 10:00-0400 Body weight 100.25 kg Craig Scovanner Other [employer] Other 09-14-2022 10:00-0400 Diastolic blood pressure 69 mm[Hg] Craig Scovanner Other [employer] Other 09-14-2022 10:00-0400 Systolic blood pressure 138 mm[Hg] Craig Scovanner Other [employer] Other 08-26-2022 10:41-0400 Diastolic blood pressure 80 mm[Hg] DO Aaron Ball Work Phone: [facility] 08-26-2022 10:41-0400 Heart rate 58 /min DO Aaron Ball Work Phone: [facility] 08-26-2022 10:41-0400 Respiratory rate 20 /min DO Aaron Ball Work Phone: [facility] 08-26-2022 10:41-0400 SaO2% (BldA) [Mass fraction] 96 % DO Aaron Ball Work Phone: [facility] 08-26-2022 10:41-0400 Systolic blood pressure 128 mm[Hg] DO Aaron Ball Work Phone: [facility] 08-26-2022 09:19-0400 Body height 177.8 cm DO Aaron Ball Work Phone: [facility] 08-26-2022 09:19-0400 Body temperature 97.8 [degF] DO Aaron Ball Work Phone: [facility] 08-26-2022 09:19-0400 Body weight 97.97 kg DO Aaron Ball Work Phone: [facility] 07-16-2022 09:30-0500 Body height 177.8 cm Aaron Ball Other [facility] [employer] Other 07-16-2022 09:30-0500 Body mass index (BMI) [Ratio] 32.42 kg/m2 Aaron Ball Other [facility] [employer] Other 07-16-2022 09:30-0500 Body weight 102.51 kg Aaron Ball Other [facility] [employer] Other 07-16-2022 09:30-0500 Diastolic blood pressure 76 mm[Hg] Aaron Ball Other [employer] Other 07-16-2022 09:30-0500 Respiratory rate 12 /min Aaron Ball Other [facility] [employer] Other 07-16-2022 09:30-0500 Systolic blood pressure 118 mm[Hg] Aaron Bush Other [employer] Other 11-06-2018 17:53-0400 BMI (Body Mass Index) 31.42 kg/m2 [facility] 11-06-2018 17:53-0400 Body Temperature 97.3 [degF] [facility] 11-06-2018 17:53-0400 BP Diastolic 88 mm[Hg] [facility] 11-06-2018 17:53-0400 BP Systolic 149 mm[Hg] [facility] 11-06-2018 17:53-0400 Height 177.8 cm [facility] 11-06-2018 17:53-0400 Pulse (Heart Rate) 68 /min [facility] 11-06-2018 17:53-0400 Pulse Oximetry 96 % [facility] 11-06-2018 17:53-0400 Respiratory Rate 15 /min [facility] 11-06-2018 17:53-0400 Weight 99.34 kg [facility] 02-17-2018 15:50-0400 BP Diastolic 82 mm[Hg] [facility] 02-17-2018 15:50-0400 BP Systolic 134 mm[Hg] [facility] 02-17-2018 15:50-0400 Pulse (Heart Rate) 62 /min [facility] 02-17-2018 15:50-0400 Pulse Oximetry 95 % [facility] 02-17-2018 15:50-0400 Respiratory Rate 15 /min [facility] 02-17-2018 15:40-0400 Body Temperature 98.01 [degF] [facility] 02-17-2018 09:49-0400 BMI (Body Mass Index) 30.68 kg/m2 [facility] 02-17-2018 09:49-0400 Height 177.8 cm [facility] 02-17-2018 09:49-0400 Weight 97 kg [facility] 05-27-2017 14:00-0500 Body Temperature 97.81 [degF] Laura Jose Manuel [employer] Work Phone: 05-27-2017 14:00-0500 BP Diastolic 71 mm[Hg] Laura Jose Manuel [employer] Work Phone: 05-27-2017 14:00-0500 BP Systolic 133 mm[Hg] [facility]: 05-27-2017 14:00-0500 Pulse (Heart Rate) 52 /min Laura Jose Manuel [employer] Work Phone: 05-27-2017 14:00-0500 Pulse Oximetry 99 % Laura Jose Manuel [employer] Work Phone: 05-27-2017 14:00-0500 Respiratory Rate 11 /min [facility] Work [facility]: 05-27-2017 07:38-0500 BMI (Body Mass Index) 31.09 kg/m2 Laura Jose Manuel [employer] Work Phone: 05-27-2017 07:38-0500 Height 179.1 cm Laura Jose Manuel [employer] Work Phone: 05-27-2017 07:38-0500 Weight 99.7 kg [facility] Work Phone: 05-21-2017 14:38-0500 BMI (Body Mass Index) 31.31 kg/m2 [employer] [facility] Work Phone: 05-21-2017 14:38-0500 Body Temperature 97.81 [degF] [employer] Work Phone: 05-21-2017 14:38-0500 BP Diastolic 95 mm[Hg] [employer] Work Phone: 05-21-2017 14:38-0500 BP Systolic 153 mm[Hg] [employer] Work Phone: 05-21-2017 14:38-0500 Height 179.1 cm [facility] 05-21-2017 14:38-0500 Pulse (Heart Rate) 69 /min [facility]: 05-21-2017 14:38-0500 Pulse Oximetry 93 % [facility]: 05-21-2017 14:38-0500 Weight 100.4 kg [facility]: 05-19-2017 06:36-0500 BP Diastolic 70 mm[Hg] [facility]: 05-19-2017 06:36-0500 BP Systolic 138 mm[Hg] [facility]: 05-19-2017 06:36-0500 Pulse (Heart Rate) 72 /min [facility]: 05-19-2017 06:36-0500 Pulse Oximetry 96 % [facility]: 05-19-2017 06:36-0500 Respiratory Rate 16 /min [facility]: 05-19-2017 04:32-0500 BMI (Body Mass Index) 31.97 kg/m2 [facility] Work [facility]: 05-19-2017 04:32-0500 Height 179.1 [facility] Work Phone: 05-19-2017 04:32-0500 [facility]: 05-19-2017 04:28-0500 Body Temperature 97.11 [degF] [facility] Work [facility]: Encounters Encounter Date Encounter Type Care Provider Facility Start: 01-05-2025 End: 01-05-2025 ambulatory Aaron Eleazar DO Work Phone: [facility] Work Phone: Start: 01-05-2025 End: 01-05-2025 Patient encounter procedure Aaron Ball DO -[facility] Work Phone: Start: 08-16-2024 Non-patient / Non-visit Benjam in Ball DO Work Phone: [facility] Work Phone: Start: 08-16-2024 End: 08-16-2024 Admission to same day surgery center Aaron Ball DO Work Phone: [facility] Work Phone: Start: 08-16-2024 End: 08-16-2024 ambulatory Aaron Ball DO Work Phone: [facility] Work Phone: Start: 03-10-2023 End: 03-10-2023 ambulatory Aaron Ball Other [employer] Other Start: 03-10-2023 Telephone encounter Aaron Ball [facility] Start: 03-04-2023 End: 03-04-2023 ambulatory Aaron Ball Other [employer] Other Start: 03-04-2023 Telephone encounter Aaron Ball [facility] Start: 03-02-2023 End: 03-02-2023 ambulatory Aaron Ball Other [employer] Other Start: 03-02-2023 Telephone encounter Aaron Ball [facility] Start: 12-25-2022 End: 12-25-2022 ambulatory Aaron Ball Other [employer] Other Start: 12-25-2022 Telephone encounter Aaron Ball [facility] Start: 12-24-2022 End: 12-24-2022 ambulatory Aaron Ball Other [employer] Other Start: 12-24-2022 Telephone encounter Aaron Ball [facility] Start: 12-16-2022 End: 12-16-2022 ambulatory Aaron Bush Other [employer] Other Start: 12-16-2022 Patient encounter procedure Aaron Bush [facility] Start: 12-16-2022 Telephone encounter Aaron Howell [facility] Start: 12-10-2022 End: 12-10-2022 ambulatory Aaron Bush Other [employer] Other Start: 12-10-2022 Telephone encounter [facility] Start: 12-04-2022 End: 12-04-2022 ambulatory Aaron Bush Other [employer] Other Start: 12-04-2022 Telephone encounter Aaron Howell [facility] Start: 09-16-2022 End: 09-17-[address] DOCTOR CAMPBELL Facility:[facility] Start: 09-14-2022 End: 09-14-2022 ambulatory Craig Ken Other [employer] Other Start: 09-14-2022 Office outpatient vi sit 15 minutes Craig Ken [facility] Start: 09-09-2022 End: 09-09-2022 ambulatory Aaron Bush Other [employer] Other Start: 09-09-2022 Telephone encounter Aaron Howell Phone Technician Start: 09-08-2022 End: 09-08-2022 ambulatory Imad Asaad Other [employer] Other Start: 09-08-2022 Telephone encounter Imad Asaad [facility] Start: 08-26-2022 Telephone encounter Aaron Howell [facility] Start: 08-26-2022 End: 08-26-2022 Admission to same day surgery center DO Aaron Bush Work Phone: [facility] Work Phone: Start: 08-26-2022 End: 08-26-2022 ambulatory DO Aaron Bush Work Phone: [facility] Work Phone: Start: 08-13-2022 End: 08-13-2022 ambulatory Aaron Bush Other [employer] Other Start: 08-13-2022 Telephone encounter Aaron KING G Phone Technician Start: 07-28-2022 End: 07-28-2022 ambulatory Imad Asaad Other [employer] Other Start: 07-28-2022 Telephone encounter Imad Asaad [facility] Phone Technician Start: 07-16-2022 End: 07-16-2022 ambulatory Aaron Bush Other [employer] Other Start: 07-16-2022 Office outpatient vi sit 25 minutes Aaron Bush [facility] Start: 07-16-2022 Telephone encounter Aaron KING [facility] Start: 07-13-2022 End: 07-14-[address] AARON BUSH Facility:[facility] Start: 06-15-2022 End: 06-15-2022 ambulatory Aaron Bush Other [employer] Other Start: 06-15-2022 Telephone encounter Aaron KING [facility] Start: 03-04-2022 End: 03-05-[address] AARON BUSH Facility:[facility] Start: 12-30-[address] AARON BUSH Facili ty:[facility]1 Start: 12-17-2021 Adult health examination Aaron Bush Other [employer] Other Start: 12-16-2021 End: 12-17-[address] AARON BUSH Facility:[facility] Start: 07-08-2020 End: 07-08-2020 Orders Only Sarika Libby Sibley Work Phone: [facility] Start: 11-06-2018 End: 11-06-2018 Patient encounter procedure NUPUR TONY AL-OBOSI [facility] Start: 11-06-2018 End: 11-06-2018 Office outpatient new 20 minutes Allison Williamson Work Phone: [facility] Comment on above: Abrasion of left eye , initial encounter (Primary Dx) Start: 02-17-2018 End: 02-17-2018 Patient encounter LAURA RICHARD [facility] Start: 02-17-2018 End: 02-17-2018 Patient encounter Laura Richard Work Phone: [facility] Comment on above: Post-op pain (Primar y Dx) Start: 10-22-2017 End: 10-22-2017 Ambulatory LAURA RICHARD [facility] Start: 10-15-2017 End: 10-16-2017 Ambulatory LAURA RICHARD [facility] Start: 10-15-2017 End: 10-15-2017 Ambulatory Laura Richard Work Phone: [facility] CT Scan Start: 08-05-2017 End: 08-05-2017 Ambulatory Laura Richard Work Phone: [facility] Re[facility] Start: 07-29-2017 End: 07-29-2017 Ambulatory Laura Richard Work Phone: [facility] Start: 07-21-2017 End: 07-21-2017 Ambulatory Laura Richard Work Phone: [facility] Start: 05-27-2017 End: 05-27-2017 Patient encounter LAURA RICHARD [facility] Start: 05-27-2017 End: 05-27-2017 Ambulatory Laura Richard Work Phone: [facility] Start: 05-21-2017 Encounter for other preprocedural examination [facility] Start: 05-21-2017 Encounter for preprocedural cardiovascular examination [facility] Start: 05-21-2017 End: 05-21-2017 Patient encounter LAURAANGELINA VIEYRA [facility] Start: 05-21-2017 Office consultation Laura Richard Work Phone: [facility] Preadmission Testing Start: 05-19-2017 End: 05-19-2017 Emergency department patient visit NUPUR TONY [facility] Start: 05-19-2017 End: 05-19-2017 Emergency department patient visit Trang Bray Work Phone: [facility] Encounter for other preprocedural examination [facility] Encounter for preprocedural cardiovascular examination [facility] Procedures Date Procedure Procedure Detail Performing Clinician Start: 08-16-2024 Esophagogastroduodenoscopy Aaron Bush DO Work Phone: Start: 08-26-2022 Esophagogastroduodenoscopy DO Aaron delgado Work Phone: Start: 12-16-[address] AARON BUSH Comment on above: Performed By: #### [facility] ####Farzad [facility] [address] [place] [id number] Tiaamaris Amos Start: 02-17-2018 End: 02-17-2018 Hemoglobin and Hematocrit panel - Blood Laura Vieyra Jose Manuel Work Phone: Start: 01-06-2018 End: 01-06-2018 SCAN OTHER ORDERS Provider Not In System Start: 05-27-2017 End: 05-27-2017 LEFT ANKLE ARTHROSCOPY WITH DEBRIDEMENT, PARTIAL EXCISION TIBIA, BROSTRUM, WEI, TIBIAL OSTEOTOMY Laura Jarrell Richard Work Phone: Depression screening Georgia Bush Other Incision and drainage of abscess Aaron Bush Other Screening for malign ant neoplasm of prostate Aaron Bush Other Plan of Treatment Date Care Activity Detail Author Start: 09-04-2025 Tetanus vaccination [facility] Work Phone: Start: 08-16-2024 [facility] Start: 08-26-2022 End: 08-26-2022 [facility] Start: 01-30-2020 Influenza vaccination given Sequential Influenza Vaccine (#1) [facility] Start: 2019 Pneumococcal vaccination Pneumococcal Vaccine Age 65+ (1 of 2 - PCV13) [facility] Start: 01-29-2019 Influenza vaccination given SEQUENTIAL INFLUENZA VACCINE (Season Ended) [facility] Start: 01-29-2018 Influenza vaccination [facility] Start: 08-12-2017 Ambulatory 08/12/2017 Treatment Rehabilitation Laura Richard, DO [address] [place] [address] [phone] Shila Islas, PT [address] [place] [address] [facility] Start: 08-10-2017 Ambulatory 08/10/2017 Treatment Rehabilitation Laura Richard, DO [address] [place] [address] [phone] Leia Richardson, PT [facility] Start: 08-05-2017 Ambulatory 08/05/2017 Treatment Rehabilitation Laura Richard, DO [address] [place] [address] [phone] Dk Treadwell, BUILDING SURVEYOR [facility] Start: 08-03-2017 Ambulatory 08/03/2017 Treatment Rehabilitation Laura Richard, DO [address] [place] [address] [phone] Leia Richardson, PT [facility] Start: 07-29-2017 Ambulatory 07/29/2017 Treatment Rehabilitation Laura Richard, DO [address] [place] [address] [phone] Shila Islas, PT [address] [place] [address] [facility] Start: 05-27-2017 Ambulatory [facility] Start: 05-21-2017 Ambulatory 05/21/2017 Office Visit Pre-Admission Testing Laura Richard, DO [address] [place] [address] [phone] Pre-op examination (Primary Dx); Varus deformity, not elsewhere classified, left ankle [facility]mission Testing Start: 01-29-2017 Influenza vaccination SEQUENTIAL INFLUENZA VACCINE (#1) [facility] Work Phone: Start: 2014 Zoster vacc, sc ZOSTER VACCINE [facility] Work Phone: Start: 2004 Administration of herpes zoster vaccine Zoster Vaccines (1 of 2) [facility] Start: 2004 Screening for malignant neoplasm of colon [facility] Start: 2004 ZOSTER VACCINES (1 of 2) ZOSTER VACCINES (1 of 2) [facility] Start: 1972 Hepatitis C antibody, confirmatory test Hepatitis C Screening [facility] Start: 1970 COVID-19 Vaccine (1 of 2) COVID-19 Vaccine (1 of 2) [facility] Start: 1969 HIV screening HIV Screening [facility] Start: 1966 Adolescent depression screening assessment Depression Screening (PHQ9) [facility] Start: 1957 History and physical examination, annual for health maintenance Wellness Visit [facility] Start: 1954 Fall risk assessment Falls Risk Assessment [facility] Start: 1954 Hepatitis C antibody, confirmatory test HEPATITIS C SCREENING [facility] Start: 1954 HEPATITIS C SCREENING HEPATITIS C SCREENING [facility] Work Phone: Start: 1954 Prostate specific antigen measurement PSA Level [facility] Start: 1954 Screening colonoscopy COLONOSCOPY [facility] Work Phone: Start: 1954 Screening for malignant neoplasm of colon Colorectal Cancer Screening: Colonoscopy [facility] Start: 1955 US scan of abdominal aorta Abdominal Aortic Ultrasound [facility] End: 05-19-2017 Bacteria aerobode culture Urine Aerobic Culture Routine Once for 1 Occurrences starting 05/19/2017 until 05/19/2017 [facility] Work Phone: Bacteria aerobode culture Urine Aerobic Culture Routine 05/19/2017 6:29 AM EST [facility] Work Phone: Comprehensive metabo lic 2000 panel - Serum or Plasma [facility] ECG 12 Lead ECG 12 Lead Rout ine Pre-op examination Ordered: 05/21/2017 [facility] Work Phone: Patient Education [facility] Work Phone: [facility] Immunizations Immunization Date Immunization Notes Care Provider Fa cility 05-26-2021 COVID-19 Vaccine Pfi zer - Documentation Purposes Only Aaron Ball Other [facility] 11-01-2020 COVID-19 Vaccine Pfi zer - Documentation Purposes Only Aaron Ball Other [facility] 10-11-2020 COVID-19 Vaccine Pfi zer - Documentation Purposes Only Aaron Ball Other [facility] 02-27-2020 Fluzone QIV High-Dos e 65YR+ Aaron Ball DO Work Phone: [facility] 07-19-2019 zoster vaccine recombinant Aaron Ball Other [facility] 07-01-2019 pneumococcal conjuga te vaccine, 13 valent Aaron Ball Other [facility] 05-01-2019 Influenza, injectabl e, Madin Neelam Canine Kidney, quadrivalent with preservative Aaron Ball DO Work Phone: [facility] 12-13-2018 zoster vaccine recombinant Aaron Ball Other [facility] 03-07-2018 influenza, injectabl e, quadrivalent, preservative free Aaron Ball DO Work Phone: [facility] 01-12-2017 influenza, injectabl e, quadrivalent, preservative free Aaron Ball DO Work Phone: [facility] 03-12-2016 influenza, injectabl e, quadrivalent, preservative free Aaron Ball DO Work Phone: [facility] 09-05-2015 pneumococcal polysaccharide vaccine, 23 valent Aaron Ball Other [facility] 09-05-2015 tetanus toxoid, redu mohsen diphtheria toxoid, and acellular pertussis vaccine, adsorbed Aaron Bush DO Work Phone: [facility] Payers Date Payer Category Payer Self-pay 2024 Private Health Insurance CLI [id number] 2020 Medicare [id number] 2016 Unknown [id number] 2016 Unknown [id number] 2016 Unknown [id number] 2016 Unknown [place] GARCIA/PREF/HMO/PPO [id number] 2016-Present [id number] 1959 Medicare [id number] 1959 Medicare [id number] 1954 Unknown [id number] 03 1954 Unknown [id number] 1954 Unknown [id number] 1954 Unknown [id number] 93 1954 Unknown [id number] 93 1954 Unknown [id number] 93 Unknown [id number] Social History Date Type Detail Facility Start: 05-27-2017 End: 08-26-2022 Tobacco smoking status NHIS Former smoker [facility] End: 04-30-2017 History of tobacco use Current smoker [facility] Work Phone: Sex Assigned At Not on file [facility] Work Phone: Start: 05-19-2017 Tobacco smoking status TNIS Current every day smoker [facility] Work Phone: Start: 11-06-2018 End: 08-16-2024 Tobacco smoking status TNIS Current some day smoker [facility] Start: 05-21-2017 Tobacco Comment social [facility] Start: 02-11-2018 Alcohol Comment weekly [facility] Start: 11-06-2018 Tobacco use and exposure Never used [facility] Start: 11-06-2018 Alcohol intake Current drinke r of alcohol (finding) [facility] Sex Assigned At Sex Assigned At [facility] [employer] Other Start: 1955 Sex Assigned At Male F [facility] Start: 08-16-2024 Sex Male (finding) [facility] Medical Equipment Procedure Code Equipment Code Equipment Origin al Text Equipment Identifier Dates [place] 1.45mm #2 Soft Short Rigid Jugger[place] W/Drill Bit - [id number] Start: 05-27-2017 Allograft 5cc Fiber Dbm Stagraft - [id number] Start: 05-27-2017 Graft Femoral He ad - [id number] Start: 05-27-2017 Screw 3.5 X 32mm Low Profile Steven - [id number] Start: 05-27-2017 Screw 3.5 X 34mm Low Profile Steven - [id number] Start: 05-27-2017 Screw 3.5 X 34mm Steven Lock - [id number] Start: 05-27-2017 Screw 3.5 X 12mm Steven Lock - [id number] Start: 05-27-2017 Plate 6hl Fib Lo ck - [id number] Start: 05-27-2017 [place] 1.45mm #2 Soft Short Rigid Jug[place] W/Drill Bit - [id number] Start: 05-27-2017 Allograft 5cc Fiber Dbm Stagraft - [id number] Start: 05-27-2017 Graft Femoral He ad - [id number] Start: 05-27-2017 Screw 3.5 X 32mm Low Profile Steven - [id number] Start: 05-27-2017 Screw 3.5 X 34mm Low Profile Steven - [id number] Start: 05-27-2017 Screw 3.5 X 34mm Steven Lock - [id number] Start: 05-27-2017 Screw 3.5 X 12mm Steven Lock - [id number] Start: 05-27-2017 Plate 6hl Fib Lo ck - [id number] Start: 05-27-2017 [place] 1.45mm #2 Soft Short Rigid J[place] W/Drill Bit - [id number] Start: 05-27-2017 Allograft 5cc Fiber Dbm Stagraft - [id number] Start: 05-27-2017 Graft Femoral He ad - [id number] Start: 05-27-2017 Screw 3.5 X 32mm Low Profile Steven - [id number] Start: 05-27-2017 Screw 3.5 X 34mm Low Profile Steven - [id number] Start: 05-27-2017 Screw 3.5 X 34mm Steven Lock - [id number] Start: 05-27-2017 Screw 3.5 X 12mm Steven Lock - [id number] Start: 05-27-2017 Plate 6hl Fib Lo ck - [id number] Start: 05-27-2017 [place] 1.45mm #2 Soft Short Rigid Jugger[place] W/Drill Bit - [id number] Start: 05-27-2017 Allograft 5cc Fiber Dbm Stagraft - [id number] Start: 05-27-2017 Graft Femoral He ad - [id number] Start: 05-27-2017 Screw 3.5 X 32mm Low Profile Steven - [id number] Start: 05-27-2017 Screw 3.5 X 34mm Low Profile Steven - [id number] Start: 05-27-2017 Screw 3.5 X 34mm Steven Lock - [id number] Start: 05-27-2017 Screw 3.5 X 12mm Steven Lock - [id number] Start: 05-27-2017 Plate 6hl Fib Lo ck - [id number] Start: 05-27-2017 [place] 1.45mm #2 Soft Short Rigid Jugger[place] W/Drill Bit - [id number] Start: 05-27-2017 Allograft 5cc Fiber Dbm Stagraft - [id number] Start: 05-27-2017 Graft Femoral He ad - [id number] Start: 05-27-2017 Plate 6hl Fib Lo ck - [id number] Start: 05-27-2017 Screw 3.5 X 32mm Low Profile Steven - [id number] Start: 05-27-2017 Screw 3.5 X 34mm Low Profile Steven - [id number] Start: 05-27-2017 Screw 3.5 X 34mm Steven Lock - [id number] Start: 05-27-2017 Screw 3.5 X 12mm Steven Lock - [id number] Start: 05-27-2017 Screw 3.5 X 18mm Steven Lock - [id number] Screw 3.5 X 38mm Low Profile Steven - [id number] [place] 1.45mm #2 Soft Short Rigid Jugger[place]not W/Drill Bit - [id number] Start: 05-27-2017 Allograft 5cc Fiber Dbm Stagraft - [id number] Start: 05-27-2017 Graft Femoral He ad - [id number] Start: 05-27-2017 Screw 3.5 X 32mm Low Profile Steven - [id number] Start: 05-27-2017 Screw 3.5 X 34mm Low Profile Steven - [id number] Start: 05-27-2017 Screw 3.5 X 34mm Steven Lock - [id number] Start: 05-27-2017 Screw 3.5 X 12mm Steven Lock - [id number] Start: 05-27-2017 Plate 6hl Fib Lo ck - [id number] Start: 05-27-2017 Plate, Lateral Fibula, Sml, Right Start: 02-17-2018 Pin, Temporary Fixation Start: 02-17-2018 Screw, Locking Start: 02-17-2018 Screw, Locking Start: 02-17-2018 Screw, Locking Start: 02-17-2018 Screw, Non-Locking Start: 02-17-2018 Screw, Non-Locking Start: 02-17-2018 Screw, Non-Locking Start: 02-17-2018 Stagraft Fiber Start: 02-17-2018 Pin, Temporary Fixation Screw, Non-Locking Plate Screws [place] 1.45mm #2 Soft Short Rigid Jugger[place] W/Drill Bit - [id number] Start: 05-27-2017 Allograft 5cc Fiber Dbm Stagraft - [id number] Start: 05-27-2017 Graft Femoral He ad - [id number] Start: 05-27-2017 Screw 3.5 X 32mm Low Profile Steven - [id number] Start: 05-27-2017 Screw 3.5 X 34mm Low Profile Steven - [id number] Start: 05-27-2017 Screw 3.5 X 34mm Steven Lock - [id number] Start: 05-27-2017 Screw 3.5 X 12mm Steven Lock - [id number] Start: 05-27-2017 Plate 6hl Fib Lo ck - [id number] Start: 05-27-2017 Plate, Lateral Fibula, Sml, [...] & Type Note Facility 08-16-2024 Procedure note [facility] 08-16-2024 History and physical note [facility] 07-29-2024 History and physical note Note Date/Time August 16, 2024 8:22am [facility] EN[facility] [address] [place] [address] Gastroenterology H&P Signed Patient: Zena Witt MR#: [id number] : 1955 Acct:[id number] Age/Sex: 69 / M Adm Date: 5 Loc: Room: Type: [facility] Attending Dr: Nino Russell MD Copies [...] Russell M.D. Documented By: Nino Russell MD 08/16/24 0820 Signed By: <Electronically signed by Nino Russell MD> 08/16/24 0822 [facility] Work Phone: [phone]) [phone] Evaluation note* Encounter Date Diagnosis Assessment Notes Treatment Notes Treatment Clinical Notes Feb, FRANCY (generalized anxiety disorder) (ICD-10 - F41.1) [employer] Other 10-05-2023 Evaluation note* Encounter Date Diagnosis Assessment Notes Treatment Notes Treatment Clinical Notes Feb, FRANCY (generalized anxiety disorder) (ICD-10 - F41.1) [employer] Other 10-03-2023 Evaluation note* Encounter Date Diagnosis Assessment Notes Treatment Notes Treatment Clinical Notes Feb, FRANCY (generalized anxiety disorder) (ICD-10 - F41.1) [employer] Other 07-27-2023 Evaluation note* Encounter Date Diagnosis Assessment Notes Treatment Notes Treatment Clinical Notes Nov, Left ventricular systolic dysfunction (LVSD) without heart failure (ICD-10 - I51.9) Nov, Abnormal stress test (ICD-10 - R94.39) [employer] Other 07-19-2023 Evaluation note* Encounter Date Diagnosis [...] (ICD-10 - Z12.5) Yearly KATELYNN and PSA [employer] Other 07-13-2023 Evaluation note* Encounter Date Diagnosis Assessment Notes Treatment Notes Treatment Clinical Notes Nov, Iron deficiency anemia due to chronic blood loss (ICD-10 - D50.0) [employer] Other 07-07-2023 Evaluation note* Encounter Date Diagnosis Assessment Notes Treatment Notes Treatment Clinical Notes Nov, Hypercholesterolemia (ICD-10 - E78.00) Nov, Screening PSA (prost ate specific antigen) (ICD-10 - Z12.5) Nov, High risk medication use (ICD-10 - Z79.899) Nov, IFG (impaired fastin g glucose) (ICD-10 - R73.01) Nov, Anemia, unspecified type (ICD-10 - D64.9) [employer] Other 04-17-2023 Evaluation note* Encounter Date Diagnosis [...] are. Otherwise patient to follow as needed. [employer] Other 03-29-2023 [facility]* Encounter Date Diagnosis [...] They may safely use Tylenol as needed. [employer] Other 01-16-2023 Evaluation note* Encounter Date Diagnosis Assessment Notes Treatment Notes Treatment Clinical Notes May, Acute anemia (ICD-10 - D64.9) [employer] Other 07-19-2022 NotePROCEDURE: XR KNEE LT 3V [...] Electronically authenticated by: SILVIA LI Date: 2021-12-16 21:52[facility] noteNo InformationNort [employer] Other Evaluation noteNo assessment information available [facility] Work Phone: Evaluation note* Diagnosis Onset Date Resolution Status Admit Date Allergic contact dermatitis acute January 05, 2025 9:34am Anemia acute January 05 9:34am Cholelithiasis acute December 9:34am FRANCY (generalized anxiety disorder) acute January 05, 2025 9:34am Gastroesophageal reflux dise ase with esophagitis without hemorrhage acute January 05, 2025 9:34am Hypertriglyceridemia acute Augu 2024 9:34am Idiopathic peripheral neuropathy acu te January 05, 2025 9:34am IFG (impaired fasting glucose) acute January 05, 2025 9:34am Left knee pain acute December 9:34am Obesity acute January 05 9:34am Overweight acute January 05 9:34am Screening PSA (prostate spec ific antigen) acute January 05, 2025 9:34am Medicare annual wellness vis it, subsequent noneactive January 05, 2025 9:34am [facility] Work Phone: History and physical note Author Nino Russell [facility] August 26, 2022 9:51am Note Date/Time August 26, 2022 9:5 1am [facility] EN[facility] [address] [place] [address] Gastroenterology H&P Signed Patient: Zena Witt MR#: [id number] : 1955 Acct:[id number] Age/Sex: 67 / M Adm Date: 3 Loc: Room: Type: [facility] Attending Dr: Nino Russell MD Copies [...] <Electronically signed by Nino Russell MD> 08/26/22 0951 [facility] Work Phone: [employer] general Narrative - Reported* Type Description Date [...] TOTAL KNEE ARTHROPLASTY Hospitalization History SEE SURGICAL HX [employer] Other History general Narrative - Reported* Type [...] 08/17 22 Hospitalization History SEE SURGICAL HX [employer] Other Hospital Discharge instructions Additional Instructions DISCHARGE [...] NOT operate machinery such as power tools, [employer] [place] mowers, snow blowers, sewing machines, etc. for [...] -Follow up with PCP. - Office number [phone]. [facility] Work Phone: Reason for referral (narrative)No reason for referral [facility]: Assessments Diagnosis Varus deformity, [...] your doctor if you can take an prdr-pen-ycqdldn medicine. Take your pain medicine as soon [...] Log into your personal health record on https://[employer] and enter M536 in the Education box [...] sent through Care Everywhere. * FLANK PAIN (ANGUILLAN) in this encounter* Tabitha Fenton CNP - [...] your surgery date, please call us at [phone] Preoperative Medication Instructions In preparation for surgery please continue all of your current medications with the following changes: Zena Witt Home Medication Instructions Prior to Surgery CAILIN:[id number] Printed on:05/21/17 5776 Medication Information Take last dose on Take [...] or as directed by MD . no fxvwowfh-ypgu-voq-folic acid (padgmhvddjum-dbhj-hcwjabgq-folic acid) 3,500-18-0.4 unit-mg-mg Chew Chew and Swallow [...] medications that contain aspirin, such as [place], Pepto- Bismol, Anacin), antiinflammatory medications such as Advil, Motrin, Ibuprofen, Naproxen, Aleve, [place], Pepto-Bismol, Anacin, Diclofenac, Voltaren, Daypro, Etodolac, Ketoprofen, Piroxicam, Relafen, Nabumetone, etc. Also discontinue Vitamin C, Vitamin E, [place]-3 Fatty Acid, Fish Oil or Lovaza, and [...] Log into your personal health record on https://[employer] and enter Z736 in the Education box to learn more about Feeling of an Object in the Eye: Care Instructions. Current as of: February 20, 2018 Content Version: 12.0 4335-4306 [employer]. Care instructions adapted under license by your healthcare professional. If you have questions about a medical condition or this instruction, always ask your healthcare professional. 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 meloxicam (MOBIC) 15 MG tablet jiltufuv-xbiw-uoq-folic acid (bltigydmvwha-vybq-nymgeegq-folic acid) 3,500-18-0.4 unit-mg-mg Chew Chew and Swallow [...] morning . meloxicam (MOBIC) 15 MG tablet ogkivsso-bvda-klz-folic acid (wwnajpqkwnkq-oslk-hjamsars-folic acid) 3,500-18-0.4 unit-mg-mg Chew Chew and Swallow [...] Reason for Referral Reason 08/26/22 Patient cornelius rivas referred for EGD and Colonoscopy Diagnosis 1 Other iron deficienc y anemia (D50.8) Referral Organization [facility] Eleazar witt Referring Provider First Name Aaron Referring Provider Last Name Eleazar Referring Provider Specialty Internal Me dicine Referred Organization [facility] Gastroenterolo gy Referred Provider Nino Russell Referred Address [address],[address] Referred Provider Specialty Gastroentero logy Referral Priority [...] recommended EGD and colonoscopy. Reason 08/12/22 Patient cornelius rivas referred for osteoarthritis of the left knee. Pain interfering with ADL and sleep. He denies swelling, erythema, locking or giving way. Requesting evaluation for joint replacement. Diagnosis 1 Primary osteoarthrit is of left knee (M17.12) Referral Organization [facility] Referring Provider First Name Aaron Referring Provider Last Name Eleazar Referring Provider Specialty Internal Me dicine Referred Organization [facility] Referred Provider Rik Villalobos Referred Address [address] [place],[address] Referred Provider Specialty Orthopedic S urgery Referral Priority Routine Referral Appointment Date 2022-08-12 General Notes Nancy Story 12:04:02 PM >received today, sent P2P Chief Complaint and Reason for Visit Chief Complaint Other Iron Deficienc y Anemia Chief Complaint Admit Date epigastric pain/FABIAN/chronic superficial gastritis August 16, 2024 6:47am epigastric pain/FABIAN/chronic superficial gastritis August 16, 2024 8:20am Chief Complaint Admit Date Poison Dang January 05, 2025 9:3 4am Reason for Visit Admit Date Allergic contact dermatitis January 05, 2025 9:34am Anemia January 05, 2025 9:3 4am Cholelithiasis January 05, 2025 9:3 4am FRANCY (generalized anxiety disorder) Augus t 2024 9:34am Gastroesophageal reflux dise ase with esophagitis without hemorrhage January 05, 2025 9:34am Hypertriglyceridemia January 05, 2025 9: 34am Idiopathic peripheral neuropathy January 05, 2025 9:34am IFG (impaired fasting glucose) December 9:34am Left knee pain January 05, 2025 9:3 4am Obesity January 05, 2025 9:3 4am Overweight January 05, 2025 9:3 4am Screening PSA (prostate specific antigen ) January 05, 2025 9:34am Medicare annual wellness visit, subseque nt January 05, 2025 9:34am Additional Source Comments Allison Clemente, - 05/27/2017 10:29 AM Price Nunn MD - 05/21/2017 4:06 PM Price Nunn MD - 05/21/2017 4:06 PM EST H&P Notes (unrecognized sect ion and content) INTERVAL HISTORY AND PHYSICAL Patient Name: Zena Witt Admit Date: [id number] MR #: [id number] : 1955 The H&P has been reviewed and the patient has been examined. I concur with the findings of the H&P. There are no significant changes. It is appropriate to proceed with the planned procedure. Allison Alberts Jackie, DO 05/27/2017 10:29 AM Formatting of this [...] acceptable for elective surgery based on 2014 [place] [employer]/[place] [employer] Association (ACC/AHA) guidelines on Perioperative Cardiovascular [...] or GERD noted (K21.9) Well controlled with PPI/M3Zciorgm which should be dosed perioperatively on usual [...] EXCISION TIBIA, BROSTRUM, WEI, TIBIAL OSTEOTOMY @ [facility] on 05/27. Patient reports that he [...] 12 hours or as directed by MD lqglqzkb-pqhw-oke-folic acid (vkqeelbaogcc-kzkm-qmxwyjqg-folic acid) 3,500-18-0.4 unit-mg-mg Chew Chew and Swallow [...] kg/m Constitutional--Conversant, in no acute distress Eyes: Rayne conjunctivae, no ptosis. Pupils equal Bilaterally, Anicteric [...] patient for surgery includes - More recent [facility] electronic records reviewed pertinent to history. OUTSIDE [...] acceptable for elective surgery based on 2014 [place] [employer]/[place] [employer] Association (ACC/AHA) guidelines on Perioperative Cardiovascular [...] or GERD noted (K21.9) Well controlled with PPI/V5Nhishhe which should be dosed perioperatively on usual [...] EXCISION TIBIA, BROSTRUM, WEI, TIBIAL OSTEOTOMY @ [facility] on 05/27. Patient reports that he [...] 12 hours or as directed by MD lmtmuege-psfb-dsq-folic acid (rtubfknkqdha-xzrs-ofpbeiud-folic acid) 3,500-18-0.4 unit-mg-mg Chew Chew and Swallow [...] kg/m Constitutional--Conversant, in no acute distress Eyes: Rayne conjunctivae, no ptosis. Pupils equal Bilaterally, Anicteric [...] patient for surgery includes - More recent [facility] electronic records reviewed pertinent to history. OUTSIDE RECORDS REQUESTED NONE in this encounter INTERVAL HISTORY AND PHYSICAL Patient Name: Zena Witt Admit Date: [id number] MR #: [id number] : 1955 The H&P has been reviewed and the patient has been examined. I concur with the findings of the H&P. There are no significant changes. It is appropriate to proceed with the planned procedure. Sriram Vallecillo Jr., DO 02/17/2018 10:38 Pearson this encounter Op Note - JackieAllison marrufo, DO - 05/27/2017 2:06 PM ESTBrief Op Note - Allison Clemente, DO - 05/27/2017 1:04 PM AAYUSH Notes - Audelia Fisher, RN - 05/19/2017 6:34 AM EST Miscellaneous Notes (unrecog nized section and content) ZENA WITT [facility] [id number] N [id number] 1955 DATE 05/27/2017 OPERATIVE REPORT SURGEON LAURA RICHARD, MARKET MASTER ALLISON CLEMENTE, MARKET MASTER 2 ANALI DIANE PA-C PREOPERATIVE DIAGNOSES 1. [...] tissue up to the fibula in a oozpw-aquz-brof fashion. We still had some laxity distally, [...] DO LAURA MONTES DO D 05/27/2017 13:18 [id number] T 05/27/2017 14:01 [facility] Formatting of this note may be different from the original. Brief Post Operative Note Patient Name: Zena Witt : 1955 (61 y.o.) Date of Service: 05/27/2017 [facility]: [id number] Procedure(s): LEFT ANKLE ARTHROSCOPY WITH DEBRIDEMENT, PARTIAL EXCISION TIBIA, BROSTRUM, WEI, TIBIAL OSTEOTOMY Pre-Operative Diagnoses: * LEFT VARUS ANKLE, INSTABILITY, TIBIA EXOSTOSIS Post-Operative Diagnoses: * Same as Pre-Op Diagnosis Surgeon(s) and Role: * Allison Clemente DO - Fellow * Laura Richard DO - Primary Anesthesiologist: Darrius Rand MD CONDITIONING MACHINE OPERATOR: Craig Street CRNA Carbon Sequestration Plant Manager: Keyona Solorio RN Physician Knockout Machine Operator: Anali Diane PA-C Relief Carbon Sequestration Plant Manager: Eden Adam RN Relief Scrub: Debbie Ireland Scrub Person: Harish Dickinson Obed RN: Eden Adam RN; Lorna Miller RN Operative findings: ankle varus, instabilty Intra and immediate post-operative complications: none Type of anesthesia used: general, regional Estimated blood loss: refer to anesthesia record Estimated urine output: refer to anesthesia record Specimen(s): * No specimens in log * Implant(s): Implant Name Type Inv. Item Serial No. Sql Programmer Lot No. LRB No. Used Action GRAFT FEMORAL HEAD - [id number] Graft GRAFT FEMORAL HEAD LIFENET Left 1 Implanted ANCHOR 1.45MM #2 SOFT SHORT RIGID JUGGERKNOT W/DRILL BIT - [id number] [place] ANCHOR 1.45MM #2 SOFT SHORT RIGID JUGGERKNOT W/DRILL BIT BIOMET SPORT [id number] Left 1 Implanted ALLOGRAFT 5CC FIBER DBM STAGRAFT - [id number] Bone ALLOGRAFT 5CC FIBER DBM STAGRAFT [employer] [id number] Left 1 Implanted SCREW 3.5 X 32MM LOW PROFILE STEVEN - [id number] SCREW 3.5 X 32MM LOW PROFILE STEVEN BIOMET SP/TR Left 1 Implanted SCREW 3.5 X 34MM LOW PROFILE STEVEN - [id number] SCREW 3.5 X 34MM LOW PROFILE STEVEN BIOMET SP/TR Left 2 Implanted SCREW 3.5 X 34MM STEVEN LOCK - [id number] SCREW 3.5 X 34MM STEVEN LOCK BIOMET SP/TR Left 1 Implanted SCREW 3.5 X 12MM STEVEN LOCK - [id number] SCREW 3.5 X 12MM STEVEN LOCK BIOMET SP/TR Left 1 Implanted PLATE 6HL FIB LOCK - [id number] PLATE 6HL FIB LOCK BIOMET SP/TR Left 1 Implanted Drain(s): Wound(s): Allison Clemente, 05/27/2017 1:04 PM in this encounter Patient is resting comfortably. Call light within reach. Patient updated on continued plan of care. Formatting of this note may be different from the original. PCP - Nupur Gil MD [phone] Chief Complaint Patient presents with Flank Pain Abdominal Pain HPI: Dictation on: 05/19/2017 4:40 AM by: TRANG BRAY [[id number]] Review of Systems Constitutional: No fevers Skin: [...] MG CAPSULE TAKE 1 CAPSULE DAILY @ [facility] for GERD GEMFIBROZIL (LOPID) 600 MG TABLET TAKE 1 TABLET TWICE A DAY for cholesterol @ morning GEMFIBROZIL (LOPID) 600 MG TABLET Take 600 mg by mouth. IBUPROFEN (ADVIL,MOTRIN) 200 MG TABLET Take 200 mg by mouth every 6 (six) hours as needed for pain. ZTUFMAXO-RVQB-BRM-FOLIC ACID (JNPASUEHLYJG-AOJG-EWBCCRGQ-FOLIC ACID) 3,500-18-0.4 UNIT-MG-MG CHEW Chew and Swallow. [...] following orders were created for panel order Dubberly Draw. Procedure Abnormality Status --------- ------ Lavender Top[[id number]] Final result Mint Green Top[[id number]] Final result Please view results for these tests on the individual orders. LAVENDER TOP MINT GREEN TOP CBC AND DIFFERENTIAL Narrative: The following orders were created for panel order CBC w/ Diff. Procedure Abnormality Status --------- ------ CBC Auto Differential[[id number]] Abnormal Final result Please view results for [...] chest CT for further evaluation. Radiology 2017 http://pubs.rsna.org/doi/full/10.1148/radiol.3971980980 Managing Incidental Adrenal Nodule > or equal to 1 cm Benign adrenal nodule - No follow up is required (including myelolipomas, adenomas, or nodules stable for > or equal to 1 year) Reference: Tyrone et al. Managing Incidental Findings on Abdominal CT: White Paper of the ACR Incidental Findings Committee. J Am Anup Radiol 2010;7:754-773 Workstation ID: [id number] Vital Signs During ED Visit (as charted by nursing) Patient Vitals for the past 24 hrs: BP Temp Temp src Pulse Resp SpO2 Height Weight 05/19/17 0636 138/70 - - 72 16 96 % - - 05/19/17 0432 - - - - - - 5' 10.5 102.5 kg (226 lb) 05/19/17427 (!) 153/82 97.1 F (36.2 C ) [...] (62 y.o.) Date of Service: 02/17/2018 CSN: [id number] Procedure(s): LEFT TIBIAL NON UNION BONE GRAFT, CALCANEAL BONE GRAFT Pre-Operative Diagnoses: * LEFT TIBIA NON UNION Post-Operative Diagnoses: Surgeon(s) and Role: * Laura Richard DO - Primary * Jarrell Cuellar DO - Resident - Assisting Anesthesiologist: Tello London MD; Trenton Qureshi MD CONDITIONING MACHINE OPERATOR: Adia Hodge CRNA Carbon Sequestration Plant Manager: Keyona Solorio RN Relief Carbon Sequestration Plant Manager: Eden Adam RN Relief Scrub: ST Ada Scrub Person: ST Obed Renteria RN: Yojana Ordaz RN Operative findings: per op note Intra and immediate post-operative complications: none Type of anesthesia used: Regional, General Estimated blood loss: 25 mL Estimated urine output: 0 mL Specimen(s): * No specimens in log * Implant(s): Implant Name Type Inv. Item Serial No. Sql Programmer Lot No. LRB No. Used Action [employer]OTR[employer] [id number] Left 1 Implanted PLATE, LATERAL FIBULA, SML, [...] Unchd 02/17/2018 3:30 PM Wound Bed Characteristics LARUA (Unable to assess) 02/17/2018 2:03 PM Maile-wound [...] (unrecognized section and content) Patient Instructions for [facility]: Prior to surgery: Please be sure to wear loose, comfortable clothing and non-skid shoes Bring your health insurance information and a photo ID, as well as your Living Will or Durable Power of Bi Tester for Healthcare if it is available to you. Bring your cane/walker any applicable assistive device. If you currently use a CPAP, please bring this device with you on the day of surgery. Bring a list of your medications with the name of the medication, dose and how often you are taking it. Be sure to include herbal preparations and zzqa-jfe-uqnhhfd medications on this list. Do not eat [...] of lotions, perfumes or powders. All nail icelandic is to be removed from fingernails and [...] the day of your surgery/procedure. Parking at [facility] is free. Please park in the lot in front of the main lobby. Enter the Main Entrance where a Cotton Picker Liaison at the information desk will greet [...] of your surgery preparation process here at [facility]. It will provide you with additional important [...] DOS in this encounter Patient Instructions for [facility]: Prior to surgery: Please be sure to wear loose, comfortable clothing and non-skid shoes Bring your health insurance information and a photo ID, as well as your Living Will or Durable Power of Bi Tester for Healthcare if it is available to you. Bring your cane/walker any applicable assistive device. If you currently use a CPAP, please bring this device with you on the day of surgery. Bring a list of your medications with the name of the medication, dose and how often you are taking it. Be sure to include herbal preparations and grsr-nqm-mecorll medications on this list. Do not eat [...] of lotions, perfumes or powders. All nail icelandic is to be removed from fingernails and [...] the day of your surgery/procedure. Parking at [facility] is free. Please park in the lot in front of the main lobby. Enter the Main Entrance where a Cotton Picker Liaison at the information desk will greet [...] of your surgery preparation process here at [facility]. It will provide you with additional important [...] section and content) DATE CREATED AUTHOR 11/17/2017 [facility] DATE CREATED AUTHOR AUTHOR'S ORGANIZ ATION 11/17/2017 [facility] nter DATE CREATED AUTHOR AUTHOR'S ORGANIZ ATION 03/18/2018 [facility] DATE CREATED AUTHOR AUTHOR'S ORGANIZ ATION 01/09/2019 [facility] DATE CREATED AUTHOR AUTHOR'S ORGANIZ ATION 08/22/2020 [facility] DATE CREATED AUTHOR AUTHOR'S ORGANIZ ATION 09/20/2022 [facility] DATE CREATED AUTHOR AUTHOR'S ORGANIZ ATION 08/26/[address] [facility] Reason for Visit (unrecogniz ed [...] Inactive Member Role Status Dates Aaron Bush DO [...] Act jose luis Start: August 16, 2024 Team Status: Inactive Member Role Status Dates Aaron Bush DO Primary Care Provider Active Start: January 05, 2025 End: January 05, 2025 Aaron Bush DO Attending Provider Active Sta rt: January 05, 2025 End: January 05, 2025 Goals (unrecognized section and content) Goals may be documented in a n alternate section FOR RECORDS PERTAINING TO PATIENTS WHO ARE [...] BE BASED ON THE PRIMARY CLINICAL RECORDS. [facility] [employer] [facility]. provides no warranty or guarantee of the accuracy or completeness of information in this document.
[2025-01-17 08:40] LABS: Hematocrit 41.6 % (42.0-54.0); Hemoglobin 13.7 g/dL (14.0-18.0); Immature Granulocytes Abs Auto 0.02 10^3/uL (0.00-0.03); Immature Granulocytes Pct Auto 0.2 % (0.0-0.5); Lymphocytes Absolute Auto 3.1 10^3/uL (1.2-3.8); Mean Corpuscular HGB Conc 32.9 g/dL (29.9-35.2); Mean Corpuscular Hemoglobin 30.6 pg (25.9-34.0); Mean Corpuscular Volume 92.9 fL (80.0-94.0); Platelet Count 180 10^3/uL (150-450); Red Blood Count 4.48 10^6/uL (4.70-6.10); White Blood Count 8.6 10^3/uL (4.0-11.0)
[2025-01-17 09:48] LABS: Alanine Aminotransferase 17 U/L (16-63); Albumin Globulin Ratio 0.9; Albumin Level 3.8 g/dL (3.4-5.0); Alkaline Phosphatase 86 U/L (46-116); Anion Gap 10.6; Aspartate Amino Transferase 16 U/L (15-37); Blood Urea Nitrogen 32.0 mg/dL (7.0-18.0); Calcium 9.3 mg/dL (8.5-10.1); Carbon Dioxide 30.0 mmol/L (21.0-32.0); Chloride 105 mmol/L (98-107); Cholesterol 155 mg/dL (<=200); Estimated GFR (African America >60 (>=60 mL/min/1.73m^2); Estimated GFR (Non-African Ame >60 (>=60 mL/min/1.73m^2); Globulin 4.0 g/dL; Glucose 102 mg/dL (74-106); HDL Cholesterol 50 mg/dL (40-60); Potassium 4.6 mmol/L (3.5-5.1); Sodium 141 mmol/L (136-145); Total Protein 7.8 g/dL (6.4-8.2); Triglycerides 123 mg/dL (<=150); VLDL CHOLESTEROL 24.6 mg/dL
== END 2025-01-17 07:37 | disposition home or self-care (01) ==
LOC: LAB 07:38
PROVIDERS: PCP Internal Medicine; Visit Provider Internal Medicine
DX: E78.1 Pure hyperglyceridemia (principal); R73.01 Impaired fasting glucose; D63.8 Anemia in other chronic diseases classified elsewhere; Z79.899 Other long term (current) drug therapy; Z12.5 Encounter for screening for malignant neoplasm of prostate; R73.9 Hyperglycemia, unspecified
CPT/HCPCS: 36415; 80053; 80061; 83036; 85025; G0103